=== PATIENT | female | born 1950 | race Two or more races ===

== ENCOUNTER 2024-01-17 13:44 | Inpatient (IN) | payer MEDICAID, SELFPAY ==
[2024-01-17] VITALS (13 sets, daily range): BP systolic 149–209; BP diastolic 50–87; PULSE 88–93; RESP 0–28; TEMP 36.8–37.1; O2SAT 94–99; BMI 28.3
--- NOTE | 2024-01-17 14:44 | EKG_ITS ---
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
--- NOTE | 2024-01-17 14:48 | XR_ITS ---
Examination: CT abdomen with intravenous contrast CT pelvis with intravenous contrast 2-D coronal reconstructions 2-D sagittal reconstructions Date and time of exam:January 17, 2024 1551 hrs. Indications: Generalized abdominal pain nausea vomiting today. CTDI: vol (mGy) 10 DLP: (mGycm) 540 Technique: Multiple axial sections of the abdomen and pelvis have been obtained. 64 slice high-resolution scanner used. 3 mm axial sections have been obtained, post intravenous injection 60 cc [id number] 2-D sagittal, coronal reconstructions obtained. Low dose protocols were performed. One or more of the following dose reduction techniques were used; automated exposure control, adjustment of the mA and/or KV according to patient size, use of iterative reconstruction technique. Findings: Large right pleural effusion mild left pleural effusion No focal liver or splenic lesions Suspicious for small stones versus gallbladder sludge Atrophic kidneys Heavy vascular calcification Abundant stool in the colon No diverticulitis Atrophic uterus Marked thickening of the rectal wall with marked inflammatory change contracted urinary bladder with marked urinary bladder wall thickening Diffuse thickening of the iliopsoas muscle including anterior to the left hip Severe osteopenia Impression: Large right pleural effusion Recommend hepatobiliary sonography follow-up Atrophic kidneys Marked abnormal thickening of the rectal wall with perirectal inflammatory change, differential would include proctitis, rectal tumor, recommend direct inspection Diffuse thickening of the left iliopsoas muscle, differential would include infectious mass, hematoma, less likely tumor infiltration but not excluded, clinical correlation advised, recommend MRI pelvis upper thigh follow-up Cystitis pattern
[2024-01-17] MEDS: fentaNYL CIT INJ 50 mCg/ML AMP 2ML 25 MCG IV (15:10)
--- NOTE | 2024-01-17 15:13 | EDNOTE_ITS ---
ED Abdominal Pain RME/HPI General Chief Complaint: Shortness of Breath/Dyspnea Stated complaint: SOB Time seen by provider: 01/17/24 13:55 Arrival date/time: 01/17/24 13:44 RME / HPI RME / HPI narrative: HPI Communication: Professional remote translation services were utilized for this conversation. The patient speaks Mohawk. Patient: 73-year-old female presenting to the emergency department by ambulance. Chief Complaint: Severe left lower quadrant abdominal pain since last night. Crampy in nature and cannot identify any aggravating or alleviating factors History: * The pain began last night and is associated with nausea, vomiting, and diarrhea. * The patient denies any recent travel, sick contacts, or use of antibiotics. * She has not taken any medication for her pain. * Her past medical history includes diabetes and hypertension. * The patient noted that her blood pressure was high at home. * She reports vomiting her medications this morning. Related Data Home Medications ?Medication ?Instructions ?Recorded ?Confirmed calcium acetate(phosphat bind) 667 667 mg PO TIDWM 06/08/23 06/08/23 mg tablet mirtazapine 15 mg tablet 15 mg PO HS 06/08/23 06/08/23 vitamin B complex-vitamin C-folic 0.8 tab PO QDAY 06/08/23 06/08/23 acid 0.8 mg tablet (Carmel-Sanjana) Previous Rx's ?Medication ?Instructions ?Recorded atorvastatin 40 mg tablet 40 mg PO QPM #30 tabs 08/12/22 ferric citrate 210 mg iron tablet 210 mg PO QDAY #30 tabs 08/12/22 (Auryxia) pen needle, diabetic 31 gauge x #100 ea 08/12/2205/02 (Comfort EZ Pen Elliott) sertraline 100 mg tablet 100 mg PO HS 1 month #30 tabs 08/12/22 albuterol sulfate 90 mcg/actuation 2 puff inhalation QID PRN 07/24/23 aerosol inhaler (Ventolin HFA) shortness of breath or wheezing #8.5 grams hydralazine 100 mg tablet 100 mg PO TID 60 days #180 tabs 12/06/23 carvedilol 12.5 mg tablet 25 mg (2 x 12.5 mg) PO BIDWM #60 12/08/23 tabs valsartan 160 mg tablet 160 mg PO BID #60 tabs 12/08/23 clonidine 0.2 mg/24 hr weekly 0.2 mg topical Q7D #4 ea 12/10/23 transdermal patch spironolactone 50 mg tablet 50 mg PO BID #60 tabs 12/10/23 apixaban 5 mg tablet (Eliquis) 5 mg PO BID #30 tabs 12/11/23 nifedipine 60 mg tablet,extended 60 mg PO BID #30 tabs 12/11/23 release 24 hr Allergies Allergy/AdvReac Type Severity Reaction Status Date / Time No Known Allergies Allergy Verified 09/09/23 14:45 Course Quality Measures none Orders Category Date Time Status CT Screening NOW Care 01/17/24 14:48 Active EKG (ED ONLY) *Do not use* NOW Care 01/17/24 14:[address] abdomen pelvis w con Stat Exams 01/17/24 14:48 Completed EKG (ED Only) Stat Exams 01/17/24 14:44 Draft CBC Stat Lab 01/17/24 15:11 Completed Comprehensive Metabolic Panel Stat Lab 01/17/24 15:11 Completed Magnesium Stat Lab 01/17/24 15:11 Completed Troponin I Stat Lab 01/17/24 15:11 Completed Troponin I Stat Lab 01/17/24 17:41 Completed fentaNYL INJ [Sublimaze Inj] Med 01/17/24 14:44 Discontinued 25 mcg IV X1 ONE hydrALAZINE HCL [Apresoline] Med 01/17/24 14:44 Discontinued 10 mg PO X1 ONE Vital Signs Vital signs: Vital Signs Temperature 98.8 F 01/17/24 13:55 Pulse Rate 90 01/17/24 13:55 Respiratory Rate 28 H 01/17/24 13:55 Blood Pressure 209/76 H 01/17/24 13:55 Pulse Oximetry (%) 99 01/17/24 13:55 Oxygen Delivery Method Room Air 01/17/24 13:55 Abdominal Pain [facility] Patient data External records reviewed:: [facility] previous records Clinical information provided by:: patient and EMS Social determinants that could affect healthcare access:: none Patient has the following chronic illnesses:: Patient is a very poor historian. How is presenting disease/condition affected by chronic disease/condition?: caused by Evaluation data The following diagnostics were reviewed and interpreted by me:: lab results Lab and/or radiology exams considered but not ordered:: See MDM Interpretation Summary: See MDM Medications / Prescriptions Medications or Prescriptions considered but not ordered:: Not applicable Medication administrations:: Medication Administration History Discontinued Medications Fentanyl Citrate (Fentanyl Cit Inj 50 Mcg/Ml Amp 2ml) 25 mcg IV X1 ONE Stop: 01/17/24 14:45 Last Admin: 01/17/24 15:10 Dose: 25 mcg Documented By: LEXI Hydralazine HCl (Hydralazine Hcl 10 Mg Tablet) 10 mg PO X1 ONE Stop: 01/17/24 14:45 Last Admin: 01/17/24 15:22 Dose: 10 mg Documented By: Noted Consultations Consultation(s) initiated? (list below): No Diagnosis Differential diagnosis abdominal pain: abdominal pain Most likely diagnosis given after review of the tests above:: CAD diagnose Admission Indicated Admission indicated?: not indicated Admission Request Was there a request for admission?: No Disposition Plan Disposition Plan: Discharge Discharge Attestation Discharge Attestation: The patient and all family members were given an opportunity to ask questions an d understood the discharge instructions. Discharge instructions specifically effects, indications for sooner follow up or return to the emergency department, and the expected course of current diagnosis. Patient condition: Stable Discharge Plan Plan Facility Pt Being Transferred to: Other-Specify in comment Disposition Comment: Care was transitioned to Dr. Finn Patient condition on transfer: Stable Prescriptions/Referrals Prescriptions/Med Rec: No Action (DME) pen needle, diabetic [Comfort EZ Pen Elliott] 31 gauge x 3/16 needle See Rx Instructions .Route Qty: 100 0RF Rx Instructions: As directed atorvastatin 40 mg tablet 40 mg PO QPM Qty: 30 0RF sertraline 100 mg Tablet 100 mg PO HS 30 Days Qty: 30 0RF Auryxia 210 mg iron tablet 210 mg PO QDAY Qty: 30 0RF Rx Instructions: administer with a meal calcium acetate(phosphat bind) 667 mg tablet 667 mg PO TIDWM Patient Comments: TAKE 1 TABLET BY MOUTH THREE TIMES DAILY Carmel-Sanjana 0.8 mg tablet 0.8 tab PO QDAY Patient Comments: TAKE 1 TABLET BY MOUTH ONCE DAILY FOR 90 DAYS mirtazapine 15 mg tablet 15 mg PO HS hydralazine 100 mg tablet 100 mg PO TID 60 Days Qty: 180 0RF carvedilol 12.5 mg Tablet 25 mg PO BIDWM Qty: 60 0RF valsartan 160 mg tablet 160 mg PO BID Qty: 60 0RF spironolactone 50 mg tablet 50 mg PO BID Qty: 60 0RF clonidine 0.2 mg/24 hr patch weekly 0.2 mg topical Q7D Qty: 4 0RF nifedipine 60 mg tablet extended release 24hr 60 mg PO BID Qty: 30 0RF Eliquis 5 mg tablet 5 mg PO BID Qty: 30 0RF albuterol sulfate [Ventolin HFA] 90 mcg/actuation HFA aerosol inhaler 2 puff inhalation QID PRN (Reason: shortness of breath or wheezing) Qty: 8.5 0RF Referrals: Carlos Saunders MD [Primary Care Provider] - In 1 week Problem List Clinical Impression: Abdominal pain Patient/Caregiver Discharge Instructions Print Language: Mohawk
[2024-01-17 15:21] LABS: Basophils # (Auto) 0.1 Thou/mm3 (0.0-0.2); Basophils % (Auto) 1 % (0-2.5); Eosinophils % (Auto) 0 % (0-10); Hematocrit 34.2 % (36.0-46.0); Hemoglobin 11.2 g/dL (12.0-16.0); Immature Granulocytes % (Auto) 0 % (0-0); Immature Granulocytes Auto 0.02 Thou/mm3 (0.00-0.00); Lymphocytes # (Auto) 0.8 Thou/mm3 (1.0-4.8); Lymphocytes % (Auto) 7 % (10-50); Mean Corpuscular HGB Conc 32.7 g/dl (31.0-37.0); Mean Corpuscular Hemoglobin 30.4 pg (25.0-35.0); Mean Corpuscular Volume 93 fL (80-100); Monocytes # (Auto) 0.9 Thou/mm3 (0.0-0.8); Monocytes % (Auto) 8 % (0-12); Neutrophils % (Auto) 84 % (37-80); Nucleated Red Blood Cell % 0 /100 WBC (0); Platelet Count 298 Thou/mm3 (140-440); RDW Standard Deviation 57.1 fL (36.4-46.3); Red Blood Count 3.69 Miln/mm3 (4.00-5.20); White Blood Count 10.8 Thou/mm3 (3.6-11.0)
[2024-01-17] MEDS: hydrALAZINE HCL 10 MG TABLET PO (15:22)
[2024-01-17 15:51] LABS: Alanine Aminotransferase 8 U/L (10-49); Albumin, Serum 4.4 gm/dL (3.4-4.8); Albumin/Globulin Ratio 1.5 (1.2-2.2); Alkaline Phosphatase 153 U/L (46-116); Anion Gap 9 (7-16); Aspartate Amino Transferase 22 U/L (0-34); BUN/Creatinine Ratio 8 Ratio (12-20); Bilirubin,Total 0.2 mg/dL (0.3-1.2); Blood Urea Nitrogen 36 mg/dL (9-23); Calcium 9.9 mg/dL (8.3-10.6); Calcium (Corrected) 9.9 mg/dL (8.5-10.1); Carbon Dioxide 31.1 mMol/L (20.0-31.0); Chloride 92 mMol/L (98-107); Creatinine (Component) 4.6 mg/dL (0.6-1.3); Estimated Creatinine Clearance 10.6 mL/min (>60); Glucose 130 mg/dL (74-106); Magnesium 2.2 mg/dL (1.6-2.6); Osmolality,Calculated 274 (275-295); Potassium 4.5 mMol/L (3.4-5.1); Sodium 132 mMol/L (136-145); Total Protein 7.4 gm/dL (5.7-8.2); eGFR 10 See Note
[2024-01-17 15:56] LABS: Troponin I 0.051 ng/mL (0.0-0.045)
[2024-01-17 18:17] LABS: Troponin I 0.047 ng/mL (0.0-0.045)
--- NOTE | 2024-01-17 19:10 | PD.EDABDPN ---
ED Abdominal Pain RME/HPI General Chief Complaint: Shortness of Breath/Dyspnea Stated complaint: SOB Time seen by provider: 01/17/24 13:55 Arrival date/time: 01/17/24 13:44 RME / HPI RME / HPI narrative: Care assumed from Dr. Lewis at change of shift. 73-year-old female patient complaining of multiple episodes of vomiting throughout the day today with associated left lower quadrant abdominal pain. Received fentanyl 25mcg and hydralazine 10 mg per previous provider. Still c/o pain. Blood pressure still elevated. Denies fever. c/o SOB which happens often. Related Data Home Medications ?Medication ?Instructions ?Recorded ?Confirmed calcium acetate(phosphat bind) 667 667 mg PO TIDWM 06/08/23 06/08/23 mg tablet mirtazapine 15 mg tablet 15 mg PO HS 06/08/23 06/08/23 vitamin B complex-vitamin C-folic 0.8 tab PO QDAY 06/08/23 06/08/23 acid 0.8 mg tablet (Carmel-Sanjana) Previous Rx's ?Medication ?Instructions ?Recorded atorvastatin 40 mg tablet 40 mg PO QPM #30 tabs 08/12/22 ferric citrate 210 mg iron tablet 210 mg PO QDAY #30 tabs 08/12/22 (Auryxia) pen needle, diabetic 31 gauge x #100 ea 08/12/2205/02 (Comfort EZ Pen [place]) sertraline 100 mg tablet 100 mg PO HS 1 month #30 tabs 08/12/22 albuterol sulfate 90 mcg/actuation 2 puff inhalation QID PRN 07/24/23 aerosol inhaler (Ventolin HFA) shortness of breath or wheezing #8.5 grams hydralazine 100 mg tablet 100 mg PO TID 60 days #180 tabs 12/06/23 carvedilol 12.5 mg tablet 25 mg (2 x 12.5 mg) PO BIDWM #60 12/08/23 tabs valsartan 160 mg tablet 160 mg PO BID #60 tabs 12/08/23 clonidine 0.2 mg/24 hr weekly 0.2 mg topical Q7D #4 ea 12/10/23 transdermal patch spironolactone 50 mg tablet 50 mg PO BID #60 tabs 12/10/23 apixaban 5 mg tablet (Eliquis) 5 mg PO BID #30 tabs 12/11/23 nifedipine 60 mg tablet,extended 60 mg PO BID #30 tabs 12/11/23 release 24 hr Allergies Allergy/AdvReac Type Severity Reaction Status Date / Time No Known Allergies Allergy Verified 09/09/23 14:45 Review of Systems Review of Systems Narrative Review of Systems: CONST: Negative for fever, body aches and chills. HENT: Negative for neck pain/stiffness, headache, congestion, sore throat, swelling. EYES: Negative for discharge/pain or vision changes. RESP: Negative for cough/hemoptysis and shortness of breath. CV: Negative chest pain, difficulty breathing, palpitations. ABD: pain, nausea, vomiting. : Negative increase frequency, dysuria, blood in urine or stool. MUSC: Negative for muscle aches, edema. SKIN: Negative rash, lesions/sores. NEURO: Negative headache, dizziness, weakness. ED Exam Narrative Physical exam: GENERAL APPEARANCE: alert and oriented x 4 HEENT: Normocephalic, atraumatic; pupils equal, round, reactive to light; EOMI; mucous membranes pink, moist; oropharynx clear NECK: Supple LUNGS: Tachypneic, fine crackles, decreased breath sounds right lower lung clemons HEART: Regular rate, regular rhythm; normal S1, S2; no murmurs ABDOMEN: non distended; normal BS; soft, LLQ tenderness, mild guarding, no rebound; no masses, no organomegaly, no hernia BACK: no CVA tenderness EXTREMITIES: atraumatic; no edema NEUROLOGIC: awake; alert and oriented x4; cranial nerves II-XII grossly intact; no focal sensory or motor deficits PSYCHIATRIC: appropriate mood and affect SKIN: warm, dry, pallor; no rashes Course Quality Measures none Orders Category Date Time Status Admit to Inpatient Status Routine Admission 01/17/24 20:59 Active Patient Condition Routine Admission 01/17/24 20:59 Ordered Bedside COVID-19 Antigen Test NOW Care 01/17/24 21:[address] Screening NOW Care 01/17/24 14:48 Active EKG (ED ONLY) *Do not use* NOW Care 01/17/24 14:45 Completed Notify provider NEEDED Care 01/17/24 20:59 Active Obtain weight NOW Care 01/17/24 20:59 Active Sequential Compression Device QSHIFT Care 01/17/24 21:04 Active Consult to Nephrology Stat Cons 01/17/24 21:15 Ordered Diet Renal Diet 01/17/[address] abdomen pelvis w con Stat Exams 01/17/24 14:48 Completed EKG (ED Only) Stat Exams 01/17/24 14:44 Draft XR chest 1V portable Stat Exams 01/17/24 19:18 Completed Blood Culture (Lab) Routine Lab 01/17/24 21:35 Received CBC AM DRAW Lab 01/18/24 05:00 Ordered CBC AM DRAW Lab 01/19/24 05:00 Ordered CBC AM DRAW Lab 01/20/24 05:00 Ordered CBC Stat Lab 01/17/24 15:11 Completed Comprehensive Metabolic Panel AM DRAW Lab 01/18/24 05:00 Ordered Comprehensive Metabolic Panel AM DRAW Lab 01/19/24 05:00 Ordered Comprehensive Metabolic Panel AM DRAW Lab 01/20/24 05:00 Ordered Comprehensive Metabolic Panel Stat Lab 01/17/24 15:11 Completed Magnesium AM DRAW Lab 01/18/24 05:00 Ordered Magnesium AM DRAW Lab 01/19/24 05:00 Ordered Magnesium AM DRAW Lab 01/20/24 05:00 Ordered Magnesium Stat Lab 01/17/24 15:11 Completed Phosphorous AM DRAW Lab 01/18/24 05:00 Ordered Phosphorous AM DRAW Lab 01/19/24 05:00 Ordered Phosphorous AM DRAW Lab 01/20/24 05:00 Ordered Troponin I Stat Lab 01/17/24 15:11 Completed Troponin I Stat Lab 01/17/24 17:41 Completed Acetaminophen Tab [Tylenol Tab] Med 01/17/24 20:59 Active 650 mg PO Q6H PRN Acetaminophen Tab [Tylenol Tab] Med 01/17/24 21:04 Active 650 mg PO Q6H PRN Heparin Inj Med 01/18/24 06:00 Active 5,000 unit SC Q8HR Morphine Inj Med 01/17/24 19:14 Discontinued 5 mg IVP X1 ONE Ondansetron Inj [Zofran Inj] Med 01/17/24 21:04 Active 4 mg IV Q6H PRN Ondansetron Inj [Zofran Inj] Med 01/17/24 19:14 Discontinued 4 mg IV X1 ONE Pantoprazole Inj [Protonix Inj] Med 01/18/24 09:00 Active 40 mg IVP QDAY Piper/Tazo 2.25 gm [Zosyn] Med 01/17/24 19:15 Discontinued 2.25 gm in 50 ml IV X1 Piper/Tazo Inj [Zosyn Inj] 3.375 gm Med 01/17/24 20:21 Discontinued Sodium Chloride 0.9% (P) [Ns 0.9% (P)] 50 ml IV X1 Piperacillin/Tazo 2.25GM Inj [Zosyn Inj] 2.25 gm Med 01/18/24 06:00 Ordered Sodium Chloride 0.9% (P) [Ns 0.9% (P)] 50 ml IV Q6HR Senna [Senokot] Med 01/18/24 09:00 Active 1 tab PO QDAY cloNIDine HCL [Catapres] Med 01/17/24 19:17 Discontinued 0.2 mg PO X1 ONE fentaNYL INJ [Sublimaze Inj] Med 01/17/24 14:44 Discontinued 25 mcg IV X1 ONE hydrALAZINE HCL [Apresoline] Med 01/17/24 14:44 Discontinued 10 mg PO X1 ONE oxyCODONE/APAP 5/325 [Percocet 5/325] Med 01/17/24 21:04 Active 1 tab PO Q6H PRN Code Status Routine Oth 01/17/24 20:59 Ordered Oxygen Delivery DAILY RT 01/17/24 21:03 Active Vital Signs Vital signs: Vital Signs Temperature 98.8 F 01/17/24 13:55 Pulse Rate 90 01/17/24 13:55 Respiratory Rate 28 H 01/17/24 13:55 Blood Pressure 209/76 H 01/17/24 13:55 Pulse Oximetry (%) 99 01/17/24 13:55 Oxygen Delivery Method Room Air 01/17/24 13:55 Abdominal Pain MDM Patient data External records reviewed:: [facility] previous records Clinical information provided by:: patient Social determinants that could affect healthcare access:: none Patient has the following chronic illnesses:: ESRD on HD, HTN, DM How is presenting disease/condition affected by chronic disease/condition?: uneffected by Evaluation data The following diagnostics were reviewed and interpreted by me:: lab results, radiology exam(s) and EKG tracing(s) Lab and/or radiology exams considered but not ordered:: None Interpretation Summary: Blood glucose slightly elevated at 130. BUN/creatinine consistent with ESRD. Reviewed CT abdomen pelvis and agree with radiologist interpretation. Medications / Prescriptions Medications or Prescriptions considered but not ordered:: None Medication administrations:: Medication Administration History Acetaminophen (Acetaminophen 325 Mg Tablet) 650 mg PO Q6H PRN PRN Reason: Fever >101.5 Stop: 02/16/24 20:58 Acetaminophen (Acetaminophen 325 Mg Tablet) 650 mg PO Q6H PRN PRN Reason: PAIN SCALE 1-3 (mild Stop: 02/16/24 21:03 Heparin Sodium (Porcine) (Heparin Sod Inj 5000 Unit/Ml Vial) 5,000 unit SC Q8HR [facility] Stop: 02/01/24 05:59 Piperacillin Sod/Tazobactam (Sod 2.25 gm/ Sodium Chloride) 50 mls @ 100 mls/hr IV Q6HR [facility] Stop: 01/25/24 05:59 Ondansetron HCl (Ondansetron Inj 2 Mg/Ml Inj 2 Ml) 4 mg IV Q6H PRN; Protocol PRN Reason: NAUSEA OR VOMITING Stop: 02/16/24 21:03 Oxycodone/Acetaminophen (Oxycodone/Apap 5/325 Tablet) 1 tab PO Q6H PRN PRN Reason: Pain Scale 5-10 Stop: 01/22/24 21:03 Pantoprazole Sodium (Pantoprazole Inj 40 Mg Vial) 40 mg IVP QDAY [facility] Stop: 02/17/24 08:59 Sennosides (Senna Tablet) 1 tab PO QDAY [facility]; Protocol Stop: 02/17/24 08:59 Discontinued Medications Clonidine (Clonidine Hcl 0.1 Mg Tablet) 0.2 mg PO X1 ONE Stop: 01/17/24 19:18 Last Admin: 01/17/24 19:44 Dose: 0.2 mg Documented By: DB Fentanyl Citrate (Fentanyl Cit Inj 50 Mcg/Ml Amp 2ml) 25 mcg IV X1 ONE Stop: 01/17/24 14:45 Last Admin: 01/17/24 15:10 Dose: 25 mcg Documented By: RD Hydralazine HCl (Hydralazine Hcl 10 Mg Tablet) 10 mg PO X1 ONE Stop: 01/17/24 14:45 Last Admin: 01/17/24 15:22 Dose: 10 mg Documented By: Piperacillin/Tazobactam/Dextrose (Zosyn) 2.25 gm in 50 mls @ 100 mls/hr IV X1 ONE Stop: 01/17/24 19:44 Last Admin: 01/17/24 20:23 Dose: Not Given Documented By: LAILA Non-Admin Reason: Discontinued Piperacillin Sod/Tazobactam (Sod 3.375 gm/ Sodium Chloride) 50 mls @ 100 mls/hr IV X1 ONE Stop: 01/17/24 20:50 Last Infusion: 01/17/24 21:19 Dose: Infused Documented By: Admin: 01/17/24 20:31 Dose: 100 mls/hr Documented By: GABINO Morphine Sulfate (Morphine Sulf Inj 10 Mg/Ml Vial) 5 mg IVP X1 ONE Stop: 01/17/24 19:15 Last Admin: 01/17/24 19:41 Dose: 5 mg Documented By: GABINO Ondansetron HCl (Ondansetron Inj 2 Mg/Ml Inj 2 Ml) 4 mg IV X1 ONE; Protocol Stop: 01/17/24 19:15 Last Admin: 01/17/24 19:41 Dose: 4 mg Documented By: GABINO As above Consultations Consultation(s) initiated? (list below): No Diagnosis Differential diagnosis abdominal pain: abdominal pain, acute appendicitis, calculus of kidney, constipation and diverticulitis Most likely diagnosis given after review of the tests above:: Colitis, proctitis Admission Indicated Admission indicated?: indicated Admission Request Was there a request for admission?: Yes Admission Attestation Admission request attestation: Discussed case with [] from Hospitalist service regarding admission. Discussed patients ED course, exam findings, labs, and radiology results. The Hospitalist [agrees,declines] to accept the patient for admission. Disposition Plan Disposition Plan: Admit Discharge Plan Plan Patient Disposition: Admit Acute Care w/in Hospital Disposition Comment: Dr. Best Patient condition on transfer: Stable Prescriptions/Referrals Prescriptions/Med Rec: No Action (DME) pen needle, diabetic [Comfort EZ Pen [place]] 31 gauge x 3/16 needle See Rx Instructions .Route Qty: 100 0RF Rx Instructions: As directed atorvastatin 40 mg tablet 40 mg PO QPM Qty: 30 0RF sertraline 100 mg Tablet 100 mg PO HS 30 Days Qty: 30 0RF Auryxia 210 mg iron tablet 210 mg PO QDAY Qty: 30 0RF Rx Instructions: administer with a meal calcium acetate(phosphat bind) 667 mg tablet 667 mg PO TIDWM Patient Comments: TAKE 1 TABLET BY MOUTH THREE TIMES DAILY Carmel-Sanjana 0.8 mg tablet 0.8 tab PO QDAY Patient Comments: TAKE 1 TABLET BY MOUTH ONCE DAILY FOR 90 DAYS mirtazapine 15 mg tablet 15 mg PO HS hydralazine 100 mg tablet 100 mg PO TID 60 Days Qty: 180 0RF carvedilol 12.5 mg Tablet 25 mg PO BIDWM Qty: 60 0RF valsartan 160 mg tablet 160 mg PO BID Qty: 60 0RF spironolactone 50 mg tablet 50 mg PO BID Qty: 60 0RF clonidine 0.2 mg/24 hr patch weekly 0.2 mg topical Q7D Qty: 4 0RF nifedipine 60 mg tablet extended release 24hr 60 mg PO BID Qty: 30 0RF Eliquis 5 mg tablet 5 mg PO BID Qty: 30 0RF albuterol sulfate [Ventolin HFA] 90 mcg/actuation HFA aerosol inhaler 2 puff inhalation QID PRN (Reason: shortness of breath or wheezing) Qty: 8.5 0RF Referrals: Carlos Saunders MD [Primary Care Provider] - In 1 week Problem List Clinical Impression: Abdominal pain, Acute proctitis, Pleural effusion on right, Dyspnea, ESRD (end stage renal disease) on dialysis, Anuria, Hypertensive urgency Patient/Caregiver Discharge Instructions Print Language: Persian Stand Alone Forms: Renay Award Info., Patient Portal Info Letter
--- NOTE | 2024-01-17 19:18 | XR_ITS ---
Examination: AP chest single view Technique: AP portable semiupright chest single view Exam date and time: January 17, 2024 1931 hrs. Indications: Shortness of breath chest pain today. Findings: Moderate CHF Mild to moderate enlargement cardiac contour Vascular congestion with perihilar edema Consider superimposed pneumonia right lung Moderate to large bilateral pleural effusions Impression: Moderate CHF Consider superimposed pneumonia right lung
[2024-01-17] MEDS: MORPHINE SULF INJ 10 MG/ML VIAL 5 MG IVP (19:41)
[2024-01-17] MEDS: ONDANSETRON INJ 2 MG/ML INJ 2 ML 4 MG IV (19:41)
[2024-01-17] MEDS: cloNIDine HCL 0.1 MG TABLET 0.2 MG PO (19:44)
[2024-01-17] MEDS: PIPER/TAZO INJ 3.375 GM in SODIUM CHLORIDE 0.9% (P) 50 ML IV (20:31)
--- NOTE | 2024-01-17 21:14 | PD.RESHP ---
Documentation for date of: 01/17/24 [facility] History of Present Illness History of present illness: This is a 73-year-old wheelchair-bound female with PMHx of HTN, IDDM, HLD, HFpEF EF 55-60% 11/2023, ESRD on HD MWF, chronic normocytic anemia, chronic respiratory failure on 3 L home oxygen, depression, anxiety presented to ED with LLQ pain and vomiting. Patient for several days of vomiting and worsening left lower quadrant pain. Pain is persistent, stabbing in nature, rated 10/10, worse with movement and left hip flexion, unrelated to eating. Additionally, patient has been complaining of worsening shortness of breath over the last couple days without cough or chest pain in spite of using home oxygen. She denies fall, trauma, fever, headaches, changes in bowel habits, constipation or diarrhea, bloody stool, weight loss, vaginal discharge, dysuria or hematuria ED COURSE: Afebrile, BP 169/44, HR 88, RR 19, satting 98% on 2 L NC Hgb 11.2 otherwise CBC relatively normal CR 4.6, BUN 36, GLUCOSE 130 Troponin 0.051 then 0.047, EKG without acute ST changes Patient completed HD in ED with 3 L fluid removed CXR after hemodialysis showed CHF pattern, vascular congestion with perihilar edema, moderate to large bilateral pleural effusion, possible pneumonia of right lung CT abdominal pelvis showed large right pleural effusion, thickened rectal wall and perirectal inflammation, possible proctitis or rectal tumor, thickened left iliopsoas muscle possibly related to infectious mass versus hematoma versus less likely tumor. Patient started on 2 L oxygen, SOB improved. Patient also started on ZOSYN and pain control. Will admit patient to telemetry given elevated troponin for close monitoring and further management. PMHx: HTN, IDDM, HLD, HFpEF EF 55-60% 11/2023, ESRD on HD MWF, chronic normocytic anemia, chronic respiratory failure on 3 L home oxygen, depression, anxiety PSHx: Distant tubal ligation Meds: Pending med rec's Allergies: NKA SH: denies tobacco/alcohol/drugs Exam Vital Signs Temp Pulse Resp BP Pulse Ox O2 Del Method O2 Flow Rate 98.2 F 91 12 151/61 H 95 Room Air 2 01/17/24 19:39 01/17/24 20:48 01/17/24 20:48 01/17/24 20:48 01/17/24 20:48 01/17/24 19:39 01/17/24 18:34 Narrative Exam GENERAL: Normal appearing adult female, NAD, on nasal cannula HEENT: NCAT.?MELVA. Oral mucosa is moist. Patent Nares NECK: Supple, nontender, no thyromegaly, no meningismus, no JVD, no step offs CHEST: Symmetrical, atraumatic, and with equal expansion, Nontender on palpation no deformity and no crepitus. CARDIOVASCULAR: RRR, no m/g/r LUNGS: CTAB, no w/r/r. Symmetrical chest rise. No intercostal subcostal retraction. ABDOMEN: Soft, flat. +BS. Tenderness to palpation over left lower quadrant, pain reproducible with left hip flexion, no mass or hernia noted, no overlying skin erosions or rashes. EXTREMITIES: Nontender.? No edema/cyanosis.?Moves all 4 extremities well, with full ROM and good CSM. SKIN: Warm and dry, no jaundice/rashes. MSK: No lumbar or midline, no CVA, no paraspinal muscle spasm or tenderness. NEURO: HARDIN x4, CN II-XII grossly intact.?No focal neurologic deficits. PSYCHIATRIC: Normal mood and affect, cooperative, no SI or HI or hallucinations. Results: Labs 01/17/24 15:11 01/17/24 15:11 Labs: Short CBC 01/17/24 Range/Units 15:11 WBC 10.8 (3.6-11.0) Thou/mm3 Hgb 11.2 L (12.0-16.0) g/dL Hct 34.2 L (36.0-46.0) % Plt Count 298 D (140-440) Thou/mm3 BMP 01/17/24 15:11 Sodium 132 L Potassium 4.5 Chloride 92 L Carbon Dioxide 31.1 H BUN 36 H Creatinine 4.6 H* Glucose 130 H Calcium 9.9 Cardiac Enzymes 01/17/24 01/17/24 Range/Units 15:11 17:41 Troponin I 0.051 H* 0.047 H* (0.0-0.045) ng/mL Liver Function 01/17/24 Range/Units 15:11 Total Bilirubin 0.2 L (0.3-1.2) mg/dL AST 22 (0-34) U/L ALT 8 L (10-49) U/L Alkaline Phosphatase 153 H (46-116) U/L Albumin 4.4 (3.4-4.8) gm/dL Quality Measures Quality Measures none Advance care planning discussed with:: patient Medications Home Medications and Allergies Home Medications ?Medication ?Instructions ?Recorded ?Confirmed ?Type calcium acetate(phosphat bind) 667 667 mg PO TIDWM 06/08/23 01/18/24 History mg tablet mirtazapine 15 mg tablet 15 mg PO HS 06/08/23 01/18/24 History vitamin B complex-vitamin C-folic 0.8 tab PO QDAY 06/08/23 01/18/24 History acid 0.8 mg tablet (Carmel-Sanjana) Allergies Allergy/AdvReac Type Severity Reaction Status Date / Time No Known Allergies Allergy Verified 09/09/23 14:45 Visit Medications Acetaminophen (Acetaminophen 325 Mg Tablet) 650 mg PO Q6H PRN PRN Reason: Fever >101.5 Stop: 02/16/24 20:58 Acetaminophen (Acetaminophen 325 Mg Tablet) 650 mg PO Q6H PRN PRN Reason: PAIN SCALE 1-3 (mild Stop: 02/16/24 21:03 Heparin Sodium (Porcine) (Heparin Sod Inj 5000 Unit/Ml Vial) 5,000 unit SC Q8HR [facility] Stop: 02/01/24 05:59 Piperacillin Sod/Tazobactam (Sod 2.25 gm/ Sodium Chloride) 50 mls @ 100 mls/hr IV Q6HR JANINE Stop: 01/25/24 05:59 Ondansetron HCl (Ondansetron Inj 2 Mg/Ml Inj 2 Ml) 4 mg IV Q6H PRN; Protocol PRN Reason: NAUSEA OR VOMITING Stop: 02/16/24 21:03 Oxycodone/Acetaminophen (Oxycodone/Apap 5/325 Tablet) 1 tab PO Q6H PRN PRN Reason: Pain Scale 5-10 Stop: 01/22/24 21:03 Pantoprazole Sodium (Pantoprazole Inj 40 Mg Vial) 40 mg IVP QDAY JANINE Stop: 02/17/24 08:59 Sennosides (Senna Tablet) 1 tab PO QDAY JANINE; Protocol Stop: 02/17/24 08:59 Discontinued Medications Clonidine (Clonidine Hcl 0.1 Mg Tablet) 0.2 mg PO X1 ONE Stop: 01/17/24 19:18 Last Admin: 01/17/24 19:44 Dose: 0.2 mg Fentanyl Citrate (Fentanyl Cit Inj 50 Mcg/Ml Amp 2ml) 25 mcg IV X1 ONE Stop: 01/17/24 14:45 Last Admin: 01/17/24 15:10 Dose: 25 mcg Hydralazine HCl (Hydralazine Hcl 10 Mg Tablet) 10 mg PO X1 ONE Stop: 01/17/24 14:45 Last Admin: 01/17/24 15:22 Dose: 10 mg Piperacillin/Tazobactam/Dextrose (Zosyn) 2.25 gm in 50 mls @ 100 mls/hr IV X1 ONE Stop: 01/17/24 19:44 Last Admin: 01/17/24 20:23 Dose: Not Given Piperacillin Sod/Tazobactam (Sod 3.375 gm/ Sodium Chloride) 50 mls @ 100 mls/hr IV X1 ONE Stop: 01/17/24 20:50 Last Admin: 01/17/24 20:31 Dose: 100 mls/hr Morphine Sulfate (Morphine Sulf Inj 10 Mg/Ml Vial) 5 mg IVP X1 ONE Stop: 01/17/24 19:15 Last Admin: 01/17/24 19:41 Dose: 5 mg Ondansetron HCl (Ondansetron Inj 2 Mg/Ml Inj 2 Ml) 4 mg IV X1 ONE; Protocol Stop: 01/17/24 19:15 Last Admin: 01/17/24 19:41 Dose: 4 mg Assessment & Plan Plan In summary: 73-year-old wheelchair-bound female with PMHx of HTN, IDDM, HLD, HFpEF EF 55-60% 11/2023, ESRD on HD MWF, chronic normocytic anemia, chronic respiratory failure on 3 L home oxygen, depression, anxiety presented to ED with LLQ pain and vomiting, admitted for Psoas tendinitis, bilateral pleural effusion and interstitial edema. Patient started on ZOSYN and pain control. Will continue hemodialysis with Dr. Edge who was consulted. Will consider thoracentesis with fluid analysis to be done on Friday. # Psoas tendinitis versus proctitis/colitis #? Cystitis Present with 2 days of LLQ pain, worse with movement and hip flexion LLQ tenderness with guarding on exam CT showed thickened left iliopsoas suggestive of infectious mass or hematoma or less likely tumor, cystitis pattern also present Patient anuric, but denies vaginal discharge or foul smell or dysuria Currently afebrile, no leukocytosis ? Continue ZOSYN 2.25 mg q.6h. (renally dosed) ? Pain control ? Recommended GI referral for ? Rectal mass seen on CT, patient has not had colonoscopy previously #? CHF Exacerbation # HFpEF EF 55-60% 11/2023 # Bilateral pleural effusion # Bilateral interstitial edema, moderate to large # Chronic respiratory failure on home 3L O2 Presented with worsening SOB, signs of volume overload including rales on exam and 1.5 bilateral LE edema S/p 3L fluid removal with HD F/U CXR showed moderate to large bilateral pleural effusion, CT showed large right pleural effusion Currently satting upper 90s on 1.5 L NC ? Continue home CARVEDILOL 25 mg BID ? Strict RUTH's, fluid restriction less than 1200 cc daily ? Oxygen PRN ? Anticipate improvement with hemodialysis ? Consider thoracentesis for Friday with fluid analysis # ESRD HD MWF # Chronic normocytic anemia Patient of Dr. Edge's, HD done yesterday, 3 L fluid removed BUN/creatinine 36/4.6 near baseline, GFR of 10 at baseline Hgb 11.2 at baseline ? Nephrology consulted, will continue hemodialysis as scheduled ? Renally dose meds, avoid NEPHROTOXINS # Transient troponinemia ? improving Likely demand ischemia in settings increased oxygen demand Troponin 0.051 then 0.047, patient otherwise symptomatic without chest pain ? Continue to monitor # IDDM Well-controlled, GLUCOSE 130, 07/2023 A1c 5.1 ? Accu-Cheks ? INSULIN glargine 10 units HS ? INSULIN sliding scale # Hypertensive emergency ? resolved # History of resistant hypertension # Hx of HTN Volume dependent hypertension, 2/2 volume overload Presented with BP 202/87, SOB, troponinemia Resistant hypertension from previous admission, responded to NICARDIPINE and CLONIDINE However, this time BP improved after HD and HYDRALAZINE/CLONIDINE Currently BP 151/61 Will restart meds as below, consider adding additional home meds after med-rec and as indicated ? Anticipate improvement with HD ? Resumed home VALSARTAN 160 mg BID ? Resumed home CLONIDINE 0.1 mg TID ? Resumed home CARVEDILOL 25 mg as above ? Continue HYDRALAZINE 10 mg IV PRN for SBP >180 ? Consider consulting cardiology, Dr. Forrest Consider resuming the following home meds as indicated: ? NIFEDIPINE 60 mg BID ? HYDRALAZINE 100 mg TID # Hx of HLD 07/2023 LDL 74, unclear if patient on statin therapy at home Target LDL <55 given patient is diabetic and with hx of CVD (aortic stenosis, right radial artery stenosis) ? Repeat lipid panel ? 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 Continue home ELIQUIS 5 mg BID # Anxiety # Depression History above, resume home meds ? Pending med rec's Health maintenance Diet: Cardiorenal, fluid restriction <1200 cc daily GI prophylaxis: PROTONIX DVT prophylaxis: ELIQUIS, SCD Antibiotics: ZOSYN CODE STATUS: DNR Disposition: Pending symptomatic improvement, nephro recommendations Patient case was discussed with attending, Dr. Martinez GARRISON and senior resident Dr. Funez. Cindy Vlilalobos DO PGYI Attending Provider Attestation/Addendum 73-year-old female with end-stage renal disease, hypertension, diabetes, congestive heart failure. She presented with left sided groin pain, nausea vomiting and shortness of breath. She has pleural effusion. Also was found to have diffuse decreased perirectal changes. Patient was admitted for further workup.IV antibiotic treatment started. Thoracentesis was ordered.
[2024-01-18] VITALS (27 sets, daily range): BP systolic 137–208; BP diastolic 45–110; PULSE 67–98; RESP 6–31; TEMP 36.6–37.3; O2SAT 93–98; BMI 28.9
[2024-01-18] MEDS: oxyCODONE/APAP 5/325 TABLET 1 TAB PO ×3 (02:27→22:43)
[2024-01-18] MEDS: hydrALAZINE INJ 20 MG/ML VIAL 10 MG IV (04:26)
--- NOTE | 2024-01-18 05:34 | PC.NURSE ---
Addendum entered by Dianne Joy RN 01/18/24 19:32: Dr. Anguiano will not be doing surgery, new order to place pt on LIS. Original Note: Called Dr. Funez regarding patient having elevated bp and pain to left groin, gave hydralazine 10mg IVP x1, doctor will review and place orders.
[2024-01-18] MEDS: VALSARTAN 80 MG TABLET 160 MG PO ×3 (06:00→21:01)
[2024-01-18] MEDS: cloNIDine HCL 0.1 MG TABLET PO (06:01)
[2024-01-18] MEDS: HYDROmorphone INJ 2 MG/ML VIAL 0.5 MG IVP (06:02)
[2024-01-18] MEDS: ONDANSETRON INJ 2 MG/ML INJ 2 ML 4 MG IV ×2 (06:14→22:27)
[2024-01-18 06:55] LABS: Basophils # (Auto) 0.1 Thou/mm3 (0.0-0.2); Basophils % (Auto) 1 % (0-2.5); Eosinophils # (Auto) 0.1 Thou/mm3 (0.0-0.5); Eosinophils % (Auto) 0 % (0-10); Hematocrit 32.7 % (36.0-46.0); Hemoglobin 10.6 g/dL (12.0-16.0); Immature Granulocytes % (Auto) 0 % (0-0); Immature Granulocytes Auto 0.03 Thou/mm3 (0.00-0.00); Lymphocytes # (Auto) 0.8 Thou/mm3 (1.0-4.8); Lymphocytes % (Auto) 7 % (10-50); Mean Corpuscular HGB Conc 32.4 g/dl (31.0-37.0); Mean Corpuscular Hemoglobin 30.3 pg (25.0-35.0); Mean Corpuscular Volume 93 fL (80-100); Monocytes # (Auto) 0.9 Thou/mm3 (0.0-0.8); Monocytes % (Auto) 8 % (0-12); Neutrophils # (Auto) 9.8 Thou/mm3 (1.8-7.7); Neutrophils % (Auto) 84 % (37-80); Nucleated Red Blood Cell % 0 /100 WBC (0); Platelet Count 302 Thou/mm3 (140-440); RDW Standard Deviation 58.3 fL (36.4-46.3); White Blood Count 11.7 Thou/mm3 (3.6-11.0)
[2024-01-18 07:29] LABS: Alanine Aminotransferase 7 U/L (10-49); Albumin, Serum 4.2 gm/dL (3.4-4.8); Albumin/Globulin Ratio 1.4 (1.2-2.2); Alkaline Phosphatase 139 U/L (46-116); Anion Gap 11 (7-16); Aspartate Amino Transferase 25 U/L (0-34); BUN/Creatinine Ratio 8 Ratio (12-20); Bilirubin,Total 0.2 mg/dL (0.3-1.2); Blood Urea Nitrogen 42 mg/dL (9-23); Calcium 9.5 mg/dL (8.3-10.6); Calcium (Corrected) 9.5 mg/dL (8.5-10.1); Carbon Dioxide 29.8 mMol/L (20.0-31.0); Chloride 90 mMol/L (98-107); Creatinine (Component) 5.3 mg/dL (0.6-1.3); Estimated Creatinine Clearance 9.3 mL/min (>60); Globulin 3.1 gm/dL (2.3-3.5); Glucose 138 mg/dL (74-106); Magnesium 2.3 mg/dL (1.6-2.6); Osmolality,Calculated 275 (275-295); Phosphorous 4.1 mg/dL (2.4-5.1); Potassium 5.3 mMol/L (3.4-5.1); Sodium 131 mMol/L (136-145); Total Protein 7.3 gm/dL (5.7-8.2); eGFR 8 See Note
[2024-01-18] MEDS: INSULIN LISPRO (AdmeLOG) 1 UNIT/0.01 ML UNIT SC (07:35)
[2024-01-18] MEDS: carVEDILOL 12.5 MG TABLET 25 MG PO ×2 (07:41→16:35)
[2024-01-18] MEDS: PANTOPRAZOLE INJ 40 MG VIAL IVP (09:49)
[2024-01-18] MEDS: NIFEdipine XL 30 MG TABCR 60 MG PO ×2 (09:49→21:00)
[2024-01-18] MEDS: APIXABAN 2.5 MG TABLET 5 MG PO ×2 (09:49→21:02)
[2024-01-18] MEDS: SENNA TABLET 1 TAB PO (09:50)
[2024-01-18] MEDS: PIPER/TAZO INJ 3.375 GM in SODIUM CHLORIDE 0.9% (P) 100 ML IV ×2 (09:50→21:03)
--- NOTE | 2024-01-18 11:17 | EKG_ITS ---
[facility] Test Date: 2024-01-18 Pat Name: MAXWELL WASSERMAN Department: Room: S363-A Gender: Female Truck Service Manager: LAMONT : 1950 Requested By: Justin Bolden Order Number: [id number] Reading MD: Justin Bolden Measurements Intervals [place] Rate: 85 P: 37 OK: 160 QRS: -81 QRSD: 148 T: 14 QT: 427 QTc: 509 Interpretive Statements SINUS RHYTHM RIGHT BUNDLE BRANCH BLOCK [120+ ms QRS DURATION, UPRIGHT V1, 40+ ms S IN I/aVL/V4/V5/V6] LEFT ANTERIOR FASCICULAR BLOCK [QRS AXIS <= -45, QR IN I, RS IN II] Compared to ECG 01/17/2024 15:20:53 Atrial flutter no longer present /[id number]/[id number]
--- NOTE | 2024-01-18 11:24 | EVENTNT_ITS ---
<Statement entered by Grupo Aranog MD - 01/18/24 17:11> I saw and examined the patient, and I agree with current management stated by Dr Yovani MD,PGY1. Plan of care was discussed with the attending physician and resident physician. Disclaimer: Despite multiple revisions, due to the dictation software being used, the document bellow may not be free of grammatical errors including phonetic/typographic errors. However, this does not deter from our commitment to providing health care in the patient's best interest in mind. Dr. Conchita MD, PGY 2 Documentation for date of: 01/18/24 Event Note Event Note: Rapid Response Event Note Rapid response called approximately at 11:30 AM secondary to elevated systolic blood pressure of 213/89. Patient was protecting airway, respiratory rate was normal, and pulses intact. Pulmonary exam illustrated crackles on left side, likley secondary to large pleural effusion. intervention: EKG (sinus with right bundle branch block) and Labetalol 5 mg IV push X1. Patient has a knonw history of resisdent HTN secondary to renal artery stenosis. On multiple anti-hypertensive medication. Labetalol added PRN, SBP >200 or Diastolic Blood Pressure >110. - The patient's plan was discussed with attending Dr. Adan and Dr. Arango-senior resident. Alley Pina MD PGY1 Internal Medicine
[2024-01-18] MEDS: LABETALOL INJ 5 MG/ML VIAL 20 ML IVP (11:29)
[2024-01-18] MEDS: POLYETHYLENE GLYCOL 17 GM PACKET PO (11:37)
[2024-01-18] MEDS: SENNA TABLET 2 TAB PO (11:37)
--- NOTE | 2024-01-18 13:50 | PC.SS ---
Patient Rina Sheridan is a 73 Year old female admitted for SOB. SS met with patient at bedside, however patient would not answer to questions. Ss contacted patients son José Miguel. Patient resides at home with son, José Miguel Simmons who is patient medical surrogate decision maker . Patient utilizes a walker to assist with ambulation. Patient utilizes oxygen at home. Patient requires assistance with completion of ADL?s. Patient?s family assists patient with completing her ADL's. Patient does utilize home 02 at 2L Patient?s PCP is Dr. Carlos Saunders. Patient is an established dialysis patient at [facility] and hander in is Dr. Odell. Dialysis schedule is Mon, Wed, Fri. Patient possesses medical van transport to dialysis sessions. [facility]At time of discharge patient will return home. Next of Kin: José Miguel Simmons D/C Plan: Home
[2024-01-18 13:56] LABS: Potassium 5.9 mMol/L (3.4-5.1)
--- NOTE | 2024-01-18 13:56 | PC.SS ---
Patient Rina Sheridan is a 73 Year old female admitted for SOB. SS met with patient at bedside, however patient would not answer to questions. SS contacted patients son José Miguel. Patient resides at home with son, José Miguel Simmons who is patient medical surrogate decision maker . Patient utilizes a wheelchair to assist with ambulation. Patient requires assistance with completion of ADL?s. Patient?s family assists patient with completing her ADL's. Patient does utilize home 02 at 2L Patient?s PCP is Dr. Carlos Saunders. Patient is an established dialysis patient at [facility] and pedicab driver is Dr. Odell. Dialysis schedule is Mon, Wed, Fri. Patient possesses medical van transport to dialysis sessions. Choice of pharmacy is [facility].At time of discharge patient will return home. Next of Kin: José Miguel Simmons D/C Plan: Home
[2024-01-18] MEDS: hydrALAZINE HCL 25 MG TABLET 100 MG PO ×2 (14:08→21:02)
[2024-01-18] MEDS: cloNIDine HCL 0.1 MG TABLET 0.2 MG PO ×2 (14:08→21:01)
--- NOTE | 2024-01-18 14:34 | ESPR_ITS ---
<Statement entered by Grupo Arango MD - 01/18/24 15:21> Patient was seen and examined at the bedside. Patient appears to be AOx3. She reported to have abdominal pain and right groin pain. Rapid response was called today given hypertensive emergency. Blood pressure was 220/100 therefore labetalol IV 5 mg was push x 1. We consulted GI for further evaluation and ordered MRI for inguinal region and also ultrasound thoracentesis for right- sided pleural effusion. Potassium on repeat up trended to 5.8 therefore Kayexalate, DuoNebs and calcium gluconate was ordered. Nephrology recommended to start minoxidil p.o. given high blood pressure. Will closely monitor and added labetalol as needed for blood pressure management. Likely follow the imaging results. Continue IV antibiotic therapy. All labs and orders were reviewed. I saw and examined the patient, and I agree with current management stated by Dr Yovani MD,PGY1. Plan of care was discussed with the attending physician and resident physician. Disclaimer: Despite multiple revisions, due to the dictation software being used, the document bellow may not be free of grammatical errors including phonetic/typographic errors. However, this does not deter from our commitment to providing health care in the patient's best interest in mind. Dr. Kylee MD, PGY 2 Documentation for date of: 01/18/24 Subjective Subjective Interval history: Patient is a 73-year-old female with a past medical history of hypertension, diabetes mellitus insulin-dependent, CHF HFpEF 55 to 60% (12/04/2023), ESRD HD MWF, chronic normocytic anemia, on home oxygen 3 L nasal cannula. No overnight reported events reported. Patient's chief complaint of left lower quadrant pain has improved since admission currently pain is 0 out of 10 since starting pain management. Patient stated pain began suddenly, on January 16, 2024. Patient states pain is sharp and radiates from the left inguinal groin to left lower quadrant. Patient denied any trauma to site. Denied procedures or lines to site. Denied any dysuria or vaginal discharge. Patient is ESRD on hemodialysis and no longer produces urine. Denied any chest pain or shortness of breath. Patient does have a history of constipation but takes iron tablets at home. Last bowel movement was prior to admission likely 01/17/2024. Exam Vital Signs Temp Pulse Resp BP Pulse Ox O2 Del Method O2 Flow Rate 97.8 F 87 15 208/108 H 97 Humidified Nasal Cannula 1 01/18/24 12:00 01/18/24 14:08 01/18/24 12:00 01/18/24 14:08 01/18/24 12:00 01/18/24 12:00 01/18/24 12:00 Narrative Exam General Appearance: Alert & Oriented X3, well-nourished female who is lying in bed in and appears uncomfortable secondary to left lower quadrant pain. HEENT: Skull symmetrical and atraumatic. Conjunctivae pin and moist. Pupils equal, round, reactive to light and accommodation (PERRL). External ear without lesion or discharge. Straight, nares patient, dry mucosa, no discharge. No thyroid nodule appreciated. Cardio: Normal Rate and Rhythm with S1 and S2 heart sounds. possible holosystolic murmur auscultated. No bruits on carotid auscultation. No peripheral edema or cyanosis. Lungs: Symmetric with good expansion. Chest and back non-tender. Breath sounds vesicular with crackles heard bilaterally. Abdomen: Non-tender, Non-distended, Normal Reactive Bowel Sounds Neuro: Alert, cooperative, oriented to person, place, and time. Speech clear. CN grossly intact. Upper motor strength 5/5 and Lower motor strength 5/5. Sensation intact. Objective Labs 01/18/24 05:10 01/18/24 13:35 Labs: Laboratory Results - last 24 hr 01/17/24 01/17/24 01/18/24 15:11 17:41 05:10 WBC 10.8 11.7 H RBC 3.69 L 3.50 L Hgb 11.2 L 10.6 L Hct 34.2 L 32.7 L MCV 93 93 MCH 30.4 30.3 MCHC 32.7 32.4 RDW Std Deviation 57.1 H 58.3 H Plt Count 298 D 302 Neut % (Auto) 84 H 84 H Lymph % (Auto) 7 L 7 L Miller % (Auto) 8 8 Eos % (Auto) 0 0 Baso % (Auto) 1 1 Neut # (Auto) 9.0 H 9.8 H Lymph # (Auto) 0.8 L 0.8 L Miller # (Auto) 0.9 H 0.9 H Eos # (Auto) 0.0 0.1 Baso # (Auto) 0.1 0.1 Immature Gran # (Auto) 0.02 H 0.03 H Absolute Nucleated RBC 0.00 0.00 Immature Gran % 0 0 Nucleated RBC % 0 0 Sodium 132 L 131 L Potassium 4.5 5.3 H D Chloride 92 L 90 L Carbon Dioxide 31.1 H 29.8 Anion Gap 9 11 BUN 36 H 42 H Creatinine 4.6 H* 5.3 H* D Estim Creat Clear Calc 10.6 L 9.3 L eGFR 10 L* 8 L* BUN/Creatinine Ratio 8 L 8 L Glucose 130 H 138 H Calculated Osmolality 274 L 275 Calcium 9.9 9.5 Corrected Calcium 9.9 9.5 Phosphorus 4.1 Magnesium 2.2 2.3 Total Bilirubin 0.2 L 0.2 L AST 22 25 ALT 8 L 7 L Alkaline Phosphatase 153 H 139 H Troponin I 0.051 H* 0.047 H* Total Protein 7.4 7.3 Albumin 4.4 4.2 Globulin 3.0 3.1 Albumin/Globulin Ratio 1.5 1.4 01/18/24 13:35 WBC RBC Hgb Hct MCV MCH MCHC RDW Std Deviation Plt Count Neut % (Auto) Lymph % (Auto) Miller % (Auto) Eos % (Auto) Baso % (Auto) Neut # (Auto) Lymph # (Auto) Miller # (Auto) Eos # (Auto) Baso # (Auto) Immature Gran # (Auto) Absolute Nucleated RBC Immature Gran % Nucleated RBC % Sodium Potassium 5.9 H D Chloride Carbon Dioxide Anion Gap BUN Creatinine Estim Creat Clear Calc eGFR BUN/Creatinine Ratio Glucose Calculated Osmolality Calcium Corrected Calcium Phosphorus Magnesium Total Bilirubin AST ALT Alkaline Phosphatase Troponin I Total Protein Albumin Globulin Albumin/Globulin Ratio Quality Measures Quality Measures none Advance care planning discussed with:: patient and child Assessment & Plan Assessment Current Active Medications: Generic Name Dose Route Start Last Admin Trade Name Freq PRN Reason Stop Dose Admin Acetaminophen 650 mg 01/17/24 20:59 Acetaminophen 325 Mg Tablet PO 02/16/24 20:58 Q6H PRN Fever >101.5 Acetaminophen 650 mg 01/18/24 09:57 Acetaminophen 325 Mg Tablet PO 02/16/24 21:03 Q6H PRN PAIN SCALE 1-3 (mild Apixaban 5 mg 01/18/24 09:00 01/18/24 09:49 Apixaban 2.5 Mg Tablet PO 02/17/24 08:59 5 mg BID JANINE Administration Carvedilol 25 mg 01/18/24 08:00 01/18/24 07:41 Carvedilol 12.5 Mg Tablet PO 02/18/24 06:00 25 mg BIDWM JANINE Administration Clonidine 0.2 mg 01/18/24 14:00 01/18/24 14:08 Clonidine Hcl 0.1 Mg Tablet PO 02/17/24 13:59 0.2 mg TID JANINE Administration Dextrose 25 ml 01/17/24 21:51 Dextrose 50%-Water Inj 50 Ml Syringe IV 02/16/24 21:50 Q15MIN PRN BG 50-70 responsive npo pt Dextrose 50 ml 01/17/24 21:51 Dextrose 50%-Water Inj 50 Ml Syringe IV 02/16/24 21:50 Q15MIN PRN BG <50 OR BG <70 & pt unresponsive Glucagon 1 mg 01/17/24 21:51 Glucagon Inj 1 Mg Vial IM Q15MIN PRN BG <70, and no IV access Hydralazine HCl 100 mg 01/18/24 14:00 01/18/24 14:08 Hydralazine Hcl 25 Mg Tablet PO 02/17/24 13:59 100 mg TID [facility] Administration Piperacillin Sod/Tazobactam 100 mls @ 25 mls/hr 01/18/24 09:45 01/18/24 09:50 Sod 3.375 gm/ Sodium Chloride IV 01/25/24 08:59 25 mls/hr Q12HR JANINE Administration Insulin Glargine 10 unit 01/18/24 21:00 Insulin Glargine (Lantus) 5 Unit/0.05 Ml (Per 5 Units) AL 02/17/24 20:59 [facility] Insulin Human Lispro 0 unit 01/18/24 07:30 01/18/24 11:51 Insulin Lispro (Admelog) 1 Unit/0.01 Ml Unit SC 02/17/24 07:29 Not Given AC [facility] Protocol Labetalol HCl 10 mg 01/18/24 12:08 Labetalol Inj 5 Mg/Ml Vial 20 Ml IVP 02/17/24 12:07 Q6HR PRN Hyptertension Minoxidil 5 mg 01/18/24 21:00 Minoxidil 10 Mg Tablet PO 02/17/24 20:59 BID JANINE Nifedipine 60 mg 01/18/24 09:00 01/18/24 09:49 Nifedipine Xl 30 Mg Tabcr PO 02/17/24 08:59 60 mg BID JANINE Administration Ondansetron HCl 4 mg 01/17/24 21:04 01/18/24 06:14 Ondansetron Inj 2 Mg/Ml Inj 2 Ml IV 02/16/24 21:03 4 mg Q6H PRN Administration NAUSEA OR VOMITING Protocol Oxycodone/Acetaminophen 1 tab 01/18/24 05:36 01/18/24 14:11 Oxycodone/Apap 5/325 Tablet PO 01/22/24 21:03 1 tab Q6H PRN Administration PAIN SCALE 4-6 (Moderate Pantoprazole Sodium 40 mg 01/18/24 09:00 01/18/24 09:49 Pantoprazole Inj 40 Mg Vial IVP 02/17/24 08:59 40 mg QDAY JANINE Administration Polyethylene Glycol 17 gm 01/18/24 11:15 01/18/24 11:37 Polyethylene Glycol 17 Gm Packet PO 02/17/24 11:14 17 gm QDAY JANINE Administration Sennosides 2 tab 01/18/24 11:30 01/18/24 11:37 Senna Tablet PO 02/17/24 11:29 2 tab QDAY JANINE Administration Protocol Valsartan 160 mg 01/18/24 06:00 01/18/24 09:50 Valsartan 80 Mg Tablet PO 02/17/24 05:59 160 mg BID JANINE Administration Plan Patient is a 73-year-old female with a past medical history of hypertension, diabetes mellitus insulin-dependent, CHF HFpEF 55 to 60% (12/04/2023), ESRD HD MWF, chronic normocytic anemia, on home oxygen 3 L nasal cannula who was admitted on 01/18/2024 for intractable abdominal pain and pleural effusion with increasing SOB. #Intractable Abdominal Pain Etiology: Malignancy can not be ruled out given no history of colonoscopy and history of constipation. denied melena or hematochezia. Patient does take iron tablets daily. Pain worse on hip flexion. DDx: Psoas tendinitis vs inflammatory bowel disease less likely given no diarrhea history vs cystitis less likely as patient no long produced urine and denied any vaginal discharge. Diagnostics: CT Abdomen/Pelvis (01/17/2024): Large right pleural effusion. Recommend hepatobiliary sonography follow-up Atrophic kidneys Marked abnormal thickening of the rectal wall with perirectal inflammatory change, differential would include proctitis, rectal tumor, recommend direct inspection Diffuse thickening of the left iliopsoas muscle, differential would include infectious mass, hematoma, less likely tumor infiltration but not excluded, clinical correlation advised, recommend MRI pelvis upper thigh follow-up Cystitis pattern Plan: -MRI left lower extremity ? Continue ZOSYN 2.25 mg q.6h. (renally dosed) ? Pain Mangement (no Dilaudid) ? GI consult, appreciate recommendations, Dr. Saldivar #Acute hypoxic respiratory failure #Congestive Heart Failure, Systolic Dysfunction, HFpEF 55-60% (11/2023) #Pulmonary HTN Etiology: Working diagnosis of CHF exacerbation given chest x-ray showing increasing SOB, large pleural effusion. Cardio-renal can not be rule vs increasing pulmonary artery pressure leading to right pleural effusion. DDx: malignancy can not be ruled out given previous hospital admission, patient also presented with pleural effusion vs pneumonia given slight elevated WBC 11.7 but less likely given no cough or fevers. MO less likely as there no ST elevation on EKG or upward trending troponins. Diagnostics: -Echo (12/04/2023): Normal LV size and function. Mild LVH. Estimated EF 55-60%. Moderate RV dilatation. Mild systolic dysfuncton. Estimated RVSP 70mnHg. Severe biatrial dilatation. Mild AV stenosis, mean gradient 13mmHg, vmax 2.5m/s. -Cxr (01/18/2024): Moderate CHF. Consider superimposed pneumonia right lung. NYHA Class: II Plan: -US guided thoracentesis -Cytology for thora -Consider BNP -NO lasix, patient does not produce urine -Previous Echo 11/2023 -TSH AM -Lipid Panel AM -A1c A1c 5.1 -K>4 and Mg >2 -Fluid Restriction 1200 -SpO <90%, support PRN, currently on [place] oxygen -Strict Ins and Out -Daily weight checks # History of resistant hypertension # Hypertensive emergency ? resolved # Hx of HTN Etiology: Patient has a past medical history of right renal artery stenosis and typically has elevated BP. On floors blood pressure has been >200 systolic, drop blood pressure by 25%. Minoxidil 5 mg PO BID added in addition to extensive anti-hypertensive medication. Diagnostics: Renal Artery Duplex (06/08/2022): Significantly smaller right kidney. Moderate bilateral renal parenchymal scar formation. No flow right renal artery ostia CT Abdomen/Pelvis (01/17/2024): Atrophic kidneys Plan: -Added Minoxidil 5 mg PO BID-HOLDING ? Resumed home VALSARTAN 160 mg BID ? Resumed home CLONIDINE 0.1 mg TID-->Clonidine 0.2 mg TID -resumed Nifedipine 60 mg BID -resumed Hydralzine 100 mg TID ?Labetalol 10 mg IV Q6HR, if SBP >200 or DBP >110 -Hold Nifedipine and hydralzine if SBP <120 or DBP <80. -Nephrology consulted, Dr. Edge, appreciate recommendations-known patieint. # ESRD HD MWF # Chronic normocytic anemia Patient of Dr. Edge's, HD done on 01/16/2024. ESRD likely secondary to diabetes mellitus and right renal artery stenosis. Diagnostics: 01/18/2024: Renal: BUN 42, Cr 5.3, CrCl 9.3, GFR 81 ? Nephrology consulted, will continue hemodialysis as scheduled ? Renally dose meds, avoid NEPHROTOXINS # IDDM Well-controlled, GLUCOSE 130, 07/2023 A1c 5.1 ? Accu-Cheks ? INSULIN glargine 10 units HS ? INSULIN sliding scale # Hx of HLD No statins noted after medication reconciliation. Target LDL <55 given patient is diabetic and with hx of CVD (aortic stenosis) Diagnostic: (07/21/2023): Triglycerides 115, Cholesterol 167, LDL 75, HDL 69, Plan: -Atorvastatin 40 mg PO HS ? Repeat lipid panel ? Consider starting statin as indicated # Anxiety # Depression History above, resume home meds. Home medication of Sertraline 100 mg PO HS and Mirtazapine 15 mg PO HS. Plan: -Resume Sertraline 100 mg PO HS -Hold Mirtazapine 15mg PO HS, consider restarting in hospital as needed. # Transient troponinemia ? improved. Etiology: Likely demand ischemia in settings increased oxygen demand Troponin 0.051 then 0.047, patient otherwise symptomatic without chest pain Cxr: Moderate CHF. Consider superimposed pneumonia right lung EKG: Atrial flutter/tachycardia w/ Right bundle branch block, less likely as there are p waves. 2nd EKG: Sinus rhythm and right bundle branch block Plan: no acute intervention Health Maintenance: Disp: Pt is currently admitted to floors for further management of Intractable Abdominal Pain, awaiting MRI of Left Lower Extremity. FEN: cardio-renal diet DVT: Compression Devices Code: DNR - The patient's plan was discussed with attending Dr Adan and senior residents Kylee Pina MD PGY1 Internal Medicine Attending Provider Attestation/Addendum I have examined the patient, reviewed labs and imaging findings, discussed the case with the resident(s), and reviewed entered orders. I agree with the plan of care as outlined in this note, with these additional summaries/recommendations: Patient seen at bedside. Patient admitted overnight for left lower quadrant abdominal pain. Continue pain management. CT scan revealed marked abnormal thickening of the rectal wall with perirectal inflammatory changes which is possibly secondary to proctitis or rectal tumor. We will consult gastroenterology for colonoscopy. CT also noted diffuse thickening of left iliopsoas muscle although relatively benign physical exam findings although CT findings are concerning for possible mass versus hematoma versus tumor. We will obtain MRI for further evaluation. Patient has resistant hypertension likely secondary to renal artery stenosis and patient had rapid response today for uncontrolled blood pressure. Continue Coreg 25 mg p.o. twice daily, increase clonidine to use 0.2 mg p.o. 3 times daily, hydralazine 100 mg p.o. 3 times daily, nifedipine 60 mg p.o. twice daily, valsartan 160 mg p.o. twice daily, and start minoxidil 5 mg p.o. twice daily. As needed IV labetalol for uncontrolled blood pressure. Patient would benefit from outpatient vascular evaluation for possible renal artery stent placement. Patient has history of ESRD on hemodialysis. Mild hyperkalemia present and hyper-K bundle given. Repeat potassium level this evening and if still elevated patient may require urgent hemodialysis. Nephrology consulted and following. Patient was also found to have large right pleural effusion and we will order IR guided drainage with fluid analysis. Repeat hematology and chemistry panel in AM. Dr. Adan
[2024-01-18] MEDS: ALBUTEROL/IPRATROPIUM (Duoneb) RT SOL 3 ML NEBU INH ×2 (15:03→21:12)
[2024-01-18] MEDS: SOD POLYSTYRENE SULFON SUSP 15 GM/60 ML BTL PO ×2 (15:45→21:15)
[2024-01-18] MEDS: CALCIUM GLUCONATE 10% INJ 1 GM/10 ML VIAL IV (15:45)
--- NOTE | 2024-01-18 16:14 | PC.SS ---
Rounding: [employer] called earlier today for hypotension emergency, pending MRI and GI consult
[2024-01-18 17:54] LABS: Potassium 5.8 mMol/L (3.4-5.1)
--- NOTE | 2024-01-18 19:44 | ESCONSULT_ITS ---
History of Present Illness Data of Consult Consult date: 01/18/24 Requesting Physician: Tony Henriquez MD Primary Care Provider: Carlos Saunders MD Consult Narrative Reason for consult: ESRD History of present illness: Ms. 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 While in the ED, patient was noted to have a BP of 225/81, for which she received clonidine, hydralazine, nifedipine, IV labetalol and subsequently admitted to medical floor .labs fairly unremarkable, with the renal panel consistent with ESRD. CXR showed prominent CHF. Patient was admitted for hypertensive emergency, abdominal pain with nephrology consulted for hemodialysis. Patient during the previous hospital Visit was diagnosed with a questionable renal artery stenosis-Per Dr. Owusu no role for renal intervention as patient currently on dialysis and kidney cannot be salvaged. Medical management was recommended. Home medications included atorvastatin, Auryxia, calcium acetate, carvedilol, clonidine, Eliquis, hydralazine, mirtazapine, nifedipine, Carmel-Sanjana, sertraline, Tylenol, Aldactone, valsartan cc:: cc: Tony Henriquez MD Review of Systems Review of Systems Narrative Review of Systems: Limited as patient complaining of abdominal discomfort, nausea. Significant functional decline. Has depression Past Medical History Past Medical History NEUROLOGIC: Positive Transient Ischemic Attacks (TIA); Negative Neurological Disorders, Cerebrovascular Accident, Dementia, Alzheimer's Disease, Parkinson's Disease, Brain Tumor, Meningitis, Seizures, Epilepsy, Multiple Sclerosis, Cerebral Palsy, Amyotrophic Lateral Sclerosis (ALS/[place] Gehrig's), Guillain-[place] Syndrome, Spina Bifida, Paralysis, Peripheral Neuropathy, Meza's Palsy, Subdural Hematoma, Migraine, Head Trauma, Spinal Cord Injury or Traumatic Brain Injury CARDIAC: Positive Cardiac Disorders, Hypercholesterolemia, Edema, Cellulitis and Hypertension; Negative Myocardial Infarction, Cardiac Arrhythmia, Atrial Fibrillation, Angina, Heart Murmur, Coronary Artery Disease, Atherosclerotic Heart Disease, Peripheral Vascular Disease, Aneurysm, Congestive Heart Failure, Congenital Heart Disease, Valvular Heart Disease, Rheumatic Fever, Cardiomyopathy, Pericarditis, Deep Vein Thrombosis, Hypotension or Varicose Veins RESPIRATORY: Positive Pulmonary Edema; Negative Respiratory Disorders, Chronic Obstructive Pulmonary Disease (COPD), Asthma, Bronchitis, Emphysema, Pneumonia, Pulmonary Fibrosis, Tuberculosis, Pulmonary Embolism or Sleep Apnea GASTROINTESTINAL: Positive Gastrointestinal Disorders, Gall Bladder Disease, Gastrointestinal Bleed and Ulcer; Negative Hepatitis, Cirrhosis, Pancreatitis, Celiac Disease, Esophageal Varices, Ramos's Esophagus, Colitis, Ulcerative Colitis, Diverticulitis, Diverticulosis, Colorectal Cancer, Irritable Bowel, Crohn's Disease, Obstructive Bowel, Hiatal Hernia, Hemorrhoids, Gastroesophageal Reflux Disease or Obesity GENITOURINARY: Positive Genitourinary Disorders, Renal Disease, Kidney Stones and Dialysis; Negative Polycystic Kidney Disease, Neurogenic Bladder or Benign Prostatic Hyperplasia REPRODUCTIVE: Positive Previous Pregnancies; Negative Breast Cancer, Endometriosis, Pelvic Inflammatory Disease or Uterine Prolapse MUSCULOSKELETAL: Negative Musculoskeletal Disorders, Muscular Dystrophy, Myasthenia Gravis, Marfan's Syndrome, Bone Cancer, Arthritis, Rheumatoid Arthritis, Osteoporosis, Degenerative Disk Disease, Gout, Scoliosis, Carpal Tunnel Syndrome, Fibromyalgia, Fractures, Degenerative Joint Disease, Osteomyelitis or Poliovirus ENT: Positive History of ENT Problems and Cataracts; Negative Glaucoma, Blind, Retinal Detachment, Macular Degeneration, Ear Infection, Deafness, Head Trauma or Eye Prosthesis ENDOCRINE: Positive Endocrine Disorders and Diabetes Mellitus Type 2; Negative Diabetes Mellitus Type 1, Hypoglycemia, Blank's Syndrome, Arrey's Disease, Hyperthyroidism, Hypothyroidism, Parathyroid Disease, Pituitary Disease, Systemic Lupus Erythematosus, Syndrome of Inappropriate Antidiuretic Hormone (SIADH), Adrenal Disease or Graves' Disease HEMATOLOGIC: Positive Blood Disorders and Anemia; Negative Leukemia, Hemophilia, Thalassemia, Sickle Cell Disease or Clotting Problems PSYCHO/SOCIAL: Positive Depression and Anxiety; Negative Psychiatric Problems, Schizophrenia, Recreational Drug Use, Bipolar Disorder, Behavior Problems, Self-Mutilation, Attention Deficit Disorder, Attention Deficit Hyperactivity Disorder, Depression, Post Traumatic Stress Disorder or Eating Disorder OTHER HISTORY: Positive Hospitalization and Blood Transfusions; Negative Autoimmune Disease, Down Syndrome, Autism, Developmental Delay, Shingles, Falls, Blood Transfusion Reaction, Anesthesia Reactions, Organ Transplant, Chemotherapy, Radiation Therapy, Hyperbaric Therapy, Human Immunodeficiency Virus (HIV), Chicken Pox, Measles, Mumps, Rubella (Lao Measles), Pertussis, Clostridium Difficile, Cancer, Breast Cancer, Cervical Cancer, Colorectal Cancer, Lung Cancer or Ovarian Cancer Family History FAMILY HISTORY: Negative Family Psychiatric Problems, Family Respiratory Disorders, Family Cardiac Disorders, Family Gastrointestinal Problems, Family Cancer, Family Surgery or Family Anesthesia Reaction Surgical History SURGICAL: Positive Vascular Surgery, Abdominal Surgery and Tubal Ligation; Negative Cardiac Surgery, Open Heart Surgery, Coronary Artery Bypass Graft, Valve Replacement, Coronary Stent, Cardiac Catheterization, Pacemaker, Angiogram, Auto Implanted Cardiovert Defib, Carotid Endarterectomy, Endocrine Surgery, Thyroidectomy, Ear Surgery, Tympanostomy Tube, Eye Surgery, Nose Surgery, Oral Surgery, Tonsillectomy, Adenoidectomy, Cochlear Implant, Corneal Transplant, Throat Surgery, Tracheostomy, Gastric Bypass Surgery, Gastrostomy, Bowel Surgery, Nephrectomy, Transurethral Resection, Joint Replacement, Amputation, Open Reduction Internal Fixation, Arthroscopy, Neurologic Surgery, Brain Shunt, Mastectomy, Lumpectomy, Hysterectomy, Section, Vasectomy or Organ Transplant Social History SMOKING STATUS: Never smoker SECOND HAND EXPOSURE: No SUBSTANCE USE: does not use Meds Home Medications and Allergies Home Medications ?Medication ?Instructions ?Recorded ?Confirmed ?Type calcium acetate(phosphat bind) 667 667 mg PO TIDWM 06/08/23 01/18/24 History mg tablet mirtazapine 15 mg tablet 15 mg PO HS 06/08/23 01/18/24 History vitamin B complex-vitamin C-folic 0.8 tab PO QDAY 06/08/23 01/18/24 History acid 0.8 mg tablet (Carmel-Sanjana) Allergies Allergy/AdvReac Type Severity Reaction Status Date / Time No Known Allergies Allergy Verified 09/09/23 14:45 Exam Vital Signs Temp Pulse Resp BP Pulse Ox O2 Del Method O2 Flow Rate 37.2 C 82 17 137/57 H 93 L Nasal Cannula 1 01/18/24 16:00 01/18/24 16:35 01/18/24 16:00 01/18/24 16:35 01/18/24 16:00 01/18/24 16:00 01/18/24 16:00 Narrative Exam Gen: AAOx3, elderly female resting but arousable to voice, appears chronically ill HEENT: NCAT, PERRLA, EOMI, MMM CVS: normal S1, S2. RRR. No MRG Resp: Bilateral crackles Abd: soft,tender in LLQ, non-distended. BS+ in all 4 quadrants. No CVA tenderness MSK: Moves extremities x4; fistula in LUE with thrill. BLE venous stasis Neuro: Patient alert and awake Results Labs 01/18/24 05:10 01/18/24 17:24 Labs: Short CBC 01/18/24 Range/Units 05:10 WBC 11.7 H (3.6-11.0) Thou/mm3 Hgb 10.6 L (12.0-16.0) g/dL Hct 32.7 L (36.0-46.0) % Plt Count 302 (140-440) Thou/mm3 BMP 01/18/24 01/18/24 01/18/24 05:10 13:35 17:24 Sodium 131 L Potassium 5.3 H D 5.9 H D 5.8 H Chloride 90 L Carbon Dioxide 29.8 BUN 42 H Creatinine 5.3 H* D Glucose 138 H Calcium 9.5 Liver Function 01/18/24 Range/Units 05:10 Total Bilirubin 0.2 L (0.3-1.2) mg/dL AST 25 (0-34) U/L ALT 7 L (10-49) U/L Alkaline Phosphatase 139 H (46-116) U/L Albumin 4.2 (3.4-4.8) gm/dL Assessment & Plan Additional Assessment & Plan Additional Plan: Patient is a 73-year-old female with ESRD on HD (MWF), resistant HTN, HFpEF (EF 65-70%), chronic respiratory failure on 3 L home O2, chronic normocytic anemia, IDDM, HLD, and depression/anxiety who presented to the ED with left lower quadrant abdominal pain, nausea #ESRD on HD (MWF) Will continue with hemodialysis in a.m. Continue home calcium acetate #Chronic normocytic anemia Likely secondary to ESRD Will give Procrit with HD #Resistant hypertension#Hypertensive emergency Resume home meds, Coreg, clonidine, hydralazine, valsartan, with as needed labetalol for SBP >190 Monitor vital signs Team wanted to add on minoxidil-not sure how much additional response it we will do. #HFpEF (EF 65-70%) #Chronic respiratory failure, on 3 L home O2 #IDDM #HLD #Depression #Anxiety As per primary team Thank you Dr. Santillan for allowing us to participate in the care of Ms. Sheridan
[2024-01-18] MEDS: SERTRALINE HCL 25 MG TABLET 100 MG PO (21:00)
[2024-01-18] MEDS: ATORVASTATIN CALCIUM 20 MG TABLET 40 MG PO (21:00)
[2024-01-18] MEDS: INSULIN HUM REGULAR 1 UNIT/0.01 ML (PER UNIT) 5 UNIT SC (22:08)
[2024-01-18] MEDS: DEXTROSE 50%-WATER INJ 50 ML SYRINGE IV (22:09)
--- NOTE | 2024-01-18 22:55 | PD.IMCONS ---
HPI Data of Consult Requesting Physician: Tony Henriquez MD Primary Care Provider: Carlos Saunders MD Consult Narrative Reason for consult: Pain left lower quadrant History of present illness: 73 years old female who has end-stage renal disease on hemodialysis MWF who also is on home oxygen 3 L nasal cannula I been consulted for his severe left lower quadrant pain starting in the inguinal region going into the left lower quadrant CT scan of the abdomen pelvis without contrast on 01/17/2024 showed large right pleural effusion marked thickening of the rectal vault and diffuse thickening of the left iliopsoas muscle Pain does get worse on movement of the left hip and the left leg No blood in the stool cc:: cc: Tony Henriquez MD Review of Systems Review of Systems Systems Reviewed: All systems reviewed, normal except as documented Past Medical History Surgical History OTHER SURGICAL HX: As in the history of present illness Meds Home Medications and Allergies Home Medications ?Medication ?Instructions ?Recorded ?Confirmed ?Type calcium acetate(phosphat bind) 667 667 mg PO TIDWM 06/08/23 01/18/24 History mg tablet mirtazapine 15 mg tablet 15 mg PO HS 06/08/23 01/18/24 History vitamin B complex-vitamin C-folic 0.8 tab PO QDAY 06/08/23 01/18/24 History acid 0.8 mg tablet (Carmel-Sanjana) Allergies Allergy/AdvReac Type Severity Reaction Status Date / Time No Known Allergies Allergy Verified 09/09/23 14:45 Exam Vital Signs Temp Pulse Resp BP Pulse Ox O2 Del Method O2 Flow Rate 99.2 F 80 18 184/100 H 96 Nasal Cannula 1 01/18/24 20:00 01/18/24 21:12 01/18/24 21:12 01/18/24 21:02 01/18/24 21:12 01/18/24 20:00 01/18/24 21:12 Constitutional Comments: Chronically ill-appearing Routine Respiratory Exam Comments: Normal to auscultation Routine Abdominal Exam Comments: Left lower quadrant tenderness Results Labs 01/18/24 05:10 01/18/24 17:24 Labs: Short CBC 01/18/24 Range/Units 05:10 WBC 11.7 H (3.6-11.0) Thou/mm3 Hgb 10.6 L (12.0-16.0) g/dL Hct 32.7 L (36.0-46.0) % Plt Count 302 (140-440) Thou/mm3 BMP 01/18/24 01/18/24 01/18/24 05:10 13:35 17:24 Sodium 131 L Potassium 5.3 H D 5.9 H D 5.8 H Chloride 90 L Carbon Dioxide 29.8 BUN 42 H Creatinine 5.3 H* D Glucose 138 H Calcium 9.5 Liver Function 01/18/24 Range/Units 05:10 Total Bilirubin 0.2 L (0.3-1.2) mg/dL AST 25 (0-34) U/L ALT 7 L (10-49) U/L Alkaline Phosphatase 139 H (46-116) U/L Albumin 4.2 (3.4-4.8) gm/dL Assessment and Plan Additional Assessment & Plan Additional Plan: # Left lower quadrant pain with abnormal CT scan of the abdomen pelvis showing changes consistent with proctitis as well as diffuse thickening of the left iliopsoas muscle The pain appears to be more musculoskeletal than the pain from proctitis Much more exaggeration of the pain on movement of the left hip Agree with getting the MRI scan of the left hip region tomorrow This particular pain has nothing to do I believe from a GI viewpoint Other medical problems include # Large right pleural effusion # End-stage renal disease on hemodialysis MWF # On home oxygen 3 L nasal cannula
[2024-01-19] VITALS (32 sets, daily range): BP systolic 124–150; BP diastolic 50–85; PULSE 56–70; RESP 13–99; TEMP 36.1–36.4; O2SAT 93–99; BMI 28.9
[2024-01-19] MEDS: DEXTROSE 50%-WATER INJ 50 ML SYRINGE IV (03:41)
--- NOTE | 2024-01-19 03:45 | PC.NURSE ---
Called Dr. Arellano to inform that patient blood glucose is 40, gave D50 amp and rechecked in 15mins blood glucose 153, doctor will hold insulin and inform the day team. Patient will get labs done soon, no new orders given.
[2024-01-19 06:03] LABS: Basophils # (Auto) 0.1 Thou/mm3 (0.0-0.2); Basophils % (Auto) 1 % (0-2.5); Eosinophils # (Auto) 0.1 Thou/mm3 (0.0-0.5); Eosinophils % (Auto) 1 % (0-10); Hematocrit 29.2 % (36.0-46.0); Hemoglobin 9.4 g/dL (12.0-16.0); Immature Granulocytes % (Auto) 1 % (0-0); Immature Granulocytes Auto 0.08 Thou/mm3 (0.00-0.00); Lymphocytes # (Auto) 0.6 Thou/mm3 (1.0-4.8); Lymphocytes % (Auto) 5 % (10-50); Mean Corpuscular HGB Conc 32.2 g/dl (31.0-37.0); Mean Corpuscular Hemoglobin 30.5 pg (25.0-35.0); Mean Corpuscular Volume 95 fL (80-100); Monocytes # (Auto) 1.1 Thou/mm3 (0.0-0.8); Monocytes % (Auto) 9 % (0-12); Neutrophils # (Auto) 10.5 Thou/mm3 (1.8-7.7); Neutrophils % (Auto) 85 % (37-80); Nucleated Red Blood Cell % 0 /100 WBC (0); Platelet Count 306 Thou/mm3 (140-440); RDW Standard Deviation 58.8 fL (36.4-46.3); Red Blood Count 3.08 Miln/mm3 (4.00-5.20); White Blood Count 12.4 Thou/mm3 (3.6-11.0)
[2024-01-19 06:10] LABS: INR 1.5 (0.9-1.3); Partial Thromboplastin Time 48.5 Seconds (22.0-36.0)
[2024-01-19 06:43] LABS: Alanine Aminotransferase < 7 U/L (10-49); Albumin, Serum 3.9 gm/dL (3.4-4.8); Albumin/Globulin Ratio 1.4 (1.2-2.2); Alkaline Phosphatase 133 U/L (46-116); Anion Gap 11 (7-16); Aspartate Amino Transferase 17 U/L (0-34); BUN/Creatinine Ratio 8 Ratio (12-20); Bilirubin,Total 0.2 mg/dL (0.3-1.2); Blood Urea Nitrogen 52 mg/dL (9-23); Calcium (Corrected) 9.1 mg/dL (8.5-10.1); Carbon Dioxide 29.6 mMol/L (20.0-31.0); Cardiac Risk Estimate 1.7 RATIO (3.7-5.6); Chloride 92 mMol/L (98-107); Cholesterol 116 mg/dL (132-200); Creatinine (Component) 6.4 mg/dL (0.6-1.3); Estimated Creatinine Clearance 7.7 mL/min (>60); Globulin 2.8 gm/dL (2.3-3.5); Glucose 92 mg/dL (74-106); HDL Cholesterol 67 mg/dL (40-60); LDH (Lactate Dehydrogenase) 255 U/L (120-246); LDL Cholesterol,Calculated 40 mg/dL (0-130); Magnesium 2.5 mg/dL (1.6-2.6); Osmolality,Calculated 280 (275-295); Phosphorous 5.1 mg/dL (2.4-5.1); Sodium 133 mMol/L (136-145); Total Protein 6.7 gm/dL (5.7-8.2); Triglycerides 45 mg/dL (30-150); eGFR 6 See Note
--- NOTE | 2024-01-19 08:00 | XR_ITS ---
Examination: Ultrasound right hemithorax Ultrasound left hemithorax Exam date and time: January 19, 2024 1050 hours INDICATIONS: Difficulty breathing this week, bilateral pleural fluid on chest x-ray January 17, 2024 TECHNIQUE AND FINDINGS:: Multiple high resolution grayscale sonographic images right and left hemithoraces Small bilateral pleural effusions IMPRESSION: Small bilateral pleural effusions
[2024-01-19 09:35] LABS: Hepatitis A Antibody IgM Non Reactive (Non React); Hepatitis B Core Antibody IgM Non Reactive (Non React); Hepatitis B Surface Ab NonReact(Not Immune) (Immune); Hepatitis B Surface Antigen Non Reactive (Non React); Hepatitis C Antibody Non Reactive (Non React)
[2024-01-19] MEDS: SENNA TABLET 2 TAB PO (09:46)
[2024-01-19] MEDS: PIPER/TAZO INJ 3.375 GM in SODIUM CHLORIDE 0.9% (P) 100 ML IV ×2 (09:46→21:02)
[2024-01-19] MEDS: PANTOPRAZOLE INJ 40 MG VIAL IVP (09:46)
[2024-01-19] MEDS: carVEDILOL 12.5 MG TABLET 25 MG PO (09:46)
[2024-01-19] MEDS: VALSARTAN 80 MG TABLET 160 MG PO ×2 (09:50→21:05)
[2024-01-19] MEDS: POLYETHYLENE GLYCOL 17 GM PACKET PO (09:51)
[2024-01-19] MEDS: APIXABAN 2.5 MG TABLET 5 MG PO ×2 (09:55→21:03)
--- NOTE | 2024-01-19 12:18 | PD.RESPRO ---
Documentation for date of: 01/19/24 Subjective Subjective Interval history: Ms. 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 While in the ED, patient was noted to have a BP of 225/81, for which she received clonidine, hydralazine, nifedipine, IV labetalol and subsequently admitted to medical floor .labs fairly unremarkable, with the renal panel consistent with ESRD. CXR showed prominent CHF. Patient was admitted for hypertensive emergency, abdominal pain with nephrology consulted for hemodialysis. Patient during the previous hospital Visit was diagnosed with a questionable renal artery stenosis-Per Dr. Owusu no role for renal intervention as patient currently on dialysis and kidney cannot be salvaged. Medical management was recommended. Home medications included atorvastatin, Auryxia, calcium acetate, carvedilol, clonidine, Eliquis, hydralazine, mirtazapine, nifedipine, Carmel-Sanjana, sertraline, Tylenol, Aldactone, valsartan 01/19/2024 Patient was seen and examined by the bedside. Rapid response called approximately at 11:30 AM due to blood pressure of 213/89. She received labetalol 5 mg IV once, labetalol IV as needed was added to the blood pressure medications regimen. After labetalol, BP went down to Patient is somnolent, AOX0, dialysis is planned for today, 3L of fluid to remove. According to the nursing staff, she continues to be somnolent from yesterday. Exam Vital Signs Temp Pulse Resp BP Pulse Ox O2 Del Method O2 Flow Rate 97.1 F 56 L 13 144/85 H 99 Room Air 1 01/19/24 11:50 01/19/24 11:50 01/19/24 11:50 01/19/24 11:50 01/19/24 11:50 01/19/24 11:50 01/19/24 04:00 Narrative Exam Physical Exam General: Chronically ill-appearing elderly female. Somnolent. HEENT: Normocephalic, atraumatic, mucous membranes moist. Heart: Holosystolic murmur at the left sternal border. Lungs: Diffuse crackles bilateral. Abdomen: Soft, nondistended, nontender, positive bowel sounds. ?No guarding or rebound tenderness. Neurologic: Alert and oriented x0, somnolent GCS 10. Extremities: No edema. Skin: No rash or ecchymoses. ++ AVF Objective Labs 01/20/24 04:46 01/19/24 04:22 Labs: Laboratory Results - last 24 hr 01/18/24 01/18/24 01/19/24 13:35 17:24 04:22 WBC 12.4 H RBC 3.08 L Hgb 9.4 L Hct 29.2 L MCV 95 MCH 30.5 MCHC 32.2 RDW Std Deviation 58.8 H Plt Count 306 Neut % (Auto) 85 H Lymph % (Auto) 5 L Weld % (Auto) 9 Eos % (Auto) 1 Baso % (Auto) 1 Neut # (Auto) 10.5 H Lymph # (Auto) 0.6 L Weld # (Auto) 1.1 H Eos # (Auto) 0.1 Baso # (Auto) 0.1 Immature Gran # (Auto) 0.08 H Absolute Nucleated RBC 0.00 Immature Gran % 1 H Nucleated RBC % 0 PT 16.0 H INR 1.5 H APTT 48.5 H Sodium 133 L Potassium 5.9 H D 5.8 H 5.0 D Chloride 92 L Carbon Dioxide 29.6 Anion Gap 11 BUN 52 H Creatinine 6.4 H* D Estim Creat Clear Calc 7.7 L eGFR 6 L* BUN/Creatinine Ratio 8 L Glucose 92 Calculated Osmolality 280 Calcium 9.0 Corrected Calcium 9.1 Phosphorus 5.1 Magnesium 2.5 Total Bilirubin 0.2 L AST 17 ALT < 7 L Alkaline Phosphatase 133 H Lactate Dehydrogenase 255 H Total Protein 6.7 Albumin 3.9 Globulin 2.8 Albumin/Globulin Ratio 1.4 Triglycerides 45 Cholesterol 116 L LDL Cholesterol, Calc 40 HDL Cholesterol 67 H Cholesterol/HDL Ratio 1.7 L Hepatitis A IgM Ab Non Reactive Hep Bs Antigen Non Reactive Hep Bs Antibody NonReact(Not Immune) L Hep B Core IgM Ab Non Reactive Hepatitis C Antibody Non Reactive Quality Measures Quality Measures none Advance care planning discussed with:: other Assessment & Plan Assessment Current Active Medications: Generic Name Dose Route Start Last Admin Trade Name Freq PRN Reason Stop Dose Admin Acetaminophen 650 mg 01/17/24 20:59 Acetaminophen 325 Mg Tablet PO 02/16/24 20:58 Q6H PRN Fever >101.5 Acetaminophen 650 mg 01/19/24 10:39 Acetaminophen 325 Mg Tablet PO 02/16/24 21:03 Q6H PRN PAIN SCALE 1-2 (mild Hydrocodone Bitart/Acetaminophen 1 tab 01/19/24 10:35 Hydrocodone/Apap 5/325 Tablet PO 01/24/24 10:34 Q6HR PRN Pain 3-6 Apixaban 5 mg 01/18/24 09:00 01/19/24 09:55 Apixaban 2.5 Mg Tablet PO 02/17/24 08:59 5 mg BID JANINE Administration Atorvastatin Calcium 40 mg 01/18/24 21:00 01/18/24 21:00 Atorvastatin Calcium 20 Mg Tablet PO 02/17/24 20:59 40 mg HS JANINE Administration Carvedilol 25 mg 01/18/24 08:00 01/19/24 09:46 Carvedilol 12.5 Mg Tablet PO 02/18/24 06:00 25 mg BIDWM JANINE Administration Clonidine 0.1 mg 01/19/24 14:00 Clonidine Hcl 0.1 Mg Tablet PO 02/18/24 13:59 TID JANINE Dextrose 25 ml 01/17/24 21:51 Dextrose 50%-Water Inj 50 Ml Syringe IV 02/16/24 21:50 Q15MIN PRN BG 50-70 responsive npo pt Dextrose 50 ml 01/17/24 21:51 01/19/24 03:41 Dextrose 50%-Water Inj 50 Ml Syringe IV 02/16/24 21:50 50 ml Q15MIN PRN Administration BG <50 OR BG <70 & pt unresponsive Epoetin Alan 10,000 unit 01/19/24 13:00 Epoetin Alan-Epbx Inj 10,000 Unit/Ml Vial (Non-Esrd) SC 01/19/24 13:01 X1 ONE Glucagon 1 mg 01/17/24 21:51 Glucagon Inj 1 Mg Vial IM Q15MIN PRN BG <70, and no IV access Hydralazine HCl 100 mg 01/18/24 22:00 01/19/24 05:32 Hydralazine Hcl 25 Mg Tablet PO 02/17/24 13:59 Not Given TID JANINE Piperacillin Sod/Tazobactam 100 mls @ 25 mls/hr 01/18/24 09:45 01/19/24 11:39 Sod 3.375 gm/ Sodium Chloride IV 01/25/24 08:59 25 mls/hr Q12HR JANINE Infusion Insulin Glargine 10 unit 01/18/24 21:00 01/18/24 21:02 Insulin Glargine (Lantus) 5 Unit/0.05 Ml (Per 5 Units) SC 02/17/24 20:59 Not Given HS JANINE Insulin Human Lispro 0 unit 01/18/24 07:30 01/18/24 16:34 Insulin Lispro (Admelog) 1 Unit/0.01 Ml Unit SC 02/17/24 07:29 Not Given AC [facility] Protocol Labetalol HCl 10 mg 01/18/24 12:08 Labetalol Inj 5 Mg/Ml Vial 20 Ml IVP 02/17/24 12:07 Q6HR PRN Hyptertension Minoxidil 5 mg 01/18/24 21:00 Minoxidil 10 Mg Tablet PO 02/17/24 20:59 BID JANINE Nifedipine 60 mg 01/18/24 21:00 01/19/24 10:07 Nifedipine Xl 30 Mg Tabcr PO 02/17/24 20:59 Not Given BID JANINE Ondansetron HCl 4 mg 01/17/24 21:04 01/18/24 22:27 Ondansetron Inj 2 Mg/Ml Inj 2 Ml IV 02/16/24 21:03 4 mg Q6H PRN Administration NAUSEA OR VOMITING Protocol Pantoprazole Sodium 40 mg 01/18/24 09:00 01/19/24 09:46 Pantoprazole Inj 40 Mg Vial IVP 02/17/24 08:59 40 mg QDAY JANINE Administration Polyethylene Glycol 17 gm 01/18/24 11:15 01/19/24 09:51 Polyethylene Glycol 17 Gm Packet PO 02/17/24 11:14 17 gm QDAY JANINE Administration Sennosides 2 tab 01/18/24 11:30 01/19/24 09:46 Senna Tablet PO 02/17/24 11:29 2 tab QDAY JANINE Administration Protocol Sertraline HCl 100 mg 01/18/24 21:00 01/18/24 21:00 Sertraline Hcl 25 Mg Tablet PO 02/17/24 20:59 100 mg HS JANINE Administration Valsartan 160 mg 01/18/24 21:00 01/19/24 09:50 Valsartan 80 Mg Tablet PO 02/17/24 05:59 160 mg BID JANINE Administration Plan Patient is a 73-year-old female with ESRD on HD (MW), resistant HTN, HFpEF (EF 65-70%), chronic respiratory failure on 3 L home O2, chronic normocytic anemia, IDDM, HLD, and depression/anxiety who presented to the ED with left lower quadrant abdominal pain, nausea #ESRD on HD (MWF) Plan: - continue with hemodialysis today. - Continue home calcium acetate #Chronic normocytic anemia Plan: Likely secondary to ESRD Will give Procrit with HD #Resistant hypertension #Hypertensive emergency Patient has a history of hypertension and ESRD and is on multiple blood pressure medications regimen. Plan: - Resumed home meds Coreg, clonidine, hydralazine, valsartan, with as needed labetalol for SBP >190 ? Carvedilol 25 mg twice daily ? Clonidine 0.1 3 times daily ? Hydralazine 100 mg 3 times daily ? Labetalol 10 mg IV as needed ? Minoxidil 5 mg twice daily ? Nifedipine 60 mg twice daily ? Valsartan 160 twice daily ?Monitor vital signs #Encephalopathy Patient appears somnolent, weak. Most likely in the setting of hypertensive emergency and/or possible infection. Plan: - treat the underlying condition #HFpEF (EF 65-70%) #Chronic respiratory failure, on 3 L home O2 #Intractable abdominal pain #IDDM #HLD #Depression #Anxiety Management as per primary team Plan of care discussed with attending Dr. Minesh Degroot MD, PGY 1. Attending Provider Attestation/Addendum Patient seen and examined with resident physician Dr. Oliver. Note reviewed, agree with findings and recommendations. Patient currently seen on dialysis. Tolerating dialysis without any problems. Hemodialysis for 3 hours, 2K, ultrafiltration 2-3 L, Epogen 6000, no heparin ordered. Plan of care discussed with the dialysis nurse. Please see dialysis flowsheet for further details. Patient's blood pressure remains high. Has been having high blood pressure for many many years. On 7 class medications.
--- NOTE | 2024-01-19 14:28 | PC.SS ---
Rounding note: patient is pending MRI and thorasenthesis.
--- NOTE | 2024-01-19 15:22 | ESPR_ITS ---
<Statement entered by Grupo Arango MD - 01/19/24 18:16> Patient was seen and examined at the bedside. Patient was mildly lethargic however responsive and was answering questions appropriately. She did not underwent thoracentesis given insufficient pleural fluid. Patient underwent hemodialysis per schedule. Blood pressure has been stable and in 140s for SBP. We are awaiting MRI lower extremity imaging results. Reduced dose of clonidine to 0.1 mg 3 times daily due to blood pressure improvement. GI did not recommend for any invasive procedures however we will touch base again with Dr. Saldivar if patient needs endoscopy. [place] given for pain management. Discontinued oxycodone. All labs and orders were reviewed. I saw and examined the patient, and I agree with current management stated by Dr Yovani MD,PGY1. Plan of care was discussed with the attending physician and resident physician. Disclaimer: Despite multiple revisions, due to the dictation software being used, the document bellow may not be free of grammatical errors including phonetic/typographic errors. However, this does not deter from our commitment to providing health care in the patient's best interest in mind. Dr. Kylee MD, PGY 2 Documentation for date of: 01/19/24 Subjective Subjective Interval history: Patient is a 73-year-old female with a past medical history of hypertension, diabetes mellitus insulin-dependent, CHF HFpEF 55 to 60% (12/04/2023), ESRD HD MWF, chronic normocytic anemia, on home oxygen 3 L nasal cannula. Overnight events hypoglycemia-glucose 40 secondary to 5 units of Lantus given for hyperkalemia of 5.8 post Kayexalate. Lantus and lispro currently being held. Patient denies any chest pain or shortness of breath despite right pleural effusion. This morning patient denied left lower quadrant abdominal pain. Bowel movement overnight. Exam Vital Signs Temp Pulse Resp BP Pulse Ox O2 Del Method O2 Flow Rate 97.4 F 59 L 16 129/57 L 99 Room Air 3 01/19/24 15:08 01/19/24 15:14 01/19/24 15:08 01/19/24 15:14 01/19/24 15:08 01/19/24 11:50 01/19/24 15:08 Narrative Exam General Appearance: Alert & Oriented X3, well-nourished female who is lying in bed in no acute distress. HEENT: Skull symmetrical and atraumatic. Conjunctivae pink and moist. Pupils equal, round, reactive to light and accommodation (PERRL). External ear without lesion or discharge. Straight, nares patient, mucosa dry, no discharge. No thyroid nodule appreciated. Cardio: Normal Rate and Rhythm with S1 and S2 heart sounds. No murmurs or extra heart sounds auscultated. No bruits on carotid auscultation. No peripheral edema or cyanosis. Lungs: Symmetric with good expansion. Chest and back non-tender. Breath sounds vesicular without crackles, wheezing or rhonchi Abdomen: Non-tender, Non-distended, Normal Reactive Bowel Sounds Neuro: Alert, cooperative, oriented to person, place, and time. Speech clear. CN grossly intact. Upper motor strength 5/5 and Lower motor strength 5/5. Sensation intact. Objective Labs 01/20/24 04:46 01/20/24 04:46 Labs: Laboratory Results - last 24 hr 01/18/24 01/19/24 17:24 04:22 WBC 12.4 H RBC 3.08 L Hgb 9.4 L Hct 29.2 L MCV 95 MCH 30.5 MCHC 32.2 RDW Std Deviation 58.8 H Plt Count 306 Neut % (Auto) 85 H Lymph % (Auto) 5 L [place] % (Auto) 9 Eos % (Auto) 1 Baso % (Auto) 1 Neut # (Auto) 10.5 H Lymph # (Auto) 0.6 L [place] # (Auto) 1.1 H Eos # (Auto) 0.1 Baso # (Auto) 0.1 Immature Gran # (Auto) 0.08 H Absolute Nucleated RBC 0.00 Immature Gran % 1 H Nucleated RBC % 0 PT 16.0 H INR 1.5 H APTT 48.5 H Sodium 133 L Potassium 5.8 H 5.0 D Chloride 92 L Carbon Dioxide 29.6 Anion Gap 11 BUN 52 H Creatinine 6.4 H* D Estim Creat Clear Calc 7.7 L eGFR 6 L* BUN/Creatinine Ratio 8 L Glucose 92 Calculated Osmolality 280 Calcium 9.0 Corrected Calcium 9.1 Phosphorus 5.1 Magnesium 2.5 Total Bilirubin 0.2 L AST 17 ALT < 7 L Alkaline Phosphatase 133 H Lactate Dehydrogenase 255 H Total Protein 6.7 Albumin 3.9 Globulin 2.8 Albumin/Globulin Ratio 1.4 Triglycerides 45 Cholesterol 116 L LDL Cholesterol, Calc 40 HDL Cholesterol 67 H Cholesterol/HDL Ratio 1.7 L Hepatitis A IgM Ab Non Reactive Hep Bs Antigen Non Reactive Hep Bs Antibody NonReact(Not Immune) L Hep B Core IgM Ab Non Reactive Hepatitis C Antibody Non Reactive Quality Measures Quality Measures none Advance care planning discussed with:: other Assessment & Plan Assessment Current Active Medications: Generic Name Dose Route Start Last Admin Trade Name Freq PRN Reason Stop Dose Admin Acetaminophen 650 mg 01/17/24 20:59 Acetaminophen 325 Mg Tablet PO 02/16/24 20:58 Q6H PRN Fever >101.5 Acetaminophen 650 mg 01/19/24 10:39 Acetaminophen 325 Mg Tablet PO 02/16/24 21:03 Q6H PRN PAIN SCALE 1-2 (mild Hydrocodone Bitart/Acetaminophen 1 tab 01/19/24 10:35 Hydrocodone/Apap 5/325 Tablet PO 01/24/24 10:34 Q6HR PRN Pain 3-6 Apixaban 5 mg 01/18/24 09:00 01/19/24 09:55 Apixaban 2.5 Mg Tablet PO 02/17/24 08:59 5 mg BID JANINE Administration Atorvastatin Calcium 40 mg 01/18/24 21:00 01/18/24 21:00 Atorvastatin Calcium 20 Mg Tablet PO 02/17/24 20:59 40 mg HS JANINE Administration Carvedilol 25 mg 01/18/24 08:00 01/19/24 09:46 Carvedilol 12.5 Mg Tablet PO 02/18/24 06:00 25 mg BIDWM JANINE Administration Clonidine 0.1 mg 01/19/24 14:00 01/19/24 14:59 Clonidine Hcl 0.1 Mg Tablet PO 02/18/24 13:59 Not Given TID JANINE Dextrose 25 ml 01/17/24 21:51 Dextrose 50%-Water Inj 50 Ml Syringe IV 02/16/24 21:50 Q15MIN PRN BG 50-70 responsive npo pt Dextrose 50 ml 01/17/24 21:51 01/19/24 03:41 Dextrose 50%-Water Inj 50 Ml Syringe IV 02/16/24 21:50 50 ml Q15MIN PRN Administration BG <50 OR BG <70 & pt unresponsive Glucagon 1 mg 01/17/24 21:51 Glucagon Inj 1 Mg Vial IM Q15MIN PRN BG <70, and no IV access Hydralazine HCl 100 mg 01/18/24 22:00 01/19/24 14:59 Hydralazine Hcl 25 Mg Tablet PO 02/17/24 13:59 Not Given TID [facility] Piperacillin Sod/Tazobactam 100 mls @ 25 mls/hr 01/18/24 09:45 01/19/24 11:39 Sod 3.375 gm/ Sodium Chloride IV 01/25/24 08:59 25 mls/hr Q12HR [facility] Infusion Insulin Glargine 10 unit 01/18/24 21:00 01/18/24 21:02 Insulin Glargine (Lantus) 5 Unit/0.05 Ml (Per 5 Units) SC 02/17/24 20:59 Not Given HS [facility] Insulin Human Lispro 0 unit 01/18/24 07:30 01/18/24 16:34 Insulin Lispro (Admelog) 1 Unit/0.01 Ml Unit SC 02/17/24 07:29 Not Given AC [facility] Protocol Labetalol HCl 10 mg 01/18/24 12:08 Labetalol Inj 5 Mg/Ml Vial 20 Ml IVP 02/17/24 12:07 Q6HR PRN Hyptertension Minoxidil 5 mg 01/18/24 21:00 Minoxidil 10 Mg Tablet PO 02/17/24 20:59 BID [facility] Nifedipine 60 mg 01/18/24 21:00 01/19/24 10:07 Nifedipine Xl 30 Mg Tabcr PO 02/17/24 20:59 Not Given BID [facility] Ondansetron HCl 4 mg 01/17/24 21:04 01/18/24 22:27 Ondansetron Inj 2 Mg/Ml Inj 2 Ml IV 02/16/24 21:03 4 mg Q6H PRN Administration NAUSEA OR VOMITING Protocol Pantoprazole Sodium 40 mg 01/18/24 09:00 01/19/24 09:46 Pantoprazole Inj 40 Mg Vial IVP 02/17/24 08:59 40 mg QDAY JANINE Administration Polyethylene Glycol 17 gm 01/18/24 11:15 01/19/24 09:51 Polyethylene Glycol 17 Gm Packet PO 02/17/24 11:14 17 gm QDAY JANINE Administration Sennosides 2 tab 01/18/24 11:30 01/19/24 09:46 Senna Tablet PO 02/17/24 11:29 2 tab QDAY JANINE Administration Protocol Sertraline HCl 100 mg 01/18/24 21:00 01/18/24 21:00 Sertraline Hcl 25 Mg Tablet PO 02/17/24 20:59 100 mg HS JANINE Administration Valsartan 160 mg 01/18/24 21:00 01/19/24 09:50 Valsartan 80 Mg Tablet PO 02/17/24 05:59 160 mg BID JANINE Administration Plan Patient is a 73-year-old female with a past medical history of hypertension, diabetes mellitus insulin-dependent, CHF HFpEF 55 to 60% (12/04/2023), ESRD HD MWF, chronic normocytic anemia, on home oxygen 3 L nasal cannula who was admitted on 01/18/2024 for intractable abdominal pain and pleural effusion with increasing SOB. #Intractable Abdominal Pain Etiology: Malignancy can not be ruled out given no history of colonoscopy and history of constipation. denied melena or hematochezia. Patient does take iron tablets daily. Pain worse on hip flexion. DDx: Psoas tendinitis vs inflammatory bowel disease less likely given no diarrhea history vs cystitis less likely as patient no long produced urine and denied any vaginal discharge. Diagnostics: CT Abdomen/Pelvis (01/17/2024): Large right pleural effusion. Recommend hepatobiliary sonography follow-up. Atrophic kidneys. Marked abnormal thickening of the rectal wall with perirectal inflammatory change, differential would include proctitis, rectal tumor, recommend direct inspection. Diffuse thickening of the left iliopsoas muscle, differential would include infectious mass, hematoma, less likely tumor infiltration but not excluded, clinical correlation advised, recommend MRI pelvis upper thigh follow-up Cystitis pattern Plan: -MRI left lower extremity w/ out contrast-pending ? Continue ZOSYN 2.25 mg q.6h. (renally dosed) ? Pain Mangement (no Dilaudid) -No colonoscopy recommended at this time. ? GI consult, appreciate recommendations, Dr. Saldivar #Acute hypoxic respiratory failure #Congestive Heart Failure, Systolic Dysfunction, HFpEF 55-60% (11/2023) #Pulmonary HTN Etiology: Working diagnosis of CHF exacerbation given chest x-ray showing increasing SOB, large pleural effusion. Cardio-renal can not be rule vs increasing pulmonary artery pressure leading to right pleural effusion. Given low volume of pleural, no thora recommended at this time. DDx: malignancy can not be ruled out given previous hospital admission, patient also presented with pleural effusion vs pneumonia given slight elevated WBC 11.7 but less likely given no cough or fevers. [place] less likely as there no ST elevation on EKG or upward trending troponins. Diagnostics: -Echo (12/04/2023): Normal LV size and function. Mild LVH. Estimated EF 55-60%. Moderate RV dilatation. Mild systolic dysfuncton. Estimated RVSP 70mnHg. Severe biatrial dilatation. Mild AV stenosis, mean gradient 13mmHg, vmax 2.5m/s. -Cxr (01/18/2024): Moderate CHF. Consider superimposed pneumonia right lung. -TSH -Lipid: Triglycerides 45, Cholesterol 116, LDL 40, HDL 67 NYHA Class: II Plan: -US guided thoracentesis-non -Cytology for thora-DC -Consider BNP -NO lasix, patient does not produce urine -Previous Echo 11/2023 -A1c A1c 5.1 -K>4 and Mg >2 -Fluid Restriction 1200 -SpO <90%, support PRN, currently on [place] oxygen -Strict Ins and Out -Daily weight checks # History of resistant hypertension # Hypertensive emergency ? resolved # Hx of HTN Etiology: Patient has a past medical history of right renal artery stenosis and typically has elevated BP. On floors blood pressure has been >200 systolic, drop blood pressure by 25%. Minoxidil 5 mg PO BID added in addition to extensive anti-hypertensive medication. Diagnostics: Renal Artery Duplex (06/08/2022): Significantly smaller right kidney. Moderate bilateral renal parenchymal scar formation. No flow right renal artery ostia CT Abdomen/Pelvis (01/17/2024): Atrophic kidneys Plan: -Added Minoxidil 5 mg PO BID-HOLDING ? Resumed home VALSARTAN 160 mg BID ? Resumed home CLONIDINE 0.1 mg TID-->Clonidine 0.2 mg TID -->Clonidine 0.1 mg TID -resumed Nifedipine 60 mg BID -resumed Hydralzine 100 mg TID ?Labetalol 10 mg IV Q6HR, if SBP >200 or DBP >110 -Hold Nifedipine and hydralzine if SBP <120 or DBP <80. -Nephrology consulted, Dr. Edge, appreciate recommendations-known patieint. # ESRD HD MWF # Chronic normocytic anemia Patient of Dr. Edge's, HD done on 01/16/2024. ESRD likely secondary to diabetes mellitus and right renal artery stenosis. Diagnostics: 01/18/2024: Renal: BUN 42, Cr 5.3, CrCl 9.3, GFR 81-->01/19/2024 BUN 52 Cr 6.4 GFR 6 Plan: -Dialysis 01/19/2024: 3 liters removed. ? Nephrology consulted, will continue hemodialysis as scheduled ? Renally dose meds, avoid NEPHROTOXINS # IDDM Well-controlled, GLUCOSE 130, 07/2023 A1c 5.1%. Given hypoglycemic episode, currently holding insulin. Plan: ? Accu-Cheks ? INSULIN glargine 10 units HS-Hold ? INSULIN sliding scale-Hold # Hx of HLD No statins noted after medication reconciliation. Target LDL <55 given patient is diabetic and with hx of CVD (aortic stenosis) Diagnostic: (07/21/2023): Triglycerides 115, Cholesterol 167, LDL 75, HDL 69, Plan: -Atorvastatin 40 mg PO HS ? Repeat lipid panel ? Consider starting statin as indicated # Anxiety # Depression History above, resume home meds. Home medication of Sertraline 100 mg PO HS and Mirtazapine 15 mg PO HS. Plan: -Resume Sertraline 100 mg PO HS -Hold Mirtazapine 15mg PO HS, consider restarting in hospital as needed. # Transient troponinemia ? improved. Etiology: Likely demand ischemia in settings increased oxygen demand Troponin 0.051 then 0.047, patient otherwise symptomatic without chest pain Cxr: Moderate CHF. Consider superimposed pneumonia right lung EKG: Atrial flutter/tachycardia w/ Right bundle branch block, less likely as there are p waves. 2nd EKG: Sinus rhythm and right bundle branch block Plan: no acute intervention Health Maintenance: Disp: Pt is currently admitted to floors for further management of Intractable Abdominal Pain, awaiting MRI of Left Lower Extremity. FEN: cardio-renal diet DVT: Compression Devices Code: DNR - The patient's plan was discussed with attending Dr Adan and senior residents Kylee Pina MD PGY1 Internal Medicine Attending Provider Attestation/Addendum I have examined the patient, reviewed labs and imaging findings, discussed the case with the resident(s), and reviewed entered orders. I agree with the plan of care as outlined in this note, with these additional summaries/recommendations: Patient seen at bedside. Overnight patient had worsening hyperkalemia and was given hyperK bundle including insulin which resulted in hypoglycemic episode and resolved with D5. Today patient is not complaining of abdominal pain. CT scan on admission revealed marked abnormal thickening of the rectal wall with perirectal inflammatory changes which is possibly secondary to proctitis or rectal tumor. Gastroenterology was consulted and likely no need for colonoscopy at this time. CT also noted diffuse thickening of left iliopsoas muscle which is concerning for possible mass versus hematoma versus tumor. We will obtain MRI for further evaluation. Patient has resistant hypertension likely secondary to renal artery stenosis. Continue Coreg 25 mg p.o. twice daily, clonidine 0.1 mg p.o. 3 times daily, hydralazine 100 mg p.o. 3 times daily, nifedipine 60 mg p.o. twice daily, valsartan 160 mg p.o. twice daily, and was started on minoxidil 5 mg p.o. twice daily. Patients blood pressure significantly improved today and minoxidil placed on hold. We will continue to titrate antihypertensive regimen as needed. Patient has history of ESRD on hemodialysis. Nephrology following. Patient was also found to have large right pleural effusion and IR drainage ordered although not enough drainable fluid. Repeat hematology and chemistry panel in AM. Dr. Adan
[2024-01-19] MEDS: ACETAMINOPHEN 325 MG TABLET 650 MG PO (18:11)
--- NOTE | 2024-01-19 19:18 | PC.NURSE ---
Dialysis completed for 3.5 hrs, tolerated well. Pt hebrew speaking awake, A/O x3, complaint of pain in left groin area 4 out of 10. Respiration even and unlabored sating at 97-99% on O2 at 3L/min via nc. Able to removed 3000 ml of fluid net. Post tx BP 143/58, HR 70, Temp 97.5. Pt back in her room. Call light within reached. Pressure dressing on left upper arm AV fistula clean/dry/intact. No bleeding noted. Pressure dressing to be remove at 2100. Report given to Courtney ROPER
--- NOTE | 2024-01-19 20:13 | PD.IMPROG ---
Documentation for date of: 01/19/24 Subjective Subjective Interval history: Pain left lower quadrant definitely coming from some sort of a musculoskeletal issue with the left hip and the left iliopsoas muscle However findings of the CT scan does show inflammatory change in the region of the rectum but that should not be causing this degree of pain Will prep the colon for a possible colonoscopy with biopsies of the rectal mucosa Exam Vital Signs Temp Pulse Resp BP Pulse Ox O2 Del Method O2 Flow Rate 97.5 F 70 18 146/61 H 95 Room Air 3 01/19/24 20:00 01/19/24 20:00 01/19/24 20:00 01/19/24 20:00 01/19/24 20:00 01/19/24 20:00 01/19/24 20:00 Objective Labs 01/19/24 04:22 01/19/24 04:22 Labs: Laboratory Results - last 24 hr 01/19/24 04:22 WBC 12.4 H RBC 3.08 L Hgb 9.4 L Hct 29.2 L MCV 95 MCH 30.5 MCHC 32.2 RDW Std Deviation 58.8 H Plt Count 306 Neut % (Auto) 85 H Lymph % (Auto) 5 L [place] % (Auto) 9 Eos % (Auto) 1 Baso % (Auto) 1 Neut # (Auto) 10.5 H Lymph # (Auto) 0.6 L [place] # (Auto) 1.1 H Eos # (Auto) 0.1 Baso # (Auto) 0.1 Immature Gran # (Auto) 0.08 H Absolute Nucleated RBC 0.00 Immature Gran % 1 H Nucleated RBC % 0 PT 16.0 H INR 1.5 H APTT 48.5 H Sodium 133 L Potassium 5.0 D Chloride 92 L Carbon Dioxide 29.6 Anion Gap 11 BUN 52 H Creatinine 6.4 H* D Estim Creat Clear Calc 7.7 L eGFR 6 L* BUN/Creatinine Ratio 8 L Glucose 92 Calculated Osmolality 280 Calcium 9.0 Corrected Calcium 9.1 Phosphorus 5.1 Magnesium 2.5 Total Bilirubin 0.2 L AST 17 ALT < 7 L Alkaline Phosphatase 133 H Lactate Dehydrogenase 255 H Total Protein 6.7 Albumin 3.9 Globulin 2.8 Albumin/Globulin Ratio 1.4 Triglycerides 45 Cholesterol 116 L LDL Cholesterol, Calc 40 HDL Cholesterol 67 H Cholesterol/HDL Ratio 1.7 L Hepatitis A IgM Ab Non Reactive Hep Bs Antigen Non Reactive Hep Bs Antibody NonReact(Not Immune) L Hep B Core IgM Ab Non Reactive Hepatitis C Antibody Non Reactive Impressions Impression: # Left lower quadrant pain # Abnormal CT scan of the abdomen pelvis # Muscular skeletal pain left hip GoLytely prep Colonoscopy once patient is clear Assessment & Plan A&P Narrative # Left lower quadrant pain with abnormal CT scan of the abdomen pelvis showing changes consistent with proctitis as well as diffuse thickening of the left iliopsoas muscle The pain appears to be more musculoskeletal than the pain from proctitis Much more exaggeration of the pain on movement of the left hip Agree with getting the MRI scan of the left hip region tomorrow This particular pain has nothing to do I believe from a GI viewpoint Other medical problems include # Large right pleural effusion # End-stage renal disease on hemodialysis MWF # On home oxygen 3 L nasal cannula Time Spent With Patient Time: Total time spent is greater than 50% in coordination of care (as documented) at patient's floor/unit and/or counseling patient:
[2024-01-19] MEDS: EPOETIN ALFA-EPBX INJ 10,000 UNIT/ML VIAL (NON-ESRD) 10000 UNIT SC (21:02)
[2024-01-19] MEDS: NIFEdipine XL 30 MG TABCR 60 MG PO (21:03)
[2024-01-19] MEDS: cloNIDine HCL 0.1 MG TABLET PO (21:03)
[2024-01-19] MEDS: ATORVASTATIN CALCIUM 20 MG TABLET 40 MG PO (21:03)
[2024-01-19] MEDS: hydrALAZINE HCL 25 MG TABLET 100 MG PO (21:04)
[2024-01-19] MEDS: SERTRALINE HCL 25 MG TABLET 100 MG PO (21:04)
--- NOTE | 2024-01-19 21:40 | PC.NURSE ---
Dr. Saldivar in to see patient, explained to patient that he wants to do colonoscopy and that she has to take golytely, patient stated she was not going to tolerate the fluids and refused, the doctor explained that we can put NG tube in and administer it that way, patient still refused.
[2024-01-20] VITALS (19 sets, daily range): BP systolic 125–174; BP diastolic 50–84; PULSE 60–109; RESP 12–20; TEMP 36.3–36.8; O2SAT 94–100; BMI 28.9
--- NOTE | 2024-01-20 | XR_ITS ---
Examination: MRI left lower leg, without contrast Date and time of exam: January 20, 2024 1122 hours INDICATIONS: Left lower leg pain, clinical diagnosis tendinitis Technique: Multiple axial sagittal and coronal images of the left lower leg have been obtained with the Siemens high-resolution 1.5 [place]iley MRI scanner. Images obtained include T2-weighted fat-suppressed sagittal sections, TR 3500, TE 46, T2 weighted coronal fat suppressed images, TR 3050, TE 84, T2-weighted transverse fat suppressed images, TR 3260, TE 63, proton density transverse images, TR 4720 TE 46, and T1 weighted coronal images, TR 560, TE 13. Findings: All the images are severely degraded by patient motion No gross fracture or marrow edema bone contusion. No soft tissue mass identified IMPRESSION: All of the images are severely degraded by continual patient motion Consider shorter CT scan time CT lower extremity post intravenous contrast follow-up
[2024-01-20] MEDS: hydrALAZINE HCL 25 MG TABLET 100 MG PO ×2 (05:45→16:59)
[2024-01-20] MEDS: cloNIDine HCL 0.1 MG TABLET PO ×3 (05:46→21:36)
[2024-01-20 06:10] LABS: Basophils # (Auto) 0.1 Thou/mm3 (0.0-0.2); Basophils % (Auto) 1 % (0-2.5); Eosinophils # (Auto) 0.2 Thou/mm3 (0.0-0.5); Eosinophils % (Auto) 3 % (0-10); Hematocrit 29.7 % (36.0-46.0); Hemoglobin 9.5 g/dL (12.0-16.0); Immature Granulocytes % (Auto) 0 % (0-0); Immature Granulocytes Auto 0.03 Thou/mm3 (0.00-0.00); Lymphocytes # (Auto) 0.5 Thou/mm3 (1.0-4.8); Lymphocytes % (Auto) 7 % (10-50); Mean Corpuscular Hemoglobin 30.6 pg (25.0-35.0); Mean Corpuscular Volume 96 fL (80-100); Monocytes # (Auto) 0.8 Thou/mm3 (0.0-0.8); Monocytes % (Auto) 11 % (0-12); Neutrophils % (Auto) 78 % (37-80); Nucleated Red Blood Cell % 0 /100 WBC (0); Platelet Count 294 Thou/mm3 (140-440); RDW Standard Deviation 59.6 fL (36.4-46.3); White Blood Count 7.7 Thou/mm3 (3.6-11.0)
[2024-01-20 07:11] LABS: Alanine Aminotransferase < 7 U/L (10-49); Albumin, Serum 3.8 gm/dL (3.4-4.8); Albumin/Globulin Ratio 1.3 (1.2-2.2); Alkaline Phosphatase 123 U/L (46-116); Anion Gap 11 (7-16); Aspartate Amino Transferase 17 U/L (0-34); BUN/Creatinine Ratio 6 Ratio (12-20); Bilirubin,Total 0.3 mg/dL (0.3-1.2); Blood Urea Nitrogen 24 mg/dL (9-23); Calcium 8.4 mg/dL (8.3-10.6); Calcium (Corrected) 8.6 mg/dL (8.5-10.1); Carbon Dioxide 29.3 mMol/L (20.0-31.0); Chloride 94 mMol/L (98-107); Creatinine (Component) 3.9 mg/dL (0.6-1.3); Estimated Creatinine Clearance 12.6 mL/min (>60); Globulin 2.9 gm/dL (2.3-3.5); Glucose 119 mg/dL (74-106); Magnesium 2.2 mg/dL (1.6-2.6); Osmolality,Calculated 273 (275-295); Phosphorous 4.4 mg/dL (2.4-5.1); Potassium 4.2 mMol/L (3.4-5.1); Sodium 134 mMol/L (136-145); Total Protein 6.7 gm/dL (5.7-8.2); eGFR 12 See Note
[2024-01-20] MEDS: carVEDILOL 12.5 MG TABLET 25 MG PO ×2 (07:35→17:01)
[2024-01-20] MEDS: APIXABAN 2.5 MG TABLET 5 MG PO ×2 (10:02→21:39)
[2024-01-20] MEDS: PANTOPRAZOLE INJ 40 MG VIAL IVP (10:04)
[2024-01-20] MEDS: PIPER/TAZO INJ 3.375 GM in SODIUM CHLORIDE 0.9% (P) 100 ML IV (10:04)
[2024-01-20] MEDS: SENNA TABLET 2 TAB PO (10:05)
[2024-01-20] MEDS: POLYETHYLENE GLYCOL 17 GM PACKET PO (10:05)
--- NOTE | 2024-01-20 14:44 | PC.SS ---
Rounding note: patient pending MRI.
--- NOTE | 2024-01-20 15:50 | ESPR_ITS ---
<Statement entered by Grupo Arango MD - 01/20/24 16:11> Patient was seen and examined at the bedside. Patient was eating comfortably on the bed. We are still awaiting MRI left lower extremity and she deferred for having colonoscopy. Blood pressure remained stable today. Will follow-up with the imaging results. Antibiotics were discontinued. All labs and orders were reviewed. I saw and examined the patient, and I agree with current management stated by Dr Yovani MD,PGY1. Plan of care was discussed with the attending physician and resident physician. Disclaimer: Despite multiple revisions, due to the dictation software being used, the document bellow may not be free of grammatical errors including phonetic/typographic errors. However, this does not deter from our commitment to providing health care in the patient's best interest in mind. Dr. Kylee MD, PGY 2 Documentation for date of: 01/20/24 Subjective Subjective Interval history: Patient is a 73-year-old female with a past medical history of hypertension, diabetes mellitus insulin-dependent, CHF HFpEF 55 to 60% (12/04/2023), ESRD HD MWF, chronic normocytic anemia, on home oxygen 3 L nasal cannula. No overnight events reported. Patient is currently refusing colonoscopy and refusing golytely. Patinet denied any abdominal pain on physical exam. Exam Vital Signs Temp Pulse Resp BP Pulse Ox O2 Del Method O2 Flow Rate 97.8 F 63 19 168/62 H 94 L Room Air 2 01/20/24 12:00 01/20/24 14:36 01/20/24 12:00 01/20/24 14:36 01/20/24 12:00 01/20/24 12:00 01/20/24 09:00 Narrative Exam General Appearance: Alert & Oriented X2, well-nourished female who is lying in bed in no acute distress HEENT: Skull symmetrical and atraumatic. Conjunctivae pin and moist. Pupils equal, round, reactive to light and accommodation (PERRL). External ear without lesion or discharge. Straight, nares patient, mucosa pink, no discharge. No thyroid nodule appreciated. No cervical lymphadenopathy. Cardio: Normal Rate and Rhythm with S1 and S2 heart sounds. No murmurs or extra heart sounds auscultated. No bruits on carotid auscultation. No peripheral edema or cyanosis. Lungs: Symmetric with good expansion. Chest and back non-tender. Breath sounds vesicular without crackles, wheezing or rhonchi Abdomen: Non-tender, Non-distended, Normal Reactive Bowel Sounds Neuro: Alert, cooperative, oriented to person, place, and not time. Speech clear. CN grossly intact. Upper motor strength 5/5 and Lower motor strength 5/5. Sensation intact. Objective Labs 01/20/24 04:46 01/20/24 04:46 Labs: Laboratory Results - last 24 hr 01/20/24 04:46 WBC 7.7 RBC 3.10 L Hgb 9.5 L Hct 29.7 L MCV 96 MCH 30.6 MCHC 32.0 RDW Std Deviation 59.6 H Plt Count 294 Neut % (Auto) 78 Lymph % (Auto) 7 L Reeves % (Auto) 11 Eos % (Auto) 3 Baso % (Auto) 1 Neut # (Auto) 6.0 Lymph # (Auto) 0.5 L Reeves # (Auto) 0.8 Eos # (Auto) 0.2 Baso # (Auto) 0.1 Immature Gran # (Auto) 0.03 H Absolute Nucleated RBC 0.00 Immature Gran % 0 Nucleated RBC % 0 Sodium 134 L Potassium 4.2 D Chloride 94 L Carbon Dioxide 29.3 Anion Gap 11 BUN 24 H Creatinine 3.9 H D Estim Creat Clear Calc 12.6 L eGFR 12 L* BUN/Creatinine Ratio 6 L Glucose 119 H Calculated Osmolality 273 L Calcium 8.4 Corrected Calcium 8.6 Phosphorus 4.4 Magnesium 2.2 Total Bilirubin 0.3 AST 17 ALT < 7 L Alkaline Phosphatase 123 H Total Protein 6.7 Albumin 3.8 Globulin 2.9 Albumin/Globulin Ratio 1.3 Quality Measures Quality Measures none Advance care planning discussed with:: other Assessment & Plan Assessment Current Active Medications: Generic Name Dose Route Start Last Admin Trade Name Freq PRN Reason Stop Dose Admin Acetaminophen 650 mg 01/17/24 20:59 Acetaminophen 325 Mg Tablet PO 02/16/24 20:58 Q6H PRN Fever >101.5 Acetaminophen 650 mg 01/19/24 10:39 01/19/24 18:11 Acetaminophen 325 Mg Tablet PO 02/16/24 21:03 650 mg Q6H PRN Administration PAIN SCALE 1-2 (mild Hydrocodone Bitart/Acetaminophen 1 tab 01/19/24 10:35 Hydrocodone/Apap 5/325 Tablet PO 01/24/24 10:34 Q6HR PRN Pain 3-6 Apixaban 5 mg 01/18/24 09:00 01/20/24 10:02 Apixaban 2.5 Mg Tablet PO 02/17/24 08:59 5 mg BID JANINE Administration Atorvastatin Calcium 40 mg 01/18/24 21:00 01/19/24 21:03 Atorvastatin Calcium 20 Mg Tablet PO 02/17/24 20:59 40 mg HS JANINE Administration Carvedilol 25 mg 01/18/24 08:00 01/20/24 07:35 Carvedilol 12.5 Mg Tablet PO 02/18/24 06:00 25 mg BIDWM JANINE Administration Clonidine 0.1 mg 01/19/24 14:00 01/20/24 14:34 Clonidine Hcl 0.1 Mg Tablet PO 02/18/24 13:59 0.1 mg TID JANINE Administration Dextrose 25 ml 01/17/24 21:51 Dextrose 50%-Water Inj 50 Ml Syringe IV 02/16/24 21:50 Q15MIN PRN BG 50-70 responsive npo pt Dextrose 50 ml 01/17/24 21:51 01/19/24 03:41 Dextrose 50%-Water Inj 50 Ml Syringe IV 02/16/24 21:50 50 ml Q15MIN PRN Administration BG <50 OR BG <70 & pt unresponsive Glucagon 1 mg 01/17/24 21:51 Glucagon Inj 1 Mg Vial IM Q15MIN PRN BG <70, and no IV access Hydralazine HCl 100 mg 01/18/24 22:00 01/20/24 14:36 Hydralazine Hcl 25 Mg Tablet PO 02/17/24 13:59 Not Given TID JANINE Insulin Glargine 10 unit 01/18/24 21:00 01/18/24 21:02 Insulin Glargine (Lantus) 5 Unit/0.05 Ml (Per 5 Units) SC 02/17/24 20:59 Not Given HS [facility] Insulin Human Lispro 0 unit 01/18/24 07:30 01/18/24 16:34 Insulin Lispro (Admelog) 1 Unit/0.01 Ml Unit SC 02/17/24 07:29 Not Given AC [facility] Protocol Labetalol HCl 10 mg 01/18/24 12:08 Labetalol Inj 5 Mg/Ml Vial 20 Ml IVP 02/17/24 12:07 Q6HR PRN Hyptertension Minoxidil 5 mg 01/18/24 21:00 Minoxidil 10 Mg Tablet PO 02/17/24 20:59 BID JANINE Nifedipine 60 mg 01/18/24 21:00 01/20/24 10:04 Nifedipine Xl 30 Mg Tabcr PO 02/17/24 20:59 Not Given BID JANINE Ondansetron HCl 4 mg 01/17/24 21:04 01/18/24 22:27 Ondansetron Inj 2 Mg/Ml Inj 2 Ml IV 02/16/24 21:03 4 mg Q6H PRN Administration NAUSEA OR VOMITING Protocol Pantoprazole Sodium 40 mg 01/18/24 09:00 01/20/24 10:04 Pantoprazole Inj 40 Mg Vial IVP 02/17/24 08:59 40 mg QDAY JANINE Administration Polyethylene Glycol 17 gm 01/18/24 11:15 01/20/24 10:05 Polyethylene Glycol 17 Gm Packet PO 02/17/24 11:14 17 gm QDAY JANINE Administration Sennosides 2 tab 01/18/24 11:30 01/20/24 10:05 Senna Tablet PO 02/17/24 11:29 2 tab QDAY JANINE Administration Protocol Sertraline HCl 100 mg 01/18/24 21:00 01/19/24 21:04 Sertraline Hcl 25 Mg Tablet PO 02/17/24 20:59 100 mg HS JANINE Administration Valsartan 160 mg 01/18/24 21:00 01/20/24 10:05 Valsartan 80 Mg Tablet PO 02/17/24 05:59 Not Given BID JANINE Plan Patient is a 73-year-old female with a past medical history of hypertension, diabetes mellitus insulin-dependent, CHF HFpEF 55 to 60% (12/04/2023), ESRD HD MWF, chronic normocytic anemia, on home oxygen 3 L nasal cannula who was admitted on 01/18/2024 for intractable abdominal pain and pleural effusion with increasing SOB. #Intractable Abdominal Pain #Proctitis Etiology: Given imaging finding of proctitis and no elevated WBC this is less likely an infectious cause. Patient does have a past medical history of constipation and admits taking iron tablets. Proctitis likely secondary to chronic constipation. Patient was currently refusing GoLytely and colonoscopy. GI updated. DDx: Psoas tendinitis vs inflammatory bowel disease less likely given no diarrhea history vs cystitis less likely as patient no long produced urine and denied any vaginal discharge. Diagnostics: CT Abdomen/Pelvis (01/17/2024): Large right pleural effusion. Recommend hepatobiliary sonography follow-up. Atrophic kidneys. Marked abnormal thickening of the rectal wall with perirectal inflammatory change, differential would include proctitis, rectal tumor, recommend direct inspection. Diffuse thickening of the left iliopsoas muscle, differential would include infectious mass, hematoma, less likely tumor infiltration but not excluded, clinical correlation advised, recommend MRI pelvis upper thigh follow-up Cystitis pattern Plan: -MRI left lower extremity w/ out contrast-reading pending. ? Continue ZOSYN 2.25 mg q.6h. (renally dosed)-D/C on 01/20/2024 ? Pain Mangement (no Dilaudid) -No colonoscopy recommended at this time. ? GI consult, appreciate recommendations, Dr. Saldivar #Acute hypoxic respiratory failure #Congestive Heart Failure, Systolic Dysfunction, HFpEF 55-60% (11/2023) #Pulmonary HTN Etiology: Working diagnosis of CHF exacerbation given chest x-ray showing increasing SOB, large pleural effusion. Cardio-renal can not be rule vs increasing pulmonary artery pressure leading to right pleural effusion. Given low volume of pleural, no thora recommended at this time. DDx: malignancy can not be ruled out given previous hospital admission, patient also presented with pleural effusion vs pneumonia given slight elevated WBC 11.7 but less likely given no cough or fevers. SD less likely as there no ST elevation on EKG or upward trending troponins. Diagnostics: -Echo (12/04/2023): Normal LV size and function. Mild LVH. Estimated EF 55-60%. Moderate RV dilatation. Mild systolic dysfuncton. Estimated RVSP 70mnHg. Severe biatrial dilatation. Mild AV stenosis, mean gradient 13mmHg, vmax 2.5m/s. -Cxr (01/18/2024): Moderate CHF. Consider superimposed pneumonia right lung. -Lipid: Triglycerides 45, Cholesterol 116, LDL 40, HDL 67 NYHA Class: II Plan: -US guided thoracentesis-unable to collect fluid, pocket too small. -Cytology for thora-DC -Consider BNP -NO lasix, patient does not produce urine -Previous Echo 11/2023 -A1c A1c 5.1 -K>4 and Mg >2 -Fluid Restriction 1200 -SpO <90%, support PRN, currently on [place] oxygen -Strict Ins and Out -Daily weight checks # History of resistant hypertension # Hypertensive emergency ? resolved # Hx of HTN Etiology: Patient has a past medical history of right renal artery stenosis and typically has elevated BP. On floors blood pressure has been >200 systolic, drop blood pressure by 25%. Minoxidil 5 mg PO BID added but has been D/C given patients blood pressure returned to baseline with systolic BP in about 160s. Diagnostics: Renal Artery Duplex (06/08/2022): Significantly smaller right kidney. Moderate bilateral renal parenchymal scar formation. No flow right renal artery ostia CT Abdomen/Pelvis (01/17/2024): Atrophic kidneys Plan: ? Resumed home VALSARTAN 160 mg BID ? Resumed home CLONIDINE 0.1 mg TID-->Clonidine 0.2 mg TID -->Clonidine 0.1 mg TID -resumed Nifedipine 60 mg BID -resumed Hydralzine 100 mg TID -Added Minoxidil 5 mg PO BID-D/C ?Labetalol 10 mg IV Q6HR, if SBP >200 or DBP >110 -Hold Nifedipine and hydralzine if SBP <120 or DBP <70. -Nephrology consulted, Dr. Edge, appreciate recommendations-known patieint. # ESRD HD MWF # Chronic normocytic anemia Patient of Dr. Edge's, HD done on 01/16/2024. ESRD likely secondary to diabetes mellitus and right renal artery stenosis. Diagnostics: 01/18/2024: Renal: BUN 42, Cr 5.3, CrCl 9.3, GFR 81-->01/19/2024 BUN 52 Cr 6.4 GFR 6 Plan: -Dialysis 01/19/2024: 3 liters removed. ? Nephrology consulted, will continue hemodialysis as scheduled ? Renally dose meds, avoid NEPHROTOXINS # IDDM Well-controlled, GLUCOSE 130, 07/2023 A1c 5.1%. Given hypoglycemic episode, currently holding insulin. Plan: ? Accu-Cheks ? INSULIN glargine 10 units HS-Hold ? INSULIN sliding scale-Hold # Hx of HLD No statins noted after medication reconciliation. Target LDL <55 given patient is diabetic and with hx of CVD (aortic stenosis) Diagnostic: (07/21/2023): Triglycerides 115, Cholesterol 167, LDL 75, HDL 69, Plan: -Atorvastatin 40 mg PO HS ? Repeat lipid panel ? Consider starting statin as indicated # Anxiety # Depression History above, resume home meds. Home medication of Sertraline 100 mg PO HS and Mirtazapine 15 mg PO HS. Plan: -Resume Sertraline 100 mg PO HS -Hold Mirtazapine 15mg PO HS, consider restarting in hospital as needed. # Transient troponinemia ? improved. Etiology: Likely demand ischemia in settings increased oxygen demand Troponin 0.051 then 0.047, patient otherwise symptomatic without chest pain Cxr: Moderate CHF. Consider superimposed pneumonia right lung EKG: Atrial flutter/tachycardia w/ Right bundle branch block, less likely as there are p waves. 2nd EKG: Sinus rhythm and right bundle branch block Plan: no acute intervention Health Maintenance: Disp: Pt is currently admitted to floors for further management of Intractable Abdominal Pain, awaiting MRI of Left Lower Extremity. FEN: cardio-renal diet DVT: Compression Devices Code: DNR - The patient's plan was discussed with attending Dr Adan and senior residents Kylee Pina MD PGY1 Internal Medicine Attending Provider Attestation/Addendum I have examined the patient, reviewed labs and imaging findings, discussed the case with the resident(s), and reviewed entered orders. I agree with the plan of care as outlined in this note, with these additional summaries/recommendations: Patient seen at bedside. Today patient is not complaining of abdominal pain. CT scan on admission revealed marked abnormal thickening of the rectal wall with perirectal inflammatory changes which is possibly secondary to proctitis or rectal tumor. Gastroenterology was consulted and was planning on colonoscopy although patient now declining because she reports her abdominal pain has resolved. Patient was counseled at bedside although still declines. CT also noted diffuse thickening of left iliopsoas muscle which is concerning for possible mass versus tumor. Patient underwent MRI which was undiagnostic secondary to continual patient motion. Patient not complaining of left thigh pain at this time and relatively benign physical exam. Patient may follow-up outpatient for conintued monitoring and no repeat imaging needed at this time. Patient has resistant hypertension likely secondary to renal artery stenosis. Continue Coreg 25 mg p.o. twice daily, clonidine 0.1 mg p.o. 3 times daily, hydralazine 100 mg p.o. 3 times daily, nifedipine 60 mg p.o. twice daily, valsartan 160 mg p.o. twice daily. We will continue to titrate antihypertensive regimen as needed. Patient has history of ESRD on hemodialysis. Nephrology following. Patient was also found to have large right pleural effusion and IR drainage ordered although not enough drainable fluid. Repeat hematology and chemistry panel in AM. Dr. Adan
--- NOTE | 2024-01-20 18:04 | ESPR_ITS ---
Documentation for date of: 01/20/24 Subjective Subjective Interval history: Ms. 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 While in the ED, patient was noted to have a BP of 225/81, for which she received clonidine, hydralazine, nifedipine, IV labetalol and subsequently admitted to medical floor .labs fairly unremarkable, with the renal panel consistent with ESRD. CXR showed prominent CHF. Patient was admitted for hypertensive emergency, abdominal pain with nephrology consulted for hemodialysis. Patient during the previous hospital Visit was diagnosed with a questionable renal artery stenosis-Per Dr. Owusu no role for renal intervention as patient currently on dialysis and kidney cannot be salvaged. Medical management was recommended. Home medications included atorvastatin, Auryxia, calcium acetate, carvedilol, clonidine, Eliquis, hydralazine, mirtazapine, nifedipine, Carmel-Sanjana, sertraline, Tylenol, Aldactone, valsartan 01/19/2024 Patient was seen and examined by the bedside. Labetalol IV as needed was added to the blood pressure medications regimen. After labetalol, BP went down to Patient is somnolent, AOX0, dialysis is planned for today, 3L of fluid to remove. According to the nursing staff, she continues to be somnolent from yesterday. 12/21/23: Patient was seen and examined by the bedside. No acute overnight events. Patient is more awake and alert compared to yesterday, conversational. Saturates well on room air. Had a dialysis session, removed 3L of fluid. Continue to receive multiple BP medications. Exam Vital Signs Temp Pulse Resp BP Pulse Ox O2 Del Method O2 Flow Rate 97.5 F 61 17 168/62 H 99 Room Air 2 01/20/24 16:00 01/20/24 17:01 01/20/24 16:00 01/20/24 17:01 01/20/24 16:00 01/20/24 16:00 01/20/24 09:00 Narrative Exam Physical Exam General: Chronically ill-appearing elderly female. Somnolent. HEENT: Normocephalic, atraumatic, mucous membranes moist. Heart: Holosystolic murmur at the left sternal border. Lungs: Diffuse crackles bilateral. Abdomen: Soft, nondistended, nontender, positive bowel sounds. ?No guarding or rebound tenderness. Neurologic: Alert and oriented x0, somnolent GCS 15. Extremities: No edema. Skin: No rash or ecchymoses. ++ AVF Objective Labs 01/20/24 04:46 01/20/24 04:46 Labs: Laboratory Results - last 24 hr 01/20/24 04:46 WBC 7.7 RBC 3.10 L Hgb 9.5 L Hct 29.7 L MCV 96 MCH 30.6 MCHC 32.0 RDW Std Deviation 59.6 H Plt Count 294 Neut % (Auto) 78 Lymph % (Auto) 7 L Powell % (Auto) 11 Eos % (Auto) 3 Baso % (Auto) 1 Neut # (Auto) 6.0 Lymph # (Auto) 0.5 L Powell # (Auto) 0.8 Eos # (Auto) 0.2 Baso # (Auto) 0.1 Immature Gran # (Auto) 0.03 H Absolute Nucleated RBC 0.00 Immature Gran % 0 Nucleated RBC % 0 Sodium 134 L Potassium 4.2 D Chloride 94 L Carbon Dioxide 29.3 Anion Gap 11 BUN 24 H Creatinine 3.9 H D Estim Creat Clear Calc 12.6 L eGFR 12 L* BUN/Creatinine Ratio 6 L Glucose 119 H Calculated Osmolality 273 L Calcium 8.4 Corrected Calcium 8.6 Phosphorus 4.4 Magnesium 2.2 Total Bilirubin 0.3 AST 17 ALT < 7 L Alkaline Phosphatase 123 H Total Protein 6.7 Albumin 3.8 Globulin 2.9 Albumin/Globulin Ratio 1.3 Quality Measures Quality Measures VTE prophylaxis Advance care planning discussed with:: other Assessment & Plan Assessment Current Active Medications: Generic Name Dose Route Start Last Admin Trade Name Freq PRN Reason Stop Dose Admin Acetaminophen 650 mg 01/17/24 20:59 Acetaminophen 325 Mg Tablet PO 02/16/24 20:58 Q6H PRN Fever >101.5 Acetaminophen 650 mg 01/19/24 10:39 01/19/24 18:11 Acetaminophen 325 Mg Tablet PO 02/16/24 21:03 650 mg Q6H PRN Administration PAIN SCALE 1-2 (mild Hydrocodone Bitart/Acetaminophen 1 tab 01/19/24 10:35 Hydrocodone/Apap 5/325 Tablet PO 01/24/24 10:34 Q6HR PRN Pain 3-6 Apixaban 5 mg 01/18/24 09:00 01/20/24 10:02 Apixaban 2.5 Mg Tablet PO 02/17/24 08:59 5 mg BID JANINE Administration Atorvastatin Calcium 40 mg 01/18/24 21:00 01/19/24 21:03 Atorvastatin Calcium 20 Mg Tablet PO 02/17/24 20:59 40 mg HS JANINE Administration Carvedilol 25 mg 01/18/24 08:00 01/20/24 17:01 Carvedilol 12.5 Mg Tablet PO 02/18/24 06:00 25 mg BIDWM JANINE Administration Clonidine 0.1 mg 01/19/24 14:00 01/20/24 14:34 Clonidine Hcl 0.1 Mg Tablet PO 02/18/24 13:59 0.1 mg TID JANINE Administration Dextrose 25 ml 01/17/24 21:51 Dextrose 50%-Water Inj 50 Ml Syringe IV 02/16/24 21:50 Q15MIN PRN BG 50-70 responsive npo pt Dextrose 50 ml 01/17/24 21:51 01/19/24 03:41 Dextrose 50%-Water Inj 50 Ml Syringe IV 02/16/24 21:50 50 ml Q15MIN PRN Administration BG <50 OR BG <70 & pt unresponsive Glucagon 1 mg 01/17/24 21:51 Glucagon Inj 1 Mg Vial IM Q15MIN PRN BG <70, and no IV access Hydralazine HCl 100 mg 01/20/24 17:02 Hydralazine Hcl 25 Mg Tablet PO 02/17/24 13:59 TID JANINE Insulin Glargine 10 unit 01/18/24 21:00 01/18/24 21:02 Insulin Glargine (Lantus) 5 Unit/0.05 Ml (Per 5 Units) SC 02/17/24 20:59 Not Given HS [facility] Insulin Human Lispro 0 unit 01/18/24 07:30 01/18/24 16:34 Insulin Lispro (Admelog) 1 Unit/0.01 Ml Unit SC 02/17/24 07:29 Not Given AC JANINE Protocol Labetalol HCl 10 mg 01/18/24 12:08 Labetalol Inj 5 Mg/Ml Vial 20 Ml IVP 02/17/24 12:07 Q6HR PRN Hyptertension Nifedipine 60 mg 01/20/24 17:02 Nifedipine Xl 30 Mg Tabcr PO 02/17/24 20:59 BID JANINE Ondansetron HCl 4 mg 01/17/24 21:04 01/18/24 22:27 Ondansetron Inj 2 Mg/Ml Inj 2 Ml IV 02/16/24 21:03 4 mg Q6H PRN Administration NAUSEA OR VOMITING Protocol Pantoprazole Sodium 40 mg 01/18/24 09:00 01/20/24 10:04 Pantoprazole Inj 40 Mg Vial IVP 02/17/24 08:59 40 mg QDAY JANINE Administration Polyethylene Glycol 17 gm 01/18/24 11:15 01/20/24 10:05 Polyethylene Glycol 17 Gm Packet PO 02/17/24 11:14 17 gm QDAY JANINE Administration Sennosides 2 tab 01/18/24 11:30 01/20/24 10:05 Senna Tablet PO 02/17/24 11:29 2 tab QDAY JANINE Administration Protocol Sertraline HCl 100 mg 01/18/24 21:00 01/19/24 21:04 Sertraline Hcl 25 Mg Tablet PO 02/17/24 20:59 100 mg HS JANINE Administration Valsartan 160 mg 01/18/24 21:00 01/20/24 10:05 Valsartan 80 Mg Tablet PO 02/17/24 05:59 Not Given BID JANINE Plan Patient is a 73-year-old female with ESRD on HD (MWF), resistant HTN, HFpEF (EF 65-70%), chronic respiratory failure on 3 L home O2, chronic normocytic anemia, IDDM, HLD, and depression/anxiety who presented to the ED with left lower quadrant abdominal pain, nausea #ESRD on HD (MWF) Plan: - continue with hemodialysis in a.m. - Continue home calcium acetate #Chronic normocytic anemia Plan: Likely secondary to ESRD Will give Procrit with HD #Resistant hypertension #Hypertensive emergency Patient has a history of hypertension and ESRD and is on multiple blood pressure medications regimen. Plan: - Resumed home meds Coreg, clonidine, hydralazine, valsartan, with as needed labetalol for SBP >190 ? Carvedilol 25 mg twice daily ? Clonidine 0.1 3 times daily ? Hydralazine 100 mg 3 times daily ? Labetalol 10 mg IV as needed ? Minoxidil 5 mg twice daily ? Nifedipine 60 mg twice daily ? Valsartan 160 twice daily ?Monitor vital signs #Encephalopathy, imroveming Patient appears somnolent, weak. Most likely in the setting of hypertensive emergency and/or possible infection. Plan: - treat the underlying condition #HFpEF (EF 65-70%) #Chronic respiratory failure, on 3 L home O2 #Intractable abdominal pain #IDDM #HLD #Depression #Anxiety Management as per primary team Plan of care discussed with attending Dr. Minesh Degroot MD, PGY 1. Attending Provider Attestation/Addendum Patient seen and examined with resident physician Dr. Oliver. Note reviewed, agree with findings and recommendations. Next dialysis scheduled for tomorrow Patient's blood pressure remains high. Has been having high blood pressure for many many years. On 7 class medications.
[2024-01-20] MEDS: ACETAMINOPHEN 325 MG TABLET 650 MG PO (19:46)
--- NOTE | 2024-01-20 21:35 | PD.IMPROG ---
Documentation for date of: 01/20/24 Subjective Subjective Interval history: Patient refused to drink GoLytely She refused NGT He does not want a colonoscopy Will manage her conservatively Exam Vital Signs Temp Pulse Resp BP Pulse Ox O2 Del Method O2 Flow Rate 97.6 F 64 18 163/50 H 100 Room Air 2 01/20/24 20:00 01/20/24 20:00 01/20/24 20:00 01/20/24 20:00 01/20/24 20:00 01/20/24 20:00 01/20/24 20:00 Objective Labs 01/20/24 04:46 01/20/24 04:46 Labs: Laboratory Results - last 24 hr 01/20/24 04:46 WBC 7.7 RBC 3.10 L Hgb 9.5 L Hct 29.7 L MCV 96 MCH 30.6 MCHC 32.0 RDW Std Deviation 59.6 H Plt Count 294 Neut % (Auto) 78 Lymph % (Auto) 7 L [place] % (Auto) 11 Eos % (Auto) 3 Baso % (Auto) 1 Neut # (Auto) 6.0 Lymph # (Auto) 0.5 L [place] # (Auto) 0.8 Eos # (Auto) 0.2 Baso # (Auto) 0.1 Immature Gran # (Auto) 0.03 H Absolute Nucleated RBC 0.00 Immature Gran % 0 Nucleated RBC % 0 Sodium 134 L Potassium 4.2 D Chloride 94 L Carbon Dioxide 29.3 Anion Gap 11 BUN 24 H Creatinine 3.9 H D Estim Creat Clear Calc 12.6 L eGFR 12 L* BUN/Creatinine Ratio 6 L Glucose 119 H Calculated Osmolality 273 L Calcium 8.4 Corrected Calcium 8.6 Phosphorus 4.4 Magnesium 2.2 Total Bilirubin 0.3 AST 17 ALT < 7 L Alkaline Phosphatase 123 H Total Protein 6.7 Albumin 3.8 Globulin 2.9 Albumin/Globulin Ratio 1.3 Impressions Impression: # Abnormal CT scan of the abdomen pelvis showing inflammatory changes in the rectum Patient has refused colonoscopy as well as the prep for the colon Will manage conservatively Assessment & Plan A&P Narrative # Left lower quadrant pain with abnormal CT scan of the abdomen pelvis showing changes consistent with proctitis as well as diffuse thickening of the left iliopsoas muscle The pain appears to be more musculoskeletal than the pain from proctitis Much more exaggeration of the pain on movement of the left hip Agree with getting the MRI scan of the left hip region tomorrow This particular pain has nothing to do I believe from a GI viewpoint Other medical problems include # Large right pleural effusion # End-stage renal disease on hemodialysis MWF # On home oxygen 3 L nasal cannula Time Spent With Patient Time: Total time spent is greater than 50% in coordination of care (as documented) at patient's floor/unit and/or counseling patient:
[2024-01-20] MEDS: SERTRALINE HCL 25 MG TABLET 100 MG PO (21:36)
[2024-01-20] MEDS: ATORVASTATIN CALCIUM 20 MG TABLET 40 MG PO (21:36)
[2024-01-21] VITALS (33 sets, daily range): BP systolic 151–224; BP diastolic 55–82; PULSE 54–67; RESP 15–20; TEMP 36.2–37; O2SAT 90–98; BMI 28.9
[2024-01-21] MEDS: cloNIDine HCL 0.1 MG TABLET PO ×2 (05:56→12:44)
--- NOTE | 2024-01-21 07:14 | PC.NURSE ---
Pt's SBP 150s/180s, Dr. García was made aware. BP meds not given per Dr. García.
[2024-01-21 08:53] LABS: Basophils # (Auto) 0.1 Thou/mm3 (0.0-0.2); Basophils % (Auto) 1 % (0-2.5); Eosinophils # (Auto) 0.2 Thou/mm3 (0.0-0.5); Eosinophils % (Auto) 2 % (0-10); Hematocrit 29.1 % (36.0-46.0); Hemoglobin 9.2 g/dL (12.0-16.0); Immature Granulocytes % (Auto) 0 % (0-0); Immature Granulocytes Auto 0.02 Thou/mm3 (0.00-0.00); Lymphocytes # (Auto) 0.8 Thou/mm3 (1.0-4.8); Lymphocytes % (Auto) 12 % (10-50); Mean Corpuscular HGB Conc 31.6 g/dl (31.0-37.0); Mean Corpuscular Hemoglobin 30.4 pg (25.0-35.0); Mean Corpuscular Volume 96 fL (80-100); Monocytes # (Auto) 0.7 Thou/mm3 (0.0-0.8); Monocytes % (Auto) 10 % (0-12); Neutrophils # (Auto) 4.9 Thou/mm3 (1.8-7.7); Neutrophils % (Auto) 74 % (37-80); Nucleated Red Blood Cell % 0 /100 WBC (0); Platelet Count 292 Thou/mm3 (140-440); RDW Standard Deviation 59.5 fL (36.4-46.3); Red Blood Count 3.03 Miln/mm3 (4.00-5.20); White Blood Count 6.6 Thou/mm3 (3.6-11.0)
[2024-01-21] MEDS: APIXABAN 2.5 MG TABLET 5 MG PO (09:12)
[2024-01-21] MEDS: SENNA TABLET 2 TAB PO (09:13)
[2024-01-21] MEDS: POLYETHYLENE GLYCOL 17 GM PACKET PO (09:13)
[2024-01-21] MEDS: PANTOPRAZOLE INJ 40 MG VIAL IVP (09:13)
[2024-01-21 09:23] LABS: Alanine Aminotransferase < 7 U/L (10-49); Albumin, Serum 3.7 gm/dL (3.4-4.8); Albumin/Globulin Ratio 1.3 (1.2-2.2); Alkaline Phosphatase 130 U/L (46-116); Anion Gap 9 (7-16); Aspartate Amino Transferase 21 U/L (0-34); BUN/Creatinine Ratio 6 Ratio (12-20); Bilirubin,Total 0.3 mg/dL (0.3-1.2); Blood Urea Nitrogen 31 mg/dL (9-23); Calcium 7.8 mg/dL (8.3-10.6); Carbon Dioxide 28.3 mMol/L (20.0-31.0); Chloride 93 mMol/L (98-107); Estimated Creatinine Clearance 9.6 mL/min (>60); Globulin 2.8 gm/dL (2.3-3.5); Glucose 197 mg/dL (74-106); Osmolality,Calculated 272 (275-295); Potassium 4.9 mMol/L (3.4-5.1); Sodium 130 mMol/L (136-145); Total Protein 6.5 gm/dL (5.7-8.2); eGFR 9 See Note
[2024-01-21] MEDS: carVEDILOL 12.5 MG TABLET 25 MG PO ×2 (09:27→17:17)
[2024-01-21] MEDS: VALSARTAN 80 MG TABLET 160 MG PO (09:28)
[2024-01-21] MEDS: NIFEdipine XL 30 MG TABCR 60 MG PO (09:28)
--- NOTE | 2024-01-21 11:08 | PC.NURSE ---
BP ELEVATED PT DENIES ALL C/O CHEST PAIN, PRESSURE, STEEN, SOB OR DISCOMFORT WILL CONT. TO MONITOR
--- NOTE | 2024-01-21 11:20 | PC.LAC ---
BP REMAINS ELEVATED AND TRENDING UP, PT REMAINS ASYMPTOMATIC AND DENIES ALL COMPLAINTS. MD MORALES NOTIFIED W/ ORDER TO INCREASE UF GOAL TO 3-3.5L TOLERATED, ORDER CARRIED OUT. WILL CONT. TO MONITOR
[2024-01-21] MEDS: EPOETIN ALFA-EPBX INJ 10,000 UNIT/ML VIAL (ESRD) 10000 UNIT SC (11:47)
[2024-01-21] MEDS: HYDROcodone/APAP 5/325 TABLET 1 TAB PO (12:41)
[2024-01-21] MEDS: hydrALAZINE HCL 25 MG TABLET 100 MG PO (12:46)
--- NOTE | 2024-01-21 12:46 | PC.NURSE ---
called regarding pt b/p at diaylsis 222/[address] Adan stated to give patient 1400 b/p meds now.Jade Edmonds diaylsis nurse aware will administer.
--- NOTE | 2024-01-21 12:49 | PC.NURSE ---
BP ELEVATED PER MD MARIE CLONIDINE 0.1MG AND HYDRALAZINE 100MG ADMINISTERED TO ADDRESS. PT REMAINS ASYMPTOMATIC AND CONT'S. TO DENY ALL S/S OF HYPERTENSION. WILL CONT. TO MONITOR
--- NOTE | 2024-01-21 12:50 | PC.NURSE ---
NORCO 5/325 ADMINISTERED TO ADDRESS PAIN PER MD ORDERS, WILL CONT. TO MONITOR.
--- NOTE | 2024-01-21 14:34 | ESPR_ITS ---
Documentation for date of: 01/21/24 Subjective Subjective Interval history: Ms. 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 While in the ED, patient was noted to have a BP of 225/81, for which she received clonidine, hydralazine, nifedipine, IV labetalol and subsequently admitted to medical floor .labs fairly unremarkable, with the renal panel consistent with ESRD. CXR showed prominent CHF. Patient was admitted for hypertensive emergency, abdominal pain with nephrology consulted for hemodialysis. Patient during the previous hospital Visit was diagnosed with a questionable renal artery stenosis-Per Dr. Owusu no role for renal intervention as patient currently on dialysis and kidney cannot be salvaged. Medical management was recommended. Home medications included atorvastatin, Auryxia, calcium acetate, carvedilol, clonidine, Eliquis, hydralazine, mirtazapine, nifedipine, Carmel-Sanjana, sertraline, Tylenol, Aldactone, valsartan 01/19/2024 Patient was seen and examined by the bedside. Labetalol IV as needed was added to the blood pressure medications regimen. After labetalol, BP went down to Patient is somnolent, AOX0, dialysis is planned for today, 3L of fluid to remove. According to the nursing staff, she continues to be somnolent from yesterday. 01/20/24: Patient was seen and examined by the bedside. No acute overnight events. Patient is more awake and alert compared to yesterday, conversational. Saturates well on room air. Had a dialysis session, removed 3L of fluid. Continue to receive multiple BP medications. 01/21/24:Patient was seen and examined by the bedside. No acute overnight events. Patient denies having chest pain, abdominal pain. Saturates well on room air. Had a dialysis session today, 3.7L of fluid removed. Blood pressure continues to be >180 on multiple blood pressure medication. Exam Vital Signs Temp Pulse Resp BP Pulse Ox O2 Del Method O2 Flow Rate 97.8 F 61 16 180/55 H 98 Room Air 1 01/21/24 13:57 01/21/24 14:26 01/21/24 14:26 01/21/24 14:26 01/21/24 13:57 01/21/24 07:37 01/21/24 13:57 Narrative Exam Physical Exam General: Chronically ill-appearing elderly female. HEENT: Normocephalic, atraumatic, mucous membranes moist. Heart: Holosystolic murmur at the left sternal border. Lungs: CTABL Abdomen: Soft, non tender, positive bowel sounds. ?No guarding or rebound tenderness. Neurologic: Alert and oriented x3, GCS 15. Extremities: No edema. Skin: No rash or ecchymoses. ++ AVF Objective Labs 01/21/24 08:41 01/21/24 08:41 Labs: Laboratory Results - last 24 hr 01/21/24 08:41 WBC 6.6 RBC 3.03 L Hgb 9.2 L Hct 29.1 L MCV 96 MCH 30.4 MCHC 31.6 RDW Std Deviation 59.5 H Plt Count 292 Neut % (Auto) 74 Lymph % (Auto) 12 [place] % (Auto) 10 Eos % (Auto) 2 Baso % (Auto) 1 Neut # (Auto) 4.9 Lymph # (Auto) 0.8 L [place] # (Auto) 0.7 Eos # (Auto) 0.2 Baso # (Auto) 0.1 Immature Gran # (Auto) 0.02 H Absolute Nucleated RBC 0.00 Immature Gran % 0 Nucleated RBC % 0 Sodium 130 L Potassium 4.9 D Chloride 93 L Carbon Dioxide 28.3 Anion Gap 9 BUN 31 H Creatinine 5.0 H* D Estim Creat Clear Calc 9.6 L eGFR 9 L* BUN/Creatinine Ratio 6 L Glucose 197 H D Calculated Osmolality 272 L Calcium 7.8 L Corrected Calcium 8.0 L Total Bilirubin 0.3 AST 21 ALT < 7 L Alkaline Phosphatase 130 H Total Protein 6.5 Albumin 3.7 Globulin 2.8 Albumin/Globulin Ratio 1.3 Quality Measures Quality Measures VTE prophylaxis Advance care planning discussed with:: other Assessment & Plan Assessment Current Active Medications: Generic Name Dose Route Start Last Admin Trade Name Freq PRN Reason Stop Dose Admin Acetaminophen 650 mg 01/17/24 20:59 Acetaminophen 325 Mg Tablet PO 02/16/24 20:58 Q6H PRN Fever >101.5 Acetaminophen 650 mg 01/19/24 10:39 01/20/24 19:46 Acetaminophen 325 Mg Tablet PO 02/16/24 21:03 650 mg Q6H PRN Administration PAIN SCALE 1-2 (mild Hydrocodone Bitart/Acetaminophen 1 tab 01/19/24 10:35 01/21/24 12:41 Hydrocodone/Apap 5/325 Tablet PO 01/24/24 10:34 1 tab Q6HR PRN Administration Pain 3-6 Apixaban 5 mg 01/18/24 09:00 01/21/24 09:12 Apixaban 2.5 Mg Tablet PO 02/17/24 08:59 5 mg BID JANINE Administration Atorvastatin Calcium 40 mg 01/18/24 21:00 01/20/24 21:36 Atorvastatin Calcium 20 Mg Tablet PO 02/17/24 20:59 40 mg HS JANINE Administration Carvedilol 25 mg 01/18/24 08:00 01/21/24 09:27 Carvedilol 12.5 Mg Tablet PO 02/18/24 06:00 25 mg BIDWM JANINE Administration Clonidine 0.1 mg 01/19/24 14:00 01/21/24 12:44 Clonidine Hcl 0.1 Mg Tablet PO 02/18/24 13:59 0.1 mg TID JANINE Administration Dextrose 25 ml 01/17/24 21:51 Dextrose 50%-Water Inj 50 Ml Syringe IV 02/16/24 21:50 Q15MIN PRN BG 50-70 responsive npo pt Dextrose 50 ml 01/17/24 21:51 01/19/24 03:41 Dextrose 50%-Water Inj 50 Ml Syringe IV 02/16/24 21:50 50 ml Q15MIN PRN Administration BG <50 OR BG <70 & pt unresponsive Glucagon 1 mg 01/17/24 21:51 Glucagon Inj 1 Mg Vial IM Q15MIN PRN BG <70, and no IV access Hydralazine HCl 100 mg 01/21/24 09:02 01/21/24 12:46 Hydralazine Hcl 25 Mg Tablet PO 02/17/24 13:59 100 mg TID JANINE Administration Insulin Glargine 10 unit 01/18/24 21:00 01/18/24 21:02 Insulin Glargine (Lantus) 5 Unit/0.05 Ml (Per 5 Units) SC 02/17/24 20:59 Not Given HS JANINE Insulin Human Lispro 0 unit 01/18/24 07:30 01/18/24 16:34 Insulin Lispro (Admelog) 1 Unit/0.01 Ml Unit SC 02/17/24 07:29 Not Given AC JANINE Protocol Nifedipine 60 mg 01/21/24 09:30 01/21/24 09:28 Nifedipine Xl 30 Mg Tabcr PO 02/20/24 09:29 60 mg BID JANINE Administration Ondansetron HCl 4 mg 01/17/24 21:04 01/18/24 22:27 Ondansetron Inj 2 Mg/Ml Inj 2 Ml IV 02/16/24 21:03 4 mg Q6H PRN Administration NAUSEA OR VOMITING Protocol Pantoprazole Sodium 40 mg 01/18/24 09:00 01/21/24 09:13 Pantoprazole Inj 40 Mg Vial IVP 02/17/24 08:59 40 mg QDAY JANINE Administration Polyethylene Glycol 17 gm 01/18/24 11:15 01/21/24 09:13 Polyethylene Glycol 17 Gm Packet PO 02/17/24 11:14 17 gm QDAY JANINE Administration Sennosides 2 tab 01/18/24 11:30 01/21/24 09:13 Senna Tablet PO 02/17/24 11:29 2 tab QDAY JANINE Administration Protocol Sertraline HCl 100 mg 01/18/24 21:00 01/20/24 21:36 Sertraline Hcl 25 Mg Tablet PO 02/17/24 20:59 100 mg HS JANINE Administration Valsartan 160 mg 01/21/24 09:30 01/21/24 09:28 Valsartan 80 Mg Tablet PO 02/20/24 09:29 160 mg BID JANINE Administration Plan Patient is a 73-year-old female with ESRD on HD (MWF), resistant HTN, HFpEF (EF 65-70%), chronic respiratory failure on 3 L home O2, chronic normocytic anemia, IDDM, HLD, and depression/anxiety who presented to the ED with left lower quadrant abdominal pain, nausea. #ESRD on HD (MWF) Plan: - continue with hemodialysis in a.m. - Continue home calcium acetate #Chronic normocytic anemia Plan: Likely secondary to ESRD Will give Procrit with HD #Resistant hypertension #Hypertensive emergency Patient has a history of hypertension and ESRD and is on multiple blood pressure medications regimen. Plan: - Resumed home meds Coreg, clonidine, hydralazine, valsartan, with as needed labetalol for SBP >190 ? Carvedilol 25 mg twice daily ? Clonidine 0.1 3 times daily ? Hydralazine 100 mg 3 times daily ? Labetalol 10 mg IV as needed ? Minoxidil 5 mg twice daily ? Nifedipine 60 mg twice daily ? Valsartan 160 twice daily ?Monitor vital signs #Encephalopathy, resolved. Patient appears somnolent, weak. Most likely in the setting of hypertensive emergency and/or possible infection. Plan: - treat the underlying condition #HFpEF (EF 65-70%) #Chronic respiratory failure, on 3 L home O2 #Intractable abdominal pain #IDDM #HLD #Depression #Anxiety Management as per primary team Plan of care discussed with attending Dr. Minesh Degroot MD, PGY 1. Attending Provider Attestation/Addendum Patient seen and examined with resident physician Dr. Oliver. Note reviewed, agree with findings and recommendations. Patient currently seen on dialysis. Tolerating dialysis without any problems. Hemodialysis for 3 hours, 2K, ultrafiltration 2-3 L, Epogen 6000, no heparin ordered. Plan of care discussed with the dialysis nurse. Please see dialysis flowsheet for further details. Patient clinically seems to be slightly better. Did discuss with primary team that patient will always have high blood pressure and has been like that for the last 15 years.
--- NOTE | 2024-01-21 15:01 | PC.SS ---
Rounding note: per medical team, blood culture were negative. Patient to discharge home today.
--- NOTE | 2024-01-21 15:24 | ESDS_ITS ---
<Statement entered by Grupo Arango MD - 01/21/24 15:30> I saw and examined the patient, and I agree with current management stated by Dr Yovani MD,PGY1. Plan of care was discussed with the attending physician and resident physician. Disclaimer: Despite multiple revisions, due to the dictation software being used, the document bellow may not be free of grammatical errors including phonetic/typographic errors. However, this does not deter from our commitment to providing health care in the patient's best interest in mind. Dr. Kylee MD, PGY 2 Planned Discharge Date 01/21/24 DS: Providers Provider Date of admission: 01/17/24 20:59 Primary care physician: Carlos Saunders MD Admitting Provider: Tony Henriquez MD Attending Provider on Admission: Tacos Adan MD Consults: 01/17/24 21:15 Consult to Nephrology Stat Comment: ESRD HD done 01/15 Consulting Provider: Blossom Edge 01/18/24 11:30 Consult to Gastroenterology Routine Comment: thickening of rectal wall w/ inflammation Consulting Provider: Cat Saldivar Attending Provider on DC: Alley Pina MD Discharging Provider: Alley Pina MD DS: Diagnosis Problem List Completed Was Problem List Reviewed/Reconciled?: Yes Hospital Course Hospital Course Hospital course: Overall: Patient is a 73-year-old female with a past medical history of hyperten carmen, diabetes mellitus insulin-dependent, CHF HFpEF 55 to 60% (12/04/2023), ESRD HD MWF, chronic normocytic anemia, on home oxygen 3 L nasal cannula who was admitted on 01/18/2024 for intractable abdominal pain and pleural effusion with increasing SOB. ER Course: Afebrile, BP 169/44, HR 88, RR 19, satting 98% on 2 L NC Hgb 11.2 otherwise CBC relatively normal CR 4.6, BUN 36, GLUCOSE 130 Troponin 0.051 then 0.047, EKG without acute ST changes Patient completed HD in ED with 3 L fluid removed CXR after hemodialysis showed CHF pattern, vascular congestion with perihilar edema, moderate to large bilateral pleural effusion, possible pneumonia of right lung CT abdominal pelvis showed large right pleural effusion, thickened rectal wall and perirectal inflammation, possible proctitis or rectal tumor, thickened left iliopsoas muscle possibly related to infectious mass versus hematoma versus less likely tumor. Hospital Course: On floors patient was treated for proctitis with no elevated WBC count and treated with antibiotics from 01/17/2024 to 01/20/2024. Patient denied further workup for colonoscopy with management tech. Patient was not a candidate for pleural effusion thoracentesis as volume was too low. Lasix was given to patient on admission which improved acute hypoxic respiratory failure. Patient has a history of congestive heart failure, systolic dysfunction, HFpEF of 55 to 60% (12/07/2023) and increased pulmonary hypertension. Extensive history of resistant hypertension on multiple medication that was restarted in hospital. Patient received multiple dialysis sessions during the hospital last 1 being on 01/21/2024 which removed 3.7 L of fluid. Encephalopathy resolved. Instructions: take all home medication as prescribed Follow-up with PCP as outpatient within a week, consider MRI of Left femoral region. Hold blood pressure medications if blood pressure drops below 120/80 Follow-up with [facility] as outpatient for continuation of hemodialysis In case of worsening signs symptoms come back to the ED or call 911 #Intractable Abdominal Pain, resolved. #Proctitis, improved. #Acute hypoxic respiratory failure, Resolved. #Congestive Heart Failure, Systolic Dysfunction, HFpEF 55-60% (11/2023) #Pulmonary HTN # History of resistant hypertension # Hypertensive emergency ? resolved # Hx of HTN # ESRD HD MWF # IDDM # Hx of HLD # Anxiety # Depression # Transient troponinemia ? improved. - The patient's plan was discussed with attending Dr Adan and senior residents Kylee Pina MD PGY1 Internal Medicine Time Spent with Patient Time attestation: Total time spent providing and/or coordinating discharge services: greater than 35 minutes Exam Vital Signs Temp Pulse Resp BP Pulse Ox O2 Del Method O2 Flow Rate 97.8 F 63 16 165/55 H 98 Room Air 1 01/21/24 13:57 01/21/24 15:19 01/21/24 15:19 01/21/24 15:19 01/21/24 13:57 01/21/24 07:37 01/21/24 13:57 Narrative Exam General Appearance: Alert & Oriented X3, well-nourished female who is lying in bed in no acute distress. HEENT: Skull symmetrical and atraumatic. Conjunctivae pin and moist. Pupils equal, round, reactive to light and accommodation (PERRL). External ear without lesion or discharge. Straight, nares patient, mucosa pink, no discharge. No thyroid nodule appreciated. No cervical lymphadenopathy. Cardio: Normal Rate and Rhythm with S1 and S2 heart sounds. No murmurs or extra heart sounds auscultated. No bruits on carotid auscultation. No peripheral edema or cyanosis. Lungs: Symmetric with good expansion. Chest and back non-tender. Breath sounds vesicular without crackles, wheezing or rhonchi Abdomen: Non-tender, Non-distended, Normal Reactive Bowel Sounds Neuro: Alert, cooperative, oriented to person, place, and time. Speech clear. CN grossly intact. Upper motor strength 5/5 and Lower motor strength 5/5. Sensation intact. Discharge Plan Plan Patient Disposition: HOME (Self Care) Patient condition on transfer: Stable Care Plan Goals: Malin todos los medicamentos en casa seg?n lo recetado. Seguimiento con PCP juliano paciente ambulatorio dentro de neel semana Suspenda los medicamentos para la presi?n arterial si la presi?n arterial por debajo de 120/80 Seguimiento con nefr?logo en r?gimen ambulatorio para continuaci?n de hemodi?lisis. En lavell de que los s?ntomas empeoren, regrese al servicio de urgencias o llame al 911. Take all home medication as prescribed Follow-up with PCP as outpatient within a week Hold blood pressure medications if blood pressure drops below 120/80 Follow-up with [facility] as outpatient for continuation of hemodialysis In case of worsening signs symptoms come back to the ED or call 911 Prescriptions/Referrals Prescriptions/Med Rec: Continued (DME) pen needle, diabetic [Comfort EZ Pen Java] 31 gauge x 3/16 needle See Rx Instructions .Route Qty: 100 0RF Rx Instructions: As directed atorvastatin 40 mg tablet 40 mg PO QPM Qty: 30 0RF sertraline 100 mg Tablet 100 mg PO HS 30 Days Qty: 30 0RF Auryxia 210 mg iron tablet 210 mg PO QDAY Qty: 30 0RF Rx Instructions: administer with a meal calcium acetate(phosphat bind) 667 mg tablet 667 mg PO TIDWM Patient Comments: TAKE 1 TABLET BY MOUTH THREE TIMES DAILY Carm[place]-Sanjana 0.8 mg tablet 0.8 tab PO QDAY Patient Comments: TAKE 1 TABLET BY MOUTH ONCE DAILY FOR 90 DAYS mirtazapine 15 mg tablet 15 mg PO HS hydralazine 100 mg tablet 100 mg PO TID 60 Days Qty: 180 0RF carvedilol 12.5 mg Tablet 25 mg PO BIDWM Qty: 60 0RF valsartan 160 mg tablet 160 mg PO BID Qty: 60 0RF spironolactone 50 mg tablet 50 mg PO BID Qty: 60 0RF clonidine 0.2 mg/24 hr patch weekly 0.2 mg topical Q7D Qty: 4 0RF nifedipine 60 mg tablet extended release 24hr 60 mg PO BID Qty: 30 0RF Eliquis 5 mg tablet 5 mg PO BID Qty: 30 0RF albuterol sulfate [Ventolin HFA] 90 mcg/actuation HFA aerosol inhaler 2 puff inhalation QID PRN (Reason: shortness of breath or wheezing) Qty: 8.5 0RF Referrals: Carlos Saunders MD [Primary Care Provider] - Patient/Caregiver Discharge Instructions Other Discharge Activity Instructions:: take all home medication as prescribed Follow-up with PCP as outpatient within a week Hold blood pressure medications if blood pressure drops below 120/80 Follow-up with [facility] as outpatient for continuation of hemodialysis In case of worsening signs symptoms come back to the ED or call 911 Education Materials: Controlling High Blood Pressure, Low-Salt Choices, Kidney Disease: Limiting Fluids, Kidney Disease: Eating Less Sodium, ED Chronic Kidney Disease (CKD) Print Language: Yi Stand Alone Forms: Renay Award Info., Patient Portal Info Letter Discharge Order Discharge Orders: Discharge (Routine); Ordered 01/21/24 Ordered By: Grupo Arango Quality Discharge Quality Measures VTE prophylaxis Attestestation MD Attestation I have examined the patient, reviewed labs and imaging findings, discussed the case with the resident(s), and reviewed entered orders. I agree with the plan of care as outlined in this note, with these additional summaries/recommendations: Patient seen at bedside. Today patient is not complaining of abdominal pain. CT scan on admission revealed marked abnormal thickening of the rectal wall with perirectal inflammatory changes which is possibly secondary to proctitis or rectal tumor. Gastroenterology was consulted and was planning on colonoscopy although patient now declining because she reports her abdominal pain has resolved. Patient was counseled at bedside although still declines. CT also noted diffuse thickening of left iliopsoas muscle which is concerning for possible mass versus tumor. Patient underwent MRI which was undiagnostic secondary to continual patient motion. Patient not complaining of left thigh pain at this time and relatively benign physical exam. Patient may follow-up outpatient for conintued monitoring and no repeat imaging needed at this time. Patient has resistant hypertension likely secondary to renal artery stenosis. Continue Coreg 25 mg p.o. twice daily, clonidine 0.1 mg p.o. 3 times daily, hydralazine 100 mg p.o. 3 times daily, nifedipine 60 mg p.o. twice daily, valsartan 160 mg p.o. twice daily. We will continue to titrate antihypertensive regimen as needed. Patient has history of ESRD on hemodialysis. Nephrology following. Patient was also found to have large right pleural effusion on CT and IR drainage ordered although not enough drainable fluid. Dr. Adan
--- NOTE | 2024-01-21 15:38 | PC.NURSE ---
called regarding discharge, regarding bloodpressure reported to B/P was 165/55,HR63 stated to continue with discharge.
--- NOTE | 2024-01-21 19:21 | PC.NURSE ---
@[id number] pressure dressing removed, band aids in place pt and family instructed to remove them on 01/22/2024
--- NOTE | 2024-01-21 19:32 | PC.NURSE ---
called registration unable to discharge pt off system. due to pt being moved in the system to another room by error. registration to discharge pt off the system
--- NOTE | 2024-01-21 20:05 | ESPR_ITS ---
Documentation for date of: 01/21/24 Subjective Subjective Interval history: Patient has refused all GI workup Okay to discharge the patient home If she changes her mind I will be happy to do an outpatient colonoscopy Exam Vital Signs Temp Pulse Resp BP Pulse Ox O2 Del Method O2 Flow Rate 97.8 F 60 15 165/60 H 95 Nasal Cannula 2 01/21/24 16:00 01/21/24 17:17 01/21/24 16:00 01/21/24 17:17 01/21/24 16:00 01/21/24 16:00 01/21/24 16:00 Objective Labs 01/21/24 08:41 01/21/24 08:41 Labs: Laboratory Results - last 24 hr 01/21/24 08:41 WBC 6.6 RBC 3.03 L Hgb 9.2 L Hct 29.1 L MCV 96 MCH 30.4 MCHC 31.6 RDW Std Deviation 59.5 H Plt Count 292 Neut % (Auto) 74 Lymph % (Auto) 12 [place] % (Auto) 10 Eos % (Auto) 2 Baso % (Auto) 1 Neut # (Auto) 4.9 Lymph # (Auto) 0.8 L [place] # (Auto) 0.7 Eos # (Auto) 0.2 Baso # (Auto) 0.1 Immature Gran # (Auto) 0.02 H Absolute Nucleated RBC 0.00 Immature Gran % 0 Nucleated RBC % 0 Sodium 130 L Potassium 4.9 D Chloride 93 L Carbon Dioxide 28.3 Anion Gap 9 BUN 31 H Creatinine 5.0 H* D Estim Creat Clear Calc 9.6 L eGFR 9 L* BUN/Creatinine Ratio 6 L Glucose 197 H D Calculated Osmolality 272 L Calcium 7.8 L Corrected Calcium 8.0 L Total Bilirubin 0.3 AST 21 ALT < 7 L Alkaline Phosphatase 130 H Total Protein 6.5 Albumin 3.7 Globulin 2.8 Albumin/Globulin Ratio 1.3 Impressions Impression: # Abnormal CT scan of the abdomen pelvis showing proctitis # Pain abdomen left lower quadrant Outpatient colonoscopy if patient changes her mind Assessment & Plan A&P Narrative # Left lower quadrant pain with abnormal CT scan of the abdomen pelvis showing changes consistent with proctitis as well as diffuse thickening of the left iliopsoas muscle The pain appears to be more musculoskeletal than the pain from proctitis Much more exaggeration of the pain on movement of the left hip Agree with getting the MRI scan of the left hip region tomorrow This particular pain has nothing to do I believe from a GI viewpoint Other medical problems include # Large right pleural effusion # End-stage renal disease on hemodialysis MWF # On home oxygen 3 L nasal cannula Time Spent With Patient Time: Total time spent is greater than 50% in coordination of care (as documented) at patient's floor/unit and/or counseling patient:
== END 2024-01-21 18:30 | disposition home or self-care (01) | DRG 249 ==
LOC: SERX 20:05 → SERHOLD 21:58 → S3NX 01-18 03:33
PROVIDERS: Emergency Medicine; Internal Medicine; Admitting Provider Internal Medicine; Emergency Provider Emergency Medicine; PCP Family Medicine; Visit Provider Student in an Organized Health Care Education/Training Program
DX: K52.9 Noninfective gastroenteritis and colitis, unspecified (principal); I13.2 Hypertensive heart and chronic kidney disease with heart failure and with stage 5 chronic kidney disease, or end stage renal disease; E11.22 Type 2 diabetes mellitus with diabetic chronic kidney disease; Z99.2 Dependence on renal dialysis; N18.6 End stage renal disease; E78.5 Hyperlipidemia, unspecified; Z99.81 Dependence on supplemental oxygen; D63.1 Anemia in chronic kidney disease; I24.89 Other forms of acute ischemic heart disease; Z79.4 Long term (current) use of insulin; F41.9 Anxiety disorder, unspecified; F32.A Depression, unspecified; Z66 Do not resuscitate; I16.1 Hypertensive emergency; I1A.0 Resistant hypertension; K62.89 Other specified diseases of anus and rectum; I27.20 Pulmonary hypertension, unspecified; E87.5 Hyperkalemia; J96.21 Acute and chronic respiratory failure with hypoxia; I48.92 Unspecified atrial flutter; Z53.20 Procedure and treatment not carried out because of patient's decision for unspecified reasons; G93.40 Encephalopathy, unspecified; I70.1 Atherosclerosis of renal artery; I50.42 Chronic combined systolic (congestive) and diastolic (congestive) heart failure
CPT/HCPCS: 36415; 71045; 73718; 74177; 76999; 80053; 80061; 80074; 81001; 82150; 82945; 83615; 83735; 84100; 84132; 84157; 84484; 85025; 85610; 85730; 86706; 87040; 87081; 87811; 89051; 93005; 93225; 94640; 96365; 96375; 99285; A4649; A9270; J0360; J0612; J1815; J2270; J2405; J2470; J2543; J3010; J3490; J7050; Q5105; Q5106; Q9967; J1920

== ENCOUNTER 2024-02-18 20:17 | Inpatient (IN) | payer MEDICAID, SELFPAY ==
[2024-02-18 20:34] VITALS: BP 202/84; PULSE 92; RESP 24; TEMP 36.6; O2SAT 96
--- NOTE | 2024-02-18 20:57 | PD.EDRME ---
Rapid Medical Screening Exam RME Arrival date/time: 02/18/24 20:17 Time Seen by Provider: 02/18/24 20:57 Vital signs: Vital Signs Temperature 97.8 F 02/18/24 20:34 Pulse Rate 92 02/18/24 20:34 Respiratory Rate 24 H 02/18/24 20:34 Blood Pressure 202/84 H 02/18/24 20:34 Pulse Oximetry (%) 96 02/18/24 20:34 Oxygen Delivery Method Nasal Cannula 02/18/24 20:34 Oxygen Flow Rate 2 02/18/24 20:34 RME Narrative: 73yo female NAA presents to the ED for a chief complaint of chest pain. EMS administered aspirin en route. Patient states she always gets chest pain, but usually goes away on its own. She states the chest pain woke her up tonight. EMS notes the patient's blood pressure was in the 200s systolically. Patient endorses not taking her HTN medications today. Patient was last dialyzed yesterday and removed the normal amount of fluid.
--- NOTE | 2024-02-18 20:59 | XR_ITS ---
Examination: AP chest single view Technique one AP portable upright chest single view Exam date and time: February 18, 2024 2107 hrs. Comparison January 17, 2024 Indications: Chest pain shortness of breath today. Findings: Mild heart failure Mild enlargement cardiac contour with prominent vascular congestion Opacity right base consistent with pneumonia with layered right pleural fluid Prominent osteopenia Impression: Mild heart failure Pneumonia right base with significant layered right pleural fluid
--- NOTE | 2024-02-18 21:05 | PD.EDADULT ---
ED General RME/HPI General Chief complaint: Chest Pain Stated complaint: chest pain Time Seen by Provider: 02/18/24 20:57 Arrival date/time: 02/18/24 20:17 Limitations: no limitations RME / HPI RME / HPI narrative: Dr. Villeda's Main ED Evaluation: 73yo female NAA presents to the ED for a chief complaint of chest pain. EMS administered aspirin en route. Patient states she always gets chest pain, but usually goes away on its own. She states the chest pain woke her up tonight. EMS notes the patient's blood pressure was in the 200s systolically. Patient endorses not taking her HTN medications today. Patient was last dialyzed yesterday and removed the normal amount of fluid. Related Data Home Medications ?Medication ?Instructions ?Recorded ?Confirmed calcium acetate(phosphat bind) 667 667 mg PO TIDWM 06/08/23 01/18/24 mg tablet mirtazapine 15 mg tablet 15 mg PO HS 06/08/23 01/18/24 vitamin B complex-vitamin C-folic 0.8 tab PO QDAY 06/08/23 01/18/24 acid 0.8 mg tablet (Carmel-Sanjana) Previous Rx's ?Medication ?Instructions ?Recorded atorvastatin 40 mg tablet 40 mg PO QPM #30 tabs 08/12/22 ferric citrate 210 mg iron tablet 210 mg PO QDAY #30 tabs 08/12/22 (Auryxia) pen needle, diabetic 31 gauge x #100 ea 08/12/22/ (Comfort EZ Pen [place]) sertraline 100 mg tablet 100 mg PO HS 1 month #30 tabs 08/12/22 albuterol sulfate 90 mcg/actuation 2 puff inhalation QID PRN 07/24/23 aerosol inhaler (Ventolin HFA) shortness of breath or wheezing #8.5 grams carvedilol 12.5 mg tablet 25 mg (2 x 12.5 mg) PO BIDWM #60 12/08/23 tabs valsartan 160 mg tablet 160 mg PO BID #60 tabs 12/08/23 clonidine 0.2 mg/24 hr weekly 0.2 mg topical Q7D #4 ea 12/10/23 transdermal patch spironolactone 50 mg tablet 50 mg PO BID #60 tabs 12/10/23 apixaban 5 mg tablet (Eliquis) 5 mg PO BID #30 tabs 12/11/23 nifedipine 60 mg tablet,extended 60 mg PO BID #30 tabs 12/11/23 release 24 hr Allergies Allergy/AdvReac Type Severity Reaction Status Date / Time No Known Allergies Allergy Verified 09/09/23 14:45 ED Exam General Limitations: Present no limitations General appearance: Present alert and in no apparent distress Head Head exam: Present atraumatic Eye Eye exam: Present normal appearance, PERRL and EOMI ENT ENT exam: Present normal exam, normal oropharynx and mucous membranes moist Neck Neck exam: Present normal inspection, full ROM and trachea midline Chest Chest inspection: Present normal inspection and symmetric chest wall rise Respiratory Respiratory exam: Present normal lung sounds bilaterally and other (mildly tachypneic) Cardiovascular Cardiovascular exam: Present regular rate, normal rhythm and normal heart sounds Abdominal Exam Abdominal exam: Present soft and normal bowel sounds Extremities Exam Extremities exam: Present normal inspection, full ROM and joint swelling (has swollen legs, but are non-pitting) Back Exam Back exam: Present normal inspection and full ROM Neurological Exam Neurological exam: Present alert, oriented X3 and CN II-XII intact Psychiatric Psychiatric exam: Present normal affect and normal mood Skin Skin exam: Present warm, dry, intact and normal color Course Course Course Narrative: CXR is ordered for determining the etiology of chest pain. Quality Measures none Orders Category Date Time Status Bedside COVID-19 Antigen Test NOW Care 02/18/24 23:41 Active COVID-19 Screening Questionnaire NOW Care 02/18/24 23:27 Active Decision to Admit X1 Care 02/18/24 23:27 Completed CXRP [XR chest 1V portable] Stat Exams 02/18/24 20:59 Completed BNP [B-Type Natriuretic Peptide] Stat Lab 02/18/24 21:08 Completed CBC Stat Lab 02/18/24 21:08 Completed CMP [Comprehensive Metabolic Panel] Stat Lab 02/18/24 21:08 Completed PT [Prothrombin Time with INR] Stat Lab 02/18/24 21:08 Completed PTT [Partial Thromboplastin Time] Stat Lab 02/18/24 21:08 Completed Troponin I Stat Lab 02/18/24 21:08 Completed Labetalol IV [Trandate IV] Med 02/19/24 00:10 Discontinued 10 mg IVP X1 ONE Ondansetron Inj [Zofran Inj] Med 02/18/24 22:46 Discontinued 4 mg IV X1 ONE Spironolactone [Aldactone] Med 02/18/24 21:00 Discontinued 50 mg PO X1 ONE Valsartan [Diovan] Med 02/18/24 21:00 Discontinued 160 mg PO X1 ONE hydrALAZINE INJ [Apresoline Inj] Med 02/18/24 21:54 Discontinued 20 mg IV X1 ONE Vital Signs Vital signs: Vital Signs Temperature 97.8 F 02/18/24 20:34 Pulse Rate 92 02/18/24 20:34 Respiratory Rate 24 H 02/18/24 20:34 Blood Pressure 202/84 H 02/18/24 20:34 Pulse Oximetry (%) 96 02/18/24 20:34 Oxygen Delivery Method Nasal Cannula 02/18/24 20:34 Oxygen Flow Rate 2 02/18/24 20:34 [facility] Patient data External records reviewed:: [facility] previous records (Per chart review, patient was seen and admitted here on 01/17/24 for abdominal pain.) Clinical information provided by:: patient Social determinants that could affect healthcare access:: none Patient has the following chronic illnesses:: hypertension, diabetes mellitus insulin-dependent, CHF HFpEF 55 to 60% (12/04/2023), ESRD HD MWF, chronic normocytic anemia How is presenting disease/condition affected by chronic disease/condition?: exacerbated by Evaluation data The following diagnostics were reviewed and interpreted by me:: lab results, radiology exam(s) and EKG tracing(s) Lab and/or radiology exams considered but not ordered:: none Interpretation Summary: WBC count is normal, HnH is stable, BNP is elevated at 2037, according to my interpretation. EKG done at 2030, NSR, rate of 95, RBBB, poor baseline in V5, no ST elevations, QTc: 478, similar to previous ekg from 01/22/24 --------- [facility] Report Signed Patient: MAXWELL WASSERMAN. Record#: [id number] Birthdate: 1950 Age/Sex: 73 / F Location: [facility] Attending Dr: Ordering Physician: Anuradha Martínez MD Date of Service: 02/18/24 Procedure(s): XR chest 1V portable Accession Number(s): [id number] cc: Derrell Khan MD; Anuradha Martínez MD~ Examination: AP chest single view Technique one AP portable upright chest single view Exam date and time: February 18, 2024 2107 hrs. Comparison January 17, 2024 Indications: Chest pain shortness of breath today. Findings: Mild heart failure Mild enlargement cardiac contour with prominent vascular congestion Opacity right base consistent with pneumonia with layered right pleural fluid Prominent osteopenia Impression: Mild heart failure Pneumonia right base with significant layered right pleural fluid Dictated By: Derrell Khan MD Signed By: <Electronically signed by Derrell Khan MD in OV> 02/18/242130 Medications Medications considered but not ordered:: none Medication administrations:: Medication Administration History Acetaminophen (Acetaminophen 325 Mg Tablet) 650 mg PO Q6H PRN PRN Reason: Fever >100.4 or Pain 1-10 Stop: 03/20/24 00:38 Carvedilol (Carvedilol 12.5 Mg Tablet) 25 mg PO BIDWM [facility] Stop: 03/20/24 07:59 Clonidine (Clonidine Hcl 0.1 Mg Tablet) 0.2 mg PO BID [facility] Stop: 03/20/24 08:59 Dextrose (Dextrose 50%-Water Inj 50 Ml Syringe) 25 ml IV Q15MIN PRN PRN Reason: BG 50-70 responsive npo pt Stop: 03/20/24 04:48 Dextrose (Dextrose 50%-Water Inj 50 Ml Syringe) 50 ml IV Q15MIN PRN PRN Reason: BG <50 OR BG <70 & pt unresponsive Stop: 03/20/24 04:48 Glucagon (Glucagon Inj 1 Mg Vial) 1 mg IM Q15MIN PRN PRN Reason: BG <70, and no IV access Heparin Sodium (Porcine) (Heparin Sod Inj 5000 Unit/Ml Vial) 5,000 unit SC Q12HR [facility] Stop: 03/04/24 08:59 Hydralazine HCl (Hydralazine Hcl 25 Mg Tablet) 25 mg PO TID [facility] Stop: 03/20/24 04:39 Last Admin: 02/19/24 05:14 Dose: 25 mg Documented By: SA Insulin Human Lispro (Insulin Lispro (Admelog) 1 Unit/0.01 Ml Unit) 0 unit SC [facility]; Protocol Stop: 03/20/24 07:29 Nifedipine (Nifedipine Xl 30 Mg Tabcr) 60 mg PO BID [facility] Stop: 03/20/24 08:59 Ondansetron HCl (Ondansetron Inj 2 Mg/Ml Inj 2 Ml) 4 mg IV Q6H PRN; Protocol PRN Reason: NAUSEA OR VOMITING Stop: 03/20/24 00:38 Valsartan (Valsartan 80 Mg Tablet) 160 mg PO BID [facility] Stop: 03/20/24 08:59 Discontinued Medications Hydralazine HCl (Hydralazine Inj 20 Mg/Ml Vial) 20 mg IV X1 ONE Stop: 02/18/24 21:55 Last Admin: 02/18/24 21:59 Dose: 20 mg Documented By: EF Hydralazine HCl (Hydralazine Inj 20 Mg/Ml Vial) 10 mg IV X1 ONE Stop: 02/19/24 03:02 Last Admin: 02/19/24 03:12 Dose: 10 mg Documented By: SA Hydralazine HCl (Hydralazine Inj 20 Mg/Ml Vial) 10 mg IV X1 STA Stop: 02/19/24 06:12 Last Admin: 02/19/24 06:18 Dose: 10 mg Documented By: SA Labetalol HCl (Labetalol Inj 5 Mg/Ml Vial 20 Ml) 10 mg IVP X1 ONE Stop: 02/19/24 00:11 Last Admin: 02/19/24 00:15 Dose: 10 mg Documented By: EF Nifedipine (Nifedipine Xl 30 Mg Tabcr) 30 mg PO X1 ONE Stop: 02/19/24 03:02 Nifedipine (Nifedipine Xl 30 Mg Tabcr) 60 mg PO X1 ONE Stop: 02/19/24 03:02 Last Admin: 02/19/24 03:12 Dose: 60 mg Documented By: SA Ondansetron HCl (Ondansetron Inj 2 Mg/Ml Inj 2 Ml) 4 mg IV X1 ONE; Protocol Stop: 02/18/24 22:47 Last Admin: 02/18/24 22:59 Dose: 4 mg Documented By: EF Spironolactone (Spironolactone 25 Mg Tablet) 50 mg PO X1 ONE Stop: 02/18/24 21:01 Last Admin: 02/18/24 22:41 Dose: 50 mg Documented By: EF Valsartan (Valsartan 80 Mg Tablet) 160 mg PO X1 ONE Stop: 02/18/24 21:01 Last Admin: 02/18/24 22:41 Dose: 160 mg Documented By: EF see above Consultations Consultation(s) initiated? (list below): Yes Consultation #1 (Physician, Specialty, Details): Discussed case with [the resident physician, attending Dr. Santillan] from Hospitalist service regarding admission. Discussed patients ED course, exam findings, labs, and radiology results. The Hospitalist [agrees] to accept the patient for admission. Time: 23:27 Diagnosis Differential Diagnosis ED Complaint MDM: acute on chronic renal failure, NSTEMI, STEMI Most likely diagnosis given after review of the tests above:: see below Admission Indicated Admission indicated?: indicated Explain why admission is indicated or not indicated:: Admission criteria met. Admission Request Was there a request for admission?: Yes Admission Attestation Admission request attestation: Discussed case with [] from Hospitalist service regarding admission. Discussed patients ED course, exam findings, labs, and radiology results. The Hospitalist [agrees,declines] to accept the patient for admission. Disposition Plan Disposition Plan: Admit Medical Decision Making MDM Narrative MDM Narrative: 0146: Dr. Santillan, hospitalist on-call, requests me to call Dr. Edge, etcher hand, due to the patient's creatinine and potassium being elevated. 0148: Spoke with Dr. Edge, who states she will see the patient in the morning. Differential Diagnosis Differential Diagnosis: acute on chronic renal failure, NSTEMI, STEMI Lab Data 02/19/24 00:49 02/19/24 00:49 Labs: Lab Results 02/18/24 Range/Units 21:08 WBC 4.9 (3.6-11.0) Thou/mm3 RBC 3.00 L (4.00-5.20) Miln/mm3 Hgb 9.1 L (12.0-16.0) g/dL Hct 29.1 L (36.0-46.0) % MCV 97 (80-100) fL MCH 30.3 (25.0-35.0) pg MCHC 31.3 (31.0-37.0) g/dl RDW Std Deviation 64.0 H (36.4-46.3) fL Plt Count 230 D (140-440) Thou/mm3 Neut % (Auto) 74 (37-80) % Lymph % (Auto) 12 (10-50) % [place] % (Auto) 10 (0-12) % Eos % (Auto) 3 (0-10) % Baso % (Auto) 1 (0-2.5) % Neut # (Auto) 3.6 (1.8-7.7) Thou/mm3 Lymph # (Auto) 0.6 L (1.0-4.8) Thou/mm3 Will # (Auto) 0.5 (0.0-0.8) Thou/mm3 Eos # (Auto) 0.2 (0.0-0.5) Thou/mm3 Baso # (Auto) 0.0 (0.0-0.2) Thou/mm3 Immature Gran # (Auto) 0.00 (0.00-0.00) Thou/mm3 Absolute Nucleated RBC 0.00 (0.00-0.00) Thou/mm3 Immature Gran % 0 (0-0) % Nucleated RBC % 0 (0) /100 WBC PT 13.6 H (9.0-12.2) Seconds INR 1.3 (0.9-1.3) APTT 33.9 D (22.0-36.0) Seconds Sodium 137 (136-145) mMol/L Potassium 5.0 (3.4-5.1) mMol/L Chloride 95 L (98-107) mMol/L Carbon Dioxide 29.7 (20.0-31.0) mMol/L Anion Gap 12 (7-16) BUN 50 H (9-23) mg/dL Creatinine 6.0 H* (0.6-1.3) mg/dL Estim Creat Clear Calc 7.2 L (>60) mL/min eGFR 7 L* (60 - ) See Note BUN/Creatinine Ratio 8 L (12-20) Ratio Glucose 182 H (74-106) mg/dL Calculated Osmolality 292 (275-295) Calcium 8.8 (8.3-10.6) mg/dL Corrected Calcium 8.8 (8.5-10.1) mg/dL Total Bilirubin < 0.2 L (0.3-1.2) mg/dL AST 40 H (0-34) U/L ALT 17 (10-49) U/L Alkaline Phosphatase 233 H (46-116) U/L Troponin I 0.025 (0.0-0.045) ng/mL B-Natriuretic Peptide 2038 H* (0-100) pg/mL Total Protein 6.8 (5.7-8.2) gm/dL Albumin 4.1 (3.4-4.8) gm/dL Globulin 2.7 (2.3-3.5) gm/dL Albumin/Globulin Ratio 1.5 (1.2-2.2) Discharge Plan Plan Patient Disposition: Admit Acute Care w/in Hospital Patient condition on transfer: Stable Problem List Clinical Impression: Acute on chronic congestive heart failure, ESRD on hemodialysis
[2024-02-18 21:06] VITALS: PULSE 104; RESP 24; O2SAT 98; BMI 28.4
--- NOTE | 2024-02-18 21:06 | PC.NURSE ---
patient brought in by ambulance for chest pain that started 1 hr ago. per ems bp 237/98 at scene patient was given 3 nitros, 162 aspirin and nitro paste.
[2024-02-18 21:42] LABS: Basophils % (Auto) 1 % (0-2.5); Eosinophils # (Auto) 0.2 Thou/mm3 (0.0-0.5); Eosinophils % (Auto) 3 % (0-10); Hematocrit 29.1 % (36.0-46.0); Hemoglobin 9.1 g/dL (12.0-16.0); Immature Granulocytes % (Auto) 0 % (0-0); Lymphocytes # (Auto) 0.6 Thou/mm3 (1.0-4.8); Lymphocytes % (Auto) 12 % (10-50); Mean Corpuscular HGB Conc 31.3 g/dl (31.0-37.0); Mean Corpuscular Hemoglobin 30.3 pg (25.0-35.0); Mean Corpuscular Volume 97 fL (80-100); Monocytes # (Auto) 0.5 Thou/mm3 (0.0-0.8); Monocytes % (Auto) 10 % (0-12); Neutrophils # (Auto) 3.6 Thou/mm3 (1.8-7.7); Neutrophils % (Auto) 74 % (37-80); Nucleated Red Blood Cell % 0 /100 WBC (0); Platelet Count 230 Thou/mm3 (140-440); White Blood Count 4.9 Thou/mm3 (3.6-11.0)
[2024-02-18 21:59] VITALS: BP 220/79; PULSE 82
[2024-02-18] MEDS: hydrALAZINE INJ 20 MG/ML VIAL IV (21:59)
[2024-02-18 22:27] VITALS: BP 210/82; PULSE 79; RESP 20; TEMP 36.8; O2SAT 98
[2024-02-18 22:41] VITALS: BP 213/78; PULSE 79; PULSE 81
[2024-02-18] MEDS: SPIRONOLACTONE 25 MG TABLET 50 MG PO (22:41)
[2024-02-18] MEDS: VALSARTAN 80 MG TABLET 160 MG PO (22:41)
[2024-02-18] MEDS: ONDANSETRON INJ 2 MG/ML INJ 2 ML 4 MG IV (22:59)
[2024-02-18 23:01] LABS: B-Type Natriuretic Peptide 2038 pg/mL (0-100)
[2024-02-18 23:54] LABS: Alanine Aminotransferase 17 U/L (10-49); Albumin, Serum 4.1 gm/dL (3.4-4.8); Albumin/Globulin Ratio 1.5 (1.2-2.2); Alkaline Phosphatase 233 U/L (46-116); Anion Gap 12 (7-16); Aspartate Amino Transferase 40 U/L (0-34); BUN/Creatinine Ratio 8 Ratio (12-20); Bilirubin,Total < 0.2 mg/dL (0.3-1.2); Blood Urea Nitrogen 50 mg/dL (9-23); Calcium 8.8 mg/dL (8.3-10.6); Calcium (Corrected) 8.8 mg/dL (8.5-10.1); Carbon Dioxide 29.7 mMol/L (20.0-31.0); Chloride 95 mMol/L (98-107); Estimated Creatinine Clearance 7.2 mL/min (>60); Globulin 2.7 gm/dL (2.3-3.5); Glucose 182 mg/dL (74-106); Osmolality,Calculated 292 (275-295); Sodium 137 mMol/L (136-145); Total Protein 6.8 gm/dL (5.7-8.2); Troponin I 0.025 ng/mL (0.0-0.045); eGFR 7 See Note
[2024-02-19] VITALS (37 sets, daily range): BP systolic 142–211; BP diastolic 56–96; PULSE 60–81; RESP 14–23; TEMP 35.6–36.6; O2SAT 91–99; BMI 33.9
[2024-02-19] MEDS: LABETALOL INJ 5 MG/ML VIAL 20 ML 10 MG IVP (00:15)
[2024-02-19 00:28] LABS: INR 1.3 (0.9-1.3); Partial Thromboplastin Time 33.9 Seconds (22.0-36.0); Prothrombin Time 13.6 Seconds (9.0-12.2)
--- NOTE | 2024-02-19 00:28 | ESHP_ITS ---
Documentation for date of: 02/19/24 HPI History of Present Illness History of present illness: Patient is a 73-year-old Ugandan-speaking female with past medical history of ESRD on dialysis M/W/F, insulin-dependent type 2 diabetes, hypertension, CHF HFpEF 55 to 60% (12/04/2023), chronic normocytic anemia, on home oxygen 3 L nasal cannula who presented to the ED on 02/18/2024 with symptoms of chest pain and discomfort. She states that this discomfort comes and goes, especially when her blood pressure is high, today it was non-remitting. Denies vision changes, headache, dizziness. She does not recall whether she took all her home blood pressure medications as scheduled in the past day. Her son-in-law helps her with her home medications. Patient states that she did not skip any dialysis sessions and last session was yesterday, Friday 02/16 with fluid removal, prior to that was Friday, schedule changed due to the holidays. Her next session was scheduled to be on Friday. ED Course: -Initial vitals were 202/84, HR 92, RR 24, Temp 97.8, O2 96% on 2L NC -Labs significant for Hgb 9.1, potassium 5.2, BUN 51, creatinine 6.0, GFR 7. Troponin negative. BNP 2037. -CXR showed mild heart failure and pneumonia in the right base with significant layered right pleural fluid, however CXR appears improved from previous CXR on 01/16 at this time right pleural effusion was seen -In the ED, patient was given hydralazine 20 mg IV x1, valsartan 160 mg PO x1 & spironolactone 50 mg PO x1 (appears to be home medications), and Zofran 4 mg IV x1 -Patient was admitted for hypertensive emergency and fluid overload Review of Systems Review of systems otherwise negative except what is mentioned above. Past Medical History Past Medical History NEUROLOGIC: Positive Transient Ischemic Attacks (TIA) CARDIAC: Positive Cardiac Disorders, Hypercholesterolemia, Congestive Heart Failure, Edema, Cellulitis and Hypertension RESPIRATORY: Positive Pulmonary Edema GASTROINTESTINAL: Positive Gastrointestinal Disorders, Gall Bladder Disease, Gastrointestinal Bleed and Ulcer GENITOURINARY: Positive Genitourinary Disorders, Renal Disease, Kidney Stones and Dialysis REPRODUCTIVE: Positive Previous Pregnancies ENT: Positive Cataracts ENDOCRINE: Positive Endocrine Disorders and Diabetes Mellitus Type 2 HEMATOLOGIC: Positive Blood Disorders and Anemia PSYCHO/SOCIAL: Positive Depression and Anxiety OTHER HISTORY: Positive Hospitalization and Blood Transfusions Family History FAMILY HISTORY: Negative Family Psychiatric Problems, Family Respiratory Disorders, Family Cardiac Disorders, Family Gastrointestinal Problems, Family Cancer, Family Surgery or Family Anesthesia Reaction Surgical History SURGICAL: Positive Vascular Surgery, Abdominal Surgery and Tubal Ligation Social History SMOKING STATUS: Never smoker SECOND HAND EXPOSURE: No SUBSTANCE USE: does not use Exam Vital Signs Temp Pulse Resp BP Pulse Ox O2 Del Method O2 Flow Rate 98.2 F 76 20 211/78 H 98 Nasal Cannula 2 02/18/24 22:27 02/19/24 00:15 02/18/24 22:27 02/19/24 00:15 02/18/24 22:27 02/18/24 22:27 02/18/24 22:27 Narrative Exam Physical Exam General: Awake and in no acute distress. Conversational and non-toxic appearing. HEENT: Normocephalic, atraumatic, mucous membranes moist. On 2L NC. Heart: Regular rate and rhythm, no murmurs. Lungs: Clear breath sounds but poor inspiratory effort. Abdomen: Soft, nondistended, nontender, positive bowel sounds. ?No guarding or rebound tenderness. Neurologic: Alert and oriented x3, no gross neurological deficit, and patient able to move all 4 extremities. Extremities: Positive for bilateral lower extremity edema, 2+ pitting. Skin: No rash or ecchymoses. Results: Labs 02/19/24 00:49 02/19/24 00:49 Labs: Short CBC 02/18/24 Range/Units 21:08 WBC 4.9 (3.6-11.0) Thou/mm3 Hgb 9.1 L (12.0-16.0) g/dL Hct 29.1 L (36.0-46.0) % Plt Count 230 D (140-440) Thou/mm3 BMP 02/18/24 21:08 Sodium 137 Potassium 5.0 Chloride 95 L Carbon Dioxide 29.7 BUN 50 H Creatinine 6.0 H* Glucose 182 H Calcium 8.8 Cardiac Enzymes 02/18/24 Range/Units 21:08 Troponin I 0.025 (0.0-0.045) ng/mL Liver Function 02/18/24 Range/Units 21:08 Total Bilirubin < 0.2 L (0.3-1.2) mg/dL AST 40 H (0-34) U/L ALT 17 (10-49) U/L Alkaline Phosphatase 233 H (46-116) U/L Albumin 4.1 (3.4-4.8) gm/dL Quality Measures Quality Measures none Advance care planning discussed with:: patient Medications Home Medications and Allergies Home Medications ?Medication ?Instructions ?Recorded ?Confirmed ?Type calcium acetate(phosphat bind) 667 667 mg PO TIDWM 06/08/23 01/18/24 History mg tablet mirtazapine 15 mg tablet 15 mg PO HS 06/08/23 01/18/24 History vitamin B complex-vitamin C-folic 0.8 tab PO QDAY 06/08/23 01/18/24 History acid 0.8 mg tablet (Carmel-Sanjana) Allergies Allergy/AdvReac Type Severity Reaction Status Date / Time No Known Allergies Allergy Verified 09/09/23 14:45 Visit Medications Discontinued Medications Hydralazine HCl (Hydralazine Inj 20 Mg/Ml Vial) 20 mg IV X1 ONE Stop: 02/18/24 21:55 Last Admin: 02/18/24 21:59 Dose: 20 mg Labetalol HCl (Labetalol Inj 5 Mg/Ml Vial 20 Ml) 10 mg IVP X1 ONE Stop: 02/19/24 00:11 Last Admin: 02/19/24 00:15 Dose: 10 mg Ondansetron HCl (Ondansetron Inj 2 Mg/Ml Inj 2 Ml) 4 mg IV X1 ONE; Protocol Stop: 02/18/24 22:47 Last Admin: 02/18/24 22:59 Dose: 4 mg Spironolactone (Spironolactone 25 Mg Tablet) 50 mg PO X1 ONE Stop: 02/18/24 21:01 Last Admin: 02/18/24 22:41 Dose: 50 mg Valsartan (Valsartan 80 Mg Tablet) 160 mg PO X1 ONE Stop: 02/18/24 21:01 Last Admin: 02/18/24 22:41 Dose: 160 mg Assessment & Plan Plan 73-year-old Ugandan-speaking female with past medical history of ESRD on dialysis M/W/F, insulin-dependent type 2 diabetes, hypertension, CHF HFpEF 55 to 60% (12/04/2023), chronic normocytic anemia, on home oxygen 3 L nasal cannula who presented to the ED on 02/18/2024 with symptoms of chest pain and discomfort. #Hypertensive emergency #History of essential hypertension, poorly controlled Patient has BPs very poorly controlled, 200s/80-90s, does not recall compliance with meds. She is endorsing chest pain which she reports happens when her BP is high. Patient received: hydralazine 20 mg IV x1, valsartan 160 mg PO x1 & spironolactone 50 mg PO x1, labetalol 10 mg IV x1 with still elevated BPs Troponin is negative however patient is appearing fluid overloaded with peripheral edema Patient is on 2L O2, seems to be baseline -Resumed home medications, carvedilol, clonidine, hydralazine, valsartan -Fluid removal via dialysis -Strict I&O, daily weight #ESRD on HD // Patient stated she had dialysis Friday/Friday due to holiday schedule and the next session was scheduled for Friday Patient follows with Dr. Edge -Consulted Nephrology for dialysis #History of HFpEF #History of pleural effusions secondary to CHF, stable 12/11 EF 55-60% CXR showed pleural effusion right side, however appears better than from 01/16. Pleural drainage was attempted 01/18 but amount was too small. Patient is afebrile, not meeting SIRS criteria. -Continue with dialysis fluid removals #History of type 2 diabetes On admission initial glucose 182. A1c 5.1 07/2023. Patient takes insulin for diabetes at home. 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 Henriquez. Rachel Reyes, PGY-2 Attending Provider Attestation/Addendum 73 yr old female ws seen in the ER for chest discomfort, tachypnea, elevated BP. She is on hemodialysis done 02/16. She is a patient of Dr. Edge. In ER she has mild to moderate respiratory distress, abn breath sounds. she appeared fluid overloaded. Her BP remained high. I spoke with Dr. Misty Fisher in ER. She will contact Dr. Edge for acute HD. She will be admitted for fluid overload with hypertensive urgency.
[2024-02-19 01:13] LABS: Basophils % (Auto) 1 % (0-2.5); Eosinophils # (Auto) 0.2 Thou/mm3 (0.0-0.5); Eosinophils % (Auto) 4 % (0-10); Hematocrit 27.9 % (36.0-46.0); Hemoglobin 8.9 g/dL (12.0-16.0); Immature Granulocytes % (Auto) 0 % (0-0); Immature Granulocytes Auto 0.02 Thou/mm3 (0.00-0.00); Lymphocytes # (Auto) 0.9 Thou/mm3 (1.0-4.8); Lymphocytes % (Auto) 17 % (10-50); Mean Corpuscular HGB Conc 31.9 g/dl (31.0-37.0); Mean Corpuscular Hemoglobin 30.8 pg (25.0-35.0); Mean Corpuscular Volume 97 fL (80-100); Monocytes # (Auto) 0.6 Thou/mm3 (0.0-0.8); Monocytes % (Auto) 12 % (0-12); Neutrophils # (Auto) 3.5 Thou/mm3 (1.8-7.7); Neutrophils % (Auto) 67 % (37-80); Nucleated Red Blood Cell % 0 /100 WBC (0); Platelet Count 220 Thou/mm3 (140-440); RDW Standard Deviation 64.4 fL (36.4-46.3); Red Blood Count 2.89 Miln/mm3 (4.00-5.20); White Blood Count 5.2 Thou/mm3 (3.6-11.0)
--- NOTE | 2024-02-19 03:00 | PC.NURSE ---
BP 195/79, HR 74. Dr. Marcano was made aware of VS including the meds given to Pt in ER. MD to review patient's chart and said she'll get back to this nurse.
[2024-02-19] MEDS: NIFEdipine XL 30 MG TABCR 60 MG PO ×3 (03:12→20:35)
[2024-02-19] MEDS: hydrALAZINE INJ 20 MG/ML VIAL 10 MG IV ×2 (03:12→06:18)
[2024-02-19 03:15] LABS: Alanine Aminotransferase 15 U/L (10-49); Albumin, Serum 4.6 gm/dL (3.4-4.8); Albumin/Globulin Ratio 1.9 (1.2-2.2); Alkaline Phosphatase 222 U/L (46-116); Anion Gap 10 (7-16); Aspartate Amino Transferase 27 U/L (0-34); BUN/Creatinine Ratio 9 Ratio (12-20); Bilirubin,Total < 0.2 mg/dL (0.3-1.2); Blood Urea Nitrogen 51 mg/dL (9-23); Calcium 8.8 mg/dL (8.3-10.6); Calcium (Corrected) 8.8 mg/dL (8.5-10.1); Carbon Dioxide 30.3 mMol/L (20.0-31.0); Chloride 95 mMol/L (98-107); Estimated Creatinine Clearance 7.2 mL/min (>60); Globulin 2.4 gm/dL (2.3-3.5); Glucose 138 mg/dL (74-106); Magnesium 2.2 mg/dL (1.6-2.6); Osmolality,Calculated 285 (275-295); Phosphorous 5.8 mg/dL (2.4-5.1); Potassium 5.2 mMol/L (3.4-5.1); Sodium 135 mMol/L (136-145); eGFR 7 See Note
--- NOTE | 2024-02-19 04:29 | PC.NURSE ---
Rechecked VS: BP 183/95, HR 78. Dr. Reyes made aware about very minimal drop of BP despite administering antihypertensive meds given at 0312. said she'll see what else she can order.
[2024-02-19] MEDS: hydrALAZINE HCL 25 MG TABLET PO (05:14)
[2024-02-19 07:47] LABS: Glucose Estimated Average 97 mg/dL (80-131)
--- NOTE | 2024-02-19 07:47 | PC.NURSE ---
PATIENT TAKEN FOR DIALYSIS TO ROOM 309
[2024-02-19 08:20] LABS: Magnesium 2.2 mg/dL (1.6-2.6); Phosphorous 6.2 mg/dL (2.4-5.1)
--- NOTE | 2024-02-19 08:45 | PC.SS ---
Update: Patient is receiving IV antibiotics. Plan is for the patient to receiving dialysis today. Patient is established outpatient dialysis with Dr. Edge.
[2024-02-19] MEDS: CALCIUM ACETATE 667 MG TABLET PO ×2 (11:40→17:12)
[2024-02-19] MEDS: carVEDILOL 12.5 MG TABLET 25 MG PO ×2 (11:42→17:11)
[2024-02-19] MEDS: VALSARTAN 80 MG TABLET 160 MG PO ×2 (11:43→20:34)
[2024-02-19] MEDS: HEPARIN SOD INJ 5000 UNIT/ML VIAL SC ×2 (11:45→20:40)
[2024-02-19] MEDS: hydrALAZINE HCL 25 MG TABLET 50 MG PO ×2 (13:42→22:02)
[2024-02-19] MEDS: cloNIDine HCL 0.1 MG TABLET 0.2 MG PO ×2 (13:42→22:03)
--- NOTE | 2024-02-19 14:32 | ESPR_ITS ---
<Statement entered by Bakari Wilkinson MD - 02/24/24 14:16> I reviewed above note and agree with findings and plans. I have also personally examined the patient with medicine team and went over assessment and plan with medical team including internet marketing consultant and resident physician. Documentation for date of: 02/19/24 Subjective Subjective Interval history: Patient seen at bedside today. Blood pressure has improved with increase in medications. Patient received hemodialysis with improvement in shortness of breath. Will attempt to optimize blood pressure regimen prior to discharge. Exam Vital Signs Temp Pulse Resp BP Pulse Ox O2 Del Method O2 Flow Rate 96.0 F L 73 18 170/56 H 91 L Nasal Cannula 2 02/19/24 10:52 02/19/24 13:42 02/19/24 10:52 02/19/24 13:42 02/19/24 10:52 02/19/24 08:00 02/19/24 10:52 Narrative Exam Physical Exam General: Awake and in no acute distress. Conversational and non-toxic appearing. HEENT: Normocephalic, atraumatic, mucous membranes moist. On 2L NC. Heart: Regular rate and rhythm, no murmurs. Lungs: Clear breath sounds but poor inspiratory effort. Abdomen: Soft, nondistended, nontender, positive bowel sounds. ?No guarding or rebound tenderness. Neurologic: Alert and oriented x3, no gross neurological deficit, and patient able to move all 4 extremities. Extremities: Positive for bilateral lower extremity edema, 2+ pitting. Skin: No rash or ecchymoses. Objective Labs 02/19/24 00:49 02/19/24 00:49 Labs: Laboratory Results - last 24 hr 02/18/24 02/19/24 02/19/24 21:08 00:49 07:00 WBC 4.9 5.2 RBC 3.00 L 2.89 L Hgb 9.1 L 8.9 L Hct 29.1 L 27.9 L MCV 97 97 MCH 30.3 30.8 MCHC 31.3 31.9 RDW Std Deviation 64.0 H 64.4 H Plt Count 230 D 220 Neut % (Auto) 74 67 Lymph % (Auto) 12 17 [place] % (Auto) 10 12 Eos % (Auto) 3 4 Baso % (Auto) 1 1 Neut # (Auto) 3.6 3.5 Lymph # (Auto) 0.6 L 0.9 L [place] # (Auto) 0.5 0.6 Eos # (Auto) 0.2 0.2 Baso # (Auto) 0.0 0.0 Immature Gran # (Auto) 0.00 0.02 H Absolute Nucleated RBC 0.00 0.00 Immature Gran % 0 0 Nucleated RBC % 0 0 PT 13.6 H INR 1.3 APTT 33.9 D Sodium 137 135 L Potassium 5.0 5.2 H Chloride 95 L 95 L Carbon Dioxide 29.7 30.3 Anion Gap 12 10 BUN 50 H 51 H Creatinine 6.0 H* 6.0 H* Estim Creat Clear Calc 7.2 L 7.2 L eGFR 7 L* 7 L* BUN/Creatinine Ratio 8 L 9 L Glucose [address] Glu mg/dL 97 Hemoglobin A1c 5.0 Calculated Osmolality 292 285 Calcium 8.8 8.8 Corrected Calcium 8.8 8.8 Phosphorus 5.8 H 6.2 H Magnesium 2.2 2.2 Total Bilirubin < 0.2 L < 0.2 L AST 40 H 27 ALT 17 15 Alkaline Phosphatase 233 H 222 H Troponin I 0.025 B-Natriuretic Peptide 2038 H* Total Protein 6.8 7.0 Albumin 4.1 4.6 D Globulin 2.7 2.4 Albumin/Globulin Ratio 1.5 1.9 Quality Measures Quality Measures none Advance care planning discussed with:: patient and other Assessment & Plan Assessment Current Active Medications: Generic Name Dose Route Start Last Admin Trade Name Freq PRN Reason Stop Dose Admin Acetaminophen 650 mg 02/19/24 00:39 Acetaminophen 325 Mg Tablet PO 03/20/24 00:38 Q6H PRN Fever >100.4 or Pain 1-10 Atorvastatin Calcium 40 mg 02/19/24 21:00 Atorvastatin Calcium 20 Mg Tablet PO 03/20/24 20:59 QPM JANINE Calcium Acetate 667 mg 02/19/24 12:00 02/19/24 11:40 Calcium Acetate 667 Mg Tablet PO 03/20/24 11:59 667 mg TIDWM JANINE Administration Carvedilol 25 mg 02/19/24 08:00 02/19/24 11:42 Carvedilol 12.5 Mg Tablet PO 03/20/24 07:59 25 mg BIDWM JANINE Administration Carvedilol 25 mg 02/19/24 17:30 Carvedilol 12.5 Mg Tablet PO 03/20/24 17:29 BIDWM JANINE Clonidine 0.2 mg 02/19/24 14:00 02/19/24 13:42 Clonidine Hcl 0.1 Mg Tablet PO 03/20/24 13:59 0.2 mg TID JANINE Administration Dextrose 25 ml 02/19/24 04:49 Dextrose 50%-Water Inj 50 Ml Syringe IV 03/20/24 04:48 Q15MIN PRN BG 50-70 responsive npo pt Dextrose 50 ml 02/19/24 04:49 Dextrose 50%-Water Inj 50 Ml Syringe IV 03/20/24 04:48 Q15MIN PRN BG <50 OR BG <70 & pt unresponsive Glucagon 1 mg 02/19/24 04:49 Glucagon Inj 1 Mg Vial IM Q15MIN PRN BG <70, and no IV access Heparin Sodium (Porcine) 5,000 unit 02/19/24 09:00 02/19/24 11:45 Heparin Sod Inj 5000 Unit/Ml Vial SC 03/04/24 08:59 5,000 unit Q12HR JANINE Administration Hydralazine HCl 50 mg 02/19/24 14:00 02/19/24 13:42 Hydralazine Hcl 25 Mg Tablet PO 03/20/24 13:59 50 mg TID JANINE Administration Insulin Human Lispro 0 unit 02/19/24 07:30 02/19/24 11:41 Insulin Lispro (Admelog) 1 Unit/0.01 Ml Unit SC 03/20/24 07:29 Not Given ACHS [facility] Protocol Mirtazapine 15 mg 02/19/24 21:00 Mirtazapine 15 Mg Tablet PO 03/20/24 20:59 HS [facility] Nifedipine 60 mg 02/19/24 09:00 02/19/24 11:42 Nifedipine Xl 30 Mg Tabcr PO 03/20/24 08:59 60 mg BID JANINE Administration Home Medication- 210 mg 02/20/24 09:00 Please Speak With PO 03/21/24 08:59 Patient Caregiver To QDAY [facility] Have Rx Brought To [facility] Ondansetron HCl 4 mg 02/19/24 00:39 Ondansetron Inj 2 Mg/Ml Inj 2 Ml IV 03/20/24 00:38 Q6H PRN NAUSEA OR VOMITING Protocol Valsartan 160 mg 02/19/24 12:00 02/19/24 11:43 Valsartan 80 Mg Tablet PO 03/20/24 11:59 160 mg BID JANINE Administration Vitamin B Complex/Vit C/Folic Acid 1 tab 02/20/24 09:00 Vit B12/Vit C/Fa (Nephrovite) Tablet PO 03/21/24 08:59 QDAY JANINE Plan 73-year-old Frisian-speaking female with past medical history of ESRD on dialysis M/W/F, insulin-dependent type 2 diabetes, hypertension, CHF HFpEF 55 to 60% (12/04/2023), chronic normocytic anemia, on home oxygen 3 L nasal cannula who presented to the ED on 02/18/2024 with symptoms of chest pain and discomfort. #Hypertensive emergency #History of essential hypertension, poorly controlled Patient has BPs very poorly controlled, 200s/80-90s, does not recall compliance with meds. She is endorsing chest pain which she reports happens when her BP is high. Patient received: hydralazine 20 mg IV x1, valsartan 160 mg PO x1 & spironolactone 50 mg PO x1, labetalol 10 mg IV x1 with still elevated BPs Troponin is negative however patient is appearing fluid overloaded with peripheral edema Patient is on 2L O2, seems to be baseline -Resumed home medications, Coreg 25 mg p.o. twice daily, clonidine 0.2 3 times daily, hydralazine 50 3 times daily, nifedipine 60 twice daily, valsartan 160 twice daily -Dialysis session today -Strict I&O, daily weight #ESRD on HD // Patient stated she had dialysis Friday/Friday due to holiday schedule and the next session was scheduled for Friday Patient follows with Dr. Edge -Consulted Nephrology for dialysis #History of HFpEF #History of pleural effusions secondary to CHF, stable 12/11 EF 55-60% CXR showed pleural effusion right side, however appears better than from 01/16. Pleural drainage was attempted 01/18 but amount was too small. Patient is afebrile, not meeting SIRS criteria. -Continue with dialysis fluid removals #History of type 2 diabetes On admission initial glucose 182. A1c 5.1 07/2023. Patient takes insulin for diabetes at home. 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 Jaja Deutsch M.D. PGY-3
[2024-02-19] MEDS: EPOETIN ALFA-EPBX INJ 10,000 UNIT/ML VIAL (ESRD) 10000 UNIT SC (15:56)
[2024-02-19] MEDS: INSULIN LISPRO (AdmeLOG) 1 UNIT/0.01 ML UNIT SC (17:12)
--- NOTE | 2024-02-19 17:15 | PC.NURSE ---
Pressure dressing removed from left upper arm, positive for bruit and thrill, no bleeding noted from site, patient tolerated well. Continue to monitor.
--- NOTE | 2024-02-19 19:55 | PD.NEPHCONS ---
History of Present Illness Data of Consult Consult date: 02/19/24 Requesting Physician: Bakari Wilkinson MD Primary Care Provider: Carlos Saunders MD Consult Narrative Reason for consult: ESRD History of present illness: Ms. 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 L While in the ED, patient was noted to have extremely high blood pressure needing IV medications, labs fairly unremarkable, with the renal panel consistent with ESRD. CXR showed prominent CHF. Patient was admitted for hypertensive emergency, fluid overload and nephrology consulted for hemodialysis. Patient during the previous hospital Visit was diagnosed with a questionable renal artery stenosis-Per Dr. Owusu no role for renal intervention as patient currently on dialysis and kidney cannot be salvaged. Medical management was recommended. Home medications included atorvastatin, Auryxia, calcium acetate, carvedilol, clonidine, Eliquis, mirtazapine, nifedipine, Carmel-Sanjana, sertraline, Tylenol, Aldactone, valsartan 02/18/2023 Patient was seen and examined by the bedside. Did receive dialysis this morning. Patient very sleepy and arousable. Blood pressure better at 155/77. cc:: cc: Bakari Wilkinson MD Review of Systems Review of Systems Narrative Review of Systems: Limited due to her mentation. Barely arousable now. Past Medical History Past Medical History NEUROLOGIC: Positive Transient Ischemic Attacks (TIA); Negative Neurological Disorders, Cerebrovascular Accident, Dementia, Alzheimer's Disease, Parkinson's Disease, Brain Tumor, Meningitis, Seizures, Epilepsy, Multiple Sclerosis, Cerebral Palsy, Amyotrophic Lateral Sclerosis (ALS/[place] Gehrig's), Guillain-[place] Syndrome, Spina Bifida, Paralysis, Peripheral Neuropathy, Meza's Palsy, Subdural Hematoma, Migraine, Head Trauma, Spinal Cord Injury or Traumatic Brain Injury CARDIAC: Positive Cardiac Disorders, Hypercholesterolemia, Congestive Heart Failure, Edema, Cellulitis and Hypertension; Negative Myocardial Infarction, Cardiac Arrhythmia, Atrial Fibrillation, Angina, Heart Murmur, Coronary Artery Disease, Atherosclerotic Heart Disease, Peripheral Vascular Disease, Aneurysm, Congenital Heart Disease, Valvular Heart Disease, Rheumatic Fever, Cardiomyopathy, Pericarditis, Deep Vein Thrombosis, Hypotension or Varicose Veins RESPIRATORY: Positive Pulmonary Edema; Negative Chronic Obstructive Pulmonary Disease (COPD), Asthma, Bronchitis, Emphysema, Pneumonia, Pulmonary Fibrosis, Tuberculosis, Pulmonary Embolism or Sleep Apnea GASTROINTESTINAL: Positive Gastrointestinal Disorders, Gall Bladder Disease, Gastrointestinal Bleed and Ulcer; Negative Hepatitis, Cirrhosis, Pancreatitis, Celiac Disease, Esophageal Varices, Ramos's Esophagus, Colitis, Ulcerative Colitis, Diverticulitis, Diverticulosis, Colorectal Cancer, Irritable Bowel, Crohn's Disease, Obstructive Bowel, Hiatal Hernia, Hemorrhoids, Gastroesophageal Reflux Disease or Obesity GENITOURINARY: Positive Genitourinary Disorders, Renal Disease, Kidney Stones and Dialysis; Negative Polycystic Kidney Disease, Neurogenic Bladder or Benign Prostatic Hyperplasia REPRODUCTIVE: Positive Previous Pregnancies; Negative Breast Cancer, Endometriosis, Pelvic Inflammatory Disease or Uterine Prolapse MUSCULOSKELETAL: Negative Musculoskeletal Disorders, Muscular Dystrophy, Myasthenia Gravis, Marfan's Syndrome, Bone Cancer, Arthritis, Rheumatoid Arthritis, Osteoporosis, Degenerative Disk Disease, Gout, Scoliosis, Carpal Tunnel Syndrome, Fibromyalgia, Fractures, Degenerative Joint Disease, Osteomyelitis or Poliovirus ENT: Positive Cataracts; Negative Glaucoma, Blind, Retinal Detachment, Macular Degeneration, Ear Infection, Deafness, Head Trauma or Eye Prosthesis ENDOCRINE: Positive Endocrine Disorders and Diabetes Mellitus Type 2; Negative Diabetes Mellitus Type 1, Hypoglycemia, Blank's Syndrome, [place]'s Disease, Hyperthyroidism, Hypothyroidism, Parathyroid Disease, Pituitary Disease, Systemic Lupus Erythematosus, Syndrome of Inappropriate Antidiuretic Hormone (SIADH), Adrenal Disease or Graves' Disease HEMATOLOGIC: Positive Blood Disorders and Anemia; Negative Leukemia, Hemophilia, Thalassemia, Sickle Cell Disease or Clotting Problems PSYCHO/SOCIAL: Positive Depression and Anxiety; Negative Psychiatric Problems, Schizophrenia, Recreational Drug Use, Bipolar Disorder, Behavior Problems, Self-Mutilation, Attention Deficit Disorder, Attention Deficit Hyperactivity Disorder, Depression, Post Traumatic Stress Disorder or Eating Disorder OTHER HISTORY: Positive Hospitalization and Blood Transfusions; Negative Autoimmune Disease, Down Syndrome, Autism, Developmental Delay, Shingles, Falls, Blood Transfusion Reaction, Anesthesia Reactions, Organ Transplant, Chemotherapy, Radiation Therapy, Hyperbaric Therapy, Human Immunodeficiency Virus (HIV), Chicken Pox, Measles, Mumps, Rubella (Salvadorean Measles), Pertussis, Clostridium Difficile, Cancer, Breast Cancer, Cervical Cancer, Colorectal Cancer, Lung Cancer or Ovarian Cancer Family History FAMILY HISTORY: Negative Family Psychiatric Problems, Family Respiratory Disorders, Family Cardiac Disorders, Family Gastrointestinal Problems, Family Cancer, Family Surgery or Family Anesthesia Reaction Surgical History SURGICAL: Positive Vascular Surgery, Abdominal Surgery and Tubal Ligation; Negative Cardiac Surgery, Open Heart Surgery, Coronary Artery Bypass Graft, Valve Replacement, Coronary Stent, Cardiac Catheterization, Pacemaker, Angiogram, Auto Implanted Cardiovert Defib, Carotid Endarterectomy, Endocrine Surgery, Thyroidectomy, Ear Surgery, Tympanostomy Tube, Eye Surgery, Nose Surgery, Oral Surgery, Tonsillectomy, Adenoidectomy, Cochlear Implant, Corneal Transplant, Throat Surgery, Tracheostomy, Gastric Bypass Surgery, Gastrostomy, Bowel Surgery, Nephrectomy, Transurethral Resection, Joint Replacement, Amputation, Open Reduction Internal Fixation, Arthroscopy, Neurologic Surgery, Brain Shunt, Mastectomy, Lumpectomy, Hysterectomy, Section, Vasectomy or Organ Transplant Social History SMOKING STATUS: Never smoker SECOND HAND EXPOSURE: No SUBSTANCE USE: does not use Meds Home Medications and Allergies Home Medications ?Medication ?Instructions ?Recorded ?Confirmed ?Type calcium acetate(phosphat bind) 667 667 mg PO TIDWM 06/08/23 01/18/24 History mg tablet mirtazapine 15 mg tablet 15 mg PO HS 06/08/23 01/18/24 History vitamin B complex-vitamin C-folic 0.8 tab PO QDAY 06/08/23 01/18/24 History acid 0.8 mg tablet (Carmel-Sanjana) Allergies Allergy/AdvReac Type Severity Reaction Status Date / Time No Known Allergies Allergy Verified 09/09/23 14:45 Exam Vital Signs Temp Pulse Resp BP Pulse Ox O2 Del Method O2 Flow Rate 36.5 C 70 20 168/65 H 98 Nasal Cannula 2 02/19/24 16:00 02/19/24 17:11 02/19/24 16:00 02/19/24 17:11 02/19/24 16:00 02/19/24 16:00 02/19/24 16:00 Narrative Exam Gen: elderly female resting but arousable to voice, appears chronically ill HEENT: NCAT, PERRLA, EOMI, MMM CVS: normal S1, S2. RRR. No MRG Resp: fine Bilateral crackles Abd: soft,non tender,non-distended. BS+ in all 4 quadrants. No CVA tenderness MSK: Moves extremities x4; fistula in LUE with thrill. BLE venous stasis Neuro: Patient sleepy Results Labs 02/20/24 04:14 02/20/24 04:14 Labs: Short CBC 02/18/24 02/19/24 Range/Units 21:08 00:49 WBC 4.9 5.2 (3.6-11.0) Thou/mm3 Hgb 9.1 L 8.9 L (12.0-16.0) g/dL Hct 29.1 L 27.9 L (36.0-46.0) % Plt Count 230 D 220 (140-440) Thou/mm3 BMP 02/18/24 02/19/24 21:08 00:49 Sodium 137 135 L Potassium 5.0 5.2 H Chloride 95 L 95 L Carbon Dioxide 29.7 30.3 BUN 50 H 51 H Creatinine 6.0 H* 6.0 H* Glucose 182 H 138 H Calcium 8.8 8.8 Cardiac Enzymes 02/18/24 Range/Units 21:08 Troponin I 0.025 (0.0-0.045) ng/mL Liver Function 02/18/24 02/19/24 Range/Units 21:08 00:49 Total Bilirubin < 0.2 L < 0.2 L (0.3-1.2) mg/dL AST 40 H 27 (0-34) U/L ALT 17 15 (10-49) U/L Alkaline Phosphatase 233 H 222 H (46-116) U/L Albumin 4.1 4.6 D (3.4-4.8) gm/dL Assessment & Plan Additional Assessment & Plan Additional Plan: Patient is a 73-year-old female with ESRD on HD (MWF), resistant HTN, HFpEF (EF 65-70%), chronic respiratory failure on 3 L home O2, chronic normocytic anemia, IDDM, HLD, and depression/anxiety who presented to the ED with chest pain, hypertensive urgency, fluid overload #ESRD on HD (MWF) Patient on dialysis. Tolerating dialysis without any problems. Hemodialysis for 3 hours, 2K, ultrafiltration 2-3 L, Epogen 6000, no heparin ordered. Plan of care discussed with the dialysis nurse. Please see dialysis flowsheet for further details. Next dialysis will be scheduled for tomorrow to catch up with Gary, Friday, Friday schedule Continue home calcium acetate #Chronic normocytic anemia Likely secondary to ESRD Will give Procrit with HD #Resistant hypertension#Hypertensive urgency with chest pain Resume home meds, Coreg, clonidine, nifedipine, Aldactone ,valsartan, with as needed labetalol for SBP >190 Monitor vital signs #HFpEF (EF 65-70%) #Chronic respiratory failure, on 3 L home O2 #IDDM #HLD #Depression #Anxiety As per primary team Thank you Dr. Wilkinson for allowing us to participate in the care of Ms. Sheridan
[2024-02-19] MEDS: ATORVASTATIN CALCIUM 20 MG TABLET 40 MG PO (20:30)
[2024-02-19] MEDS: MIRTAZAPINE 15 MG TABLET PO (20:35)
[2024-02-20] VITALS (32 sets, daily range): BP systolic 149–181; BP diastolic 59–80; PULSE 61–81; RESP 14–20; TEMP 36.1–36.6; O2SAT 96–99; BMI 33.0
--- NOTE | 2024-02-20 00:49 | PC.NURSE ---
Notified Dr. Marcano about pt BP of 170/67. pt not complaining of discomfort, no orders for now.
[2024-02-20 05:16] LABS: Basophils # (Auto) 0.1 Thou/mm3 (0.0-0.2); Basophils % (Auto) 1 % (0-2.5); Eosinophils # (Auto) 0.2 Thou/mm3 (0.0-0.5); Eosinophils % (Auto) 5 % (0-10); Immature Granulocytes % (Auto) 0 % (0-0); Immature Granulocytes Auto 0.01 Thou/mm3 (0.00-0.00); Lymphocytes % (Auto) 23 % (10-50); Mean Corpuscular HGB Conc 30.7 g/dl (31.0-37.0); Mean Corpuscular Hemoglobin 30.6 pg (25.0-35.0); Mean Corpuscular Volume 100 fL (80-100); Monocytes # (Auto) 0.5 Thou/mm3 (0.0-0.8); Monocytes % (Auto) 12 % (0-12); Neutrophils # (Auto) 2.6 Thou/mm3 (1.8-7.7); Neutrophils % (Auto) 59 % (37-80); Nucleated Red Blood Cell % 0 /100 WBC (0); Platelet Count 178 Thou/mm3 (140-440); RDW Standard Deviation 63.7 fL (36.4-46.3); Red Blood Count 2.71 Miln/mm3 (4.00-5.20); White Blood Count 4.4 Thou/mm3 (3.6-11.0)
[2024-02-20 05:19] LABS: Hemoglobin 8.3 g/dL (12.0-16.0)
[2024-02-20] MEDS: cloNIDine HCL 0.1 MG TABLET 0.2 MG PO ×2 (05:20→13:22)
[2024-02-20] MEDS: hydrALAZINE HCL 25 MG TABLET 50 MG PO ×2 (05:24→13:21)
[2024-02-20 06:14] LABS: Alanine Aminotransferase 14 U/L (10-49); Albumin, Serum 3.9 gm/dL (3.4-4.8); Albumin/Globulin Ratio 1.4 (1.2-2.2); Alkaline Phosphatase 185 U/L (46-116); Anion Gap 9 (7-16); Aspartate Amino Transferase 30 U/L (0-34); BUN/Creatinine Ratio 7 Ratio (12-20); Bilirubin,Total < 0.2 mg/dL (0.3-1.2); Blood Urea Nitrogen 30 mg/dL (9-23); Calcium 9.4 mg/dL (8.3-10.6); Calcium (Corrected) 9.5 mg/dL (8.5-10.1); Carbon Dioxide 30.5 mMol/L (20.0-31.0); Chloride 96 mMol/L (98-107); Creatinine (Component) 4.3 mg/dL (0.6-1.3); Estimated Creatinine Clearance 10.8 mL/min (>60); Globulin 2.8 gm/dL (2.3-3.5); Glucose 93 mg/dL (74-106); Osmolality,Calculated 276 (275-295); Potassium 5.5 mMol/L (3.4-5.1); Sodium 135 mMol/L (136-145); Total Protein 6.7 gm/dL (5.7-8.2); eGFR 10 See Note
[2024-02-20] MEDS: ALBUTEROL/IPRATROPIUM (Duoneb) RT SOL 3 ML NEBU INH (08:37)
--- NOTE | 2024-02-20 08:44 | PC.SS ---
Update: Plan is to d/c patient following dialysis session.
[2024-02-20] MEDS: EPOETIN ALFA-EPBX INJ 10,000 UNIT/ML VIAL (ESRD) 10000 UNIT SC (09:57)
--- NOTE | 2024-02-20 10:19 | PD.RESPRO ---
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 In the ED, patient noted to have extremely high blood pressures needing IV medications. Labs fairly unremarkable with renal panel consistent with ESRD. CXR showed prominent CHF. Admitted for hypertensive emergency, fluid overload, and nephrology consulted for hemodialysis. Of note, during previous hospital visit she was diagnosed with questionable renal artery stenosis. Per Dr. Forrest, no role for renal intervention as patient currently dialysis and kidney cannot be salvaged. Medical management was recommended. 02/19: Patient seen during dialysis session, tolerating well. However, blood pressure remains relatively high with SBP in 160s despite being on multiple antihypertensive medications. Last session was yesterday, 02/18, and tolerated well. Received 10,000 units of Retacrit x 1 yesterday and receives daily ferric citrate daily. Exam Vital Signs Temp Pulse Resp BP Pulse Ox O2 Del Method O2 Flow Rate 97.8 F 66 20 166/67 H 99 Nasal Cannula 2 02/20/24 07:21 02/20/24 10:15 02/20/24 08:40 02/20/24 10:15 02/20/24 08:40 02/20/24 07:10 02/20/24 08:40 Narrative Exam General: no acute distress, tolerating dialysis HEENT: NC/AT, mucous membranes moist, bilateral sclera anicteric Cardiovascular: regular rate and rhythm, S1/S2 present, no murmurs appreciated Pulmonary: clear to auscultation bilaterally Abdominal: soft, non-tender, non-distended, no rebound/guarding, normal bowel sounds present Musculoskeletal: normal ROM, fistula in LUE, chronic venous stasis changes in BLE Skin: warm and dry, intact, no rashes Objective Labs 02/20/24 04:14 02/20/24 11:30 Labs: Laboratory Results - last 24 hr 02/20/24 04:14 WBC 4.4 RBC 2.71 L Hgb 8.3 L Hct 27.0 L MCV 100 MCH 30.6 MCHC 30.7 L RDW Std Deviation 63.7 H Plt Count 178 D Neut % (Auto) 59 Lymph % (Auto) 23 [place] % (Auto) 12 Eos % (Auto) 5 Baso % (Auto) 1 Neut # (Auto) 2.6 Lymph # (Auto) 1.0 [place] # (Auto) 0.5 Eos # (Auto) 0.2 Baso # (Auto) 0.1 Immature Gran # (Auto) 0.01 H Absolute Nucleated RBC 0.00 Immature Gran % 0 Nucleated RBC % 0 Sodium 135 L Potassium 5.5 H Chloride 96 L Carbon Dioxide 30.5 Anion Gap 9 BUN 30 H Creatinine 4.3 H* D Estim Creat Clear Calc 10.8 L eGFR 10 L* BUN/Creatinine Ratio 7 L Glucose 93 Calculated Osmolality 276 Calcium 9.4 Corrected Calcium 9.5 Total Bilirubin < 0.2 L AST 30 ALT 14 Alkaline Phosphatase 185 H D Total Protein 6.7 Albumin 3.9 D Globulin 2.8 Albumin/Globulin Ratio 1.4 Quality Measures Quality Measures none Advance care planning discussed with:: patient Assessment & Plan Assessment Current Active Medications: Generic Name Dose Route Start Last Admin Trade Name Freq PRN Reason Stop Dose Admin Acetaminophen 650 mg 02/19/24 00:39 Acetaminophen 325 Mg Tablet PO 03/20/24 00:38 Q6H PRN Fever >100.4 or Pain 1-10 Atorvastatin Calcium 40 mg 02/19/24 21:00 02/19/24 20:30 Atorvastatin Calcium 20 Mg Tablet PO 03/20/24 20:59 40 mg QPM JANINE Administration Calcium Acetate 667 mg 02/19/24 12:00 02/19/24 17:12 Calcium Acetate 667 Mg Tablet PO 03/20/24 11:59 667 mg TIDWM JANINE Administration Carvedilol 25 mg 02/19/24 08:00 02/19/24 17:11 Carvedilol 12.5 Mg Tablet PO 03/20/24 07:59 25 mg BIDWM JANINE Administration Clonidine 0.2 mg 02/19/24 14:00 02/20/24 05:20 Clonidine Hcl 0.1 Mg Tablet PO 03/20/24 13:59 0.2 mg TID JANINE Administration Dextrose 25 ml 02/19/24 04:49 Dextrose 50%-Water Inj 50 Ml Syringe IV 03/20/24 04:48 Q15MIN PRN BG 50-70 responsive npo pt Dextrose 50 ml 02/19/24 04:49 Dextrose 50%-Water Inj 50 Ml Syringe IV 03/20/24 04:48 Q15MIN PRN BG <50 OR BG <70 & pt unresponsive Glucagon 1 mg 02/19/24 04:49 Glucagon Inj 1 Mg Vial IM Q15MIN PRN BG <70, and no IV access Heparin Sodium (Porcine) 5,000 unit 02/19/24 09:00 02/19/24 20:40 Heparin Sod Inj 5000 Unit/Ml Vial SC 03/04/24 08:59 5,000 unit Q12HR JANINE Administration Hydralazine HCl 50 mg 02/19/24 14:00 02/20/24 05:24 Hydralazine Hcl 25 Mg Tablet PO 03/20/24 13:59 50 mg TID JANINE Administration Insulin Human Lispro 0 unit 02/19/24 07:30 02/20/24 07:58 Insulin Lispro (Admelog) 1 Unit/0.01 Ml Unit SC 03/20/24 07:29 Not Given ACHS [facility] Protocol Mirtazapine 15 mg 02/19/24 21:00 02/19/24 20:35 Mirtazapine 15 Mg Tablet PO 03/20/24 20:59 15 mg HS JANINE Administration Nifedipine 60 mg 02/19/24 09:00 02/19/24 20:35 Nifedipine Xl 30 Mg Tabcr PO 03/20/24 08:59 60 mg BID JANINE Administration Home Medication- 210 mg 02/20/24 09:00 Please Speak With PO 03/21/24 08:59 Patient Caregiver To QDAY JANINE Have Rx Brought To [facility] Ondansetron HCl 4 mg 02/19/24 00:39 Ondansetron Inj 2 Mg/Ml Inj 2 Ml IV 03/20/24 00:38 Q6H PRN NAUSEA OR VOMITING Protocol Valsartan 160 mg 02/19/24 12:00 02/19/24 20:34 Valsartan 80 Mg Tablet PO 03/20/24 11:59 160 mg BID JANINE Administration Vitamin B Complex/Vit C/Folic Acid 1 tab 02/20/24 09:00 Vit B12/Vit C/Fa (Nephrovite) Tablet PO 03/21/24 08:59 QDAY JANINE Plan Rina Sheridan is a 73-year-old Thai-speaking female with extensive medical history including uncontrolled hypertension for many years (despite several classes of antihypertensives), 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 #ESRD on HD (M/W/F) #Chronic normocytic anemia #Hyperphosphatemia Plan of care discussed with the dialysis nurse, please see dialysis flowsheet for further details Chronic normocytic anemia likely secondary to ESRD, received Retacrit with HD on 02/18 Dialysis sessions this admission: 02/18, 02/19 I/O in 24 hours: 200/0 Hgb 8.3, Na 135, K 5.2, Cr 4.3, Phos 6.2 ? Continue dialysis today ? Continue calcium acetate ? Continue ferric citrate #Resistant hypertension #Hypertensive urgency with chest pain ? Resume home Coreg, clonidine, nifedipine, Aldactone, and valsartan with PRN labetalol for SBP >190 ? Monitor vital signs #HFpEF (EF 65-70%) #Chronic respiratory failure, on 3 L home O2 #IDDM #HLD #Depression #Anxiety ? Continue management per primary team ----- Plan discussed with attending physician Dr. Minesh Yun MD PGY-1 Internal Medicine Attending Provider Attestation/Addendum Patient seen and examined with resident physician Dr. Marte. Note reviewed, agree with findings and recommendations. Patient currently seen on dialysis. Tolerating dialysis without any problems. Hemodialysis for 3 hours, 2K, ultrafiltration 2-3 L, Epogen 6000, no heparin ordered. Plan of care discussed with the dialysis nurse. Please see dialysis flowsheet for further details. Patient very sleepy.
[2024-02-20] MEDS: NIFEdipine XL 30 MG TABCR 60 MG PO (11:25)
[2024-02-20] MEDS: CALCIUM ACETATE 667 MG TABLET PO (11:25)
[2024-02-20] MEDS: VIT B12/Vit C/FA (Nephrovite) TABLET 1 TAB PO (11:26)
[2024-02-20] MEDS: VALSARTAN 80 MG TABLET 160 MG PO (11:26)
[2024-02-20] MEDS: carVEDILOL 12.5 MG TABLET 25 MG PO ×2 (11:27→17:22)
[2024-02-20 12:23] LABS: Alanine Aminotransferase < 7 U/L (10-49); Albumin, Serum 3.8 gm/dL (3.4-4.8); Albumin/Globulin Ratio 1.4 (1.2-2.2); Alkaline Phosphatase 186 U/L (46-116); Anion Gap 8 (7-16); Aspartate Amino Transferase 32 U/L (0-34); BUN/Creatinine Ratio 6 Ratio (12-20); Bilirubin,Total 0.2 mg/dL (0.3-1.2); Blood Urea Nitrogen 14 mg/dL (9-23); Calcium 8.8 mg/dL (8.3-10.6); Carbon Dioxide 30.8 mMol/L (20.0-31.0); Chloride 99 mMol/L (98-107); Creatinine (Component) 2.4 mg/dL (0.6-1.3); Estimated Creatinine Clearance 19.4 mL/min (>60); Globulin 2.7 gm/dL (2.3-3.5); Glucose 90 mg/dL (74-106); Osmolality,Calculated 276 (275-295); Potassium 3.6 mMol/L (3.4-5.1); Sodium 138 mMol/L (136-145); Total Protein 6.5 gm/dL (5.7-8.2); eGFR 21 See Note
--- NOTE | 2024-02-20 13:14 | PC.SS ---
Addendum entered and electronically signed by SAMUEL Zamudio 02/20/24 13:16: Patient is aligned with [facility]. Original Note: FRONT OFFICE SPECIALIST conducted phone contact with the patient?s son to conduct initial assessment and discharge plan. FRONT OFFICE SPECIALIST utilized translation services to assist with discussion. Patient resides at home with son, José Miguel Simmons . Patient utilizes a walker to assist with ambulation. Patient utilizes oxygen at home. Patient requires assistance with completion of ADL?s. Patient?s family assists with the completion of ADL?s. Patient?s medical surrogate decision maker is sonJosé Miguel. Patient?s PCP is Dr. Saunders [facility]. Patient is an established dialysis patient. Patient?s monitor car operator is Dr. Odell. Dialysis schedule is Mon, Wed, Fri. Patient utilizes [facility] for medication services. Patient possesses history of diabetes and high blood pressure. Son stated that he will be able to provide transportation on behalf of the patient at the time of discharge. No further intervention required at this time, high school social science teacher will be available to address any further concerns. Next of Kin: José Miguel Simmons D/C Plan: Home
--- NOTE | 2024-02-20 13:41 | ESDS_ITS ---
<Statement entered by Bakari Wiklinson MD - 02/24/24 14:18> I reviewed above note and agree with findings and plans. I have also personally examined the patient with medicine team and went over assessment and plan with medical team including manager international and resident physician. Planned Discharge Date 02/20/24 DS: Providers Provider Date of admission: 02/19/24 00:34 Primary care physician: Carlos Saunders MD Admitting Provider: Tony Henriquez MD Attending Provider on Admission: Bakari Wilkinson MD Consults: 02/19/24 06:12 Consult to Nephrology Routine Comment: Hemodialysis Consulting Provider: Blossom Edge Attending Provider on DC: Bakari Wilkinson MD Discharging Provider: Antonio Saunders MD Anticipated date of discharge: 02/20/24 DS: Diagnosis Problem List Completed Was Problem List Reviewed/Reconciled?: Yes Hospital Course Hospital Course Hospital course: Ms. Sheridan is a 73-year-old German-speaking female with past medical history of end-stage renal disease on hemodialysis Friday, insulin- dependent type 2 diabetes, hypertension, CHF HFpEF 55 to 60% November 2023, environmental aide rafy normocytic anemia on 3 L of home O2 who presented to [facility] with a chief complaint of chest pain and discomfort. Patient stated that she usually has chest pain during hemodialysis but developed chronic chest pain discomfort so she decided come to the emergency department. Upon presentation patient was noted to have blood pressures in the range of 200/100 and she received hydralazine, valsartan, spironolactone, and labetalol in the emergency department patient was admitted to telemetry for management of hypertensive emergency. The following day patient received hemodialysis session and blood pressure medications were adjusted significant improvement in patient's blood pressure. Patient received another dialysis session following a potassium level noted to be 5.5 and following the dialysis session potassium improved to 3.6. Patient's chest pain had relieved once the blood pressure was under control and she had returned to baseline health. Patient is being sent home on hydralazine 50 mg 3 times daily, clonidine 0.23 times daily and nifedipine 60 mg p.o. twice daily along with valsartan under 60 mg p.o. twice daily. Patient spironolactone is being held due to hyperkalemia and is recommended to follow-up with her sales support representative on restarting the medication. Problem List: #Hypertensive emergency #History of essential hypertension, poorly controlled #ESRD on HD M/W/F #History of HFpEF #History of pleural effusions secondary to CHF, stable #History of type 2 diabetes#Hypertensive emergency #History of essential hypertension, poorly controlled #ESRD on HD M/W/F #History of HFpEF #History of pleural effusions secondary to CHF, stable #History of type 2 diabetes Plan for discharge discussed with supervising attending Dr. Jaja Saunders MD PGY-1 Status at Discharge Functional status at discharge: bed bound Overall status at discharge: patient is back to baseline Time Spent with Patient Time attestation: Total time spent providing and/or coordinating discharge services: Time spent: Greater than 30 minutes Exam Vital Signs Temp Pulse Resp BP Pulse Ox O2 Del Method O2 Flow Rate 97.5 F 64 17 170/68 H 99 Nasal Cannula 2 02/20/24 12:00 02/20/24 13:22 02/20/24 12:02/20/24 13:02/20/24 12:02/20/24 12:02/20/24 12:00 Narrative Exam Physical Exam GENERAL: NAD, AAOx3 HEENT: Moist mucosa. Eyes open, symmetrical, & clear CARDIO: Heart RRR, no obvious murmurs PULM: No noted coughing/dyspnea CTA B/L, no R/W/R GI: Abdomen soft, nondistended, no pain on palpation. BSx4 SKIN/MSK/EXT: No wounds/rashes/edema/amputations, no pain on palpation. Pedal pulses present B/L NEURO: AAOx3, no focal neuro deficits, able to move all 4 extremities Discharge Plan Plan Patient Disposition: HOME (Self Care) Patient condition on transfer: Stable Care Plan Goals: Recommend following up with your primary care patient within 5 days of discharge from the hospital. Please follow-up with your sales support representative Dr Edge within 1 week of discharge from the hospital. New medications added to include hydralazine 3 times daily, clonidine patch has been discontinued, instead recommend taking clonidine tablet 0.2 mg 3 times daily, continue carvedilol 25 mg twice daily. Serum potassium noted to be on the higher side, will continue with spironolactone for now, but please follow-up with sales support representative with labs in 1 week. In case of worsening symptoms please return to emergency room. Prescriptions/Referrals Prescriptions/Med Rec: New carvedilol 25 mg tablet 25 mg PO BIDWM 30 Days Qty: 60 0RF clonidine HCl 0.2 mg tablet 0.2 mg PO TID 30 Days Qty: 90 0RF hydralazine 50 mg tablet 50 mg PO TID 30 Days Qty: 90 0RF Continued (DME) pen needle, diabetic [Comfort EZ Pen Brandt] 31 gauge x 3/16 needle See Rx Instructions .Route Qty: 100 0RF Rx Instructions: As directed atorvastatin 40 mg tablet 40 mg PO QPM Qty: 30 0RF sertraline 100 mg Tablet 100 mg PO HS 30 Days Qty: 30 0RF Auryxia 210 mg iron tablet 210 mg PO QDAY Qty: 30 0RF Rx Instructions: administer with a meal calcium acetate(phosphat bind) 667 mg tablet 667 mg PO TIDWM Patient Comments: TAKE 1 TABLET BY MOUTH THREE TIMES DAILY Carmel-Sanjana 0.8 mg tablet 0.8 tab PO QDAY Patient Comments: TAKE 1 TABLET BY MOUTH ONCE DAILY FOR 90 DAYS mirtazapine 15 mg tablet 15 mg PO HS valsartan 160 mg tablet 160 mg PO BID Qty: 60 0RF nifedipine 60 mg tablet extended release 24hr 60 mg PO BID Qty: 30 0RF Eliquis 5 mg tablet 5 mg PO BID Qty: 30 0RF albuterol sulfate [Ventolin HFA] 90 mcg/actuation HFA aerosol inhaler 2 puff inhalation QID PRN (Reason: shortness of breath or wheezing) Qty: 8.5 0RF Held spironolactone 50 mg tablet 50 mg PO BID Qty: 60 0RF Hold Instructions: Resume on 03/18/24. Follow up with Nephro in regards to continuing this medication Discontinued carvedilol 12.5 mg Tablet 25 mg PO BIDWM Qty: 60 0RF clonidine 0.2 mg/24 hr patch weekly 0.2 mg topical Q7D Qty: 4 0RF Referrals: Carlos Saunders MD [Primary Care Provider] - Blossom Edge MD [Physician] - Patient/Caregiver Discharge Instructions Education Materials: Hemodialysis, Diabetes and High Blood Pressure Print Language: German Stand Alone Forms: [facility] Award Info., Patient Portal Info Letter Discharge Order Discharge Orders: Discharge (Routine); Ordered 02/20/24 Ordered By: Lorena Deutsch Quality Discharge Quality Measures VTE prophylaxis
--- NOTE | 2024-02-20 14:26 | PC.SS ---
Rounding Note: Plan is to discharge patient home today.
--- NOTE | 2024-02-21 18:03 | PC.CM ---
Per social science research assistant notes patient is opened to [facility]. I faxed over orders today.
--- NOTE | 2024-02-23 08:13 | PC.CC ---
Pt is accepted to [facility] pending SOC
--- NOTE | 2024-02-24 12:45 | PC.CM ---
Addendum entered by Laila Nagel RN 02/26/24 16:52: Patient accepted by [facility] and they will see patient on 02/27. Original Note: [facility] has not been able to get information on PCP and speak with Pt. A wall steamer spoke with a family member yesterday and stated they would call them back and did not. Pending PCP verification and start of care date.
== END 2024-02-20 18:25 | disposition home health service (06) | DRG 199 ==
LOC: SERX 22:26 → SERHOLD 02-19 01:01 → S2NX 02-19 02:28
PROVIDERS: Internal Medicine; Student in an Organized Health Care Education/Training Program; Admitting Provider Internal Medicine; Emergency Provider Emergency Medicine; PCP Family Medicine; Visit Provider Internal Medicine
DX: I16.1 Hypertensive emergency (principal); I13.2 Hypertensive heart and chronic kidney disease with heart failure and with stage 5 chronic kidney disease, or end stage renal disease; N18.6 End stage renal disease; Z99.2 Dependence on renal dialysis; I50.32 Chronic diastolic (congestive) heart failure; E11.22 Type 2 diabetes mellitus with diabetic chronic kidney disease; Z99.81 Dependence on supplemental oxygen; Z79.4 Long term (current) use of insulin; I1A.0 Resistant hypertension; J96.10 Chronic respiratory failure, unspecified whether with hypoxia or hypercapnia; E78.5 Hyperlipidemia, unspecified; F41.9 Anxiety disorder, unspecified; F32.A Depression, unspecified; D63.1 Anemia in chronic kidney disease; E83.39 Other disorders of phosphorus metabolism
CPT/HCPCS: 36415; 71045; 80053; 83036; 83735; 83880; 84100; 84132; 84484; 85025; 85610; 85730; 87081; 87811; 93005; 94640; 96374; 96375; 99285; A9270; J0360; J1643; J1815; J2405; J3490; Q5105; J1920

== ENCOUNTER 2024-04-17 18:54 | Emergency (ER) | payer MEDICAID, SELFPAY ==
[2024-04-17 18:58] VITALS: BP 171/61; PULSE 67; RESP 17; TEMP 37.1; O2SAT 98
[2024-04-17 19:18] VITALS: PULSE 76; RESP 20; O2SAT 97; BMI 13.5
[2024-04-17 19:24] VITALS: BP 179/71; PULSE 65; RESP 19; TEMP 36.8; O2SAT 99
--- NOTE | 2024-04-17 19:24 | EKG_ITS ---
[facility] Test Date: 2024-04-17 Pat Name: MAXWELL WASSERMAN Department: Room: - Gender: Female Community Health Program Coordinator: : 1950 Requested By: ED Temporary Provider Order Number: [id number] Reading MD: ED Temporary Provider Measurements Intervals [place] Rate: 64 P: 14 SD: 171 QRS: -51 QRSD: 160 T: -5 QT: 452 QTc: 469 Interpretive Statements SINUS RHYTHM RIGHT BUNDLE BRANCH BLOCK [120+ ms QRS DURATION, UPRIGHT V1, 40+ ms S IN I/aVL/V4/V5/V6] LEFT ANTERIOR FASCICULAR BLOCK [QRS AXIS <= -45, QR IN I, RS IN II] Compared to ECG 01/18/2024 11:20:54 No significant changes /store/S0/[id number]/ecg/[id number].pdf
--- NOTE | 2024-04-17 19:48 | XR_ITS ---
Examination: CT abdomen and pelvis without contrast. Coronal 3-D reconstructions. Sagittal 2-D reconstructions. Date and time of exam:April 17, 2024 2013 hrs. Comparison January 17, 2024 Indications: Onset left-sided flank pain today, history infectious inflammatory process in the left psoas muscle on CT examination January 17, 2024 CTDI: vol (mGy): 9.03 DLP: (mGycm): 515 Technique: Axial images of the abdomen have been obtained, 3 mm slice thickness Intravenous contrast material has not been administered. Low dose protocols were performed. One or more of the following dose reduction techniques were used; automated exposure control, adjustment of the mA and/or KV according to patient size, use of iterative reconstruction technique. Findings: Mild to moderate enlargement cardiac contour with significant vascular congestion, large right pleural effusion, small left pleural effusion Atelectasis right lower lobe Right breast edema and skin thickening, clinical correlation advised Liver mildly irregular in contour Contracted gallbladder, possible tiny gallstones axial image 106 Spleen is not enlarged No pancreatic mass Atrophic bilateral kidneys with scarring 18 mm anterior left renal cyst Abdominal aortic calcification Anasarca, trace ascites Moderate to large amounts of stool throughout the colon Mild diffuse wall thickening of the colon including the rectum, consider hepatic colopathy Urinary bladder wall thickening up to 9 mm Prominent osteopenia Impression: Heart failure with prominent vascular congestion and large right pleural effusion Right breast edema and skin thickening, clinical correlation advised Primary hepatocellular disease versus cirrhosis Anasarca, trace ascites Recommend gallbladder sonography to exclude small gallstones Atrophic bilateral kidneys with parenchymal scar formation and renal vascular calcifications Moderate to large amounts of stool throughout the colon Diffuse wall thickening of the colon and rectum, probably hepatic colopathy Urinary bladder wall thickening up to 9 mm, differential would include cystitis
--- NOTE | 2024-04-17 19:49 | XR_ITS ---
Examination: AP chest single view Technique one AP portable upright chest single view Exam date and time: April 17, 20242006 hrs. Comparison February 18, 2024 Indications: Chest pain today Findings: Mild to moderate CHF Mild to moderate enlargement cardiac contour Prominent vascular congestion including central Impression and perihilar edema Opacity at both bases which may represent superimposed pneumonia with large right pleural effusion Moderate osteopenia Impression: Mild to moderate CHF Suspicious for bibasilar pneumonia Large right pleural effusion
--- NOTE | 2024-04-17 19:51 | PD.EDBACK ---
ED Back Injury Pain RME/HPI General Chief Complaint: Back Pain/Injury Stated Complaint: BACK PAIN Time Seen by Provider: 04/17/24 19:40 Arrival date/time: 04/17/24 18:54 RME / HPI RME / HPI Narrative: DR. SALLY WADDELL ED EVALUATION: Patient is a 73-year-old female with history of hypercholesterolemia, asthma, hypertension, diabetes, TIA, anemia, end-stage renal disease on hemodialysis (M, W, F) and congestive heart failure brought in by EMS with chief complaint of the left flank pain since about 8 AM, so for about the past 12 hours. Patient states she is never had this pain before, she denies trauma or inciting event. Patient states she makes little to no urine and is not having urinary symptoms. Patient completed full dialysis yesterday. No recent fevers, shakes, chills, sweats. No chest pain or dyspnea. No recent cough, runny nose or sore throat. Patient has no history of same and states she has no idea of the cause of the pain. Related Data Home Medications ?Medication ?Instructions ?Recorded ?Confirmed calcium acetate(phosphat bind) 667 667 mg PO TIDWM 06/08/23 01/18/24 mg tablet mirtazapine 15 mg tablet 15 mg PO HS 06/08/23 01/18/24 vitamin B complex-vitamin C-folic 0.8 tab PO QDAY 06/08/23 01/18/24 acid 0.8 mg tablet (Carmel-Sanjana) Previous Rx's ?Medication ?Instructions ?Recorded atorvastatin 40 mg tablet 40 mg PO QPM #30 tabs 08/12/22 ferric citrate 210 mg iron tablet 210 mg PO QDAY #30 tabs 08/12/22 (Auryxia) pen needle, diabetic 31 gauge x #100 ea 08/12/2205/02 (Comfort EZ Pen [place]) sertraline 100 mg tablet 100 mg PO HS 1 month #30 tabs 08/12/22 albuterol sulfate 90 mcg/actuation 2 puff inhalation QID PRN 07/24/23 aerosol inhaler (Ventolin HFA) shortness of breath or wheezing #8.5 grams valsartan 160 mg tablet 160 mg PO BID #60 tabs 12/08/23 spironolactone 50 mg tablet 50 mg PO BID #60 tabs 12/10/23 Held on 02/20/24. Instructions: Resume on 03/18/24. Follow up with Neph[facility] in regards to continuing this medication apixaban 5 mg tablet (Eliquis) 5 mg PO BID #30 tabs 12/11/23 nifedipine 60 mg tablet,extended 60 mg PO BID #30 tabs 12/11/23 release 24 hr acetaminophen 500 mg capsule 1,000 mg (2 x 500 mg) PO Q6H PRN 04/17/24 fever or pain #20 caps Allergies Allergy/AdvReac Type Severity Reaction Status Date / Time No Known Allergies Allergy Verified 04/17/24 19:23 Review of Systems Review of Systems Systems Reviewed: All systems reviewed, normal except as documented Narrative Review of Systems: GEN: No fever, no chills, no weight loss EYES: No discharge, no visual changes, no pain HEENT: No ear pain, no congestion, no sore throat PULM: No shortness of breath, no cough, no congestion CV: No chest pain, no dyspnea on exertion, no palpitations GI: No nausea, no vomiting, no diarrhea, + left flank pain, no constipation : No frequency, no urgency and no dysuria MUSC/SKEL: No joint pain, no back pain SKIN: No rash PSYCH: No hallucinations, no depression HEME/LYMPH: No easy bleeding or bruising tendencies NEURO: No weakness, no headache Past Medical History Past Medical History NEUROLOGIC: Positive Transient Ischemic Attacks (TIA) CARDIAC: Positive Cardiac Disorders, Hypercholesterolemia, Congestive Heart Failure, Edema, Cellulitis and Hypertension RESPIRATORY: Positive Pulmonary Edema GASTROINTESTINAL: Positive Gastrointestinal Disorders, Gall Bladder Disease, Gastrointestinal Bleed and Ulcer GENITOURINARY: Positive Genitourinary Disorders, Renal Disease, Kidney Stones and Dialysis REPRODUCTIVE: Positive Previous Pregnancies ENT: Positive Cataracts ENDOCRINE: Positive Endocrine Disorders and Diabetes Mellitus Type 2 HEMATOLOGIC: Positive Blood Disorders and Anemia PSYCHO/SOCIAL: Positive Depression and Anxiety OTHER HISTORY: Positive Hospitalization and Blood Transfusions Surgical History SURGICAL: Positive Vascular Surgery, Abdominal Surgery and Tubal Ligation Social History SMOKING STATUS: Unknown if ever smoked SECOND HAND EXPOSURE: No SUBSTANCE USE: does not use ALCOHOL: Never ED Exam Narrative Physical exam: GENERAL APPEARANCE:? alert and oriented x 4, well-developed, well-nourished, no acute distress HEENT: Normocephalic, atraumatic; pupils equal, round, reactive to light; EOMI; mucous membranes pink, moist; oropharynx clear NECK: Supple LUNGS: CTABL; no wheezes, no rales, no rhonchi HEART: Regular rate, regular rhythm; normal S1, S2; no murmurs ABDOMEN: non distended; normal BS;? soft, no tenderness, no guarding, no rebound; no masses, no organomegaly, no hernia?? BACK:?Patient has left lateral, paraspinal musculature muscle spasm. There is mild to moderate tenderness to palpation in the area. There is no CVA tenderness bilaterally. There is no overlying rash. EXTREMITIES:? atraumatic; no edema NEUROLOGIC: awake; alert and oriented x4; cranial nerves II-XII grossly intact; no focal sensory or motor deficits PSYCHIATRIC:? appropriate mood and affect SKIN: warm, dry, normal color; no rashes Course Quality Measures none Orders Category Date Time Status Bedside Influenza A&B Antigen Test NOW Care 04/17/24 20:01 Completed Preparation Supervisor Freezing STAT Care 04/17/24 19:46 Completed Continuous Pulse Oximetry STAT Care 04/17/24 19:46 Completed EKG (ED ONLY) *Do not use* NOW Care 04/17/24 19:24 Completed Insert IV STAT Care 04/17/24 19:46 Completed NPO STAT Care 04/17/24 19:[address] abdomen pelvis wo con Stat Exams 04/17/24 19:48 Completed EKG (ED Only) Stat Exams 04/17/24 19:24 Draft XR chest 1V portable Stat Exams 04/17/24 19:49 Completed CBC Stat Lab 04/17/24 20:33 Completed Comprehensive Metabolic Panel Stat Lab 04/17/24 20:33 Completed Lipase Stat Lab 04/17/24 20:33 Completed Magnesium Stat Lab 04/17/24 20:33 Completed Acetaminophen Ivpb [Ofirmev Inj] Med 04/17/24 19:50 Discontinued 1,000 mg in 100 ml IV X1 mg Hyd/Al Hyd/Mara Susp [Maalox Susp] Med 04/17/24 22:41 Discontinued 30 ml PO X1 ONE Vital Signs Vital signs: Vital Signs Temperature 98.7 F 04/17/24 18:58 Pulse Rate 67 04/17/24 18:58 Respiratory Rate 17 04/17/24 18:58 Blood Pressure 171/61 H 04/17/24 18:58 Pulse Oximetry (%) 98 04/17/24 18:58 Oxygen Delivery Method Nasal Cannula 04/17/24 18:58 Oxygen Flow Rate 3 04/17/24 18:58 Back Pain / Injury MDM Narrative MDM Narrative:: I have ordered a workup including a CT Noncon abdomen pelvis. I have also ordered a gram of Ofirmev to be given. Will reevaluate. Patient data External records reviewed:: [facility] previous records (Reviewed last admission discharge dated 02/20/24, patient admitted for the following: Acute on chronic congestive heart failure.) and EMS form Clinical information provided by:: patient and EMS Social determinants that could affect healthcare access:: none Patient has the following chronic illnesses:: Hypercholesterolemia, asthma, hypertension, diabetes, TIA, anemia, end-stage renal disease on hemodialysis (M, W, F) and congestive heart failure. How is presenting disease/condition affected by chronic disease/condition?: exacerbated by Evaluation data The following diagnostics were reviewed and interpreted by me:: lab results, radiology exam(s) and EKG tracing(s) (EKG#1: EKG at 1936 hours. Interpreted by me: sinus rhythm, rate 64, no STEMI) Lab and/or radiology exams considered but not ordered:: none Interpretation Summary: Procedure(s): CT abdomen pelvis wo [facility] Accession Number(s): [id number] cc: Derrell Khan MD; Dayton Hodgson MD~ Examination: CT abdomen and pelvis without contrast. Coronal 3-D reconstructions. Sagittal 2-D reconstructions. Date and time of exam:April 17, 2024 2013 hrs. Comparison January 17, 2024 Indications: Onset left-sided flank pain today, history infectious inflammatory process in the left psoas muscle on CT examination January 17, 2024 CTDI: vol (mGy): 9.03 DLP: (mGycm): 515 Technique: Axial images of the abdomen have been obtained, 3 mm slice thickness Intravenous contrast material has not been administered. Low dose protocols were performed. One or more of the following dose reduction techniques were used; automated exposure control, adjustment of the mA and/or KV according to patient size, use of iterative reconstruction technique. Findings: Mild to moderate enlargement cardiac contour with significant vascular congestion, large right pleural effusion, small left pleural effusion Atelectasis right lower lobe Right breast edema and skin thickening, clinical correlation advised Liver mildly irregular in contour Contracted gallbladder, possible tiny gallstones axial image 106 Spleen is not enlarged No pancreatic mass Atrophic bilateral kidneys with scarring 18 mm anterior left renal cyst Abdominal aortic calcification Anasarca, trace ascites Moderate to large amounts of stool throughout the colon Mild diffuse wall thickening of the colon including the rectum, consider hepatic colopathy Urinary bladder wall thickening up to 9 mm Prominent osteopenia Impression: Heart failure with prominent vascular congestion and large right pleural effusion Right breast edema and skin thickening, clinical correlation advised Primary hepatocellular disease versus cirrhosis Anasarca, trace ascites Recommend gallbladder sonography to exclude small gallstones Atrophic bilateral kidneys with parenchymal scar formation and renal vascular calcifications Moderate to large amounts of stool throughout the colon Diffuse wall thickening of the colon and rectum, probably hepatic colopathy Urinary bladder wall thickening up to 9 mm, differential would include cystitis Dictated By: Derrell Khan MD Procedure(s): XR chest 1V portable Accession Number(s): [id number] cc: Derrell Khan MD; Dayton Hodgson MD~ Examination: AP chest single view Technique one AP portable upright chest single view Exam date and time: April 17, 20242006 hrs. Comparison February 18, 2024 Indications: Chest pain today Findings: Mild to moderate CHF Mild to moderate enlargement cardiac contour Prominent vascular congestion including central Impression and perihilar edema Opacity at both bases which may represent superimposed pneumonia with large right pleural effusion Moderate osteopenia Impression: Mild to moderate CHF Suspicious for bibasilar pneumonia Large right pleural effusion Dictated By: Derrell Khan MD Medications / Prescriptions Medications or Prescriptions considered but not ordered:: none Medication administrations:: Medication Administration History Discontinued Medications Al Hydrox/Mg Hydrox/Simethicone (Mg Hyd/Al Hyd/Mara (Maalox Reg) Susp 30 Ml Udc) 30 ml PO X1 ONE Stop: 04/17/24 22:42 Last Admin: 04/17/24 22:46 Dose: 30 ml Documented By: EF Acetaminophen (Ofirmev Inj) 1,000 mg in 100 mls @ 250 mls/hr IV X1 ONE Stop: 04/17/24 20:13 Last Infusion: 04/17/24 21:15 Dose: Infused Documented By: Admin: 04/17/24 20:30 Dose: 250 mls/hr Documented By: TC see above Consultations Consultation(s) initiated? (list below): No Diagnosis Differential diagnosis back pain/injury: lumbar radiculopathy, sciatica, strain of lumbar region and discitis Most likely diagnosis given after review of the tests above:: Muscle spasm Lower back pain Admission Indicated Admission indicated?: not indicated Admission Request Was there a request for admission?: No Disposition Plan Disposition Plan: Discharge Discharge Attestation Discharge Attestation: The patient and all family members were given an opportunity to ask questions and understood the discharge instructions. Discharge instructions specifically effects, indications for sooner follow up or return to the emergency department, and the expected course of current diagnosis. Patient condition: Stable Discharge Plan Plan Patient Disposition: HOME (Self Care) Disposition Comment: Stable for discharge Patient condition on transfer: Stable Prescriptions/Referrals Prescriptions/Med Rec: New acetaminophen 500 mg capsule 1,000 mg PO Q6H PRN (Reason: fever or pain) Qty: 20 0RF No Action (DME) pen needle, diabetic [Comfort EZ Pen [place]] 31 gauge x 3/16 needle See Rx Instructions .Route Qty: 100 0RF Rx Instructions: As directed atorvastatin 40 mg tablet 40 mg PO QPM Qty: 30 0RF sertraline 100 mg Tablet 100 mg PO HS 30 Days Qty: 30 0RF Auryxia 210 mg iron tablet 210 mg PO QDAY Qty: 30 0RF Rx Instructions: administer with a meal calcium acetate(phosphat bind) 667 mg tablet 667 mg PO TIDWM Patient Comments: TAKE 1 TABLET BY MOUTH THREE TIMES DAILY Carmel-Sanjana 0.8 mg tablet 0.8 tab PO QDAY Patient Comments: TAKE 1 TABLET BY MOUTH ONCE DAILY FOR 90 DAYS mirtazapine 15 mg tablet 15 mg PO HS valsartan 160 mg tablet 160 mg PO BID Qty: 60 0RF spironolactone 50 mg tablet 50 mg PO BID Qty: 60 0RF nifedipine 60 mg tablet extended release 24hr 60 mg PO BID Qty: 30 0RF Eliquis 5 mg tablet 5 mg PO BID Qty: 30 0RF albuterol sulfate [Ventolin HFA] 90 mcg/actuation HFA aerosol inhaler 2 puff inhalation QID PRN (Reason: shortness of breath or wheezing) Qty: 8.5 0RF Referrals: Carlos Saunders MD [Primary Care Provider] - In 1 week Problem List Clinical Impression: Muscle spasm, Lower back pain Patient/Caregiver Discharge Instructions Discharge Activity: activity as tolerated Education Materials: Back Safety: Bending, Back Safety: Lifting, Back Safety: Sitting, ED Muscle Spasm Additional Instructions: Please return to the emergency department if you have any worsening or any further medical problems and we will help you. Otherwise you should follow-up with your primary care doctor within the next several days. Print Language: Czech Stand Alone Forms: Renay Award Info., Patient Portal Info Letter
[2024-04-17] MEDS: ACETAMINOPHEN IVPB 1,000 MG/100 ML VIAL 250 MG IV (20:30)
[2024-04-17 20:35] VITALS: PULSE 62
[2024-04-17 20:52] LABS: Basophils % (Auto) 0 % (0-2.5); Eosinophils % (Auto) 1 % (0-10); Hematocrit 31.5 % (36.0-46.0); Hemoglobin 10.3 g/dL (12.0-16.0); Immature Granulocytes % (Auto) 0 % (0-0); Immature Granulocytes Auto 0.02 Thou/mm3 (0.00-0.00); Lymphocytes % (Auto) 12 % (10-50); Mean Corpuscular HGB Conc 32.7 g/dl (31.0-37.0); Mean Corpuscular Hemoglobin 31.2 pg (25.0-35.0); Mean Corpuscular Volume 96 fL (80-100); Monocytes # (Auto) 0.7 Thou/mm3 (0.0-0.8); Monocytes % (Auto) 9 % (0-12); Neutrophils # (Auto) 6.1 Thou/mm3 (1.8-7.7); Neutrophils % (Auto) 78 % (37-80); Nucleated Red Blood Cell % 0 /100 WBC (0); Platelet Count 247 Thou/mm3 (140-440); RDW Standard Deviation 50.4 fL (36.4-46.3); White Blood Count 7.8 Thou/mm3 (3.6-11.0)
[2024-04-17 21:50] LABS: Alanine Aminotransferase < 7 U/L (10-49); Albumin, Serum 3.9 gm/dL (3.4-4.8); Albumin/Globulin Ratio 1.4 (1.2-2.2); Alkaline Phosphatase 162 U/L (46-116); Anion Gap 7 (7-16); Aspartate Amino Transferase 23 U/L (0-34); BUN/Creatinine Ratio 7 Ratio (12-20); Bilirubin,Total < 0.2 mg/dL (0.3-1.2); Blood Urea Nitrogen 29 mg/dL (9-23); Calcium (Corrected) 9.1 mg/dL (8.5-10.1); Chloride 94 mMol/L (98-107); Creatinine (Component) 4.4 mg/dL (0.6-1.3); Estimated Creatinine Clearance 6.1 mL/min (>60); Globulin 2.8 gm/dL (2.3-3.5); Glucose 128 mg/dL (74-106); Lipase 31 U/L (12-53); Magnesium 2.2 mg/dL (1.6-2.6); Osmolality,Calculated 272 (275-295); Sodium 132 mMol/L (136-145); Total Protein 6.7 gm/dL (5.7-8.2); eGFR 10 See Note
[2024-04-17 22:39] VITALS: BP 154/74; PULSE 65; RESP 14; TEMP 36.8; O2SAT 97
[2024-04-17] MEDS: MG HYD/AL HYD/SIME (Maalox Reg) SUSP 30 ML UDC PO (22:46)
== END 2024-04-17 22:53 | disposition home or self-care (01) ==
PROVIDERS: Emergency Provider Emergency Medicine; PCP Family Medicine
DX: M62.838 Other muscle spasm (principal); M54.50 Low back pain, unspecified; I50.9 Heart failure, unspecified; I13.2 Hypertensive heart and chronic kidney disease with heart failure and with stage 5 chronic kidney disease, or end stage renal disease; R23.4 Changes in skin texture; R18.8 Other ascites; N26.1 Atrophy of kidney (terminal); K59.00 Constipation, unspecified; K63.89 Other specified diseases of intestine; K62.89 Other specified diseases of anus and rectum; N32.89 Other specified disorders of bladder; I45.10 Unspecified right bundle-branch block; I44.4 Left anterior fascicular block; E78.00 Pure hypercholesterolemia, unspecified; E11.22 Type 2 diabetes mellitus with diabetic chronic kidney disease; N18.6 End stage renal disease; Z99.2 Dependence on renal dialysis
CPT/HCPCS: 36415; 71045; 74176; 80053; 81001; 83690; 83735; 85025; 87086; 87400; 87811; 93005; 96365; 99284; J0131; A9270

== ENCOUNTER 2024-10-07 15:59 | Inpatient (IN) | payer MEDICAID, SELFPAY ==
[2024-10-07 16:00] VITALS: BMI 27.8
[2024-10-07 16:29] VITALS: BP 196/73; BP 200/84; PULSE 74; RESP 20; TEMP 37.1; O2SAT 95
--- NOTE | 2024-10-07 16:42 | PD.EDRME ---
Rapid Medical Screening Exam RME Arrival date/time: 10/07/24 15:59 73-year-old female presents to the emergency department today stating she was sent here by dialysis in order get a blood transfusion Chief Complaint: Recheck/Abnormal Lab/Rx Time Seen by Provider: 10/07/24 19:05 Vital signs: Vital Signs Temperature 98.8 F 10/07/24 16:29 Pulse Rate 74 10/07/24 16:29 Respiratory Rate 20 10/07/24 16:29 Blood Pressure 196/73 H 10/07/24 16:29 Pulse Oximetry (%) 95 10/07/24 16:29 Oxygen Delivery Method Room Air 10/07/24 16:29
--- NOTE | 2024-10-07 16:42 | XR_ITS ---
Examination: AP chest single view TECHNIQUE: Upright AP portable chest single view Date and time: October 07, 2024, 7005 hours, comparison April 17, 2024 INDICATIONS: Difficulty breathing today, fluid in the lungs FINDINGS: Mild to moderate CHF Enlarged cardiac contour with prominent vascular congestion and perihilar edema Pneumonia versus edema at the right lung base with significant right pleural fluid and mild to moderate left pleural fluid IMPRESSION: [id number] CHF Pneumonia versus edema at the right lung base
[2024-10-07 17:08] LABS: Basophils # (Auto) 0.0 Thou/mm3 (0.0-0.2); Basophils % (Auto) 1 % (0-2.5); Eosinophils # (Auto) 0.2 Thou/mm3 (0.0-0.5); Eosinophils % (Auto) 4 % (0-10); Immature Granulocytes Auto 0.01 Thou/mm3 (0.00-0.00); Lymphocytes # (Auto) 1.3 Thou/mm3 (1.0-4.8); Lymphocytes % (Auto) 26 % (10-50); Mean Corpuscular HGB Conc 31.1 g/dl (31.0-37.0); Mean Corpuscular Hemoglobin 31.7 pg (25.0-35.0); Mean Corpuscular Volume 102 fL (80-100); Monocytes # (Auto) 0.4 Thou/mm3 (0.0-0.8); Monocytes % (Auto) 9 % (0-12); Neutrophils # (Auto) 3.0 Thou/mm3 (1.8-7.7); Neutrophils % (Auto) 61 % (37-80); Nucleated Red Blood Cell # 0.00 Thou/mm3 (0.00-0.00); Nucleated Red Blood Cell % 0 /100 WBC (0); Platelet Count 271 Thou/mm3 (140-440); RDW Standard Deviation 58.3 fL (36.4-46.3); Red Blood Count 1.86 Miln/mm3 (4.00-5.20); White Blood Count 5.0 Thou/mm3 (3.6-11.0)
[2024-10-07 17:37] LABS: Alanine Aminotransferase 10 U/L (10-49); Albumin, Serum 3.9 gm/dL (3.4-4.8); Albumin/Globulin Ratio 1.6 (1.2-2.2); Alkaline Phosphatase 164 U/L (46-116); Anion Gap 11 (7-16); Aspartate Amino Transferase 17 U/L (0-34); BUN/Creatinine Ratio 6 Ratio (12-20); Bilirubin,Total 0.2 mg/dL (0.3-1.2); Blood Urea Nitrogen 27 mg/dL (9-23); Calcium 9.0 mg/dL (8.3-10.6); Calcium (Corrected) 9.1 mg/dL (8.5-10.1); Carbon Dioxide 26.7 mMol/L (20.0-31.0); Chloride 99 mMol/L (98-107); Creatinine (Component) 4.5 mg/dL (0.6-1.3); Estimated Creatinine Clearance 11.5 mL/min (>60); Globulin 2.5 gm/dL (2.3-3.5); Glucose 126 mg/dL (74-106); Osmolality,Calculated 280 (275-295); Potassium 5.0 mMol/L (3.4-5.1); Sodium 137 mMol/L (136-145); Total Protein 6.4 gm/dL (5.7-8.2); eGFR 10 See Note
[2024-10-07 17:43] LABS: INR 1.1 (0.9-1.3); Partial Thromboplastin Time 29.8 Seconds (22.0-36.0); Prothrombin Time 11.7 Seconds (9.0-12.2)
[2024-10-07 17:44] LABS: Hemoglobin 5.9 g/dL (12.0-16.0)
[2024-10-07 17:45] LABS: Hematocrit 19.0 % (36.0-46.0)
[2024-10-07 18:22] LABS: Path Review Blood Smear Sent to Pathologist
[2024-10-07 20:29] VITALS: BP 193/70; PULSE 72; RESP 15; TEMP 36.8; O2SAT 97
[2024-10-07 23:00] VITALS: BP 179/65; PULSE 73; RESP 18; TEMP 36.4; O2SAT 95
[2024-10-07 23:04] VITALS: BP 179/65; PULSE 71; RESP 18; TEMP 36.4; O2SAT 95
[2024-10-07 23:20] VITALS: BP 190/66; PULSE 73; RESP 16; TEMP 36.4; O2SAT 98
[2024-10-07 23:35] VITALS: BP 193/69; PULSE 69; RESP 18; TEMP 36.4; O2SAT 96
[2024-10-08] VITALS (37 sets, daily range): BP systolic 149–209; BP diastolic 69–89; PULSE 64–98; RESP 14–22; TEMP 36.2–36.6; O2SAT 95–100
--- NOTE | 2024-10-08 00:49 | PD.EDWEAK ---
ED Weakness RME/HPI General Chief complaint: Recheck/Abnormal Lab/Rx Stated complaint: NEED BLOOD TRANSFUSION Time Seen by Provider: 10/07/24 19:05 Arrival date/time: 10/07/24 15:59 RME / HPI RME / HPI Narrative: 10/07/24 15:59 73-year-old female presents to the emergency department today stating she was sent here by dialysis in order get a blood transfusion See [facility] for Dr. Hahn's HPI Documentation. Related Data Home Medications ?Medication ?Instructions ?Recorded ?Confirmed calcium acetate(phosphat bind) 667 667 mg PO TIDWM 06/08/23 01/18/24 mg tablet mirtazapine 15 mg tablet 15 mg PO HS 06/08/23 01/18/24 vitamin B complex-vitamin C-folic 0.8 tab PO QDAY 06/08/23 01/18/24 acid 0.8 mg tablet (Carmel-Sanjana) Previous Rx's ?Medication ?Instructions ?Recorded atorvastatin 40 mg tablet 40 mg PO QPM #30 tabs 08/12/22 ferric citrate 210 mg iron tablet 210 mg PO QDAY #30 tabs 08/12/22 (Auryxia) pen needle, diabetic 31 gauge x #100 ea 08/12/2205/02 (Comfort EZ Pen [place]) sertraline 100 mg tablet 100 mg PO HS 1 month #30 tabs 08/12/22 albuterol sulfate 90 mcg/actuation 2 puff inhalation QID PRN 07/24/23 aerosol inhaler (Ventolin HFA) shortness of breath or wheezing #8.5 grams valsartan 160 mg tablet 160 mg PO BID #60 tabs 12/08/23 spironolactone 50 mg tablet 50 mg PO BID #60 tabs 12/10/23 Held on 02/20/24. Instructions: Resume on 03/18/24. Follow up with Nephro in regards to continuing this medication apixaban 5 mg tablet (Eliquis) 5 mg PO BID #30 tabs 12/11/23 nifedipine 60 mg tablet,extended 60 mg PO BID #30 tabs 10/24/24 release 24 hr acetaminophen 500 mg capsule 1,000 mg (2 x 500 mg) PO Q6H PRN 04/17/24 fever or pain #20 caps Allergies Allergy/AdvReac Type Severity Reaction Status Date / Time No Known Allergies Allergy Verified 10/07/24 16:02 Review of Systems Review of Systems Systems Reviewed: All systems reviewed, normal except as documented Past Medical History Past Medical History NEUROLOGIC: Positive Transient Ischemic Attacks (TIA) CARDIAC: Positive Cardiac Disorders, Hypercholesterolemia, Congestive Heart Failure, Edema, Cellulitis and Hypertension RESPIRATORY: Positive Pulmonary Edema GASTROINTESTINAL: Positive Gastrointestinal Disorders, Gall Bladder Disease, Gastrointestinal Bleed and Ulcer GENITOURINARY: Positive Genitourinary Disorders, Renal Disease, Kidney Stones and Dialysis REPRODUCTIVE: Positive Previous Pregnancies ENT: Positive Cataracts ENDOCRINE: Positive Endocrine Disorders and Diabetes Mellitus Type 2 HEMATOLOGIC: Positive Blood Disorders and Anemia PSYCHO/SOCIAL: Positive Depression and Anxiety OTHER HISTORY: Positive Hospitalization and Blood Transfusions Surgical History SURGICAL: Positive Vascular Surgery, Abdominal Surgery and Tubal Ligation ED Exam Narrative Physical exam: See MDM for Dr. Hahn's Physical Exam Documentation. Course Course Course Narrative: CXR was ordered for determining the etiology of shortness of breath. Quality Measures none Orders Category Date Time Status COVID-19 Screening Questionnaire NOW Care 10/08/24 01:08 Active Decision to Admit X1 Care 10/08/24 01:08 Completed IV [Insert IV] STAT Care 10/07/24 20:43 Completed Transfuse,blood/blood products NOW Care 10/07/24 21:27 Active Consult to Nephrology Stat Cons 10/08/24 01:05 Ordered XR chest 1V portable Stat Exams 10/07/24 16:42 Completed CBC Stat Lab 10/07/24 17:01 Completed Comprehensive Metabolic Panel Stat Lab 10/07/24 17:01 Completed Partial Thromboplastin Time Stat Lab 10/07/24 17:01 Completed Path Review Blood Smear Stat Lab 10/07/24 17:01 Completed Prothrombin Time with INR Stat Lab 10/07/24 17:01 Completed Type and Screen Stat Lab 10/07/24 17:01 Results prbc [Red Blood Cells] Stat Lab 10/07/24 17:01 Results Furosemide Inj [Lasix Inj] Med 10/08/24 00:27 Discontinued 80 mg IVP X1 ONE Morphine Inj Med 10/08/24 00:27 Discontinued 2 mg IVP X1 ONE Nitroglycerin Oint 2% [Nitro-paste Oint 2%] Med 10/08/24 00:27 Discontinued 2 inch TOP X1 ONE Vital Signs Vital signs: Vital Signs Temperature 98.8 F 10/07/24 16:29 Pulse Rate 74 10/07/24 16:29 Respiratory Rate 20 10/07/24 16:29 Blood Pressure 196/73 H 10/07/24 16:29 Pulse Oximetry (%) 95 10/07/24 16:29 Oxygen Delivery Method Room Air 10/07/24 16:29 Weakness MDM Narrative MDM Narrative:: Scribe Attestation: I, Che Perez, am scribing for and in the presence of Dr. Hahn. This section includes all my notes and documentations, including HPI, PE, and ED course. Choco Hahn MD HPI: 73 y/o female with Hx of ESRD with Dialysis with a couple week history of worsening fatigue and malaise and dyspnea. No other complaints. ROS: All negative except as documented in HPI. Physical Exam: General: Alert and oriented. In respiratory distress. Eyes: Conjunctivae and lids clear. ENT: No nasal congestion. Neck: Supple. Heart: RRR. Lungs: In respiratory distress. Decreased air movement with rales. Abdomen: Soft and nontender. Normal bowel sounds. No distension. No rebound or guarding. Back: No CVA tenderness. Skin: Warm and dry. Neuro: Alert and oriented X 3. I reviewed all diagnostic test results: My interpretation of the chest x-ray is increased vascular congestion. Blood tests remarkable for Hgb 5.9 and Cr 4.5. Covid: negative. At this point, diagnoses include: ESRD, Severe Anemia. Treatment here included: Lasix 80 mg IV Morphine 2 mg IV Topical NTG Transfusion ordered. 0105: I discussed the case with our electrician radio, Dr. Edge. About the presentation and exam and diagnostics and treatments here. Recommended admission for transfusion and diapysis. 0108: I discussed the case with our hospitalist. About the presentation and exam and diagnostics and treatments here. And need of further care in the hospital. Will accept the patient. Choco Hahn MD Patient data External records reviewed:: [facility] previous records (Reviewed prior ED records from 04/17/24. Patient was seen for Lower back pain.) Clinical information provided by:: patient Social determinants that could affect healthcare access:: none Patient has the following chronic illnesses:: Hypercholesterolemia, Congestive Heart Failure, Edema, Cellulitis, Hypertension, Pulmonary Edema, Gall Bladder Disease, Gastrointestinal Bleed and Ulcer, Renal Disease, Kidney Stones and Dialysis, Cataracts, Diabetes Mellitus Type 2, Anemia, Depression and Anxiety How is presenting disease/condition affected by chronic disease/condition?: exacerbated by Evaluation data The following diagnostics were reviewed and interpreted by me:: lab results and radiology exam(s) Lab and/or radiology exams considered but not ordered:: None Interpretation Summary: I reviewed all diagnostic test results: My interpretation of the chest x-ray is increased vascular congestion. Blood tests remarkable for Hgb 5.9 and Cr 4.5. Covid: negative. Medications / Prescriptions Medications or Prescriptions considered but not ordered:: None Medication administrations:: Medication Administration History Acetaminophen (Acetaminophen 325 Mg Tablet) 650 mg PO Q6H PRN PRN Reason: Fever >100.4 or pain 1-3(mild Stop: 11/07/24 01:31 Last Admin: 10/08/24 09:36 Dose: 650 mg Documented By: GEORGIANA Calcium Acetate (Calcium Acetate 667 Mg Tablet) 667 mg PO TIDWM JANINE Stop: 11/07/24 07:59 Last Admin: 10/10/24 11:36 Dose: Not Given Documented By: TEJA Non-Admin Reason: NPO Admin: 10/10/24 09:05 Dose: 667 mg Documented By: Admin: 10/09/24 17:24 Dose: 667 mg Documented By: Admin: 10/09/24 12:30 Dose: 667 mg Documented By: Admin: 10/09/24 09:55 Dose: 667 mg Documented By: Admin: 10/08/24 16:30 Dose: 667 mg Documented By: Admin: 10/08/24 11:29 Dose: 667 mg Documented By: Admin: 10/08/24 09:45 Dose: Not Given Documented By: [email or web address] Non-Admin Reason: pt in dialysis Carvedilol (Carvedilol 12.5 Mg Tablet) 25 mg PO BIDWM JANINE Stop: 11/09/24 17:29 Clonidine (Clonidine Hcl 0.1 Mg Tablet) 0.2 mg PO TID JANINE Stop: 11/07/24 01:44 Last Admin: 10/10/24 14:21 Dose: 0.2 mg Documented By: Admin: 10/10/24 06:04 Dose: 0.2 mg Documented By: Admin: 10/09/24 21:50 Dose: 0.2 mg Documented By: Admin: 10/09/24 13:49 Dose: 0.2 mg Documented By: Admin: 10/09/24 05:05 Dose: 0.2 mg Documented By: Admin: 10/08/24 21:14 Dose: 0.2 mg Documented By: Admin: 10/08/24 13:38 Dose: 0.2 mg Documented By: Admin: 10/08/24 06:15 Dose: 0.2 mg Documented By: Admin: 10/08/24 02:42 Dose: 0.2 mg Documented By: CLIFFORD Dextrose (Dextrose 50%-Water Inj 50 Ml Syringe) 25 ml IV Q15MIN PRN PRN Reason: BG 50-70 responsive npo pt Stop: 11/07/24 01:31 Dextrose (Dextrose 50%-Water Inj 50 Ml Syringe) 50 ml IV Q15MIN PRN PRN Reason: BG <50 OR BG <70 & pt unresponsive Stop: 11/07/24 01:31 Glucagon (Glucagon Inj 1 Mg Vial) 1 mg IM Q15MIN PRN PRN Reason: BG <70, and no IV access Insulin Human Lispro (Insulin Lispro (Admelog) 1 Unit/0.01 Ml Unit) 0 unit SC AC [facility]; Protocol Stop: 11/07/24 07:29 Last Admin: 10/10/24 11:36 Dose: Not Given Documented By: TEJA Non-Admin Reason: NPO Admin: 10/10/24 07:53 Dose: Not Given Documented By: TEJA Non-Admin Reason: Per Protocol Admin: 10/09/24 17:23 Dose: Not Given Documented By: SHARMILA Non-Admin Reason: Per Protocol Admin: 10/09/24 11:29 Dose: Not Given Documented By: SHARMILA Non-Admin Reason: Per Protocol Admin: 10/09/24 07:36 Dose: Not Given Documented By: SHARMILA Non-Admin Reason: Per Protocol Admin: 10/08/24 16:04 Dose: Not Given Documented By: MAGDI Non-Admin Reason: Per Protocol Admin: 10/08/24 11:25 Dose: Not Given Documented By: MAGDI Non-Admin Reason: Per Protocol Admin: 10/08/24 07:48 Dose: Not Given Documented By: MAGDI Non-Admin Reason: Per Protocol Nifedipine (Nifedipine Xl 30 Mg Tabcr) 60 mg PO BID [facility] Stop: 11/07/24 01:44 Last Admin: 10/10/24 09:04 Dose: 60 mg Documented By: Admin: 10/09/24 20:27 Dose: 60 mg Documented By: Admin: 10/09/24 09:53 Dose: 60 mg Documented By: Admin: 10/08/24 20:25 Dose: 60 mg Documented By: Admin: 10/08/24 09:45 Dose: Not Given Documented By: MAGDI Non-Admin Reason: pt in dialysis Admin: 10/08/24 02:42 Dose: 60 mg Documented By: CLIFFORD Ondansetron HCl (Ondansetron Inj 2 Mg/Ml Inj 2 Ml) 4 mg IVP Q6H PRN; Protocol PRN Reason: NAUSEA OR VOMITING Stop: 11/07/24 01:31 Pantoprazole Sodium (Pantoprazole Inj 40 Mg Vial) 40 mg IVP BID [facility] Stop: 11/07/24 08:59 Last Admin: 10/10/24 09:05 Dose: 40 mg Documented By: Admin: 10/09/24 20:27 Dose: 40 mg Documented By: Admin: 10/09/24 09:56 Dose: 40 mg Documented By: Admin: 10/08/24 20:24 Dose: 40 mg Documented By: Admin: 10/08/24 09:45 Dose: Not Given Documented By: MAGDI Non-Admin Reason: pt in dialysis Tramadol HCl (Tramadol Hcl 50 Mg Tablet) 50 mg PO Q6HR PRN PRN Reason: PAIN SCALE 4-10(Mod-Sev Stop: 10/13/24 01:31 Valsartan (Valsartan 80 Mg Tablet) 160 mg PO BID [facility] Stop: 11/07/24 01:44 Last Admin: 10/10/24 09:04 Dose: 160 mg Documented By: Admin: 10/09/24 20:26 Dose: 160 mg Documented By: Admin: 10/09/24 09:55 Dose: 160 mg Documented By: Admin: 10/08/24 20:24 Dose: 160 mg Documented By: Admin: 10/08/24 09:45 Dose: Not Given Documented By: MAGDI Non-Admin Reason: pt in dialysis Admin: 10/08/24 02:43 Dose: 160 mg Documented By: CLIFFORD Discontinued Medications Benzocaine (Benzocaine 20% (Hurricaine) [place] 1 Dose) Confirm Administered Dose 1 dose TOP .STK-MED ONE Stop: 10/10/24 14:55 Carvedilol (Carvedilol 12.5 Mg Tablet) 12.5 mg PO BIDWM JANINE Stop: 11/08/24 17:29 Last Admin: 10/10/24 09:05 Dose: 12.5 mg Documented By: Admin: 10/09/24 17:24 Dose: 12.5 mg Documented By: SHARMILA Dextrose (Dextrose 50%-Water Inj 50 Ml Syringe) 100 ml IVP X1 ONE Stop: 10/10/24 08:33 Last Admin: 10/10/24 08:55 Dose: 100 ml Documented By: TEJA Fentanyl Citrate (Fentanyl Cit Inj 50 Mcg/Ml Amp 2ml) Confirm Administered Dose 100 mcg .ROUTE .STK-MED ONE Stop: 10/10/24 14:55 Furosemide (Furosemide Inj 10 Mg/Ml 4ml Vial) 80 mg IVP X1 ONE Stop: 10/08/24 00:28 Last Admin: 10/08/24 00:54 Dose: 80 mg Documented By: CLIFFORD Insulin Human Regular (Insulin Hum Regular 1 Unit/0.01 Ml (Per Unit)) 5 unit IV X1 ONE Stop: 10/10/24 08:33 Last Admin: 10/10/24 08:54 Dose: 5 unit Documented By: TEJA Co-signed By: GALILEO Midazolam HCl (Midazolam Inj 1 Mg/Ml Vial 2 Ml) Confirm Administered Dose 6 mg .ROUTE .STK-MED ONE Stop: 10/10/24 14:55 Morphine Sulfate (Morphine Sulf Inj 10 Mg/Ml Vial) 2 mg IVP X1 ONE Stop: 10/08/24 00:28 Last Admin: 10/08/24 00:52 Dose: 2 mg Documented By: CLIFFORD Nifedipine (Nifedipine Xl 30 Mg Tabcr) 60 mg PO X1 ONE Stop: 10/08/24 15:40 Last Admin: 10/08/24 16:02 Dose: 60 mg Documented By: MAGDI Nitroglycerin (Nitroglycerin Oint 2% 1 Inch Packet) 2 inch TOP X1 ONE Stop: 10/08/24 00:28 Last Admin: 10/08/24 00:50 Dose: 2 inch Documented By: CLIFFORD Pantoprazole Sodium (Pantoprazole Inj 40 Mg Vial) 40 mg IVP QDAY [facility] Stop: 11/07/24 08:59 Sevelamer Carbonate (Sevelamer Carbonate 800 Mg Tablet) 800 mg PO TIDWM JANINE Stop: 11/07/24 07:59 Sodium Polystyrene Sulfonate (Sod Polystyrene Sulfon Susp 15 Gm/60 Ml Btl) 15 gm PO X1 ONE Stop: 10/09/24 12:10 Last Admin: 10/09/24 12:30 Dose: 15 gm Documented By: SHARMILA Sodium Polystyrene Sulfonate (Sod Polystyrene Sulfon Susp 15 Gm/60 Ml Btl) 30 gm PO X1 ONE Stop: 10/10/24 08:33 Last Admin: 10/10/24 08:55 Dose: 30 gm Documented By: TEJA Tramadol HCl (Tramadol Hcl 50 Mg Tablet) 50 mg PO Q6HR PRN PRN Reason: PAIN SCALE 4-10(Mod-Sev Stop: 10/13/24 01:31 Last Admin: 10/08/24 02:45 Dose: 50 mg Documented By: CLIFFORD Valsartan (Valsartan 80 Mg Tablet) 160 mg PO X1 ONE Stop: 10/08/24 15:40 Last Admin: 10/08/24 16:02 Dose: 160 mg Documented By: MAGDI Treatment from here included: Lasix 80 mg IV Morphine 2 mg IV Topical NTG Transfusion ordered. Consultations Consultation(s) initiated? (list below): Yes Consultation #1 (Physician, Specialty, Details): I discussed the case with our electrician radio, Dr. Edge. About the presentation and exam and diagnostics and treatments here. And need of further care in the hospital. Recommended admission to hospitalist service. Time: 01:05 Consultation #2 (Physician, Specialty, Details): I discussed the case with our hospitalist. About the presentation and exam and diagnostics and treatments here. And need of further care in the hospital. Will accept the patient. Time: 01:08 Diagnosis Weakness Differential Diagnosis: acute myocardial infarction, anemia, hypoglycemia, hypothyroidism, rhabdomyolysis, sepsis and dehydration Most likely diagnosis given after review of the tests above:: ESRD, Severe Anemia Admission Indicated Admission indicated?: indicated Explain why admission is indicated or not indicated:: ESRD, Severe Anemia Admission Request Was there a request for admission?: Yes Admission Attestation Admission request attestation: Discussed case with Hospitalist service regarding admission. Discussed patients ED course, exam findings, labs, and radiology results. Agreed to accept the patient for admission. Disposition Plan Disposition Plan: Admit Discharge Plan Plan Patient Disposition: Admit Acute Care w/in Hospital Problem List Clinical Impression: Severe anemia, ESRD (end stage renal disease)
[2024-10-08] MEDS: NITROGLYCERIN OINT 2% 1 INCH PACKET 2 INCH TOP (00:50)
[2024-10-08] MEDS: MORPHINE SULF INJ 10 MG/ML VIAL 2 MG IVP (00:52)
[2024-10-08] MEDS: FUROSEMIDE INJ 10 MG/ML 4ML VIAL 80 MG IVP (00:54)
--- NOTE | 2024-10-08 01:43 | PD.RESHP ---
Documentation for date of: 10/08/24 HPI History of Present Illness Chief complaint: Symptomatic anemia History of present illness: 73 y/o F with PMHx significant for ESRD (M/W/F), HTN, type 2 diabetes, HFpEF presenting with chief complaint of symptomatic anemia. Patient reports she is felt progressive fatigue, weakness, shortness of breath for 2 weeks. Was informed by her dialysis center on Friday that she had significantly low hemoglobin, recommended to go to ED for transfusion. Patient also notes epigastric pain with deep inspiration. Denies fevers, chills, nausea, vomiting, melena, chest pain. Dr. Edge was consulted, recommended admission for slow transfusion of hemoglobin and dialysis in the morning. ED COURSE: Labs significant for: Hemoglobin 5.9. WC 5.0, BUN 27, creatinine 4.5, EGFR 10. Imaging significant for: Chest x-ray showing vascular congestion, right base consolidation seen on previous imaging consistent with lung scarring. Patient significantly hypertensive with SBP greater than 190, given Lasix, morphine, topical nitro in the ED. 2 units PRBC ordered for transfusion. PMH: ESRD, HFpEF, diabetes, HTN PSH: Left upper extremity fistula placement SH: Denies alcohol, tobacco, illicit drug use Allergies:?NKDA Medications: Clonidine, valsartan, nifedipine, sevelamer, calcium acetate Review of Systems Review of Systems Systems Reviewed: All systems reviewed, normal except as documented Past Medical History Past Medical History Comments PMH COMMENT: PMH: ESRD, HFpEF, diabetes, HTN PSH: Left upper extremity fistula placement SH: Denies alcohol, tobacco, illicit drug use Allergies:?NKDA Medications: Clonidine, valsartan, nifedipine, sevelamer, calcium acetate Exam Vital Signs Temp Pulse Resp BP Pulse Ox O2 Del Method 97.5 F 71 18 199/69 H 96 Room Air 10/07/24 23:35 10/08/24 00:54 10/07/24 23:35 10/08/24 00:54 10/07/24 23:35 10/07/24 23:00 Narrative Exam PE: Gen: Well-developed and well-nourished. HEENT: NCAT, PERRLA, EOMI, MMM, anicteric conjunctivae. CVS: normal S1 and S2. RRR. No M/R/G. Resp: CTA B/L. No rhonchi, rales, crackles or wheezing. Abd: soft, non-distended. BS+ in all 4 quadrants. Epigastric tenderness. MSK: Good ROM in BUE & BLE. No edema or rash. Left upper arm fistula. Neuro: CN II-XII grossly intact. Strength 5/5 in BUE & BLE. Alert and oriented x3. Psych: appropriate mood and affect. Results: Labs 10/07/24 17:01 10/07/24 17:01 Labs: Short CBC 10/07/24 Range/Units 17:01 WBC 5.0 (3.6-11.0) Thou/mm3 Hgb 5.9 L* (12.0-16.0) g/dL Hct 19.0 L* (36.0-46.0) % Plt Count 271 (140-440) Thou/mm3 BMP 10/07/24 17:01 Sodium 137 Potassium 5.0 Chloride 99 Carbon Dioxide 26.7 BUN 27 H Creatinine 4.5 H* Glucose 126 H Calcium 9.0 Liver Function 10/07/24 Range/Units 17:01 Total Bilirubin 0.2 L (0.3-1.2) mg/dL AST 17 (0-34) U/L ALT 10 (10-49) U/L Alkaline Phosphatase 164 H (46-116) U/L Albumin 3.9 (3.4-4.8) gm/dL Quality Measures Quality Measures VTE prophylaxis Advance care planning discussed with:: patient Medications Home Medications and Allergies Home Medications ?Medication ?Instructions ?Recorded ?Confirmed ?Type calcium acetate(phosphat bind) 667 667 mg PO TIDWM 06/08/23 01/18/24 History mg tablet mirtazapine 15 mg tablet 15 mg PO HS 06/08/23 01/18/24 History vitamin B complex-vitamin C-folic 0.8 tab PO QDAY 06/08/23 01/18/24 History acid 0.8 mg tablet (Carmel-Sanjana) Allergies Allergy/AdvReac Type Severity Reaction Status Date / Time No Known Allergies Allergy Verified 10/07/24 16:02 Visit Medications Acetaminophen (Acetaminophen 325 Mg Tablet) 650 mg PO Q6H PRN PRN Reason: Fever >100.4 or pain Stop: 11/07/24 01:31 Calcium Acetate (Calcium Acetate 667 Mg Tablet) 667 mg PO TIDWM JANINE Stop: 11/07/24 07:59 Clonidine (Clonidine Hcl 0.1 Mg Tablet) 0.2 mg PO TID [facility] Stop: 11/07/24 01:44 Dextrose (Dextrose 50%-Water Inj 50 Ml Syringe) 25 ml IV Q15MIN PRN PRN Reason: BG 50-70 responsive npo pt Stop: 11/07/24 01:31 Dextrose (Dextrose 50%-Water Inj 50 Ml Syringe) 50 ml IV Q15MIN PRN PRN Reason: BG <50 OR BG <70 & pt unresponsive Stop: 11/07/24 01:31 Glucagon (Glucagon Inj 1 Mg Vial) 1 mg IM Q15MIN PRN PRN Reason: BG <70, and no IV access Insulin Human Lispro (Insulin Lispro (Admelog) 1 Unit/0.01 Ml Unit) 0 unit SC AC [facility]; Protocol Stop: 11/07/24 07:29 Nifedipine (Nifedipine Xl 30 Mg Tabcr) 60 mg PO BID [facility] Stop: 11/07/24 01:44 Ondansetron HCl (Ondansetron Inj 2 Mg/Ml Inj 2 Ml) 4 mg IVP Q6H PRN; Protocol PRN Reason: NAUSEA OR VOMITING Stop: 11/07/24 01:31 Pantoprazole Sodium (Pantoprazole Inj 40 Mg Vial) 40 mg IVP QDAY [facility] Stop: 11/07/24 08:59 Sevelamer Carbonate (Sevelamer Carbonate 800 Mg Tablet) 800 mg PO TIDWM [facility] Stop: 11/07/24 07:59 Tramadol HCl (Tramadol Hcl 50 Mg Tablet) 50 mg PO Q6HR PRN PRN Reason: PAIN SCALE 4-10(Mod-Sev Stop: 10/13/24 01:31 Valsartan (Valsartan 80 Mg Tablet) 160 mg PO BID [facility] Stop: 11/07/24 01:44 Discontinued Medications Furosemide (Furosemide Inj 10 Mg/Ml 4ml Vial) 80 mg IVP X1 ONE Stop: 10/08/24 00:28 Last Admin: 10/08/24 00:54 Dose: 80 mg Morphine Sulfate (Morphine Sulf Inj 10 Mg/Ml Vial) 2 mg IVP X1 ONE Stop: 10/08/24 00:28 Last Admin: 10/08/24 00:52 Dose: 2 mg Nitroglycerin (Nitroglycerin Oint 2% 1 Inch Packet) 2 inch TOP X1 ONE Stop: 10/08/24 00:28 Last Admin: 10/08/24 00:50 Dose: 2 inch Assessment & Plan Plan 73 y/o F with PMHx significant for ESRD (M/W/F), HTN, type 2 diabetes, HFpEF presenting with chief complaint of symptomatic anemia, admitted for symptomatic anemia. #Symptomatic anemia #Anemia of chronic kidney disease Patient presented with chief complaint of progressive shortness of breath, weakness, fatigue x 2 weeks. Patient was told by dialysis center to go to ED for blood transfusion. On presentation hemoglobin 5.9, 2 units PRBCs ordered in ED. Plan to admit for slow transfusion and dialysis in the morning. Patient denies chest pain, hematemesis, melena. Anemia most likely due to chronic kidney disease. - 2 units PRBC transfusion - Posttransfusion H&H - Monitor hemoglobin, transfuse as needed - Stool occult blood ordered to rule out GI bleed, follow-up #ESRD (M/W/F) Patient history as stated. Completed last dialysis session on Friday. Follows Dr. Edge, consulted. - ESRD as per patient's usual schedule - Renally dose meds as needed - Nephrology consulted, appreciate recommendations - Resume home sevelamer and calcium supplements #HTN #Hypertensive urgency Patient history as stated. Patient blood pressure significantly elevated in ED, with SBP > 190. No signs of endorgan damage, patient denies headaches, blurry vision, chest pain. Received topical nitro in the ED. - Resume home antihypertensives - Clonidine 0.2 mg 3 times daily - Valsartan 160 mg twice daily - Nifedipine 60 mg twice daily #HFpEF Patient history as stated. Last echo 12/04/2023 showed EF 55 to 60% patient does not make urine. Chest x-ray shows vascular congestion. Patient saturating well on room air, not edematous. - Dialysis as above - Resume home medications as above #Diabetes, [id number] Patient history of [id number] diabetes. Not currently on active management. A1c 5.0% as of 02/19/24. - ISS - A1c ordered, follow-up DVT prophylaxis: SCDs GI prophylaxis: Protonix Diet: Cardiac/renal/carb consistent Lines: Peripheral IV Code status: DNR Plan of care discussed with attending Dr. Antionette Cole MD PGY?2 Attending Provider Attestation/Addendum I have examined the patient, reviewed labs and imaging findings, discussed the case with the resident(s), and reviewed entered orders. I agree with the plan of care as outlined in this note, with these additional summaries/recommendations: After examination of the patient and review of the clinical data, I feel that this patient needs admission to the hospital for further treatment and evaluation. Patient is a 73-year-old female with a medical history of end-stage renal disease on hemodialysis, diabetes mellitus type 2, primary hypertension, HFpEF, intermittent home O2 use, and anemia of chronic disease who presents to [facility] emergency department on 10/07/2024 with chief complaint of symptomatic anemia after being sent from the dialysis center. Patient seen at bedside. Patient diagnosed with symptomatic anemia. On admission hemoglobin 5.9, hematocrit 19.0, and MCV 102. Patient does have have underlying anemia of chronic disease although given this acute change suspect component of blood loss anemia. Order fecal occult blood test. If positive we will consult gastroenterology. Patient denies seeing blood in her stool. Start IV Protonix 40 mg twice daily. Case discussed with nephrology and given her fluid overloaded status, blood transfusion should be done slowly and patient will be closely evaluated for additional dialysis needs. Consult in-house nephrology for end-stage renal disease, recommendations appreciated. Avoid nephrotoxic agents and renally dose medications. Patient has underlying primary hypertension although presented with hypertensive emergency. Systolic blood pressure trending into the 190s. Resume home clonidine, valsartan, and nifedipine. As needed IV antihypertensives. Patient's chest x-ray was significant for enlarged cardiac contour with prominent vascular congestion and perihilar edema. Patient does have HFpEF although fluid overload most likely related to ESRD. Continue hemodialysis for preload reduction. Bilateral pleural effusions present likely related to ESRD/HFpEF. Start basal bolus insulin for diabetes mellitus type 2. Order A1c. Target blood sugar of 140-180 while hospitalized. Patient updated on the plan and in agreement. All questions answered to satisfaction. Please see residents note for additional details and management. Dr. Antionette MD
[2024-10-08] MEDS: NIFEdipine XL 30 MG TABCR 60 MG PO ×3 (02:42→20:25)
[2024-10-08] MEDS: VALSARTAN 80 MG TABLET 160 MG PO ×3 (02:43→20:24)
[2024-10-08 09:35] LABS: Alanine Aminotransferase 10 U/L (10-49); Albumin, Serum 4.1 gm/dL (3.4-4.8); Albumin/Globulin Ratio 1.5 (1.2-2.2); Alkaline Phosphatase 154 U/L (46-116); Anion Gap 12 (7-16); Aspartate Amino Transferase < 10 U/L (0-34); BUN/Creatinine Ratio 6 Ratio (12-20); Bilirubin,Total 0.3 mg/dL (0.3-1.2); Blood Urea Nitrogen 24 mg/dL (9-23); Calcium 8.7 mg/dL (8.3-10.6); Calcium (Corrected) 8.7 mg/dL (8.5-10.1); Carbon Dioxide 27.6 mMol/L (20.0-31.0); Chloride 98 mMol/L (98-107); Creatinine (Component) 3.9 mg/dL (0.6-1.3); Estimated Creatinine Clearance 13.3 mL/min (>60); Globulin 2.8 gm/dL (2.3-3.5); Glucose 117 mg/dL (74-106); Magnesium 2.0 mg/dL (1.6-2.6); Osmolality,Calculated 280 (275-295); Potassium 4.2 mMol/L (3.4-5.1); Sodium 138 mMol/L (136-145); Total Protein 6.9 gm/dL (5.7-8.2); eGFR 12 See Note
[2024-10-08] MEDS: ACETAMINOPHEN 325 MG TABLET 650 MG PO (09:36)
[2024-10-08 09:49] LABS: Basophils # (Auto) 0.0 Thou/mm3 (0.0-0.2); Basophils % (Auto) 1 % (0-2.5); Eosinophils # (Auto) 0.2 Thou/mm3 (0.0-0.5); Eosinophils % (Auto) 3 % (0-10); Hematocrit 26.7 % (36.0-46.0); Hemoglobin 8.9 g/dL (12.0-16.0); Immature Granulocytes Auto 0.02 Thou/mm3 (0.00-0.00); Lymphocytes # (Auto) 0.9 Thou/mm3 (1.0-4.8); Lymphocytes % (Auto) 13 % (10-50); Mean Corpuscular HGB Conc 33.3 g/dl (31.0-37.0); Mean Corpuscular Hemoglobin 31.3 pg (25.0-35.0); Mean Corpuscular Volume 94 fL (80-100); Monocytes # (Auto) 0.5 Thou/mm3 (0.0-0.8); Monocytes % (Auto) 6 % (0-12); Neutrophils # (Auto) 5.7 Thou/mm3 (1.8-7.7); Neutrophils % (Auto) 77 % (37-80); Nucleated Red Blood Cell # 0.00 Thou/mm3 (0.00-0.00); Nucleated Red Blood Cell % 0 /100 WBC (0); Platelet Count 249 Thou/mm3 (140-440); RDW Standard Deviation 55.2 fL (36.4-46.3); Red Blood Count 2.84 Miln/mm3 (4.00-5.20); White Blood Count 7.3 Thou/mm3 (3.6-11.0)
--- NOTE | 2024-10-08 09:50 | ESPR_ITS ---
<Statement entered by Antonio Saunders MD - 10/09/24 08:41> Patient was examined and case was reviewed with team including attending physician. Note reviewed, I agree with most of its contents and agree with the patient's care. Antonio Saunders MD PGY-2 Documentation for date of: 10/08/24 Subjective Subjective Interval history: 10/08/24: NAEON. VSS except for high BP with SBP in 180s despite being on home clonidine, valsartan, and nifedipine. Saturating at 96% on 2L. Patient has completed her dialysis session today. Exam Vital Signs Temp Pulse Resp BP Pulse Ox O2 Del Method O2 Flow Rate 97.1 F 73 18 190/81 H 98 Nasal Cannula 2 10/08/24 08:41 10/08/24 09:45 10/08/24 08:41 10/08/24 09:45 10/08/24 08:41 10/08/24 07:40 10/08/24 08:41 Narrative Exam Gen: Well-developed and well-nourished. HEENT: Crackles in lung bases, PERRLA, EOMI, MMM, anicteric conjunctivae. CVS: normal S1 and S2. RRR. No M/R/G. Resp: CTA B/L. No rhonchi, rales, crackles or wheezing. Abd: soft, non-distended. Epigastric tenderness to palpation. No rigidity or rebound. MSK: Good ROM in BUE & BLE. No edema or rash. Left upper arm fistula. Neuro: CN II-XII grossly intact. Strength 5/5 in BUE & BLE. Alert and oriented x3. Psych: appropriate mood and affect. Objective Labs 10/09/24 05:58 10/09/24 05:58 Labs: Laboratory Results - last 24 hr 10/07/24 17:01 WBC 5.0 RBC 1.86 L* Hgb 5.9 L* Hct 19.0 L* MCV 102 H MCH 31.7 MCHC 31.1 RDW Std Deviation 58.3 H Plt Count 271 Neut % (Auto) 61 Lymph % (Auto) 26 [place] % (Auto) 9 Eos % (Auto) 4 Baso % (Auto) 1 Neut # (Auto) 3.0 Lymph # (Auto) 1.3 [place] # (Auto) 0.4 Eos # (Auto) 0.2 Baso # (Auto) 0.0 Immature Gran # (Auto) 0.01 H Absolute Nucleated RBC 0.00 Immature Gran % 0 Nucleated RBC % 0 Smear Path Review Sent to Pathologist PT 11.7 INR 1.1 APTT 29.8 Sodium 137 Potassium 5.0 Chloride 99 Carbon Dioxide 26.7 Anion Gap 11 BUN 27 H Creatinine 4.5 H* Estim Creat Clear Calc 11.5 L eGFR 10 L* BUN/Creatinine Ratio 6 L Glucose 126 H Calculated Osmolality 280 Calcium 9.0 Corrected Calcium 9.1 Total Bilirubin 0.2 L AST 17 ALT 10 Alkaline Phosphatase 164 H Total Protein 6.4 Albumin 3.9 Globulin 2.5 Albumin/Globulin Ratio 1.6 Blood Type O Positive Antibody Screen NEGATIVE Crossmatch See Detail Blood Bank Wristband ID Yes Quality Measures Quality Measures none Advance care planning discussed with:: patient Assessment & Plan Assessment Current Active Medications: Generic Name Dose Route Start Last Admin Trade Name Freq PRN Reason Stop Dose Admin Acetaminophen 650 mg 10/08/24 01:32 10/08/24 09:36 Acetaminophen 325 Mg Tablet PO 11/07/24 01:31 650 mg Q6H PRN Administration Fever >100.4 or pain 1-3(mild Calcium Acetate 667 mg 10/08/24 08:00 10/08/24 09:45 Calcium Acetate 667 Mg Tablet PO 11/07/24 07:59 Not Given TIDWM JANINE Clonidine 0.2 mg 10/08/24 01:45 10/08/24 06:15 Clonidine Hcl 0.1 Mg Tablet PO 11/07/24 01:44 0.2 mg TID JANINE Administration Dextrose 25 ml 10/08/24 01:32 Dextrose 50%-Water Inj 50 Ml Syringe IV 11/07/24 01:31 Q15MIN PRN BG 50-70 responsive npo pt Dextrose 50 ml 10/08/24 01:32 Dextrose 50%-Water Inj 50 Ml Syringe IV 11/07/24 01:31 Q15MIN PRN BG <50 OR BG <70 & pt unresponsive Glucagon 1 mg 10/08/24 01:32 Glucagon Inj 1 Mg Vial IM Q15MIN PRN BG <70, and no IV access Insulin Human Lispro 0 unit 10/08/24 07:30 10/08/24 07:48 Insulin Lispro (Admelog) 1 Unit/0.01 Ml Unit SC 11/07/24 07:29 Not Given AC [facility] Protocol Nifedipine 60 mg 10/08/24 01:45 10/08/24 09:45 Nifedipine Xl 30 Mg Tabcr PO 11/07/24 01:44 Not Given BID [facility] Ondansetron HCl 4 mg 10/08/24 01:32 Ondansetron Inj 2 Mg/Ml Inj 2 Ml IVP 11/07/24 01:31 Q6H PRN NAUSEA OR VOMITING Protocol Pantoprazole Sodium 40 mg 10/08/24 09:00 10/08/24 09:45 Pantoprazole Inj 40 Mg Vial IVP 11/07/24 08:59 Not Given BID JANINE Tramadol HCl 50 mg 10/08/24 01:32 10/08/24 02:45 Tramadol Hcl 50 Mg Tablet PO 10/13/24 01:31 50 mg Q6HR PRN Administration PAIN SCALE 4-10(Mod-Sev Valsartan 160 mg 10/08/24 01:45 10/08/24 09:45 Valsartan 80 Mg Tablet PO 11/07/24 01:44 Not Given BID [facility] Plan 73F with PMHx significant for ESRD (M/W/F), HTN, type 2 diabetes, HFpEF presenting with chief complaint of symptomatic anemia of progressive shortness of breath, weakness, fatigue x 2 weeks, admitted for symptomatic anemia. #Symptomatic anemia #Anemia of chronic kidney disease Patient presented with chief complaint of progressive shortness of breath, weakness, fatigue x 2 weeks. Patient was told by dialysis center to go to ED for blood transfusion. On presentation hemoglobin 5.9, 2 units PRBCs ordered in ED. Patient denies chest pain, hematemesis, melena. Anemia most likely due to chronic kidney disease. Hgb: 5.9 --> 8.9 MCV 102, B12 701, Folate 13.78 Plan: - Monitor hemoglobin, transfuse as needed - Pending Stool occult blood to rule out GI bleed - Pending blood smear #ESRD (M/W/F) Patient history as stated. Completed last dialysis session on Friday. Follows Dr. Edge, consulted. Plan: - HD today - Renally dose meds as needed - Nephrology consulted, appreciate recommendations - Resume home sevelamer and calcium supplements #HTN #Hypertensive urgency Patient history as stated. Patient blood pressure significantly elevated in ED, with SBP > 190. No signs of end organ damage, patient denies headaches, blurry vision, chest pain. Received topical nitro in the ED. Patient SBP remains in 180s Plan: - Continue Clonidine 0.2 mg 3 times daily - Continue Valsartan 160 mg twice daily - Continue Nifedipine 60 mg twice daily - Consider Labetalol if still hypertensive and HR permits #HFpEF Patient history as stated. Last echo 12/04/2023 showed EF 55 to 60% patient does not make urine. Chest x-ray shows vascular congestion. Patient saturating well on room air, not edematous. US pleurla showed mild to moderate plural fluid on the right and mild pleural fluid on the left. Plan: - Dialysis as above - Consider thoracenthesis if symptomatic or pleural fluid worsens - Resume home medications as above #Diabetes (resolved) Patient history of [id number]-rjzkomhom diabetes. Not currently on active management. A1C: 5.4 Plan: - ISS DVT prophylaxis: SCDs GI prophylaxis: Protonix Diet: Cardiac/renal/carb consistent Lines: Peripheral IV Code status: DNR Plan of care discussed with attending Dr. Mao and senior resident Dr. Yann Benavidez, DO PGY?1 Attending Provider Attestation/Addendum Ricarda, Aleyda Mao, DO, attest that I was physically present for the white portions of the service and evaluated the patient with the resident and I reviewed and discussed the case with the resident and agree with the resident's findings and plans of care as documented above Patient seen and evaluated this AM. No acute events overnight. Pending FOBT. BP remains uncontrolled as AM meds were held due to dialysis.. Will restart home meds. Patient reports previous history of anemia requiring transfusion. Likely multifactorial. She denies noting any black stool or BRBPR. Patient reports improved and denies chest pain or shortness of breath or abdominal pain.
[2024-10-08 11:15] LABS: Folate 13.78 ng/mL (>5.38); Vitamin B12 701 pg/mL (211-911)
--- NOTE | 2024-10-08 11:21 | XR_ITS ---
Examination: Ultrasound right hemithorax Ultrasound left hemithorax Date and time: October 08, 2024 1317 hours, comparison January 19, 2024 INDICATIONS: Shortness of breath beginning 2 days ago. TECHNIQUE AND FINDINGS: Grayscale sonographic images right and left hemithoraces Mild to moderate right pleural fluid Mild left pleural fluid IMPRESSION: Mild to moderate right pleural fluid Mild left pleural fluid
[2024-10-08] MEDS: CALCIUM ACETATE 667 MG TABLET PO ×2 (11:29→16:30)
--- NOTE | 2024-10-08 11:39 | PD.NEPHCONS ---
History of Present Illness Data of Consult Consult date: 10/08/24 Requesting Physician: Tacos Adan MD Primary Care Provider: Carlos Saunders MD Consult Narrative Reason for consult: ESRD, need for HD History of present illness: Mrs. Sheridan is a 73-year-old lady with extensive past medical history of ESRD (M/W/F), uncontrolled hypertension for many years, diabetes type 2, congestive heart failure with normal ejection fraction, history of depression presented to the emergency department sent by dialysis unit for an abnormal hemoglobin of 5.9. Dialysis unit called me that her hemoglobin dropped to 5.5 and I recommended for her to go to the ED for further evaluation. Patient feeling fatigued and tired. Also noted shortness of breath. Was given 2 units of blood transfusion yesterday. Nephrology consultation requested as she is due for dialysis today. Patient currently seen on dialysis. No active GI bleed. ED COURSE: Labs significant for: Hemoglobin 5.9. WC 5.0, BUN 27, creatinine 4.5, EGFR 10. Imaging significant for: Chest x-ray showing vascular congestion, right base consolidation seen on previous imaging consistent with lung scarring. Patient significantly hypertensive with SBP greater than 190, given Lasix, morphine, topical nitro in the ED. 2 units PRBC was transfused last night PMH: ESRD, HFpEF, diabetes, HTN PSH: Left upper extremity fistula placement SH: Denies alcohol, tobacco, illicit drug use Allergies:?NKDA Medications: Clonidine, valsartan, nifedipine, sevelamer, calcium acetate Patient admitted to telemetry. Currently seen on dialysis. cc:: cc: Tacos Adan MD Review of Systems Review of Systems Narrative Review of Systems: CONSTITUTIONAL: Patient denies any fever, chills. Complaining of fatigue HEENT: Denies any visual disturbances or hearing problems. CARDIOVASCULAR: Patient denies any chest pain, shortness of breath, swelling in the lower extremities. PULMONARY: Patient denies any shortness of breath, cough. GASTROINTESTINAL: Patient denies any abdominal pain, constipation, nausea, vomiting, diarrhea. GENITOURINARY: Patient denies any urinary symptoms of burning or frequency or hematuria, denies any form in the urine. SKIN: Denies any rash. MUSCULOSKELETAL: Denies any muscular skeletal problems of joint pains. NEUROLOGICAL: Denies any neurological problems of strokes, seizures or confusion. Denies any memory problems. PSYCHIATRIC: History of depression Past Medical History Past Medical History NEUROLOGIC: Positive Transient Ischemic Attacks (TIA); Negative Neurological Disorders, Cerebrovascular Accident, Dementia, Alzheimer's Disease, Parkinson's Disease, Brain Tumor, Meningitis, Seizures, Epilepsy, Multiple Sclerosis, Cerebral Palsy, Amyotrophic Lateral Sclerosis (ALS/[place] Gehrig's), Guillain-Mcfall Syndrome, Spina Bifida, Paralysis, Peripheral Neuropathy, Meza's Palsy, Subdural Hematoma, Migraine, Head Trauma, Spinal Cord Injury or Traumatic Brain Injury CARDIAC: Positive Cardiac Disorders, Hypercholesterolemia, Congestive Heart Failure, Edema, Cellulitis and Hypertension; Negative Myocardial Infarction, Cardiac Arrhythmia, Atrial Fibrillation, Angina, Heart Murmur, Coronary Artery Disease, Atherosclerotic Heart Disease, Peripheral Vascular Disease, Aneurysm, Congenital Heart Disease, Valvular Heart Disease, Rheumatic Fever, Cardiomyopathy, Pericarditis, Deep Vein Thrombosis, Hypotension or Varicose Veins RESPIRATORY: Positive Pulmonary Edema; Negative Chronic Obstructive Pulmonary Disease (COPD), Asthma, Bronchitis, Emphysema, Pneumonia, Pulmonary Fibrosis, Tuberculosis, Pulmonary Embolism or Sleep Apnea GASTROINTESTINAL: Positive Gastrointestinal Disorders, Gall Bladder Disease, Gastrointestinal Bleed and Ulcer; Negative Hepatitis, Cirrhosis, Pancreatitis, Celiac Disease, Esophageal Varices, Ramos's Esophagus, Colitis, Ulcerative Colitis, Diverticulitis, Diverticulosis, Colorectal Cancer, Irritable Bowel, Crohn's Disease, Obstructive Bowel, Hiatal Hernia, Hemorrhoids, Gastroesophageal Reflux Disease or Obesity GENITOURINARY: Positive Genitourinary Disorders, Renal Disease, Kidney Stones and Dialysis; Negative Polycystic Kidney Disease, Neurogenic Bladder or Benign Prostatic Hyperplasia REPRODUCTIVE: Positive Previous Pregnancies; Negative Breast Cancer, Endometriosis, Pelvic Inflammatory Disease or Uterine Prolapse MUSCULOSKELETAL: Negative Musculoskeletal Disorders, Muscular Dystrophy, Myasthenia Gravis, Marfan's Syndrome, Bone Cancer, Arthritis, Rheumatoid Arthritis, Osteoporosis, Degenerative Disk Disease, Gout, Scoliosis, Carpal Tunnel Syndrome, Fibromyalgia, Fractures, Degenerative Joint Disease, Osteomyelitis or Poliovirus ENT: Positive Cataracts; Negative Glaucoma, Blind, Retinal Detachment, Macular Degeneration, Ear Infection, Deafness, Head Trauma or Eye Prosthesis ENDOCRINE: Positive Endocrine Disorders and Diabetes Mellitus Type 2; Negative Diabetes Mellitus Type 1, Hypoglycemia, Blank's Syndrome, Gadsden's Disease, Hyperthyroidism, Hypothyroidism, Parathyroid Disease, Pituitary Disease, Systemic Lupus Erythematosus, Syndrome of Inappropriate Antidiuretic Hormone (SIADH), Adrenal Disease or Graves' Disease HEMATOLOGIC: Positive Blood Disorders and Anemia; Negative Leukemia, Hemophilia, Thalassemia, Sickle Cell Disease or Clotting Problems PSYCHO/SOCIAL: Positive Depression and Anxiety; Negative Psychiatric Problems, Schizophrenia, Recreational Drug Use, Bipolar Disorder, Behavior Problems, Self-Mutilation, Attention Deficit Disorder, Attention Deficit Hyperactivity Disorder, Depression, Post Traumatic Stress Disorder or Eating Disorder OTHER HISTORY: Positive Hospitalization and Blood Transfusions; Negative Autoimmune Disease, Down Syndrome, Autism, Developmental Delay, Shingles, Falls, Blood Transfusion Reaction, Anesthesia Reactions, Organ Transplant, Chemotherapy, Radiation Therapy, Hyperbaric Therapy, Human Immunodeficiency Virus (HIV), Chicken Pox, Measles, Mumps, Rubella (Arabic Measles), Pertussis, Clostridium Difficile, Cancer, Breast Cancer, Cervical Cancer, Colorectal Cancer, Lung Cancer or Ovarian Cancer Family History FAMILY HISTORY: Negative Family Psychiatric Problems, Family Respiratory Disorders, Family Cardiac Disorders, Family Gastrointestinal Problems, Family Cancer, Family Surgery or Family Anesthesia Reaction Surgical History SURGICAL: Positive Vascular Surgery, Abdominal Surgery and Tubal Ligation; Negative Cardiac Surgery, Open Heart Surgery, Coronary Artery Bypass Graft, Valve Replacement, Coronary Stent, Cardiac Catheterization, Pacemaker, Angiogram, Auto Implanted Cardiovert Defib, Carotid Endarterectomy, Endocrine Surgery, Thyroidectomy, Ear Surgery, Tympanostomy Tube, Eye Surgery, Nose Surgery, Oral Surgery, Tonsillectomy, Adenoidectomy, Cochlear Implant, Corneal Transplant, Throat Surgery, Tracheostomy, Gastric Bypass Surgery, Gastrostomy, Bowel Surgery, Nephrectomy, Transurethral Resection, Joint Replacement, Amputation, Open Reduction Internal Fixation, Arthroscopy, Neurologic Surgery, Brain Shunt, Mastectomy, Lumpectomy, Hysterectomy, Section, Vasectomy or Organ Transplant Social History SMOKING STATUS: Never smoker SECOND HAND EXPOSURE: No SUBSTANCE USE: does not use Past Medical History Comments PMH COMMENT: PMH: ESRD, HFpEF, diabetes, HTN PSH: Left upper extremity fistula placement SH: Denies alcohol, tobacco, illicit drug use Allergies:?NKDA Medications: Clonidine, valsartan, nifedipine, sevelamer, calcium acetate Meds Home Medications and Allergies Home Medications ?Medication ?Instructions ?Recorded ?Confirmed ?Type calcium acetate(phosphat bind) 667 667 mg PO TIDWM 06/08/23 01/18/24 History mg tablet mirtazapine 15 mg tablet 15 mg PO HS 06/08/23 01/18/24 History vitamin B complex-vitamin C-folic 0.8 tab PO QDAY 06/08/23 01/18/24 History acid 0.8 mg tablet (Carmel-Sanjana) Allergies Allergy/AdvReac Type Severity Reaction Status Date / Time No Known Allergies Allergy Verified 10/07/24 16:02 Exam Vital Signs Temp Pulse Resp BP Pulse Ox O2 Del Method O2 Flow Rate 36.2 C 67 18 183/79 H 95 Nasal Cannula 2 10/08/24 10:35 10/08/24 10:35 10/08/24 10:35 10/08/24 10:35 10/08/24 10:35 10/08/24 07:40 10/08/24 08:41 Narrative Exam GENERAL APPEARANCE: Patient seems to be comfortable, adequately hydrated and nourished. On dialysis HEENT: EOMI, PERRLA NECK: Neck supple, no JVD or bruit CARDIOVASCULAR: Heart regular, 2/6 murmurs LUNGS/CHEST: Chest clear to auscultation. No rales, rhonchi, wheezing ABDOMEN: Soft, nontender, nondistended. No masses. Normal bowel sounds. EXTREMITIES: No edema, clubbing or cyanosis. SKIN: Skin exam normal without any rashes . Rt arm AVF + MUSCULOSKELETAL: Musculoskeletal exam normal PSYCHIATRIC: Normal mood, affect LYMPHATICS: No lymphadenopathy noted NEUROLOGICAL : No neurological deficits Results Labs 10/09/24 05:58 10/09/24 05:58 Labs: Short CBC 10/07/24 10/08/24 Range/Units 17:01 08:50 WBC 5.0 7.3 D (3.6-11.0) Thou/mm3 Hgb 5.9 L* 8.9 L D (12.0-16.0) g/dL Hct 19.0 L* 26.7 L (36.0-46.0) % Plt Count 271 249 (140-440) Thou/mm3 BMP 10/07/24 10/08/24 17:01 08:50 Sodium 137 138 Potassium 5.0 4.2 D Chloride 99 98 Carbon Dioxide 26.7 27.6 BUN 27 H 24 H Creatinine 4.5 H* 3.9 H D Glucose 126 H 117 H Calcium 9.0 8.7 Liver Function 10/07/24 10/08/24 Range/Units 17:01 08:50 Total Bilirubin 0.2 L 0.3 (0.3-1.2) mg/dL AST 17 < 10 (0-34) U/L ALT 10 10 (10-49) U/L Alkaline Phosphatase 164 H 154 H (46-116) U/L Albumin 3.9 4.1 (3.4-4.8) gm/dL Assessment & Plan Additional Assessment & Plan Additional Plan: Ms. Jimenez is a 73-year-old female with ESRD on HD (MWF), resistant HTN, HFpEF (EF 65-70%), chronic respiratory failure on 3 L home O2, chronic normocytic anemia, IDDM, HLD, and depression/anxiety who presented to the ED with anemia #ESRD on HD (MWF) Patient on dialysis. Tolerating dialysis without any problems. Hemodialysis for 3 hours, 2K, ultrafiltration 2-3 L, Epogen 6000, no heparin ordered. Plan of care discussed with the dialysis nurse. Please see dialysis flowsheet for further details. Continue home calcium acetate #Chronic normocytic anemia Likely secondary to ESRD Will give Procrit with HD Patient received 2 units of blood transfusion. No active GI bleed. #Resistant hypertension Resume home meds, nifedipine, Aldactone ,valsartan, with as needed labetalol for SBP >190 Monitor vital signs #HFpEF (EF 65-70%) #Chronic respiratory failure, on 3 L home O2 #IDDM #HLD #Depression #Anxiety As per primary team Thank you Dr. Adan for allowing us to participate in the care of Ms. Sheridan
[2024-10-08 11:51] LABS: Glucose Estimated Average 108 mg/dL (80-131); Hemoglobin A1C 5.4 % Hgb (4.8-6.0)
[2024-10-09] VITALS (17 sets, daily range): BP systolic 156–177; BP diastolic 65–76; PULSE 64–80; RESP 15–120; TEMP 36.1–36.7; O2SAT 97–99; BMI 26.6
[2024-10-09 06:20] LABS: Basophils # (Auto) 0.1 Thou/mm3 (0.0-0.2); Basophils % (Auto) 1 % (0-2.5); Eosinophils # (Auto) 0.2 Thou/mm3 (0.0-0.5); Eosinophils % (Auto) 4 % (0-10); Hematocrit 27.6 % (36.0-46.0); Hemoglobin 9.2 g/dL (12.0-16.0); Immature Granulocytes Auto 0.02 Thou/mm3 (0.00-0.00); Lymphocytes # (Auto) 1.0 Thou/mm3 (1.0-4.8); Lymphocytes % (Auto) 17 % (10-50); Mean Corpuscular HGB Conc 33.3 g/dl (31.0-37.0); Mean Corpuscular Hemoglobin 31.3 pg (25.0-35.0); Mean Corpuscular Volume 94 fL (80-100); Monocytes # (Auto) 0.4 Thou/mm3 (0.0-0.8); Monocytes % (Auto) 7 % (0-12); Neutrophils # (Auto) 4.1 Thou/mm3 (1.8-7.7); Neutrophils % (Auto) 71 % (37-80); Nucleated Red Blood Cell # 0.00 Thou/mm3 (0.00-0.00); Nucleated Red Blood Cell % 0 /100 WBC (0); Platelet Count 242 Thou/mm3 (140-440); RDW Standard Deviation 54.3 fL (36.4-46.3); Red Blood Count 2.94 Miln/mm3 (4.00-5.20); White Blood Count 5.8 Thou/mm3 (3.6-11.0)
[2024-10-09 07:03] LABS: Alanine Aminotransferase 7 U/L (10-49); Albumin, Serum 3.9 gm/dL (3.4-4.8); Albumin/Globulin Ratio 1.4 (1.2-2.2); Alkaline Phosphatase 143 U/L (46-116); Anion Gap 10 (7-16); Aspartate Amino Transferase < 8 U/L (0-34); BUN/Creatinine Ratio 6 Ratio (12-20); Bilirubin,Total 0.3 mg/dL (0.3-1.2); Blood Urea Nitrogen 30 mg/dL (9-23); Calcium 9.0 mg/dL (8.3-10.6); Calcium (Corrected) 9.1 mg/dL (8.5-10.1); Carbon Dioxide 28.5 mMol/L (20.0-31.0); Chloride 97 mMol/L (98-107); Creatinine (Component) 4.8 mg/dL (0.6-1.3); Estimated Creatinine Clearance 10.6 mL/min (>60); Globulin 2.8 gm/dL (2.3-3.5); Glucose 106 mg/dL (74-106); Magnesium 2.1 mg/dL (1.6-2.6); Osmolality,Calculated 276 (275-295); Phosphorous 5.2 mg/dL (2.4-5.1); Potassium 5.2 mMol/L (3.4-5.1); Sodium 135 mMol/L (136-145); Total Protein 6.7 gm/dL (5.7-8.2); eGFR 9 See Note
--- NOTE | 2024-10-09 08:28 | PD.RESDS ---
Planned Discharge Date 10/09/24 DS: Providers Provider Date of admission: 10/08/24 01:32 Primary care physician: Carlos Saunders MD Admitting Provider: Tacos Adan MD Attending Provider on Admission: Tacos Adan MD Consults: 10/08/24 01:05 Consult to Nephrology Stat Comment: ESRD Consulting Provider: Blossom Edge Attending Provider on DC: Resident Naila Discharging Provider: Resident Naila Hospital Course Hospital Course Hospital course: 10/08/24: TA. VSS except for high BP with SBP in 180s despite being on home clonidine, valsartan, and nifedipine. Saturating at 96% on 2L. Patient has completed her dialysis session today. Time Spent with Patient Time attestation: Total time spent providing and/or coordinating discharge services: Exam Vital Signs Temp Pulse Resp BP Pulse Ox O2 Del Method O2 Flow Rate 97.7 F 73 15 160/66 H 99 Nasal Cannula 2 10/09/24 04:45 10/09/24 05:05 10/09/24 04:45 10/09/24 05:05 10/09/24 04:45 10/09/24 04:45 10/09/24 04:45 Discharge Plan Prescriptions/Referrals Prescriptions/Med Rec: No Action (DME) pen needle, diabetic [Comfort EZ Pen [place]] 31 gauge x 3/16 needle See Rx Instructions .Route Qty: 100 0RF Rx Instructions: As directed atorvastatin 40 mg tablet 40 mg PO QPM Qty: 30 0RF sertraline 100 mg Tablet 100 mg PO HS 30 Days Qty: 30 0RF Auryxia 210 mg iron tablet 210 mg PO QDAY Qty: 30 0RF Rx Instructions: administer with a meal calcium acetate(phosphat bind) 667 mg tablet 667 mg PO TIDWM Patient Comments: TAKE 1 TABLET BY MOUTH THREE TIMES DAILY Carmel-Sanjana 0.8 mg tablet 0.8 tab PO QDAY Patient Comments: TAKE 1 TABLET BY MOUTH ONCE DAILY FOR 90 DAYS mirtazapine 15 mg tablet 15 mg PO HS valsartan 160 mg tablet 160 mg PO BID Qty: 60 0RF spironolactone 50 mg tablet 50 mg PO BID Qty: 60 0RF nifedipine 60 mg tablet extended release 24hr 60 mg PO BID Qty: 30 0RF Eliquis 5 mg tablet 5 mg PO BID Qty: 30 0RF albuterol sulfate [Ventolin HFA] 90 mcg/actuation HFA aerosol inhaler 2 puff inhalation QID PRN (Reason: shortness of breath or wheezing) Qty: 8.5 0RF acetaminophen 500 mg capsule 1,000 mg PO Q6H PRN (Reason: fever or pain) Qty: 20 0RF Referrals: Carlos Saunders MD [Primary Care Provider] - Patient/Caregiver Discharge Instructions Print Language: Belarusian
[2024-10-09] MEDS: NIFEdipine XL 30 MG TABCR 60 MG PO ×2 (09:53→20:27)
[2024-10-09] MEDS: VALSARTAN 80 MG TABLET 160 MG PO ×2 (09:55→20:26)
[2024-10-09] MEDS: CALCIUM ACETATE 667 MG TABLET PO ×3 (09:55→17:24)
--- NOTE | 2024-10-09 10:05 | ESPR_ITS ---
Documentation for date of: 10/09/24 Subjective Subjective Interval history: Mrs. Sheridan is a 73-year-old lady with extensive past medical history of ESRD (M/W/F), uncontrolled hypertension for many years, diabetes type 2, congestive heart failure with normal ejection fraction, history of depression presented to the emergency department sent by dialysis unit for an abnormal hemoglobin of 5.9. Dialysis unit called me that her hemoglobin dropped to 5.5 and I recommended for her to go to the ED for further evaluation. Patient feeling fatigued and tired. Also noted shortness of breath. Was given 2 units of blood transfusion yesterday. Nephrology consultation requested as she is due for dialysis today. Patient currently seen on dialysis. No active GI bleed. ED COURSE: Labs significant for: Hemoglobin 5.9. WC 5.0, BUN 27, creatinine 4.5, EGFR 10. Imaging significant for: Chest x-ray showing vascular congestion, right base consolidation seen on previous imaging consistent with lung scarring. Patient significantly hypertensive with SBP greater than 190, given Lasix, morphine, topical nitro in the ED. 2 units PRBC was transfused last night PMH: ESRD, HFpEF, diabetes, HTN PSH: Left upper extremity fistula placement SH: Denies alcohol, tobacco, illicit drug use Allergies:?NKDA Medications: Clonidine, valsartan, nifedipine, sevelamer, calcium acetate Patient admitted to telemetry. Currently seen on dialysis. 10/09/2024 patient currently seen in telemetry. Resting comfortably. Did receive dialysis yesterday. Blood pressure seems to be on the higher side. Dr. Garza tried right thoracentesis- not much fluid to be drained. Hemoglobin 9.2, phosphorus 5.2, creatinine 4.8. Review of Systems Review of Systems Narrative Review of Systems: CONSTITUTIONAL: Patient denies any fever, chills. Complaining of fatigue HEENT: Denies any visual disturbances or hearing problems. CARDIOVASCULAR: Patient denies any chest pain, shortness of breath, swelling in the lower extremities. PULMONARY: Patient denies any shortness of breath, cough. GASTROINTESTINAL: Patient denies any abdominal pain, constipation, nausea, vomiting, diarrhea. GENITOURINARY: Patient denies any urinary symptoms of burning or frequency or hematuria, denies any form in the urine. SKIN: Denies any rash. MUSCULOSKELETAL: Denies any muscular skeletal problems of joint pains. NEUROLOGICAL: Denies any neurological problems of strokes, seizures or confusion. Denies any memory problems. PSYCHIATRIC: History of depression Exam Vital Signs Temp Pulse Resp BP Pulse Ox O2 Del Method O2 Flow Rate 36.3 C 74 120 H 176/74 H 99 Nasal Cannula 2 10/09/24 08:00 10/09/24 13:49 10/09/24 09:14 10/09/24 13:49 10/09/24 09:14 10/09/24 08:00 10/09/24 09:14 Narrative Exam GENERAL APPEARANCE: Patient seems to be comfortable, adequately hydrated and nourished. On dialysis HEENT: EOMI, PERRLA NECK: Neck supple, no JVD or bruit CARDIOVASCULAR: Heart regular, 2/6 murmurs LUNGS/CHEST: Chest clear to auscultation. No rales, rhonchi, wheezing ABDOMEN: Soft, nontender, nondistended. No masses. Normal bowel sounds. EXTREMITIES: No edema, clubbing or cyanosis. SKIN: Skin exam normal without any rashes . Rt arm AVF + MUSCULOSKELETAL: Musculoskeletal exam normal PSYCHIATRIC: Normal mood, affect LYMPHATICS: No lymphadenopathy noted NEUROLOGICAL : No neurological deficits Objective Labs 10/09/24 05:58 10/09/24 05:58 Labs: Laboratory Results - last 24 hr 10/09/24 05:58 WBC 5.8 RBC 2.94 L Hgb 9.2 L Hct 27.6 L MCV 94 MCH 31.3 MCHC 33.3 RDW Std Deviation 54.3 H Plt Count 242 Neut % (Auto) 71 Lymph % (Auto) 17 [place] % (Auto) 7 Eos % (Auto) 4 Baso % (Auto) 1 Neut # (Auto) 4.1 Lymph # (Auto) 1.0 [place] # (Auto) 0.4 Eos # (Auto) 0.2 Baso # (Auto) 0.1 Immature Gran # (Auto) 0.02 H Absolute Nucleated RBC 0.00 Immature Gran % 0 Nucleated RBC % 0 Sodium 135 L Potassium 5.2 H D Chloride 97 L Carbon Dioxide 28.5 Anion Gap 10 BUN 30 H Creatinine 4.8 H* D Estim Creat Clear Calc 10.6 L eGFR 9 L* BUN/Creatinine Ratio 6 L Glucose 106 Calculated Osmolality 276 Calcium 9.0 Corrected Calcium 9.1 Phosphorus 5.2 H Magnesium 2.1 Total Bilirubin 0.3 AST < 8 ALT 7 L Alkaline Phosphatase 143 H Total Protein 6.7 Albumin 3.9 Globulin 2.8 Albumin/Globulin Ratio 1.4 Assessment & Plan Additional Assessment & Plan Additional Plan: Ms. Jimenez is a 73-year-old female with ESRD on HD (MWF), resistant HTN, HFpEF (EF 65-70%), chronic respiratory failure on 3 L home O2, chronic normocytic anemia, IDDM, HLD, and depression/anxiety who presented to the ED with anemia #ESRD on HD (MWF) Next dialysis scheduled for Friday Continue home calcium acetate #Chronic normocytic anemia Likely secondary to ESRD Will give Procrit with HD Patient received 2 units of blood transfusion. No active GI bleed. Hemoglobin stable at 9.2. #Resistant hypertension Resume home meds, nifedipine, Aldactone ,valsartan, with as needed labetalol for SBP >190 Monitor vital signs #HFpEF (EF 65-70%) #Chronic respiratory failure, on 3 L home O2 #IDDM #HLD #Depression #Anxiety As per primary team Spoke to primary team.
[2024-10-09] MEDS: SOD POLYSTYRENE SULFON SUSP 15 GM/60 ML BTL PO (12:30)
--- NOTE | 2024-10-09 14:07 | ESPR_ITS ---
<Statement entered by Aung Shah MD - 10/09/24 16:07> Senior Resident Attestation: I supervised/discussed management plan with corporate development intern physician Dr. Benavidez, and was involved in the care of this patient. I personally saw and examined the patient and discussed the assessment and plan with the entire medicine team, including my attending. I agree with the assessment and plan as documented. Today attempt to perform thoracocentesis failed due to no sufficient fluid pocket for drainage. Nephrology recommended additional workup with gastroenterology due to unknown reason for acute drop of hemoglobin hemoglobin. Patient was given Kayexalate and started on Phosphoral binders as per nephrology recommendations. GI was consulted. Patient's care was discussed with attending physician, Dr. Cabrera. Aung Shah MD PGY-3. Documentation for date of: 10/09/24 Subjective Subjective Interval history: 10/09/24: Patient noted to have persistent SBP in 170s despite being on 3 BP medications. Patient received HD yesterday. Pleural US yesterday by IR showed mild to moderate fluid in right pleural space. We performed bedside US again this morning which showed mild fluid in the right pleural space. No thoracenthesis is indicated at this time given the small volume of fluid and patient being asymptomatic. Patient has not had any bowel movement yet, thus stool occult test has not been done. Exam Vital Signs Temp Pulse Resp BP Pulse Ox O2 Del Method O2 Flow Rate 97.3 F 74 120 H 176/74 H 99 Nasal Cannula 2 10/09/24 08:00 10/09/24 13:49 10/09/24 09:14 10/09/24 13:49 10/09/24 09:14 10/09/24 08:00 10/09/24 09:14 Narrative Exam Gen: Well-developed and well-nourished. HEENT: PERRLA, EOMI, MMM, anicteric conjunctivae. Grown hairs noted on the forehead most likely due to recent Minoxidil that patient has taken. CVS: normal S1 and S2. RRR. No M/R/G. Resp: Crackles in lung bases R>L. No rhonchi, rales, crackles or wheezing. Abd: soft, non-distended. Epigastric tenderness to palpation. No rigidity or rebound. MSK: Good ROM in BUE & BLE. No edema or rash. Left upper arm fistula. Neuro: CN II-XII grossly intact. Strength 5/5 in BUE & BLE. Alert and oriented x3. Psych: appropriate mood and affect. Objective Labs 10/10/24 05:27 10/10/24 12:30 Labs: Laboratory Results - last 24 hr 10/09/24 05:58 WBC 5.8 RBC 2.94 L Hgb 9.2 L Hct 27.6 L MCV 94 MCH 31.3 MCHC 33.3 RDW Std Deviation 54.3 H Plt Count 242 Neut % (Auto) 71 Lymph % (Auto) 17 [place] % (Auto) 7 Eos % (Auto) 4 Baso % (Auto) 1 Neut # (Auto) 4.1 Lymph # (Auto) 1.0 [place] # (Auto) 0.4 Eos # (Auto) 0.2 Baso # (Auto) 0.1 Immature Gran # (Auto) 0.02 H Absolute Nucleated RBC 0.00 Immature Gran % 0 Nucleated RBC % 0 Sodium 135 L Potassium 5.2 H D Chloride 97 L Carbon Dioxide 28.5 Anion Gap 10 BUN 30 H Creatinine 4.8 H* D Estim Creat Clear Calc 10.6 L eGFR 9 L* BUN/Creatinine Ratio 6 L Glucose 106 Calculated Osmolality 276 Calcium 9.0 Corrected Calcium 9.1 Phosphorus 5.2 H Magnesium 2.1 Total Bilirubin 0.3 AST < 8 ALT 7 L Alkaline Phosphatase 143 H Total Protein 6.7 Albumin 3.9 Globulin 2.8 Albumin/Globulin Ratio 1.4 Quality Measures Quality Measures none Advance care planning discussed with:: patient Assessment & Plan Assessment Current Active Medications: Generic Name Dose Route Start Last Admin Trade Name Dallin PRN Reason Stop Dose Admin Acetaminophen 650 mg 10/08/24 01:32 10/08/24 09:36 Acetaminophen 325 Mg Tablet PO 11/07/24 01:31 650 mg Q6H PRN Administration Fever >100.4 or pain 1-3(mild Calcium Acetate 667 mg 10/08/24 08:00 10/09/24 12:30 Calcium Acetate 667 Mg Tablet PO 11/07/24 07:59 667 mg TIDWM JANINE Administration Carvedilol 12.5 mg 10/09/24 17:30 Carvedilol 12.5 Mg Tablet PO 11/08/24 17:29 BIDWM JANINE Clonidine 0.2 mg 10/08/24 01:45 10/09/24 13:49 Clonidine Hcl 0.1 Mg Tablet PO 11/07/24 01:44 0.2 mg TID JANINE Administration Dextrose 25 ml 10/08/24 01:32 Dextrose 50%-Water Inj 50 Ml Syringe IV 11/07/24 01:31 Q15MIN PRN BG 50-70 responsive npo pt Dextrose 50 ml 10/08/24 01:32 Dextrose 50%-Water Inj 50 Ml Syringe IV 11/07/24 01:31 Q15MIN PRN BG <50 OR BG <70 & pt unresponsive Glucagon 1 mg 10/08/24 01:32 Glucagon Inj 1 Mg Vial IM Q15MIN PRN BG <70, and no IV access Insulin Human Lispro 0 unit 10/08/24 07:30 10/09/24 11:29 Insulin Lispro (Admelog) 1 Unit/0.01 Ml Unit SC 11/07/24 07:29 Not Given AC JANINE Protocol Nifedipine 60 mg 10/08/24 01:45 10/09/24 09:53 Nifedipine Xl 30 Mg Tabcr PO 11/07/24 01:44 60 mg BID JANINE Administration Ondansetron HCl 4 mg 10/08/24 01:32 Ondansetron Inj 2 Mg/Ml Inj 2 Ml IVP 11/07/24 01:31 Q6H PRN NAUSEA OR VOMITING Protocol Pantoprazole Sodium 40 mg 10/08/24 09:00 10/09/24 09:56 Pantoprazole Inj 40 Mg Vial IVP 11/07/24 08:59 40 mg BID JANINE Administration Tramadol HCl 50 mg 10/09/24 10:57 Tramadol Hcl 50 Mg Tablet PO 10/13/24 01:31 Q6HR PRN PAIN SCALE 4-10(Mod-Sev Valsartan 160 mg 10/08/24 01:45 10/09/24 09:55 Valsartan 80 Mg Tablet PO 11/07/24 01:44 160 mg BID JANINE Administration Plan 73F with PMHx significant for ESRD (M/W/F), HTN, type 2 diabetes, HFpEF presenting with chief complaint of symptomatic anemia of progressive shortness of breath, weakness, fatigue x 2 weeks, admitted for symptomatic anemia. #Symptomatic anemia #Anemia of chronic kidney disease Patient presented with chief complaint of progressive shortness of breath, weakness, fatigue x 2 weeks. Patient was told by dialysis center to go to ED for blood transfusion. On presentation hemoglobin 5.9, 2 units PRBCs ordered in ED. Patient denies chest pain, hematemesis, melena. Anemia most likely due to chronic kidney disease vs upper or lower GI bleed however no melena or hematochezia. Hgb: 5.9 --> 8.9 -->9.2 MCV 102, B12 701, Folate 13.78 Plan: - GI Dr. Saldivar was consulted, appreciate recs - Monitor hemoglobin, transfuse as needed - Pending Stool occult blood, patient has not had any bowel movements - Pending blood smear #ESRD (M/W/F) Patient history as stated. Follows Dr. Edge, consulted. Received HD yesterday Plan: - HD Friday - Scheduled Sevlamer for elavated Phos - Ordered Kayexalate x1 for elavated K - Renally dose meds as needed - Nephrology consulted, appreciate recommendations - Resume home sevelamer and calcium supplements #HTN #Hypertensive urgency Persistent. Patient history as stated. Patient blood pressure significantly elevated in ED, with SBP > 190. No signs of end organ damage, patient denies headaches, blurry vision, chest pain. Received topical nitro in the ED. Patient SBP remains in 160s-170s despite on 3meds. Plan: - Continue Clonidine 0.2 mg 3 times daily - Continue Valsartan 160 mg twice daily - Continue Nifedipine 60 mg twice daily - Start Carvedilol 12.5 BID (consider going up to 25 if still hypertensive urgency) #HFpEF Patient history as stated. Last echo 12/04/2023 showed EF 55 to 60% patient does not make urine. Chest x-ray shows vascular congestion. Patient saturating well on room air, not edematous. US pleural showed mild to moderate plural fluid on the right and mild pleural fluid on the left. Plan: - Dialysis as above - Consider thoracenthesis if symptomatic or pleural fluid worsens. - Resume home medications as above #Diabetes (resolved) Patient history of rib-pfsblod-zrwkacvla diabetes. Not currently on active management. A1C: 5.4 Plan: - ISS DVT prophylaxis: SCDs GI prophylaxis: Protonix Diet: Cardiac/renal/carb consistent Lines: Peripheral IV Code status: DNR Plan of care discussed with attending Dr. Cabrera and senior resident Dr. Pablo Benavidez, DO PGY?1 Attending Provider Attestation/Addendum I Rogelio Cabrera MD reviewed the note and agree with the resident's assessment & plan with modifications/additions/exceptions as below. I have personally reviewed labs, imaging, home meds/prior records, examined the patient, formulated and discussed management plan with the IM team. 73-year-old male admitted for volume overload state leading to acute hypoxemic respiratory failure, anemia requiring transfusion, large pleural effusion requiring thoracentesis and resistant hypertension. Hemoglobin posttransfusion 9.2. GI is on board, plan for EGD likely tomorrow, continue valsartan clonidine nifedipine, add Coreg 12.5 mg twice daily for optimal HTN control. Nephrology is on board , undergoing hemodialysis for fluid removal. Continue monitoring CBC and potassium levels.
--- NOTE | 2024-10-09 15:44 | PC.SS ---
Addendum entered by Giselle Rodrigues 10/10/24 15:47: Pt is a 73 yo female who entered the ER on 10/08/24 and was admitted for symptomatic anemia. ASW completed the initial assessment with the son José Miguel Simmons [phone]. José Miguel reported he is the Decision Maker incase the pt is no longer able to make the decisions for herself. José Miguel reported the pts PCP is Dr. Carlos Saunders from [facility]. He reported the pts pharmacy is [facility] in [place]. José Miguel reported the pt uses a wheel chair to ambulate and does not do her own ADLs. Pt is dependent on her family, whom she resides with, to help her cooking, cleaning, grooming and bathing. José Miguel stated the mother used O2 at home, but is unsure how many liters the pt uses and is unsure who her DME provider is. José Miguel states the pt is a DNR and does not have a POLST/Advance directive in place. José Miguel stated the pt is not interested in a SNF and stated the family will take care of the pt once she is ready for d/c. Possible interest in home health, but at this time, he declines home health. José Miguel reports the mother has supports at home and the family provides caregiving around the clock. d/c plan: Home, possible Home health if needed Decision maker: José Miguel barkley [phone] Pharmacy: [facility] [place] PCP: Dr. Carlos Saunders [facility] Code: DNR Original Note: 1544-Per afternoon rounding, pt is staying, W: GI workup. No d/c date at this time.
--- NOTE | 2024-10-09 17:08 | PD.IMCONS ---
HPI Data of Consult Requesting Physician: Tacos Adan MD Primary Care Provider: Carlos Saunders MD Consult Narrative Reason for consult: H/H 5.9/19.0 requiring transfusion History of present illness: 73 years old female was sent from dialysis center for blood transfusion as her presenting hemoglobin hematocrit on 10/07/2024 was 5.9 and 19.0 she was given PRBC and current hemoglobin is now 9.2 and 27.6 She also has shortness of breath and fatigue which has improved after blood transfusion Patient has end-stage renal disease on hemodialysis MWF essential hypertension diabetes mellitus type 2 cc:: cc: Tacos Adan MD Review of Systems Review of Systems Systems Reviewed: All systems reviewed, normal except as documented Past Medical History Surgical History OTHER SURGICAL HX: As in the history of present illness Meds Home Medications and Allergies Home Medications ?Medication ?Instructions ?Recorded ?Confirmed ?Type calcium acetate(phosphat bind) 667 667 mg PO TIDWM 06/08/23 01/18/24 History mg tablet mirtazapine 15 mg tablet 15 mg PO HS 06/08/23 01/18/24 History vitamin B complex-vitamin C-folic 0.8 tab PO QDAY 06/08/23 01/18/24 History acid 0.8 mg tablet (Carmel-Sanjana) Allergies Allergy/AdvReac Type Severity Reaction Status Date / Time No Known Allergies Allergy Verified 10/07/24 16:02 Exam Vital Signs Temp Pulse Resp BP Pulse Ox O2 Del Method O2 Flow Rate 97.0 F 80 20 175/75 H 99 Nasal Cannula 1 10/09/24 16:00 10/09/24 16:00 10/09/24 16:00 10/09/24 16:00 10/09/24 16:00 10/09/24 16:00 10/09/24 16:00 Constitutional Comments: Chronically ill-appearing Routine Respiratory Exam Comments: Normal to auscultation Routine Abdominal Exam Comments: Soft nontender Results Labs 10/09/24 05:58 10/09/24 05:58 Labs: Short CBC 10/09/24 Range/Units 05:58 WBC 5.8 (3.6-11.0) Thou/mm3 Hgb 9.2 L (12.0-16.0) g/dL Hct 27.6 L (36.0-46.0) % Plt Count 242 (140-440) Thou/mm3 BMP 10/09/24 05:58 Sodium 135 L Potassium 5.2 H D Chloride 97 L Carbon Dioxide 28.5 BUN 30 H Creatinine 4.8 H* D Glucose 106 Calcium 9.0 Liver Function 10/09/24 Range/Units 05:58 Total Bilirubin 0.3 (0.3-1.2) mg/dL AST < 8 (0-34) U/L ALT 7 L (10-49) U/L Alkaline Phosphatase 143 H (46-116) U/L Albumin 3.9 (3.4-4.8) gm/dL Assessment and Plan Additional Assessment & Plan Additional Plan: # Anemia blood loss requiring transfusion # End-stage renal disease on hemodialysis MWF # Essential hypertension # Diabetes mellitus type 2 Plan N.p.o. midnight tonight except p.o. meds Consent obtained for fiberoptic esophagogastroduodenoscopy with possible biopsy possible therapeutic intervention under intravenous moderate sedation If EGD is negative we will consider doing a fiberoptic colonoscopy Thank you very much for the opportunity to participate in the care of this patient
--- NOTE | 2024-10-09 17:50 | PC.NURSE ---
Called pt's son José Miguel requesting him to bring in pts home medications. Son will bring medications in the morning on 10/10/24.
--- NOTE | 2024-10-09 20:53 | PD.PUCONS ---
HPI Pulmonology Consult Data of Consult Requesting Physician: Tacos Adan MD Primary Care Provider: Carlos Saunders MD Consult Narrative History of present illness: Patient 73-year-old female with past medical history significant for very difficult to control hypertension with multiple admissions for hypertensive urgency and end-stage renal disease who presented with complaints of increasing shortness breath and fatigue for the past week. Chest x-ray showed right-sided pleural effusion. Patient seen by IR yesterday for evaluation for possible thoracentesis but not found to have any significant pocket that was accessible. Patient remains afebrile and nontoxic-appearing. Is able to tolerate room air. She denies any chest pain or shortness of breath. She did present with some epigastric tenderness initially which has improved at this point. Patient with about cough, phlegm production, or any recent hemoptysis. Patient without any significant history of lung disease. No significant exposure history or smoking history. No family history significant for lung disease. cc:: cc: Tacos Adan MD Review of Systems Review of Systems Narrative Review of Systems: Pertinent review of system was completed with significant findings included in HPI above. Past Medical History Past Medical History Comments PMH COMMENT: Past medical history/past surgical history reviewed with no significant findings except those stated in HPI. Social history and family history noncontributory. Meds Home Medications and Allergies Home Medications ?Medication ?Instructions ?Recorded ?Confirmed ?Type calcium acetate(phosphat bind) 667 667 mg PO TIDWM 06/08/23 01/18/24 History mg tablet mirtazapine 15 mg tablet 15 mg PO HS 06/08/23 01/18/24 History vitamin B complex-vitamin C-folic 0.8 tab PO QDAY 06/08/23 01/18/24 History acid 0.8 mg tablet (Carmel-Sanjana) Allergies Allergy/AdvReac Type Severity Reaction Status Date / Time No Known Allergies Allergy Verified 10/07/24 16:02 Exam Vital Signs Temp Pulse Resp BP Pulse Ox O2 Del Method O2 Flow Rate 97.0 F 67 20 156/69 H 99 Nasal Cannula 1 10/09/24 16:00 10/09/24 20:27 10/09/24 16:00 10/09/24 20:27 10/09/24 16:00 10/09/24 16:00 10/09/24 16:00 Narrative Exam GEN: no acute distress, alert Awake/oriented X3 HEENT: Moist mucous membranes, extraocular movements intact NECK: No JVD CVS: S1/S2 present, regular rate and rhythm PULM: Normal adventitious breath sounds bilaterally, absent at the right base ABD: Soft, nontender, nondistended, bowel sounds present EXT: LUE fistula present, no pedal edema, no peripheral cyanosis or clubbing PSYCH: Appropriate mood and affect NEURO: Nonfocal on gross examination Physical Exam Completion Physical Exam Complete?: Yes Results - [employer] Labs 10/09/24 05:58 10/09/24 05:58 Labs: Short CBC 10/09/24 Range/Units 05:58 WBC 5.8 (3.6-11.0) Thou/mm3 Hgb 9.2 L (12.0-16.0) g/dL Hct 27.6 L (36.0-46.0) % Plt Count 242 (140-440) Thou/mm3 BMP 10/09/24 05:58 Sodium 135 L Potassium 5.2 H D Chloride 97 L Carbon Dioxide 28.5 BUN 30 H Creatinine 4.8 H* D Glucose 106 Calcium 9.0 Liver Function 10/09/24 Range/Units 05:58 Total Bilirubin 0.3 (0.3-1.2) mg/dL AST < 8 (0-34) U/L ALT 7 L (10-49) U/L Alkaline Phosphatase 143 H (46-116) U/L Albumin 3.9 (3.4-4.8) gm/dL Assessment & Plan Additional Assessment Additional Assessment: Right pleural effusion Patient at this point is without significant respiratory distress and likely this is chronic effusion secondary to end-stage renal disease/hypervolemia Bedside ultrasound utilized to try to identify is large enough pocket to enter with thoracentesis safely, however at this point there is no adequate space to safely perform Given the chronicity of this effusion, we will plan on intervention only if the patient develops respiratory distress Otherwise will defer to nephrology for ongoing management of fluid status to minimize risk of significant reaccumulation Denies objective any underlying infection or malignancy warranting sampling at this time, small left-sided effusion even less amenable to intervention Thank you for allowing me to participate in the care of this patient, I remain available in the any further questions arise Additional Plan Additional Plan: PLAN: See MD orders and discussion above. Will continue supportive care of the organ system problems, diagnoses, and failures noted above. [A central line continues to be necessary for infusion of medications and IV fluids, it is to be removed when other adequate venous access is accomplished.] [Cannot be safely managed without restraints as potential for harm secondary to inadvertent movement and loss of tubes and lines outweighs the burdens of restraint.] This patient is critically ill and required [] minutes of my time to provide documentation, evaluate, manage and maintain or prevent deterioration of the organ systems and problems noted above. This critical care time does not include time I spent performing procedures that are reported separately. [If raymundo catheter present, it remains necessary to monitor urine output continuously, and/or divert urine from the skin. It will be removed per policy when it is not needed for these purposes.] Provider Notation Provider Notation: Although this document has been carefully reviewed, there may still be some phonetic and other typographical errors. These errors are purely grammatical due to imperfections in the software program and should not be construed in any way to compromise the substance of the patient's medical care during this visit. Thank you for the opportunity and privilege in assisting you with this patient's care and management.
[2024-10-10] VITALS (24 sets, daily range): BP systolic 141–171; BP diastolic 57–70; PULSE 63–82; RESP 16–27; TEMP 35.9–36.8; O2SAT 95–100; BMI 25.9
[2024-10-10 06:17] LABS: Basophils # (Auto) 0.1 Thou/mm3 (0.0-0.2); Basophils % (Auto) 1 % (0-2.5); Eosinophils # (Auto) 0.2 Thou/mm3 (0.0-0.5); Eosinophils % (Auto) 3 % (0-10); Hematocrit 25.5 % (36.0-46.0); Immature Granulocytes Auto 0.01 Thou/mm3 (0.00-0.00); Lymphocytes # (Auto) 1.2 Thou/mm3 (1.0-4.8); Lymphocytes % (Auto) 20 % (10-50); Mean Corpuscular HGB Conc 33.3 g/dl (31.0-37.0); Mean Corpuscular Hemoglobin 31.4 pg (25.0-35.0); Mean Corpuscular Volume 94 fL (80-100); Monocytes # (Auto) 0.5 Thou/mm3 (0.0-0.8); Monocytes % (Auto) 9 % (0-12); Neutrophils # (Auto) 3.9 Thou/mm3 (1.8-7.7); Neutrophils % (Auto) 66 % (37-80); Nucleated Red Blood Cell # 0.00 Thou/mm3 (0.00-0.00); Nucleated Red Blood Cell % 0 /100 WBC (0); Platelet Count 232 Thou/mm3 (140-440); RDW Standard Deviation 51.6 fL (36.4-46.3); Red Blood Count 2.71 Miln/mm3 (4.00-5.20); White Blood Count 5.8 Thou/mm3 (3.6-11.0)
[2024-10-10 06:18] LABS: Hemoglobin 8.5 g/dL (12.0-16.0)
[2024-10-10 07:20] LABS: Alanine Aminotransferase < 7 U/L (10-49); Albumin, Serum 3.7 gm/dL (3.4-4.8); Albumin/Globulin Ratio 1.5 (1.2-2.2); Alkaline Phosphatase 139 U/L (46-116); Anion Gap 12 (7-16); Aspartate Amino Transferase 12 U/L (0-34); BUN/Creatinine Ratio 8 Ratio (12-20); Bilirubin,Total 0.2 mg/dL (0.3-1.2); Blood Urea Nitrogen 47 mg/dL (9-23); Calcium 8.8 mg/dL (8.3-10.6); Calcium (Corrected) 9.0 mg/dL (8.5-10.1); Carbon Dioxide 25.7 mMol/L (20.0-31.0); Chloride 95 mMol/L (98-107); Creatinine (Component) 5.6 mg/dL (0.6-1.3); Estimated Creatinine Clearance 9.0 mL/min (>60); Globulin 2.5 gm/dL (2.3-3.5); Glucose 100 mg/dL (74-106); Magnesium 2.1 mg/dL (1.6-2.6); Osmolality,Calculated 278 (275-295); Phosphorous 6.2 mg/dL (2.4-5.1); Potassium 5.3 mMol/L (3.4-5.1); Sodium 133 mMol/L (136-145); Total Protein 6.2 gm/dL (5.7-8.2); eGFR 8 See Note
[2024-10-10] MEDS: INSULIN HUM REGULAR 1 UNIT/0.01 ML (PER UNIT) 5 UNIT IV (08:54)
[2024-10-10] MEDS: DEXTROSE 50%-WATER INJ 50 ML SYRINGE 100 ML IVP (08:55)
[2024-10-10] MEDS: SOD POLYSTYRENE SULFON SUSP 15 GM/60 ML BTL 30 GM PO (08:55)
[2024-10-10] MEDS: VALSARTAN 80 MG TABLET 160 MG PO ×2 (09:04→21:31)
[2024-10-10] MEDS: NIFEdipine XL 30 MG TABCR 60 MG PO ×2 (09:04→21:32)
[2024-10-10] MEDS: CALCIUM ACETATE 667 MG TABLET PO (09:05)
--- NOTE | 2024-10-10 09:25 | ESPR_ITS ---
<Statement entered by Aung Shah MD - 10/10/24 15:50> Senior Resident Attestation: I supervised/discussed management plan with medical student Bran, and was involved in the care of this patient. I personally saw and examined the patient and discussed the assessment and plan with the entire medicine team, including my attending. I agree with the assessment and plan as documented. Patient was noticed to be hyperkalemic today morning, was given Kayexalate and insulin with D50 with resolution of her hyperkalemia. Patient is pending EGD today. Her hemoglobin is slightly downtrending, most recent 8.5. Patient's care was discussed with attending physician, Dr. Cabrera. Aung Shah MD PGY-3. Documentation for date of: 10/10/24 Subjective Subjective Interval history: pt was seen at bedside today and is alert and oriented x4. she states that she is still feeling short of breath and that she wants to get the fluid out from her chest. She was notified about the skidder operator's findings and told that we will re-evaluate performing thoracentesis if her respiratory distress becomes worse. She states that she feels about the same as yesterday without much improvement. She is notified that Dr. Saldivar from will be performing an EGD today. She reports no further questions or concerns at this time. Exam Vital Signs Temp Pulse Resp BP Pulse Ox O2 Del Method O2 Flow Rate 97.5 F 71 19 169/70 H 99 Nasal Cannula 1 10/10/24 08:00 10/10/24 09:05 10/10/24 08:00 10/10/24 09:05 10/10/24 08:00 10/10/24 08:00 10/10/24 08:00 Narrative Exam Gen: Well-developed and well-nourished. HEENT: PERRLA, EOMI, MMM, anicteric conjunctivae. Grown hairs noted on the forehead most likely due to recent Minoxidil that patient has taken. CVS: normal S1 and S2. RRR. No M/R/G. Resp: Crackles in lung bases R>L. No rhonchi, rales, crackles or wheezing. Abd: soft, non-distended. Epigastric tenderness to palpation. No rigidity or rebound. MSK: Good ROM in BUE & BLE. No edema or rash. Left upper arm fistula. Neuro: CN II-XII grossly intact. Strength 5/5 in BUE & BLE. Alert and oriented x3. Psych: appropriate mood and affect. Objective Labs 10/10/24 05:27 10/10/24 12:30 Labs: Laboratory Results - last 24 hr 10/10/24 05:27 WBC 5.8 RBC 2.71 L Hgb 8.5 L Hct 25.5 L MCV 94 MCH 31.4 MCHC 33.3 RDW Std Deviation 51.6 H Plt Count 232 Neut % (Auto) 66 Lymph % (Auto) 20 [place] % (Auto) 9 Eos % (Auto) 3 Baso % (Auto) 1 Neut # (Auto) 3.9 Lymph # (Auto) 1.2 [place] # (Auto) 0.5 Eos # (Auto) 0.2 Baso # (Auto) 0.1 Immature Gran # (Auto) 0.01 H Absolute Nucleated RBC 0.00 Immature Gran % 0 Nucleated RBC % 0 Sodium 133 L Potassium 5.3 H Chloride 95 L Carbon Dioxide 25.7 Anion Gap 12 BUN 47 H Creatinine 5.6 H* D Estim Creat Clear Calc 9.0 L eGFR 8 L* BUN/Creatinine Ratio 8 L Glucose 100 Calculated Osmolality 278 Calcium 8.8 Corrected Calcium 9.0 Phosphorus 6.2 H Magnesium 2.1 Total Bilirubin 0.2 L AST 12 ALT < 7 L Alkaline Phosphatase 139 H Total Protein 6.2 Albumin 3.7 Globulin 2.5 Albumin/Globulin Ratio 1.5 Quality Measures Quality Measures none Advance care planning discussed with:: patient Assessment & Plan Assessment Current Active Medications: Generic Name Dose Route Start Last Admin Trade Name Dallin PRN Reason Stop Dose Admin Acetaminophen 650 mg 10/08/24 01:32 10/08/24 09:36 Acetaminophen 325 Mg Tablet PO 11/07/24 01:31 650 mg Q6H PRN Administration Fever >100.4 or pain 1-3(mild Calcium Acetate 667 mg 10/08/24 08:00 10/10/24 09:05 Calcium Acetate 667 Mg Tablet PO 11/07/24 07:59 667 mg TIDWM JANINE Administration Carvedilol 12.5 mg 10/09/24 17:30 10/10/24 09:05 Carvedilol 12.5 Mg Tablet PO 11/08/24 17:29 12.5 mg BIDWM JANINE Administration Clonidine 0.2 mg 10/08/24 01:45 10/10/24 06:04 Clonidine Hcl 0.1 Mg Tablet PO 11/07/24 01:44 0.2 mg TID JANINE Administration Dextrose 25 ml 10/08/24 01:32 Dextrose 50%-Water Inj 50 Ml Syringe IV 11/07/24 01:31 Q15MIN PRN BG 50-70 responsive npo pt Dextrose 50 ml 10/08/24 01:32 Dextrose 50%-Water Inj 50 Ml Syringe IV 11/07/24 01:31 Q15MIN PRN BG <50 OR BG <70 & pt unresponsive Glucagon 1 mg 10/08/24 01:32 Glucagon Inj 1 Mg Vial IM Q15MIN PRN BG <70, and no IV access Insulin Human Lispro 0 unit 10/08/24 07:30 10/10/24 07:53 Insulin Lispro (Admelog) 1 Unit/0.01 Ml Unit SC 11/07/24 07:29 Not Given AC JANINE Protocol Nifedipine 60 mg 10/08/24 01:45 10/10/24 09:04 Nifedipine Xl 30 Mg Tabcr PO 11/07/24 01:44 60 mg BID JANINE Administration Ondansetron HCl 4 mg 10/08/24 01:32 Ondansetron Inj 2 Mg/Ml Inj 2 Ml IVP 11/07/24 01:31 Q6H PRN NAUSEA OR VOMITING Protocol Pantoprazole Sodium 40 mg 10/08/24 09:00 10/10/24 09:05 Pantoprazole Inj 40 Mg Vial IVP 11/07/24 08:59 40 mg BID JANINE Administration Tramadol HCl 50 mg 10/09/24 10:57 Tramadol Hcl 50 Mg Tablet PO 10/13/24 01:31 Q6HR PRN PAIN SCALE 4-10(Mod-Sev Valsartan 160 mg 10/08/24 01:45 10/10/24 09:04 Valsartan 80 Mg Tablet PO 11/07/24 01:44 160 mg BID JANINE Administration Plan 73F with PMHx significant for ESRD (M/W/F), HTN, type 2 diabetes, HFpEF presenting with chief complaint of symptomatic anemia of progressive shortness of breath, weakness, fatigue x 2 weeks, admitted for symptomatic anemia. #Symptomatic anemia #Anemia of chronic kidney disease Patient presented with chief complaint of progressive shortness of breath, weakness, fatigue x 2 weeks. Patient was told by dialysis center to go to ED for blood transfusion. On presentation hemoglobin 5.9, 2 units PRBCs ordered in ED. Patient denies chest pain, hematemesis, melena. Anemia most likely due to chronic kidney disease vs upper or lower GI bleed however no melena or hematochezia. Hgb: 5.9 --> 8.9 -->9.2 MCV 102, B12 701, Folate 13.78 Plan: - GI Dr. Saldivar was consulted and plans to do EGD today - Monitor hemoglobin, transfuse as needed - Pending Stool occult blood, patient has not had any bowel movements - Pending blood smear #ESRD (M/W/F) Patient history as stated. Follows Dr. Edge, consulted. Received HD yesterday Plan: - HD Friday - Ordered Kayexalate x1 for elavated K - Renally dose meds as needed - Nephrology consulted, appreciate recommendations - Jose A held per nephrology #HTN #Hypertensive urgency Persistent. Patient history as stated. Patient blood pressure significantly elevated in ED, with SBP > 190. No signs of end organ damage, patient denies headaches, blurry vision, chest pain. Received topical nitro in the ED. Patient SBP remains in 160s-170s despite on 3meds. Plan: - Continue Clonidine 0.2 mg 3 times daily - Continue Valsartan 160 mg twice daily - Continue Nifedipine 60 mg twice daily - Increase Carvedilol from 12.5 to 25 mg PO QDAY #HFpEF Patient history as stated. Last echo 12/04/2023 showed EF 55 to 60% patient does not make urine. Chest x-ray shows vascular congestion. Patient saturating well on room air, not edematous. US pleural showed mild to moderate plural fluid on the right and mild pleural fluid on the left. Plan: - Dialysis as above - Consider thoracenthesis if symptomatic or pleural fluid worsens. - Resume home medications as above #Diabetes (resolved) Patient history of [id number] diabetes. Not currently on active management. A1C: 5.4 Plan: - ISS DVT prophylaxis: SCDs GI prophylaxis: Protonix Diet: Cardiac/renal/carb consistent Lines: Peripheral IV Code status: DNR Plan of care discussed with attending Dr. Cabrera and senior resident Dr. Pablo De Luna (Med Student) Attending Provider Attestation/Addendum I Rogelio Cabrera MD reviewed the note and agree with the resident's assessment & plan with modifications/additions/exceptions as below. I have personally reviewed labs, imaging, home meds/prior records, examined the patient, formulated and discussed management plan with the IM team. 73-year-old female admitted for volume overload state leading to acute hypoxemic respiratory failure, anemia requiring transfusion, large pleural effusion requiring thoracentesis and resistant hypertension. Hemoglobin posttransfusion slightly dropped. GI is on board, plan for EGD today, continue valsartan clonidine nifedipine, increase Coreg to 25 mg twice daily for optimal HTN control. Will add nitrates if required additional antihypertensives. Nephrology is on board , undergoing hemodialysis for fluid removal. Continue monitoring CBC and renal panel.
--- NOTE | 2024-10-10 11:12 | PD.RESPRO ---
Documentation for date of: 10/10/24 Subjective Subjective Interval history: Mrs. Sheridan is a 73-year-old lady with extensive past medical history of ESRD (M/W/F), uncontrolled hypertension for many years, diabetes type 2, congestive heart failure with normal ejection fraction, history of depression presented to the emergency department sent by dialysis unit for an abnormal hemoglobin of 5.9. Dialysis unit called me that her hemoglobin dropped to 5.5 and I recommended for her to go to the ED for further evaluation. Patient feeling fatigued and tired. Also noted shortness of breath. Was given 2 units of blood transfusion yesterday. Nephrology consultation requested as she is due for dialysis today. Patient currently seen on dialysis. No active GI bleed. ED COURSE: Labs significant for: Hemoglobin 5.9. WC 5.0, BUN 27, creatinine 4.5, EGFR 10. Imaging significant for: Chest x-ray showing vascular congestion, right base consolidation seen on previous imaging consistent with lung scarring. Patient significantly hypertensive with SBP greater than 190, given Lasix, morphine, topical nitro in the ED. 2 units PRBC was transfused last night PMH: ESRD, HFpEF, diabetes, HTN PSH: Left upper extremity fistula placement SH: Denies alcohol, tobacco, illicit drug use Allergies:?NKDA Medications: Clonidine, valsartan, nifedipine, sevelamer, calcium acetate Patient admitted to telemetry. Currently seen on dialysis. 10/09/2024 patient currently seen in telemetry. Resting comfortably. Did receive dialysis yesterday. Blood pressure seems to be on the higher side. Dr. Garza tried right thoracentesis- not much fluid to be drained. Hemoglobin 9.2, phosphorus 5.2, creatinine 4.8. 10/10/2024: Patient was seen and examined at bedside this AM. No acute events overnight. Patient underwent HD on 10/08/2024, RFT as expected. Hemoglobin down trended from 9.2 -> 8.5, unknown etiology, underlying normocytic anemia of CKD. GI Dr. Saldivar consulted for symptomatic anemia, patient n.p.o. since midnight for EGD scheduled today. She received PRBC transfusion, with improvement in H&H and symptoms. Today the patient complains of excessive hair growth on her forehead, likely due to outpatient minoxidil use. Was counseled to stop minoxidil on discharge, will document for family to refer to, as patient does not manage her own medications. Will follow-up GI recommendations regarding anemia, pending rule out GIB. Exam Vital Signs Temp Pulse Resp BP Pulse Ox O2 Del Method O2 Flow Rate 97.5 F 71 19 169/70 H 99 Nasal Cannula 1 10/10/24 08:00 10/10/24 09:05 10/10/24 08:00 10/10/24 09:05 10/10/24 08:00 10/10/24 08:00 10/10/24 08:00 Narrative Exam Constitutional Alert, oriented x3 and elderly. Polish-speaking, medical oncology physician used. HEENT Vision grossly intact, PERRL. Patent nares. Trachea midline. Respiratory Chest normal on inspection and clear to auscultation bilaterally. Cardiovascular S1 and S2 audible, RRR. 4/6 murmur- MR, no carotid bruit. No gross JVD. Abdominal Soft and BS + ; non tender to palpation in all quadrants. Genitourinary No bladder tenderness, no flank pain. Normal to palpation. Musculoskeletal Extremities tone within normal limits. Declines SCDs. Neurological CN II - XII grossly intact. Extremity motor and sensation grossly intact. Skin Warm, dry and intact. Cutix laxa, due to aging. Psychiatric Patient has a good affect, is cooperative. Objective Labs 10/11/24 04:40 10/11/24 04:40 Labs: Laboratory Results - last 24 hr 10/10/24 05:27 WBC 5.8 RBC 2.71 L Hgb 8.5 L Hct 25.5 L MCV 94 MCH 31.4 MCHC 33.3 RDW Std Deviation 51.6 H Plt Count 232 Neut % (Auto) 66 Lymph % (Auto) 20 [place] % (Auto) 9 Eos % (Auto) 3 Baso % (Auto) 1 Neut # (Auto) 3.9 Lymph # (Auto) 1.2 [place] # (Auto) 0.5 Eos # (Auto) 0.2 Baso # (Auto) 0.1 Immature Gran # (Auto) 0.01 H Absolute Nucleated RBC 0.00 Immature Gran % 0 Nucleated RBC % 0 Sodium 133 L Potassium 5.3 H Chloride 95 L Carbon Dioxide 25.7 Anion Gap 12 BUN 47 H Creatinine 5.6 H* D Estim Creat Clear Calc 9.0 L eGFR 8 L* BUN/Creatinine Ratio 8 L Glucose 100 Calculated Osmolality 278 Calcium 8.8 Corrected Calcium 9.0 Phosphorus 6.2 H Magnesium 2.1 Total Bilirubin 0.2 L AST 12 ALT < 7 L Alkaline Phosphatase 139 H Total Protein 6.2 Albumin 3.7 Globulin 2.5 Albumin/Globulin Ratio 1.5 Quality Measures Quality Measures none Advance care planning discussed with:: patient Assessment & Plan Assessment Current Active Medications: Generic Name Dose Route Start Last Admin Trade Name Freq PRN Reason Stop Dose Admin Acetaminophen 650 mg 10/08/24 01:32 10/08/24 09:36 Acetaminophen 325 Mg Tablet PO 11/07/24 01:31 650 mg Q6H PRN Administration Fever >100.4 or pain 1-3(mild Calcium Acetate 667 mg 10/08/24 08:00 10/10/24 09:05 Calcium Acetate 667 Mg Tablet PO 11/07/24 07:59 667 mg TIDWM JANINE Administration Carvedilol 12.5 mg 10/09/24 17:30 10/10/24 09:05 Carvedilol 12.5 Mg Tablet PO 11/08/24 17:29 12.5 mg BIDWM JANINE Administration Clonidine 0.2 mg 10/08/24 01:45 10/10/24 06:04 Clonidine Hcl 0.1 Mg Tablet PO 11/07/24 01:44 0.2 mg TID JANINE Administration Dextrose 25 ml 10/08/24 01:32 Dextrose 50%-Water Inj 50 Ml Syringe IV 11/07/24 01:31 Q15MIN PRN BG 50-70 responsive npo pt Dextrose 50 ml 10/08/24 01:32 Dextrose 50%-Water Inj 50 Ml Syringe IV 11/07/24 01:31 Q15MIN PRN BG <50 OR BG <70 & pt unresponsive Glucagon 1 mg 10/08/24 01:32 Glucagon Inj 1 Mg Vial IM Q15MIN PRN BG <70, and no IV access Insulin Human Lispro 0 unit 10/08/24 07:30 10/10/24 07:53 Insulin Lispro (Admelog) 1 Unit/0.01 Ml Unit SC 11/07/24 07:29 Not Given AC [facility] Protocol Nifedipine 60 mg 10/08/24 01:45 10/10/24 09:04 Nifedipine Xl 30 Mg Tabcr PO 11/07/24 01:44 60 mg BID JANINE Administration Ondansetron HCl 4 mg 10/08/24 01:32 Ondansetron Inj 2 Mg/Ml Inj 2 Ml IVP 11/07/24 01:31 Q6H PRN NAUSEA OR VOMITING Protocol Pantoprazole Sodium 40 mg 10/08/24 09:00 10/10/24 09:05 Pantoprazole Inj 40 Mg Vial IVP 11/07/24 08:59 40 mg BID JANINE Administration Tramadol HCl 50 mg 10/09/24 10:57 Tramadol Hcl 50 Mg Tablet PO 10/13/24 01:31 Q6HR PRN PAIN SCALE 4-10(Mod-Sev Valsartan 160 mg 10/08/24 01:45 10/10/24 09:04 Valsartan 80 Mg Tablet PO 11/07/24 01:44 160 mg BID JANINE Administration Plan Ms. Jimenez is a 73-year-old female with ESRD on HD (MWF), resistant HTN, HFpEF (EF 65-70%), chronic respiratory failure on 3 L home O2, chronic normocytic anemia, IDDM, HLD, and depression/anxiety who presented to the ED with anemia ESRD on HD (MWF) - Last HD on 10/08/2024 Plan: - RFT trending appropriately at this time - Next dialysis scheduled for Friday - Continue to monitor urine output, avoid nephrotoxic agents and renally dose medications - May continue home calcium acetate at this time Acute symptomatic anemia, secondary to possible GI bleed Chronic normocytic anemia - Likely secondary to ESRD - She is s/p 2 units of blood transfusion. No daniel GI bleed. Hemoglobin stable at 9.2. Plan: - Patient was given Procrit with HD on 10/08 - Pending GI work up to rule out GIB Resistant hypertension Plan: - Resume home meds, nifedipine, Aldactone ,valsartan - PRN labetalol for SBP >190 - Monitor vital signs closely Other medical problems: HFpEF (EF 65-70%) Chronic respiratory failure, on 3 L home O2 IDDM HLD Depression/Anxiety Management as per primary team Health maintenance: Disposition: Pending GI worup for anemia. Nephrology will continue to follow the patient with you for ESRD on HD Diet: As per schedule GI procedure Lines: pIVs Code status: DNR Plan of care discussed with attending Dr Edge, - Shiva Odom, M.D. PGY3 Disclaimer: Minor errors in head start teacher may be present as this note was dictated using voice recognition software. Attending Provider Attestation/Addendum Patient seen and examined with resident physician Dr. Odom. Note reviewed, agree with findings and recommendations. Hemoglobin still on the lower side. Did receive blood transfusion. Endoscopy showed gastritis. Pending colonoscopy. Dialysis scheduled for tomorrow
[2024-10-10 13:21] LABS: Potassium 4.7 mMol/L (3.4-5.1)
--- NOTE | 2024-10-10 15:47 | PC.SS ---
Pt is a 73 yo female who entered the ER on 10/08/24 and was admitted for symptomatic anemia. ASW completed the initial assessment with the son José Miguel Simmons [phone]. José Miguel reported he is the Decision Maker incase the pt is no longer able to make the decisions for herself. José Miguel reported the pts PCP is Dr. Carlos Saunders from [facility]. He reported the pts pharmacy is [facility] in [place]. José Miguel reported the pt uses a wheel chair to ambulate and does not do her own ADLs. Pt is dependent on her family, whom she resides with, to help her cooking, cleaning, grooming and bathing. José Miguel stated the mother used O2 at home, but is unsure how many liters the pt uses and is unsure who her DME provider is. José Miguel states the pt is a DNR and does not have a POLST/Advance directive in place. José Miguel stated the pt is not interested in a SNF and stated the family will take care of the pt once she is ready for d/c. Possible interest in home health, but at this time, he declines home health. José Miguel reports the mother has supports at home and the family provides caregiving around the clock. d/c plan: Home, possible Home health if needed Decision maker: sonJosé Miguel [phone] Pharmacy: [facility] [place] PCP: Dr. Carlos Saunders [facility] Code: DNR
--- NOTE | 2024-10-10 16:21 | PC.SS ---
Per afternoon rounding note: Waiting on EGD by Dr. Saldivar. ?
--- NOTE | 2024-10-10 16:57 | PC.NURSE ---
Patient transported to endoscopy via gurney per ANIMAL SHELTER WORKER, Yobani. Patient awake, alert and oriented with no signs of acute distress.
[2024-10-10] MEDS: SODIUM CHLORIDE 0.9% 500 ML 500 ML 10 ML IV (17:59)
--- NOTE | 2024-10-10 18:05 | SUR.OPER ---
1725 MARISA fistula with strong thrill palp. Limb alert band on.
--- NOTE | 2024-10-10 18:10 | SUR.PHASEI ---
Arrived to recovery [facility] via [facility]. Report received from Jenna ROPER. Resting with eyes closed. Responds to name appropriately. No s/o distress or discomfort. Respirations even and unlabored.
--- NOTE | 2024-10-10 18:23 | SUR.PHASEI ---
Responding to questions and commands appropriately. States her niece is in her room waiting. No c/o pain or discomfort.
--- NOTE | 2024-10-10 18:38 | SUR.PHASEI ---
Report given to Edu ROPER. Taken to room 276 via gurney by Yobani ROPER. No c/o pain or discomfort. No s/o distress.
[2024-10-10] MEDS: NA SU/NAHCO3/KC/PEG (Golytely) 4,000 ML BTL 4000 ML PO (19:48)
[2024-10-11] VITALS (31 sets, daily range): BP systolic 131–181; BP diastolic 52–91; PULSE 57–86; RESP 15–22; TEMP 35.9–36.7; O2SAT 92–100; BMI 25.7; BMI 25.8
[2024-10-11 06:09] LABS: Basophils # (Auto) 0.0 Thou/mm3 (0.0-0.2); Basophils % (Auto) 1 % (0-2.5); Eosinophils # (Auto) 0.2 Thou/mm3 (0.0-0.5); Eosinophils % (Auto) 4 % (0-10); Hematocrit 24.6 % (36.0-46.0); Immature Granulocytes Auto 0.01 Thou/mm3 (0.00-0.00); Lymphocytes # (Auto) 1.1 Thou/mm3 (1.0-4.8); Lymphocytes % (Auto) 25 % (10-50); Mean Corpuscular HGB Conc 33.7 g/dl (31.0-37.0); Mean Corpuscular Hemoglobin 31.1 pg (25.0-35.0); Mean Corpuscular Volume 92 fL (80-100); Monocytes # (Auto) 0.5 Thou/mm3 (0.0-0.8); Monocytes % (Auto) 11 % (0-12); Neutrophils # (Auto) 2.7 Thou/mm3 (1.8-7.7); Neutrophils % (Auto) 60 % (37-80); Nucleated Red Blood Cell # 0.00 Thou/mm3 (0.00-0.00); Nucleated Red Blood Cell % 0 /100 WBC (0); Platelet Count 207 Thou/mm3 (140-440); RDW Standard Deviation 50.7 fL (36.4-46.3); Red Blood Count 2.67 Miln/mm3 (4.00-5.20); White Blood Count 4.4 Thou/mm3 (3.6-11.0)
[2024-10-11 06:17] LABS: Hemoglobin 8.3 g/dL (12.0-16.0)
[2024-10-11 06:44] LABS: Alanine Aminotransferase < 7 U/L (10-49); Albumin, Serum 3.4 gm/dL (3.4-4.8); Albumin/Globulin Ratio 1.2 (1.2-2.2); Alkaline Phosphatase 140 U/L (46-116); Anion Gap 16 (7-16); Aspartate Amino Transferase 13 U/L (0-34); BUN/Creatinine Ratio 7 Ratio (12-20); Bilirubin,Total 0.2 mg/dL (0.3-1.2); Blood Urea Nitrogen 47 mg/dL (9-23); Calcium 8.0 mg/dL (8.3-10.6); Calcium (Corrected) 8.5 mg/dL (8.5-10.1); Carbon Dioxide 25.1 mMol/L (20.0-31.0); Chloride 94 mMol/L (98-107); Creatinine (Component) 6.6 mg/dL (0.6-1.3); Estimated Creatinine Clearance 7.6 mL/min (>60); Globulin 2.8 gm/dL (2.3-3.5); Glucose 92 mg/dL (74-106); Magnesium 2.0 mg/dL (1.6-2.6); Osmolality,Calculated 282 (275-295); Phosphorous 6.3 mg/dL (2.4-5.1); Potassium 4.7 mMol/L (3.4-5.1); Sodium 135 mMol/L (136-145); Total Protein 6.2 gm/dL (5.7-8.2); eGFR 6 See Note
--- NOTE | 2024-10-11 10:04 | ESPR_ITS ---
Documentation for date of: 10/11/24 Subjective Subjective Interval history: Mrs. Sheridan is a 73-year-old lady with extensive past medical history of ESRD (M/W/F), uncontrolled hypertension for many years, diabetes type 2, congestive heart failure with normal ejection fraction, history of depression presented to the emergency department sent by dialysis unit for an abnormal hemoglobin of 5.9. Dialysis unit called me that her hemoglobin dropped to 5.5 and I recommended for her to go to the ED for further evaluation. Patient feeling fatigued and tired. Also noted shortness of breath. Was given 2 units of blood transfusion yesterday. Nephrology consultation requested as she is due for dialysis today. Patient currently seen on dialysis. No active GI bleed. ED COURSE: Labs significant for: Hemoglobin 5.9. WC 5.0, BUN 27, creatinine 4.5, EGFR 10. Imaging significant for: Chest x-ray showing vascular congestion, right base consolidation seen on previous imaging consistent with lung scarring. Patient significantly hypertensive with SBP greater than 190, given Lasix, morphine, topical nitro in the ED. 2 units PRBC was transfused last night PMH: ESRD, HFpEF, diabetes, HTN PSH: Left upper extremity fistula placement SH: Denies alcohol, tobacco, illicit drug use Allergies:?NKDA Medications: Clonidine, valsartan, nifedipine, sevelamer, calcium acetate Patient admitted to telemetry. Currently seen on dialysis. 10/09/2024 patient currently seen in telemetry. Resting comfortably. Did receive dialysis yesterday. Blood pressure seems to be on the higher side. Dr. Garza tried right thoracentesis- not much fluid to be drained. Hemoglobin 9.2, phosphorus 5.2, creatinine 4.8. 10/10/2024: Patient was seen and examined at bedside this AM. No acute events overnight. Patient underwent HD on 10/08/2024, RFT as expected. Hemoglobin down trended from 9.2 -> 8.5, unknown etiology, underlying normocytic anemia of CKD. GI Dr. Saldivar consulted for symptomatic anemia, patient n.p.o. since midnight for EGD scheduled today. She received PRBC transfusion, with improvement in H&H and symptoms. Today the patient complains of excessive hair growth on her forehead, likely due to outpatient minoxidil use. Was counseled to stop minoxidil on discharge, will document for family to refer to, as patient does not manage her own medications. Will follow-up GI recommendations regarding anemia, pending rule out GIB. 10/11/2024: Patient seen and examined at bedside. No acute events overnight. Patient is status post EGD with Dr. Saldivar with no acute findings to explain potential GI bleed moderate erythematous stomach antrum. Pending colonoscopy today hemoglobin stable today at 8.3 sodium 135 potassium 4.7 BUN 47 creatinine 6.6 from 5.6 . plan for HD today Exam Vital Signs Temp Pulse Resp BP Pulse Ox O2 Del Method O2 Flow Rate 97.1 F 60 18 143/59 H 95 Nasal Cannula 2 10/11/24 08:36 10/11/24 09:45 10/11/24 08:36 10/11/24 09:45 10/11/24 08:36 10/11/24 08:00 10/11/24 08:36 Narrative Exam Constitutional Alert, oriented x3 and elderly. Georgian-speaking HEENT Vision grossly intact, Patent nares. Trachea midline. Respiratory Chest normal on inspection and clear to auscultation bilaterally. Cardiovascular S1 and S2 audible, RRR. 4/6 murmur- MR, no carotid bruit. No gross JVD. Abdominal Soft and BS + ; non tender to palpation in all quadrants. Genitourinary No bladder tenderness, no flank pain. Normal to palpation. Musculoskeletal Extremities tone within normal limits. Declines SCDs. Neurological CN II - XII grossly intact. Extremity motor and sensation grossly intact. Skin Warm, dry and intact. Decreased skin laxity secondary to aging Psychiatric Patient has a good affect, is cooperative. Pending colonoscopy Objective Labs 10/11/24 04:40 10/11/24 04:40 Labs: Laboratory Results - last 24 hr 10/07/24 10/10/24 10/11/24 17:01 12:30 04:40 WBC 4.4 RBC 2.67 L Hgb 8.3 L Hct 24.6 L MCV 92 MCH 31.1 MCHC 33.7 RDW Std Deviation 50.7 H Plt Count 207 Neut % (Auto) 60 Lymph % (Auto) 25 [place] % (Auto) 11 Eos % (Auto) 4 Baso % (Auto) 1 Neut # (Auto) 2.7 Lymph # (Auto) 1.1 [place] # (Auto) 0.5 Eos # (Auto) 0.2 Baso # (Auto) 0.0 Immature Gran # (Auto) 0.01 H Absolute Nucleated RBC 0.00 Immature Gran % 0 Nucleated RBC % 0 Sodium 135 L Potassium 4.7 D 4.7 Chloride 94 L Carbon Dioxide 25.1 Anion Gap 16 BUN 47 H Creatinine 6.6 H* D Estim Creat Clear Calc 7.6 L eGFR 6 L* BUN/Creatinine Ratio 7 L Glucose 92 Calculated Osmolality 282 Calcium 8.0 L Corrected Calcium 8.5 Phosphorus 6.3 H Magnesium 2.0 Total Bilirubin 0.2 L AST 13 ALT < 7 L Alkaline Phosphatase 140 H Total Protein 6.2 Albumin 3.4 Globulin 2.8 Albumin/Globulin Ratio 1.2 Crossmatch See Detail Quality Measures Quality Measures VTE prophylaxis Advance care planning discussed with:: patient Assessment & Plan Assessment Current Active Medications: Generic Name Dose Route Start Last Admin Trade Name Freq PRN Reason Stop Dose Admin Acetaminophen 650 mg 10/08/24 01:32 10/08/24 09:36 Acetaminophen 325 Mg Tablet PO 11/07/24 01:31 650 mg Q6H PRN Administration Fever >100.4 or pain 1-3(mild Calcium Acetate 667 mg 10/08/24 08:00 10/11/24 09:43 Calcium Acetate 667 Mg Tablet PO 11/07/24 07:59 Not Given TIDWM JANINE Carvedilol 25 mg 10/10/24 17:30 10/11/24 09:43 Carvedilol 12.5 Mg Tablet PO 11/09/24 17:29 Not Given BIDWM JANINE Clonidine 0.2 mg 10/08/24 01:45 10/11/24 05:20 Clonidine Hcl 0.1 Mg Tablet PO 11/07/24 01:44 0.2 mg TID JANINE Administration Dextrose 25 ml 10/08/24 01:32 Dextrose 50%-Water Inj 50 Ml Syringe IV 11/07/24 01:31 Q15MIN PRN BG 50-70 responsive npo pt Dextrose 50 ml 10/08/24 01:32 Dextrose 50%-Water Inj 50 Ml Syringe IV 11/07/24 01:31 Q15MIN PRN BG <50 OR BG <70 & pt unresponsive Epoetin Alan 10,000 unit 10/11/24 12:00 Epoetin Alan-Epbx Inj 10,000 Unit/Ml Vial (Esrd) SC 10/11/24 12:01 X1 ONE Glucagon 1 mg 10/08/24 01:32 Glucagon Inj 1 Mg Vial IM Q15MIN PRN BG <70, and no IV access Sodium Chloride 500 mls @ 10 minidrops/min 10/10/24 17:25 10/10/24 17:59 Ns IV 10/11/24 17:24 10 minidrops/min .Q24H ONE Administration Insulin Human Lispro 0 unit 10/08/24 07:30 10/11/24 07:32 Insulin Lispro (Admelog) 1 Unit/0.01 Ml Unit SC 11/07/24 07:29 Not Given AC JANINE Protocol Nifedipine 60 mg 10/08/24 01:45 10/11/24 09:44 Nifedipine Xl 30 Mg Tabcr PO 11/07/24 01:44 Not Given BID JANINE Ondansetron HCl 4 mg 10/08/24 01:32 Ondansetron Inj 2 Mg/Ml Inj 2 Ml IVP 11/07/24 01:31 Q6H PRN NAUSEA OR VOMITING Protocol Pantoprazole Sodium 40 mg 10/08/24 09:00 10/11/24 09:44 Pantoprazole Inj 40 Mg Vial IVP 11/07/24 08:59 Not Given BID JANIEN Tramadol HCl 50 mg 10/09/24 10:57 10/11/24 06:20 Tramadol Hcl 50 Mg Tablet PO 10/13/24 01:31 50 mg Q6HR PRN Administration PAIN SCALE 4-10(Mod-Sev Valsartan 160 mg 10/08/24 01:45 10/11/24 09:44 Valsartan 80 Mg Tablet PO 11/07/24 01:44 Not Given BID JANINE Plan Ms. Jimenez is a 73-year-old female with ESRD on HD (MWF), resistant HTN, HFpEF (EF 65-70%), chronic respiratory failure on 3 L home O2, chronic normocytic anemia, IDDM, HLD, and depression/anxiety who presented to the ED with anemia, status post EGD with no acute findings pending colonoscopy to rule out lower GI bleed given acute hemoglobin drops. Continues on hemodialysis per usual schedule of Friday ESRD on HD (MWF) On 10/11 BUN 47 from 47 creatinine 6.6 from 5.6 - Last HD on 10/08, 10/11 Plan: - HD per usual schedule, HD today - Continue to monitor urine output, avoid nephrotoxic agents and renally dose medications - May continue home calcium acetate at this time Acute symptomatic anemia, secondary to possible GI bleed Upper GI bleed ruled out Query lower GI bleed Chronic normocytic anemia - Likely secondary to ESRD - She is s/p 2 units of blood transfusion. No daniel GI bleed. Hemoglobin stable at 8.3 Plan: - Patient was given Procrit with HD on 10/08 - Status post EGD with no acute findings mild erythema of gastric antrum noted. - Pending colonoscopy today Resistant hypertension SBP 160s to 170s today Plan: - Resume home meds, nifedipine, Aldactone ,valsartan - PRN labetalol for SBP >190 - Monitor vital signs closely Other medical problems: Electrolyte abnormalities Hyperphosphatemia HFpEF (EF 65-70%) Chronic respiratory failure, on 3 L home O2 IDDM HLD Depression/Anxiety Management as per primary team Plan discussed with nephrology attending Dr. Minesh Hutchins MD Internal Medicine PGY-1 Attending Provider Attestation/Addendum Patient seen and examined with resident physician Dr. Contreras. Note reviewed, agree with findings and recommendations. Patient currently seen in telemetry. Endoscopy showed gastritis. Pending colonoscopy today. patient currently seen on dialysis. Tolerating dialysis without any problems. Hemodialysis for 3 hours, 2K, ultrafiltration 2-3 L, Epogen 6000, no heparin ordered. Plan of care discussed with the dialysis nurse. Please see dialysis flowsheet for further details.
[2024-10-11] MEDS: EPOETIN ALFA-EPBX INJ 10,000 UNIT/ML VIAL (ESRD) 10000 UNIT SC (11:11)
--- NOTE | 2024-10-11 11:22 | ESPR_ITS ---
<Statement entered by Bakari Wilkinson MD - 10/15/24 15:07> I reviewed above note and agree with findings and plans. I have also personally examined the patient with medicine team and went over assessment and plan with medical team including business analytics intern and resident physician. <Statement entered by Antonio Saunders MD - 10/11/24 15:41> Patient was examined and case was reviewed with team including attending physician. Note reviewed, I agree with most of its contents and agree with the patient's care as documented by Dr. Benavidez Patient seen today at the bedside found awake, alert, orientedx3. No overnight events reported. Vitals and labs reviewed. Scheduled for hemodialysis session today. As well as colonoscopy today by GI specialist. Case discussed with my attending Dr. Jaja Saunders MD PGY-2 Disclaimer: Despite multiple revisions, due to the dictation software being used, the document bellow may not be free of grammatical errors including phonetic/typographic errors. However, this does not deter from our commitment to providing health care in the patient's best interest in mind. Documentation for date of: 10/11/24 Subjective Subjective Interval history: 10/11/24: TA. VSS. Patient completed her dialysis session today. SBP still elevated in 150s despite being on 4 antihypertensive agents. Patient has completed an EGD with Dr. Saldivar yesterday and will undergo a colonoscopy later today. Exam Vital Signs Temp Pulse Resp BP Pulse Ox O2 Del Method O2 Flow Rate 96.9 F 58 L 18 153/52 H 96 Nasal Cannula 4 10/11/24 10:34 10/11/24 11:15 10/11/24 10:34 10/11/24 11:15 10/11/24 10:34 10/11/24 08:00 10/11/24 10:34 Narrative Exam Gen: Well-developed and well-nourished. HEENT: PERRLA, EOMI, MMM, anicteric conjunctivae. Grown hairs noted on the forehead most likely due to recent Minoxidil that patient has taken. CVS: normal S1 and S2. RRR. No M/R/G. Resp: Crackles in lung bases R>L. No rhonchi, rales, crackles or wheezing. Abd: soft, non-distended. Epigastric tenderness to palpation. No rigidity or rebound. MSK: Good ROM in BUE & BLE. No edema or rash. Left upper arm fistula. Neuro: CN II-XII grossly intact. Strength 5/5 in BUE & BLE. Alert and oriented x3. Psych: appropriate mood and affect. Objective Labs 10/11/24 04:40 10/11/24 04:40 Labs: Laboratory Results - last 24 hr 10/07/24 10/10/24 10/11/24 17:01 12:30 04:40 WBC 4.4 RBC 2.67 L Hgb 8.3 L Hct 24.6 L MCV 92 MCH 31.1 MCHC 33.7 RDW Std Deviation 50.7 H Plt Count 207 Neut % (Auto) 60 Lymph % (Auto) 25 [place] % (Auto) 11 Eos % (Auto) 4 Baso % (Auto) 1 Neut # (Auto) 2.7 Lymph # (Auto) 1.1 [place] # (Auto) 0.5 Eos # (Auto) 0.2 Baso # (Auto) 0.0 Immature Gran # (Auto) 0.01 H Absolute Nucleated RBC 0.00 Immature Gran % 0 Nucleated RBC % 0 Sodium 135 L Potassium 4.7 D 4.7 Chloride 94 L Carbon Dioxide 25.1 Anion Gap 16 BUN 47 H Creatinine 6.6 H* D Estim Creat Clear Calc 7.6 L eGFR 6 L* BUN/Creatinine Ratio 7 L Glucose 92 Calculated Osmolality 282 Calcium 8.0 L Corrected Calcium 8.5 Phosphorus 6.3 H Magnesium 2.0 Total Bilirubin 0.2 L AST 13 ALT < 7 L Alkaline Phosphatase 140 H Total Protein 6.2 Albumin 3.4 Globulin 2.8 Albumin/Globulin Ratio 1.2 Crossmatch See Detail Quality Measures Quality Measures none Advance care planning discussed with:: patient Assessment & Plan Assessment Current Active Medications: Generic Name Dose Route Start Last Admin Trade Name Freq PRN Reason Stop Dose Admin Acetaminophen 650 mg 10/08/24 01:32 10/08/24 09:36 Acetaminophen 325 Mg Tablet PO 11/07/24 01:31 650 mg Q6H PRN Administration Fever >100.4 or pain 1-3(mild Calcium Acetate 667 mg 10/08/24 08:00 10/11/24 09:43 Calcium Acetate 667 Mg Tablet PO 11/07/24 07:59 Not Given TIDWM JANINE Carvedilol 25 mg 10/10/24 17:30 10/11/24 09:43 Carvedilol 12.5 Mg Tablet PO 11/09/24 17:29 Not Given BIDWM [facility] Clonidine 0.2 mg 10/08/24 01:45 10/11/24 05:20 Clonidine Hcl 0.1 Mg Tablet PO 11/07/24 01:44 0.2 mg TID JANINE Administration Dextrose 25 ml 10/08/24 01:32 Dextrose 50%-Water Inj 50 Ml Syringe IV 11/07/24 01:31 Q15MIN PRN BG 50-70 responsive npo pt Dextrose 50 ml 10/08/24 01:32 Dextrose 50%-Water Inj 50 Ml Syringe IV 11/07/24 01:31 Q15MIN PRN BG <50 OR BG <70 & pt unresponsive Epoetin Alan 10,000 unit 10/11/24 12:00 10/11/24 11:11 Epoetin Alan-Epbx Inj 10,000 Unit/Ml Vial (Esrd) SC 10/11/24 12:01 10,000 unit X1 ONE Administration Glucagon 1 mg 10/08/24 01:32 Glucagon Inj 1 Mg Vial IM Q15MIN PRN BG <70, and no IV access Hydralazine HCl 50 mg 10/11/24 14:00 Hydralazine Hcl 25 Mg Tablet PO 11/10/24 13:59 TID [facility] Sodium Chloride 500 mls @ 10 minidrops/min 10/10/24 17:25 10/10/24 17:59 Ns IV 10/11/24 17:24 10 minidrops/min .Q24H ONE Administration Insulin Human Lispro 0 unit 10/08/24 07:30 10/11/24 07:32 Insulin Lispro (Admelog) 1 Unit/0.01 Ml Unit SC 11/07/24 07:29 Not Given AC [facility] Protocol Nifedipine 60 mg 10/08/24 01:45 10/11/24 09:44 Nifedipine Xl 30 Mg Tabcr PO 11/07/24 01:44 Not Given BID [facility] Ondansetron HCl 4 mg 10/08/24 01:32 Ondansetron Inj 2 Mg/Ml Inj 2 Ml IVP 11/07/24 01:31 Q6H PRN NAUSEA OR VOMITING Protocol Pantoprazole Sodium 40 mg 10/08/24 09:00 10/11/24 09:44 Pantoprazole Inj 40 Mg Vial IVP 11/07/24 08:59 Not Given BID JANINE Tramadol HCl 50 mg 10/09/24 10:57 10/11/24 06:20 Tramadol Hcl 50 Mg Tablet PO 10/13/24 01:31 50 mg Q6HR PRN Administration PAIN SCALE 4-10(Mod-Sev Valsartan 160 mg 10/08/24 01:45 10/11/24 09:44 Valsartan 80 Mg Tablet PO 11/07/24 01:44 Not Given BID JANINE Plan 73F with PMHx significant for ESRD (M/W/F), HTN, type 2 diabetes, HFpEF presenting with chief complaint of symptomatic anemia of progressive shortness of breath, weakness, fatigue x 2 weeks, admitted for symptomatic anemia. #Symptomatic anemia #Anemia of chronic kidney disease #GI bleeding Patient presented with chief complaint of progressive shortness of breath, weakness, fatigue x 2 weeks. Patient was told by dialysis center to go to ED for blood transfusion. On presentation hemoglobin 5.9, 2 units PRBCs ordered in ED. Patient denies chest pain, hematemesis, melena. Anemia most likely due to chronic kidney disease vs upper or lower GI bleed however no melena or hematochezia. Hgb: 5.9 --> 8.9 -->9.2 -->8.3 EGD (10/10/24) showed diffused moderately erythematous mucosa of the gastric antrum without any active bleeding. As this finding does not explain the Hgb of 5.9 on admission, patient will undergo a colonosocpy by Dr. Saldivar later today. Stool occult test positive (10/10/24) Blood smear showed severe anemia with early RBC macrocytosis; hypersegmented neutrophils present; suggesting B12/golate deficiency. MCV 102, B12 701, Folate 13.78 Plan: - Colonoscopy with Dr. Saldivar today - Monitor hemoglobin, transfuse as needed #ESRD (M/W/F) Patient history as stated. Follows Dr. Edge, consulted. Received HD today. Plan: - Ordered Kayexalate x1 for elavated K - Renally dose meds as needed - Nephrology consulted, appreciate recommendations - Jose A held per nephrology #HTN #Hypertensive urgency Persistent. Patient history as stated. Patient blood pressure significantly elevated in ED, with SBP > 190. No signs of end organ damage, patient denies headaches, blurry vision, chest pain. Received topical nitro in the ED. Patient SBP remains in 150s despite on 4 antihypertensive agents. Plan: - Continue Clonidine 0.2 mg 3 times daily - Continue Valsartan 160 mg twice daily - Continue Nifedipine 60 mg twice daily - Continue Carvedilol 25 mg PO QDAY - Start hydralazine 50 TID #HFpEF Patient history as stated. Last echo 12/04/2023 showed EF 55 to 60% patient does not make urine. Chest x-ray shows vascular congestion. Patient saturating well on room air, not edematous. US pleural showed mild to moderate plural fluid on the right and mild pleural fluid on the left. Plan: - Dialysis as above - Pulmonology was consulted who recommended thoracenthesis if symptomatic or pleural fluid worsens. - Resume home medications as above #Diabetes (resolved) Patient history of [id number] diabetes. Not currently on active management. A1C: 5.4 Plan: - ISS DVT prophylaxis: SCDs GI prophylaxis: Protonix Diet: Cardiac/renal/carb consistent Lines: Peripheral IV Code status: DNR Plan of care discussed with attending Dr. Wilkinson and senior resident Dr. Yann Benavidez, DO PGY-1
[2024-10-11] MEDS: CALCIUM ACETATE 667 MG TABLET PO ×2 (12:54→16:59)
--- NOTE | 2024-10-11 13:36 | CHAP ---
Patient did not speak Hungarian. With what little South Korean I know I told her that I was from the [employer] staff and offered to pray for her in Hungarian. That was OK with her and I prayed with her for her upcoming procedure.
--- NOTE | 2024-10-11 16:44 | PC.SS ---
Rounding Note: Colonoscopy is pending. Dr. Saldivar is consulting. Possible d/c tomorrow.
--- NOTE | 2024-10-11 20:20 | ESPR_ITS ---
Documentation for date of: 10/11/24 Subjective Subjective Interval history: Patient evaluated patient was scheduled for a colonoscopy but not clear GoLytely prep to continue procedure postponed to tomorrow Exam Vital Signs Temp Pulse Resp BP Pulse Ox O2 Del Method O2 Flow Rate 98.1 F 80 22 H 142/91 H 98 Nasal Cannula 2 10/11/24 16:00 10/11/24 17:07 10/11/24 17:07 10/11/24 16:59 10/11/24 17:07 10/11/24 16:00 10/11/24 17:07 FiO2 97 10/11/24 12:30 Objective Labs 10/11/24 04:40 10/11/24 04:40 Labs: Laboratory Results - last 24 hr 10/11/24 04:40 WBC 4.4 RBC 2.67 L Hgb 8.3 L Hct 24.6 L MCV 92 MCH 31.1 MCHC 33.7 RDW Std Deviation 50.7 H Plt Count 207 Neut % (Auto) 60 Lymph % (Auto) 25 [place] % (Auto) 11 Eos % (Auto) 4 Baso % (Auto) 1 Neut # (Auto) 2.7 Lymph # (Auto) 1.1 [place] # (Auto) 0.5 Eos # (Auto) 0.2 Baso # (Auto) 0.0 Immature Gran # (Auto) 0.01 H Absolute Nucleated RBC 0.00 Immature Gran % 0 Nucleated RBC % 0 Sodium 135 L Potassium 4.7 Chloride 94 L Carbon Dioxide 25.1 Anion Gap 16 BUN 47 H Creatinine 6.6 H* D Estim Creat Clear Calc 7.6 L eGFR 6 L* BUN/Creatinine Ratio 7 L Glucose 92 Calculated Osmolality 282 Calcium 8.0 L Corrected Calcium 8.5 Phosphorus 6.3 H Magnesium 2.0 Total Bilirubin 0.2 L AST 13 ALT < 7 L Alkaline Phosphatase 140 H Total Protein 6.2 Albumin 3.4 Globulin 2.8 Albumin/Globulin Ratio 1.2 Impressions Impression: Anemia blood loss Gastritis Colonoscopy tomorrow once patient is cleared As long as patient is drinking GoLytely clear liquid to continue once patient is clear n.p.o. except p.o. meds Assessment & Plan A&P Narrative # Anemia blood loss requiring transfusion # End-stage renal disease on hemodialysis MWF # Essential hypertension # Diabetes mellitus type 2 Plan N.p.o. midnight tonight except p.o. meds Consent obtained for fiberoptic esophagogastroduodenoscopy with possible biopsy possible therapeutic intervention under intravenous moderate sedation If EGD is negative we will consider doing a fiberoptic colonoscopy Thank you very much for the opportunity to participate in the care of this patient Time Spent With Patient Time: Total time spent is greater than 50% in coordination of care (as documented) at patient's floor/unit and/or counseling patient:
[2024-10-11] MEDS: NIFEdipine XL 30 MG TABCR 60 MG PO (21:06)
[2024-10-11] MEDS: VALSARTAN 80 MG TABLET 160 MG PO (21:06)
--- NOTE | 2024-10-11 23:45 | PC.NURSE ---
Pt resting in bed, no respiratory distress observed- currently on 2LNC; gcs 15, denies pain and nausea- currently resting from Golytely and requesting to rest for a while before resuming the remaining liter or so of the solution. Agree with previous slagger, assuming care of pt at this time.
[2024-10-12] VITALS (16 sets, daily range): BP systolic 122–162; BP diastolic 48–69; PULSE 57–78; RESP 12–29; TEMP 36.2–37; O2SAT 94–100; BMI 25.4
[2024-10-12] MEDS: NA SU/NAHCO3/KC/PEG (Golytely) 4,000 ML BTL 4000 ML PO (04:35)
[2024-10-12 06:46] LABS: Basophils # (Auto) 0.0 Thou/mm3 (0.0-0.2); Basophils % (Auto) 1 % (0-2.5); Eosinophils # (Auto) 0.1 Thou/mm3 (0.0-0.5); Eosinophils % (Auto) 4 % (0-10); Hematocrit 27.1 % (36.0-46.0); Hemoglobin 9.1 g/dL (12.0-16.0); Immature Granulocytes Auto 0.01 Thou/mm3 (0.00-0.00); Lymphocytes # (Auto) 0.7 Thou/mm3 (1.0-4.8); Lymphocytes % (Auto) 20 % (10-50); Mean Corpuscular HGB Conc 33.6 g/dl (31.0-37.0); Mean Corpuscular Hemoglobin 31.3 pg (25.0-35.0); Mean Corpuscular Volume 93 fL (80-100); Monocytes # (Auto) 0.4 Thou/mm3 (0.0-0.8); Monocytes % (Auto) 12 % (0-12); Neutrophils # (Auto) 2.1 Thou/mm3 (1.8-7.7); Neutrophils % (Auto) 63 % (37-80); Nucleated Red Blood Cell # 0.00 Thou/mm3 (0.00-0.00); Nucleated Red Blood Cell % 0 /100 WBC (0); Platelet Count 208 Thou/mm3 (140-440); RDW Standard Deviation 51.6 fL (36.4-46.3); Red Blood Count 2.91 Miln/mm3 (4.00-5.20); White Blood Count 3.4 Thou/mm3 (3.6-11.0)
[2024-10-12 06:59] LABS: Alanine Aminotransferase < 7 U/L (10-49); Albumin, Serum 3.7 gm/dL (3.4-4.8); Albumin/Globulin Ratio 1.4 (1.2-2.2); Alkaline Phosphatase 155 U/L (46-116); Anion Gap 14 (7-16); Aspartate Amino Transferase 18 U/L (0-34); BUN/Creatinine Ratio 5 Ratio (12-20); Bilirubin,Total 0.2 mg/dL (0.3-1.2); Blood Urea Nitrogen 21 mg/dL (9-23); Calcium 8.5 mg/dL (8.3-10.6); Calcium (Corrected) 8.7 mg/dL (8.5-10.1); Carbon Dioxide 29.5 mMol/L (20.0-31.0); Chloride 97 mMol/L (98-107); Creatinine (Component) 4.1 mg/dL (0.6-1.3); Estimated Creatinine Clearance 11.9 mL/min (>60); Globulin 2.7 gm/dL (2.3-3.5); Glucose 101 mg/dL (74-106); Osmolality,Calculated 282 (275-295); Potassium 3.7 mMol/L (3.4-5.1); Sodium 140 mMol/L (136-145); Total Protein 6.4 gm/dL (5.7-8.2); eGFR 11 See Note
--- NOTE | 2024-10-12 08:03 | ESPR_ITS ---
<Statement entered by Bakari Wilkinson MD - 10/15/24 15:13> I reviewed above note and agree with findings and plans. I have also personally examined the patient with medicine team and went over assessment and plan with medical team including credit intern and resident physician. <Statement entered by Antonio Saunders MD - 10/12/24 17:10> Patient was examined and case was reviewed with team including attending physician. Note reviewed, I agree with most of its contents and agree with the patient's care as documented by Dr. Benavidez Patient seen evaluated at the bedside. No overnight events reported. Hydralazine uptitrated as patient's blood pressure continues to be elevated. Patient is still pending colonoscopy today with Dr. Saldivar as yesterday patient was not clear. To follow at this time. Case discussed with my attending Dr. Jaja Saunders MD PGY-2 Disclaimer: Despite multiple revisions, due to the dictation software being used, the document bellow may not be free of grammatical errors including phonetic/typographic errors. However, this does not deter from our commitment to providing health care in the patient's best interest in mind. Documentation for date of: 10/12/24 Subjective Subjective Interval history: 10/12/24: NAEON. vital signs remain stable except for elevated SBP>150s despite now being on 5 antihypertensive medications. Patient reports nausea this morning however denies any shortness of breath or abdominal pain. Patient does not have any other complaints at this time. Patient's colonoscopy with Dr. Saldivar yesterday was postpone to today. Exam Vital Signs Temp Pulse Resp BP Pulse Ox O2 Del Method O2 Flow Rate 97.1 F 76 18 157/50 H 95 Nasal Cannula 2 10/12/24 04:00 10/12/24 07:00 10/12/24 07:00 10/12/24 05:43 10/12/24 07:00 10/12/24 04:00 10/12/24 07:00 FiO2 97 10/11/24 12:30 Narrative Exam Gen: Well-developed and well-nourished. HEENT: PERRLA, EOMI, MMM, anicteric conjunctivae. Grown hairs noted on the forehead most likely due to recent Minoxidil that patient has taken. CVS: normal S1 and S2. RRR. No M/R/G. Resp: Crackles in lung bases R>L. No rhonchi, rales, crackles or wheezing. Abd: soft, non-distended. Epigastric disomfort to palpation. No rigidity or rebound. MSK: Good ROM in BUE & BLE. No edema or rash. Left upper arm fistula. Neuro: CN II-XII grossly intact. Strength 5/5 in BUE & BLE. Alert and oriented x3. Psych: appropriate mood and affect. Objective Labs 10/12/24 06:14 10/12/24 06:14 Labs: Laboratory Results - last 24 hr 10/12/24 06:14 WBC 3.4 L RBC 2.91 L Hgb 9.1 L Hct 27.1 L MCV 93 MCH 31.3 MCHC 33.6 RDW Std Deviation 51.6 H Plt Count 208 Neut % (Auto) 63 Lymph % (Auto) 20 [place] % (Auto) 12 Eos % (Auto) 4 Baso % (Auto) 1 Neut # (Auto) 2.1 Lymph # (Auto) 0.7 L [place] # (Auto) 0.4 Eos # (Auto) 0.1 Baso # (Auto) 0.0 Immature Gran # (Auto) 0.01 H Absolute Nucleated RBC 0.00 Immature Gran % 0 Nucleated RBC % 0 Sodium 140 Potassium 3.7 D Chloride 97 L Carbon Dioxide 29.5 Anion Gap 14 BUN 21 Creatinine 4.1 H* D Estim Creat Clear Calc 11.9 L eGFR 11 L* BUN/Creatinine Ratio 5 L Glucose 101 Calculated Osmolality 282 Calcium 8.5 Corrected Calcium 8.7 Total Bilirubin 0.2 L AST 18 ALT < 7 L Alkaline Phosphatase 155 H Total Protein 6.4 Albumin 3.7 Globulin 2.7 Albumin/Globulin Ratio 1.4 Quality Measures Quality Measures VTE prophylaxis Advance care planning discussed with:: patient Assessment & Plan Assessment Current Active Medications: Generic Name Dose Route Start Last Admin Trade Name Freq PRN Reason Stop Dose Admin Acetaminophen 650 mg 10/08/24 01:32 10/08/24 09:36 Acetaminophen 325 Mg Tablet PO 11/07/24 01:31 650 mg Q6H PRN Administration Fever >100.4 or pain 1-3(mild Calcium Acetate 667 mg 10/08/24 08:00 10/11/24 16:59 Calcium Acetate 667 Mg Tablet PO 11/07/24 07:59 667 mg TIDWM JANINE Administration Carvedilol 25 mg 10/10/24 17:30 10/11/24 16:59 Carvedilol 12.5 Mg Tablet PO 11/09/24 17:29 25 mg BIDWM JANINE Administration Clonidine 0.2 mg 10/08/24 01:45 10/12/24 05:43 Clonidine Hcl 0.1 Mg Tablet PO 11/07/24 01:44 0.2 mg TID JANINE Administration Dextrose 25 ml 10/08/24 01:32 Dextrose 50%-Water Inj 50 Ml Syringe IV 11/07/24 01:31 Q15MIN PRN BG 50-70 responsive npo pt Dextrose 50 ml 10/08/24 01:32 Dextrose 50%-Water Inj 50 Ml Syringe IV 11/07/24 01:31 Q15MIN PRN BG <50 OR BG <70 & pt unresponsive Glucagon 1 mg 10/08/24 01:32 Glucagon Inj 1 Mg Vial IM Q15MIN PRN BG <70, and no IV access Hydralazine HCl 50 mg 10/11/24 14:00 10/12/24 05:43 Hydralazine Hcl 25 Mg Tablet PO 11/10/24 13:59 50 mg TID JANINE Administration Insulin Human Lispro 0 unit 10/08/24 07:30 10/12/24 07:32 Insulin Lispro (Admelog) 1 Unit/0.01 Ml Unit SC 11/07/24 07:29 Not Given AC [facility] Protocol Nifedipine 60 mg 10/08/24 01:45 10/11/24 21:06 Nifedipine Xl 30 Mg Tabcr PO 11/07/24 01:44 60 mg BID JANINE Administration Ondansetron HCl 4 mg 10/08/24 01:32 Ondansetron Inj 2 Mg/Ml Inj 2 Ml IVP 11/07/24 01:31 Q6H PRN NAUSEA OR VOMITING Protocol Pantoprazole Sodium 40 mg 10/08/24 09:00 10/11/24 21:03 Pantoprazole Inj 40 Mg Vial IVP 11/07/24 08:59 40 mg BID JANINE Administration Tramadol HCl 50 mg 10/11/24 15:56 Tramadol Hcl 50 Mg Tablet PO 10/14/24 10:56 Q12HR PRN PAIN SCALE 4-10(Mod-Sev Valsartan 160 mg 10/08/24 01:45 10/11/24 21:06 Valsartan 80 Mg Tablet PO 11/07/24 01:44 160 mg BID JANINE Administration Plan 73F with PMHx significant for ESRD (M/W/F), HTN, type 2 diabetes, HFpEF presenting with chief complaint of symptomatic anemia of progressive shortness of breath, weakness, fatigue x 2 weeks, admitted for symptomatic anemia. #Symptomatic anemia (Improved/0 #Anemia of chronic kidney disease #GI bleeding Patient presented with chief complaint of progressive shortness of breath, weakness, fatigue x 2 weeks. Patient was told by dialysis center to go to ED for blood transfusion. On presentation hemoglobin 5.9, 2 units PRBCs ordered in ED. Patient denies chest pain, hematemesis, melena. Anemia most likely due to chronic kidney disease vs upper or lower GI bleed however no melena or hematochezia. Hgb: 5.9 --> 8.9 -->9.2 -->8.3 -->9.1 EGD (10/10/24) showed diffused moderately erythematous mucosa of the gastric antrum without any active bleeding. As this finding does not explain the Hgb of 5.9 on admission, patient will undergo a colonosocpy by Dr. Saldivar later today. Stool occult test positive (10/10/24) Blood smear showed severe anemia with early RBC macrocytosis; hypersegmented neutrophils present; suggesting B12/golate deficiency. MCV 102, B12 701, Folate 13.78 Plan: - Colonoscopy with Dr. Saldivar today - Monitor hemoglobin, transfuse as needed #ESRD (M/W/F) Patient history as stated. Follows Dr. Edge, consulted. Received HD yesterday. Plan: - Renally dose meds as needed - Nephrology consulted, appreciate recommendations - Jose A held per nephrology #HTN #Hypertensive urgency Persistent. Patient history as stated. Patient blood pressure significantly elevated in ED, with SBP > 190. No signs of end organ damage, patient denies headaches, blurry vision, chest pain. Received topical nitro in the ED. Patient SBP remains in >150s despite on 5 antihypertensive agents. Plan: - Continue Clonidine 0.2 mg 3 times daily - Continue Valsartan 160 mg twice daily - Continue Nifedipine 60 mg twice daily - Continue Carvedilol 25 mg PO QDAY - Increase hydralazine 100 TID - Will consider starting minoxidil if still hypertensive #HFpEF Patient history as stated. Last echo 12/04/2023 showed EF 55 to 60% patient does not make urine. Chest x-ray shows vascular congestion. Patient saturating well on room air, not edematous. US pleural showed mild to moderate plural fluid on the right and mild pleural fluid on the left. Plan: - Dialysis as above - Pulmonology was consulted who recommended thoracenthesis if symptomatic or pleural fluid worsens. - Resume home medications as above #Diabetes (resolved) Patient history of qdo-gziczmn-hjukbjill diabetes. Not currently on active management. A1C: 5.4 Plan: - ISS DVT prophylaxis: SCDs GI prophylaxis: Protonix Diet: Cardiac/renal/carb consistent Lines: Peripheral IV Code status: DNR Plan of care discussed with attending Dr. Wilkinson and senior resident Dr. Yann Benavidez, DO PGY-1
[2024-10-12] MEDS: NIFEdipine XL 30 MG TABCR 60 MG PO ×2 (08:11→20:27)
[2024-10-12] MEDS: VALSARTAN 80 MG TABLET 160 MG PO ×2 (08:12→22:00)
[2024-10-12] MEDS: CALCIUM ACETATE 667 MG TABLET PO ×3 (08:12→17:53)
--- NOTE | 2024-10-12 08:43 | ESPR_ITS ---
Documentation for date of: 10/12/24 Subjective Subjective Interval history: Mrs. Sheridan is a 73-year-old lady with extensive past medical history of ESRD (M/W/F), uncontrolled hypertension for many years, diabetes type 2, congestive heart failure with normal ejection fraction, history of depression presented to the emergency department sent by dialysis unit for an abnormal hemoglobin of 5.9. Dialysis unit called me that her hemoglobin dropped to 5.5 and I recommended for her to go to the ED for further evaluation. Patient feeling fatigued and tired. Also noted shortness of breath. Was given 2 units of blood transfusion yesterday. Nephrology consultation requested as she is due for dialysis today. Patient currently seen on dialysis. No active GI bleed. ED COURSE: Labs significant for: Hemoglobin 5.9. WC 5.0, BUN 27, creatinine 4.5, EGFR 10. Imaging significant for: Chest x-ray showing vascular congestion, right base consolidation seen on previous imaging consistent with lung scarring. Patient significantly hypertensive with SBP greater than 190, given Lasix, morphine, topical nitro in the ED. 2 units PRBC was transfused last night PMH: ESRD, HFpEF, diabetes, HTN PSH: Left upper extremity fistula placement SH: Denies alcohol, tobacco, illicit drug use Allergies:?NKDA Medications: Clonidine, valsartan, nifedipine, sevelamer, calcium acetate Patient admitted to telemetry. Currently seen on dialysis. 10/09/2024 patient currently seen in telemetry. Resting comfortably. Did receive dialysis yesterday. Blood pressure seems to be on the higher side. Dr. Garza tried right thoracentesis- not much fluid to be drained. Hemoglobin 9.2, phosphorus 5.2, creatinine 4.8. 10/10/2024: Patient was seen and examined at bedside this AM. No acute events overnight. Patient underwent HD on 10/08/2024, RFT as expected. Hemoglobin down trended from 9.2 -> 8.5, unknown etiology, underlying normocytic anemia of CKD. GI Dr. Saldivar consulted for symptomatic anemia, patient n.p.o. since midnight for EGD scheduled today. She received PRBC transfusion, with improvement in H&H and symptoms. Today the patient complains of excessive hair growth on her forehead, likely due to outpatient minoxidil use. Was counseled to stop minoxidil on discharge, will document for family to refer to, as patient does not manage her own medications. Will follow-up GI recommendations regarding anemia, pending rule out GIB. 10/11/2024: Patient seen and examined at bedside. No acute events overnight. Patient is status post EGD with Dr. Saldivar with no acute findings to explain potential GI bleed moderate erythematous stomach antrum. Pending colonoscopy today hemoglobin stable today at 8.3 sodium 135 potassium 4.7 BUN 47 creatinine 6.6 from 5.6 . plan for HD today 10/12/2024: Patient seen and examined at bedside. Patient states that she has neck pain requesting Tylenol. Hgb stable.she did not have colonoscopy yesterday because stools were not yet clear she continues on GoLytely prep with plan for colonoscopy later today. Blood pressures have been labile throughout admission ranging from 150s to 180s systolic pt is on max dose nifedipine BID, per primary team added hydralizine 100 TID. Hemoglobin stable at 9, potassium 3.7 BUN 21 from 47 creatinine 4.1 from 6.6. No dialysis today Exam Vital Signs Temp Pulse Resp BP Pulse Ox O2 Del Method O2 Flow Rate 97.6 F 70 23 H 154/56 H 95 Nasal Cannula 3 10/12/24 08:00 10/12/24 08:12 10/12/24 08:00 10/12/24 08:12 10/12/24 08:00 10/12/24 08:00 10/12/24 08:00 FiO2 97 10/11/24 12:30 Narrative Exam GENERAL APPEARANCE: Patient seems to be comfortable, adequately hydrated and nourished. At bedside. HEENT: EOMI, C/O posterior neck pain NECK: Neck supple, no JVD CARDIOVASCULAR: Heart regular, 2/6 murmurs LUNGS/CHEST: Chest clear to auscultation. No rales, rhonchi, wheezing nitro paste on chest, ABDOMEN: Soft, nontender, nondistended. No masses. Normal bowel sounds. EXTREMITIES: No edema, clubbing or cyanosis. SKIN: Skin exam normal without any rashes . Rt arm AVF + MUSCULOSKELETAL: Musculoskeletal exam normal PSYCHIATRIC: Normal mood, affect LYMPHATICS: No lymphadenopathy noted NEUROLOGICAL : No neurological deficits Objective Labs 10/12/24 06:14 10/12/24 06:14 Labs: Laboratory Results - last 24 hr 10/12/24 06:14 WBC 3.4 L RBC 2.91 L Hgb 9.1 L Hct 27.1 L MCV 93 MCH 31.3 MCHC 33.6 RDW Std Deviation 51.6 H Plt Count 208 Neut % (Auto) 63 Lymph % (Auto) 20 [place] % (Auto) 12 Eos % (Auto) 4 Baso % (Auto) 1 Neut # (Auto) 2.1 Lymph # (Auto) 0.7 L [place] # (Auto) 0.4 Eos # (Auto) 0.1 Baso # (Auto) 0.0 Immature Gran # (Auto) 0.01 H Absolute Nucleated RBC 0.00 Immature Gran % 0 Nucleated RBC % 0 Sodium 140 Potassium 3.7 D Chloride 97 L Carbon Dioxide 29.5 Anion Gap 14 BUN 21 Creatinine 4.1 H* D Estim Creat Clear Calc 11.9 L eGFR 11 L* BUN/Creatinine Ratio 5 L Glucose 101 Calculated Osmolality 282 Calcium 8.5 Corrected Calcium 8.7 Total Bilirubin 0.2 L AST 18 ALT < 7 L Alkaline Phosphatase 155 H Total Protein 6.4 Albumin 3.7 Globulin 2.7 Albumin/Globulin Ratio 1.4 Quality Measures Quality Measures VTE prophylaxis Advance care planning discussed with:: patient Assessment & Plan Assessment Current Active Medications: Generic Name Dose Route Start Last Admin Trade Name Freq PRN Reason Stop Dose Admin Acetaminophen 650 mg 10/08/24 01:32 10/08/24 09:36 Acetaminophen 325 Mg Tablet PO 11/07/24 01:31 650 mg Q6H PRN Administration Fever >100.4 or pain 1-3(mild Calcium Acetate 667 mg 10/08/24 08:00 10/12/24 08:12 Calcium Acetate 667 Mg Tablet PO 11/07/24 07:59 667 mg TIDWM JANINE Administration Carvedilol 25 mg 10/10/24 17:30 10/12/24 08:12 Carvedilol 12.5 Mg Tablet PO 11/09/24 17:29 25 mg BIDWM JANINE Administration Clonidine 0.2 mg 10/08/24 01:45 10/12/24 05:43 Clonidine Hcl 0.1 Mg Tablet PO 11/07/24 01:44 0.2 mg TID JANINE Administration Dextrose 25 ml 10/08/24 01:32 Dextrose 50%-Water Inj 50 Ml Syringe IV 11/07/24 01:31 Q15MIN PRN BG 50-70 responsive npo pt Dextrose 50 ml 10/08/24 01:32 Dextrose 50%-Water Inj 50 Ml Syringe IV 11/07/24 01:31 Q15MIN PRN BG <50 OR BG <70 & pt unresponsive Glucagon 1 mg 10/08/24 01:32 Glucagon Inj 1 Mg Vial IM Q15MIN PRN BG <70, and no IV access Hydralazine HCl 50 mg 10/11/24 14:00 10/12/24 05:43 Hydralazine Hcl 25 Mg Tablet PO 11/10/24 13:59 50 mg TID JANINE Administration Insulin Human Lispro 0 unit 10/08/24 07:30 10/12/24 07:32 Insulin Lispro (Admelog) 1 Unit/0.01 Ml Unit SC 11/07/24 07:29 Not Given AC JANINE Protocol Nifedipine 60 mg 10/12/24 21:00 Nifedipine Xl 30 Mg Tabcr PO 11/11/24 20:59 BID JANINE Ondansetron HCl 4 mg 10/08/24 01:32 Ondansetron Inj 2 Mg/Ml Inj 2 Ml IVP 11/07/24 01:31 Q6H PRN NAUSEA OR VOMITING Protocol Pantoprazole Sodium 40 mg 10/08/24 09:00 10/12/24 08:13 Pantoprazole Inj 40 Mg Vial IVP 11/07/24 08:59 40 mg BID JANINE Administration Tramadol HCl 50 mg 10/11/24 15:56 10/12/24 08:12 Tramadol Hcl 50 Mg Tablet PO 10/14/24 10:56 50 mg Q12HR PRN Administration PAIN SCALE 4-10(Mod-Sev Valsartan 160 mg 10/08/24 01:45 10/12/24 08:12 Valsartan 80 Mg Tablet PO 11/07/24 01:44 160 mg BID JANINE Administration Plan Ms. Jimenez is a 73-year-old female with ESRD on HD (MWF), resistant HTN, HFpEF (EF 65-70%), chronic respiratory failure on 3 L home O2, chronic normocytic anemia, IDDM, HLD, and depression/anxiety who presented to the ED with anemia, status post EGD with no acute findings pending colonoscopy to rule out lower GI bleed given acute hemoglobin drops, Hgb now stable. Continues on hemodialysis per usual schedule of Friday ESRD on HD (MWF) On 10/12 BUN 21 from 47, Cr 4.1 from 6.6 - Last HD on 10/08, 10/11 Plan: - HD per usual schedule, no HD today - Continue to monitor urine output, avoid nephrotoxic agents and renally dose medications - May continue home calcium acetate at this time Acute symptomatic anemia,(hgb stable) secondary to possible GI bleed Upper GI bleed ruled out Query lower GI bleed Chronic normocytic anemia - Likely secondary to ESRD - She is s/p 2 units of blood transfusion. No daniel GI bleed. Hemoglobin stable at 9 Plan: - Patient was given Procrit with HD on 10/08 - Status post EGD with no acute findings mild erythema of gastric antrum noted. - Pending colonoscopy today, continues on golytely prep Resistant hypertension SBP 160s to 170s today Plan: - Resume home meds, nifedipine (on max dose BID) valsartan, clonidine 0.2 - Primary team added hydralizine 100 TID. - PRN labetalol for SBP >190 - Monitor vital signs closely Other medical problems: Electrolyte abnormalities Hyperphosphatemia HFpEF (EF 65-70%) Chronic respiratory failure, on 3 L home O2 IDDM (a1c 5.4) HLD Depression/Anxiety Management as per primary team Plan discussed with nephrology attending Dr. Minesh Hutchins MD Internal Medicine PGY-1 Attending Provider Attestation/Addendum Patient seen and examined with resident physician Dr. Hutchins. Note reviewed, agree with findings and recommendations. Patient admitted with GI bleed. Going for colonoscopy today. Next dialysis scheduled for tomorrow.
[2024-10-12] MEDS: ONDANSETRON INJ 2 MG/ML INJ 2 ML 4 MG IVP (09:42)
--- NOTE | 2024-10-12 11:35 | PC.SS ---
SS follow up note; Patient is pending Colonoscopy. Patient will discharge back home when medically cleared.
--- NOTE | 2024-10-12 18:33 | PC.NURSE ---
PT IN ROOM ALERT AND ORIENTED X3 POC DISCUSSED WITH PT
--- NOTE | 2024-10-12 20:34 | ESPR_ITS ---
Documentation for date of: 10/12/24 Subjective Subjective Interval history: Patient was scheduled for a colonoscopy but she was not clear additional GoLytely colonoscopy scheduled for tomorrow Exam Vital Signs Temp Pulse Resp BP Pulse Ox O2 Del Method O2 Flow Rate 97.4 F 66 12 143/57 H 94 L Nasal Cannula 1 10/12/24 16:00 10/12/24 20:27 10/12/24 16:00 10/12/24 20:27 10/12/24 16:00 10/12/24 16:00 10/12/24 16:00 FiO2 97 10/12/24 16:00 Objective Labs 10/12/24 06:14 10/12/24 06:14 Labs: Laboratory Results - last 24 hr 10/12/24 06:14 WBC 3.4 L RBC 2.91 L Hgb 9.1 L Hct 27.1 L MCV 93 MCH 31.3 MCHC 33.6 RDW Std Deviation 51.6 H Plt Count 208 Neut % (Auto) 63 Lymph % (Auto) 20 [place] % (Auto) 12 Eos % (Auto) 4 Baso % (Auto) 1 Neut # (Auto) 2.1 Lymph # (Auto) 0.7 L [place] # (Auto) 0.4 Eos # (Auto) 0.1 Baso # (Auto) 0.0 Immature Gran # (Auto) 0.01 H Absolute Nucleated RBC 0.00 Immature Gran % 0 Nucleated RBC % 0 Sodium 140 Potassium 3.7 D Chloride 97 L Carbon Dioxide 29.5 Anion Gap 14 BUN 21 Creatinine 4.1 H* D Estim Creat Clear Calc 11.9 L eGFR 11 L* BUN/Creatinine Ratio 5 L Glucose 101 Calculated Osmolality 282 Calcium 8.5 Corrected Calcium 8.7 Total Bilirubin 0.2 L AST 18 ALT < 7 L Alkaline Phosphatase 155 H Total Protein 6.4 Albumin 3.7 Globulin 2.7 Albumin/Globulin Ratio 1.4 Impressions Impression: Anemia blood loss colonoscopy a.m. Assessment & Plan A&P Narrative # Anemia blood loss requiring transfusion # End-stage renal disease on hemodialysis MWF # Essential hypertension # Diabetes mellitus type 2 Plan N.p.o. midnight tonight except p.o. meds Consent obtained for fiberoptic esophagogastroduodenoscopy with possible biopsy possible therapeutic intervention under intravenous moderate sedation If EGD is negative we will consider doing a fiberoptic colonoscopy Thank you very much for the opportunity to participate in the care of this patient Time Spent With Patient Time: Total time spent is greater than 50% in coordination of care (as documented) at patient's floor/unit and/or counseling patient:
[2024-10-13] VITALS (33 sets, daily range): BP systolic 136–174; BP diastolic 48–81; PULSE 60–86; RESP 16–20; TEMP 36.2–37.2; O2SAT 92–99
--- NOTE | 2024-10-13 01:40 | PC.NURSE ---
Encouraged pt to continue with Golytely consumption for pending Colonoscopy; pt refused stating let me rest, I can't drink any more right now . Will reattempt at later time.
[2024-10-13] MEDS: ONDANSETRON INJ 2 MG/ML INJ 2 ML 4 MG IVP ×2 (04:43→20:00)
[2024-10-13 06:56] LABS: Alanine Aminotransferase < 7 U/L (10-49); Albumin, Serum 3.5 gm/dL (3.4-4.8); Albumin/Globulin Ratio 1.4 (1.2-2.2); Alkaline Phosphatase 154 U/L (46-116); Anion Gap 19 (7-16); Aspartate Amino Transferase 15 U/L (0-34); BUN/Creatinine Ratio 5 Ratio (12-20); Bilirubin,Total < 0.2 mg/dL (0.3-1.2); Blood Urea Nitrogen 24 mg/dL (9-23); Calcium 8.7 mg/dL (8.3-10.6); Calcium (Corrected) 9.1 mg/dL (8.5-10.1); Carbon Dioxide 27.9 mMol/L (20.0-31.0); Chloride 94 mMol/L (98-107); Creatinine (Component) 5.0 mg/dL (0.6-1.3); Estimated Creatinine Clearance 10.0 mL/min (>60); Globulin 2.5 gm/dL (2.3-3.5); Glucose 79 mg/dL (74-106); Magnesium 2.0 mg/dL (1.6-2.6); Osmolality,Calculated 284 (275-295); Phosphorous 5.7 mg/dL (2.4-5.1); Potassium 4.4 mMol/L (3.4-5.1); Sodium 141 mMol/L (136-145); Total Protein 6.0 gm/dL (5.7-8.2); eGFR 9 See Note
--- NOTE | 2024-10-13 07:58 | ESPR_ITS ---
<Statement entered by Bakari Wilkinson MD - 10/15/24 15:14> I reviewed above note and agree with findings and plans. I have also personally examined the patient with medicine team and went over assessment and plan with medical team including quality assurance intern and resident physician. <Statement entered by Antonio Saunders MD - 10/14/24 14:59> Patient was examined and case was reviewed with team including attending physician. Note reviewed, I agree with most of its contents and agree with the patient's care. Antonio Saunders MD PGY-2 Documentation for date of: 10/13/24 Subjective Subjective Interval history: 10/13/24: NAEON. Vital signs stable. SBP is now better controlled in 130s-140s. Planned colonoscopy with GI yesterday was postponed to today. Patient completed her dialysis session today. Exam Vital Signs Temp Pulse Resp BP Pulse Ox O2 Del Method O2 Flow Rate 98.8 F 69 20 163/48 H 92 L Room Air 1 10/13/24 04:00 10/13/24 05:20 10/13/24 04:00 10/13/24 05:20 10/13/24 04:00 10/13/24 04:00 10/13/24 04:00 FiO2 97 10/13/24 04:00 Narrative Exam Gen: Well-developed and well-nourished. HEENT: PERRLA, EOMI, MMM, anicteric conjunctivae. Grown hairs noted on the forehead most likely due to recent Minoxidil that patient has taken. CVS: normal S1 and S2. RRR. No M/R/G. Resp: Crackles in lung bases R>L. No rhonchi, rales, crackles or wheezing. Abd: soft, non-distended. Epigastric disomfort to palpation. No rigidity or rebound. MSK: Good ROM in BUE & BLE. No edema or rash. Left upper arm fistula. Neuro: CN II-XII grossly intact. Strength 5/5 in BUE & BLE. Alert and oriented x3. Psych: appropriate mood and affect. Objective Labs 10/13/24 07:39 10/13/24 04:13 Labs: Laboratory Results - last 24 hr 10/13/24 04:13 Sodium 141 Potassium 4.4 D Chloride 94 L Carbon Dioxide 27.9 Anion Gap 19 H BUN 24 H Creatinine 5.0 H* D Estim Creat Clear Calc 10.0 L eGFR 9 L* BUN/Creatinine Ratio 5 L Glucose 79 Calculated Osmolality 284 Calcium 8.7 Corrected Calcium 9.1 Phosphorus 5.7 H Magnesium 2.0 Total Bilirubin < 0.2 L AST 15 ALT < 7 L Alkaline Phosphatase 154 H Total Protein 6.0 Albumin 3.5 Globulin 2.5 Albumin/Globulin Ratio 1.4 Quality Measures Quality Measures VTE prophylaxis Advance care planning discussed with:: patient Assessment & Plan Assessment Current Active Medications: Generic Name Dose Route Start Last Admin Trade Name Freq PRN Reason Stop Dose Admin Acetaminophen 650 mg 10/08/24 01:32 10/08/24 09:36 Acetaminophen 325 Mg Tablet PO 11/07/24 01:31 650 mg Q6H PRN Administration Fever >100.4 or pain 1-3(mild Calcium Acetate 667 mg 10/08/24 08:00 10/12/24 17:53 Calcium Acetate 667 Mg Tablet PO 11/07/24 07:59 667 mg TIDWM JANINE Administration Carvedilol 25 mg 10/10/24 17:30 10/12/24 17:54 Carvedilol 12.5 Mg Tablet PO 11/09/24 17:29 25 mg BIDWM JANINE Administration Clonidine 0.2 mg 10/08/24 01:45 10/13/24 05:20 Clonidine Hcl 0.1 Mg Tablet PO 11/07/24 01:44 0.2 mg TID JANINE Administration Dextrose 25 ml 10/08/24 01:32 Dextrose 50%-Water Inj 50 Ml Syringe IV 11/07/24 01:31 Q15MIN PRN BG 50-70 responsive npo pt Dextrose 50 ml 10/08/24 01:32 Dextrose 50%-Water Inj 50 Ml Syringe IV 11/07/24 01:31 Q15MIN PRN BG <50 OR BG <70 & pt unresponsive Epoetin Alan 10,000 unit 10/13/24 10:30 Epoetin Alan-Epbx Inj 10,000 Unit/Ml Vial (Esrd) SC 10/13/24 10:31 X1 ONE Glucagon 1 mg 10/08/24 01:32 Glucagon Inj 1 Mg Vial IM Q15MIN PRN BG <70, and no IV access Hydralazine HCl 100 mg 10/12/24 14:00 10/13/24 05:20 Hydralazine Hcl 25 Mg Tablet PO 11/11/24 13:59 100 mg TID JANINE Administration Insulin Human Lispro 0 unit 10/08/24 07:30 10/13/24 07:22 Insulin Lispro (Admelog) 1 Unit/0.01 Ml Unit SC 11/07/24 07:29 Not Given AC JANINE Protocol Nifedipine 60 mg 10/12/24 21:00 10/12/24 20:27 Nifedipine Xl 30 Mg Tabcr PO 11/11/24 20:59 60 mg BID JANINE Administration Ondansetron HCl 4 mg 10/08/24 01:32 10/13/24 04:43 Ondansetron Inj 2 Mg/Ml Inj 2 Ml IVP 11/07/24 01:31 4 mg Q6H PRN Administration NAUSEA OR VOMITING Protocol Pantoprazole Sodium 40 mg 10/08/24 09:00 10/12/24 20:27 Pantoprazole Inj 40 Mg Vial IVP 11/07/24 08:59 40 mg BID JANINE Administration Tramadol HCl 50 mg 10/11/24 15:56 10/12/24 08:12 Tramadol Hcl 50 Mg Tablet PO 10/14/24 10:56 50 mg Q12HR PRN Administration PAIN SCALE 4-10(Mod-Sev Valsartan 160 mg 10/08/24 01:45 10/12/24 22:00 Valsartan 80 Mg Tablet PO 11/07/24 01:44 160 mg BID JANINE Administration Plan 73F with PMHx significant for ESRD (M/W/F), HTN, type 2 diabetes, HFpEF presenting with chief complaint of symptomatic anemia of progressive shortness of breath, weakness, fatigue x 2 weeks, admitted for symptomatic anemia. #Symptomatic anemia (Improved) #Anemia of chronic kidney disease #GI bleeding Patient presented with chief complaint of progressive shortness of breath, weakness, fatigue x 2 weeks. Patient was told by dialysis center to go to ED for blood transfusion. On presentation hemoglobin 5.9, 2 units PRBCs ordered in ED. Patient denies chest pain, hematemesis, melena. Anemia most likely due to upper or lower GI bleed however no melena or hematochezia vs chronic kidney disease. Hgb: 5.9 --> 8.9 -->9.2 -->8.3 -->9.1-->9.8 EGD (10/10/24) showed diffused moderately erythematous mucosa of the gastric antrum without any active bleeding. As this finding does not explain the Hgb of 5.9 on admission, patient will undergo a colonosocpy by Dr. Saldivar later today. Stool occult test positive (10/10/24) Blood smear showed severe anemia with early RBC macrocytosis; hypersegmented neutrophils present; suggesting B12/golate deficiency. MCV 102, B12 701, Folate 13.78 Plan: - Colonoscopy with Dr. Saldivar today - Monitor hemoglobin, transfuse as needed #ESRD (M/W/F) Patient history as stated. Follows Dr. Edge, consulted. Received HD today. Plan: - Renally dose meds as needed - Nephrology consulted, appreciate recommendations - Jose A held per nephrology #HTN #Hypertensive urgency Persistent. Patient history as stated. Patient blood pressure significantly elevated in ED, with SBP > 190. No signs of end organ damage, patient denies headaches, blurry vision, chest pain. Received topical nitro in the ED. Improved SBP to 130s-140s.. Plan: - Continue Clonidine 0.2 mg 3 times daily - Continue Valsartan 160 mg twice daily - Continue Nifedipine 60 mg twice daily - Continue Carvedilol 25 mg PO QDAY - Continue hydralazine 100 TID - Will consider starting minoxidil if still hypertensive #HFpEF Patient history as stated. Last echo 12/04/2023 showed EF 55 to 60% patient does not make urine. Chest x-ray shows vascular congestion. Patient saturating well on room air, not edematous. US pleural showed mild to moderate plural fluid on the right and mild pleural fluid on the left. Plan: - Dialysis as above - Pulmonology was consulted who recommended thoracenthesis if symptomatic or pleural fluid worsens. - Resume home medications as above #Diabetes (resolved) Patient history of rex-zpxqbin-lseqgtllx diabetes. Not currently on active management. A1C: 5.4 Plan: - ISS DVT prophylaxis: SCDs GI prophylaxis: Protonix Diet: Cardiac/renal/carb consistent Lines: Peripheral IV Code status: DNR Plan of care discussed with attending Dr. Wilkinson and senior resident Dr. Yann Benavidez, DO PGY-1
[2024-10-13 08:39] LABS: Basophils # (Auto) 0.1 Thou/mm3 (0.0-0.2); Basophils % (Auto) 1 % (0-2.5); Eosinophils # (Auto) 0.1 Thou/mm3 (0.0-0.5); Eosinophils % (Auto) 1 % (0-10); Hematocrit 30.2 % (36.0-46.0); Hemoglobin 9.8 g/dL (12.0-16.0); Immature Granulocytes Auto 0.02 Thou/mm3 (0.00-0.00); Lymphocytes # (Auto) 1.0 Thou/mm3 (1.0-4.8); Lymphocytes % (Auto) 20 % (10-50); Mean Corpuscular HGB Conc 32.5 g/dl (31.0-37.0); Mean Corpuscular Hemoglobin 30.7 pg (25.0-35.0); Mean Corpuscular Volume 95 fL (80-100); Monocytes # (Auto) 0.4 Thou/mm3 (0.0-0.8); Monocytes % (Auto) 7 % (0-12); Neutrophils # (Auto) 3.7 Thou/mm3 (1.8-7.7); Neutrophils % (Auto) 70 % (37-80); Nucleated Red Blood Cell # 0.00 Thou/mm3 (0.00-0.00); Nucleated Red Blood Cell % 0 /100 WBC (0); Platelet Count 262 Thou/mm3 (140-440); RDW Standard Deviation 51.2 fL (36.4-46.3); Red Blood Count 3.19 Miln/mm3 (4.00-5.20); White Blood Count 5.2 Thou/mm3 (3.6-11.0)
--- NOTE | 2024-10-13 10:30 | PD.NEPHPROG ---
Documentation for date of: 10/13/24 Subjective Subjective Interval history: Mrs. Sheridan is a 73-year-old lady with extensive past medical history of ESRD (M/W/F), uncontrolled hypertension for many years, diabetes type 2, congestive heart failure with normal ejection fraction, history of depression presented to the emergency department sent by dialysis unit for an abnormal hemoglobin of 5.9. Dialysis unit called me that her hemoglobin dropped to 5.5 and I recommended for her to go to the ED for further evaluation. Patient feeling fatigued and tired. Also noted shortness of breath. Was given 2 units of blood transfusion yesterday. Nephrology consultation requested as she is due for dialysis today. Patient currently seen on dialysis. No active GI bleed. ED COURSE: Labs significant for: Hemoglobin 5.9. WC 5.0, BUN 27, creatinine 4.5, EGFR 10. Imaging significant for: Chest x-ray showing vascular congestion, right base consolidation seen on previous imaging consistent with lung scarring. Patient significantly hypertensive with SBP greater than 190, given Lasix, morphine, topical nitro in the ED. 2 units PRBC was transfused last night PMH: ESRD, HFpEF, diabetes, HTN PSH: Left upper extremity fistula placement SH: Denies alcohol, tobacco, illicit drug use Allergies:?NKDA Medications: Clonidine, valsartan, nifedipine, sevelamer, calcium acetate Patient admitted to telemetry. Currently seen on dialysis. 10/09/2024 patient currently seen in telemetry. Resting comfortably. Did receive dialysis yesterday. Blood pressure seems to be on the higher side. Dr. Garza tried right thoracentesis- not much fluid to be drained. Hemoglobin 9.2, phosphorus 5.2, creatinine 4.8. 10/13/2024 patient currently seen in dialysis. Resting comfortably. Pending colonoscopy for anemia. Patient still does not have clear stool. Review of Systems Review of Systems Narrative Review of Systems: CONSTITUTIONAL: Patient denies any fever, chills. Complaining of fatigue HEENT: Denies any visual disturbances or hearing problems. CARDIOVASCULAR: Patient denies any chest pain, shortness of breath, swelling in the lower extremities. PULMONARY: Patient denies any shortness of breath, cough. GASTROINTESTINAL: Patient denies any abdominal pain, constipation, nausea, vomiting, diarrhea. GENITOURINARY: Patient denies any urinary symptoms of burning or frequency or hematuria, denies any form in the urine. SKIN: Denies any rash. MUSCULOSKELETAL: Denies any muscular skeletal problems of joint pains. NEUROLOGICAL: Denies any neurological problems of strokes, seizures or confusion. Denies any memory problems. PSYCHIATRIC: History of depression Exam Vital Signs Temp Pulse Resp BP Pulse Ox O2 Del Method O2 Flow Rate 36.7 C 64 18 159/57 H 92 L Nasal Cannula 4 10/13/24 07:59 10/13/24 10:15 10/13/24 07:59 10/13/24 10:15 10/13/24 07:59 10/13/24 07:50 10/13/24 07:59 FiO2 97 10/13/24 04:00 Narrative Exam GENERAL APPEARANCE: Patient seems to be comfortable, adequately hydrated and nourished. Currently on dialysis HEENT: EOMI, C/O posterior neck pain NECK: Neck supple, no JVD CARDIOVASCULAR: Heart regular, 2/6 murmurs LUNGS/CHEST: Chest clear to auscultation. No rales, rhonchi, wheezing nitro paste on chest, ABDOMEN: Soft, nontender, nondistended. No masses. Normal bowel sounds. EXTREMITIES: No edema, clubbing or cyanosis. SKIN: Skin exam normal without any rashes . Rt arm AVF + MUSCULOSKELETAL: Musculoskeletal exam normal PSYCHIATRIC: Normal mood, affect LYMPHATICS: No lymphadenopathy noted NEUROLOGICAL : No neurological deficits Objective Labs 10/13/24 07:39 10/13/24 04:13 Labs: Laboratory Results - last 24 hr 10/13/24 10/13/24 04:13 07:39 WBC 5.2 D RBC 3.19 L Hgb 9.8 L Hct 30.2 L MCV 95 MCH 30.7 MCHC 32.5 RDW Std Deviation 51.2 H Plt Count 262 D Neut % (Auto) 70 Lymph % (Auto) 20 Wilkinson % (Auto) 7 Eos % (Auto) 1 Baso % (Auto) 1 Neut # (Auto) 3.7 Lymph # (Auto) 1.0 Wilkinson # (Auto) 0.4 Eos # (Auto) 0.1 Baso # (Auto) 0.1 Immature Gran # (Auto) 0.02 H Absolute Nucleated RBC 0.00 Immature Gran % 0 Nucleated RBC % 0 Sodium 141 Potassium 4.4 D Chloride 94 L Carbon Dioxide 27.9 Anion Gap 19 H BUN 24 H Creatinine 5.0 H* D Estim Creat Clear Calc 10.0 L eGFR 9 L* BUN/Creatinine Ratio 5 L Glucose 79 Calculated Osmolality 284 Calcium 8.7 Corrected Calcium 9.1 Phosphorus 5.7 H Magnesium 2.0 Total Bilirubin < 0.2 L AST 15 ALT < 7 L Alkaline Phosphatase 154 H Total Protein 6.0 Albumin 3.5 Globulin 2.5 Albumin/Globulin Ratio 1.4 Assessment & Plan Additional Assessment & Plan Additional Plan: Ms. Jimenez is a 73-year-old female with ESRD on HD (MWF), resistant HTN, HFpEF (EF 65-70%), chronic respiratory failure on 3 L home O2, chronic normocytic anemia, IDDM, HLD, and depression/anxiety who presented to the ED with anemia #ESRD on HD (MWF) Patient currently seen on dialysis. Tolerating dialysis without any problems. Hemodialysis for 3 hours, 2K, ultrafiltration 2-3 L, Epogen 6000, no heparin ordered. Plan of care discussed with the dialysis nurse. Please see dialysis flowsheet for further details. Continue home calcium acetate #Chronic normocytic anemia Likely secondary to ESRD Will give Procrit with HD Patient received 2 units of blood transfusion. No active GI bleed. Hemoglobin stable. Pending colonoscopy #Resistant hypertension Resume home meds, nifedipine, Aldactone ,valsartan, with as needed labetalol for SBP >190 Monitor vital signs #HFpEF (EF 65-70%) #Chronic respiratory failure, on 3 L home O2 #IDDM #HLD #Depression #Anxiety As per primary team Spoke to primary team. Quality - progress note Quality Measures Quality Measures: VTE prophylaxis Reason for Continued Stay Reason for Continued Stay: further monitoring
[2024-10-13] MEDS: EPOETIN ALFA-EPBX INJ 10,000 UNIT/ML VIAL (ESRD) 10000 UNIT SC (11:12)
[2024-10-13] MEDS: NA SU/NAHCO3/KC/PEG (Golytely) 4,000 ML BTL 4000 ML PO (11:49)
[2024-10-13] MEDS: NIFEdipine XL 30 MG TABCR 60 MG PO ×2 (11:50→20:32)
[2024-10-13] MEDS: CALCIUM ACETATE 667 MG TABLET PO ×2 (11:52→17:20)
[2024-10-13] MEDS: VALSARTAN 80 MG TABLET 160 MG PO ×2 (11:52→20:32)
--- NOTE | 2024-10-13 14:32 | PC.SS ---
Rounding: Pending colonoscopy, dc plan home
--- NOTE | 2024-10-13 15:10 | PC.NURSE ---
Addendum entered by Nadiya Petty RN 10/13/24 15:21: started patient on golytely bottle number 3. Patient went to dialysis and came back. Patient does not want to drink golytely anymore. I educated patient on the importance of drinking the golytely to help clean her bowels. I also suggested we can insert and NG tube and help her drink it that way. She refuses to drink golytely or the idea of an NG tube. Original Note: Started patient [place] golytely bottle number. Patient went to dialysis and came back. Patient does not want to drink golytely anymore. I educated patient on the importance of drinking it. I also suggested we can insert an NG tube and help her drink it. She refuses to drink it or the idea of an ng tube.
--- NOTE | 2024-10-13 17:59 | ESPR_ITS ---
Documentation for date of: 10/13/24 Subjective Subjective Interval history: Hemoglobin hematocrit 9.8 and 30.2 Patient has been on schedule for colonoscopy for last 3 days but not clear Canceled the colonoscopy again GoLytely prep to continue Exam Vital Signs Temp Pulse Resp BP Pulse Ox O2 Del Method O2 Flow Rate 97.3 F 67 18 174/56 H 97 Nasal Cannula 4 10/13/24 12:00 10/13/24 17:20 10/13/24 15:28 10/13/24 17:20 10/13/24 15:28 10/13/24 12:00 10/13/24 15:28 FiO2 97 10/13/24 04:00 Objective Labs 10/13/24 07:39 10/13/24 04:13 Labs: Laboratory Results - last 24 hr 10/13/24 10/13/24 04:13 07:39 WBC 5.2 D RBC 3.19 L Hgb 9.8 L Hct 30.2 L MCV 95 MCH 30.7 MCHC 32.5 RDW Std Deviation 51.2 H Plt Count 262 D Neut % (Auto) 70 Lymph % (Auto) 20 [place] % (Auto) 7 Eos % (Auto) 1 Baso % (Auto) 1 Neut # (Auto) 3.7 Lymph # (Auto) 1.0 [place] # (Auto) 0.4 Eos # (Auto) 0.1 Baso # (Auto) 0.1 Immature Gran # (Auto) 0.02 H Absolute Nucleated RBC 0.00 Immature Gran % 0 Nucleated RBC % 0 Sodium 141 Potassium 4.4 D Chloride 94 L Carbon Dioxide 27.9 Anion Gap 19 H BUN 24 H Creatinine 5.0 H* D Estim Creat Clear Calc 10.0 L eGFR 9 L* BUN/Creatinine Ratio 5 L Glucose 79 Calculated Osmolality 284 Calcium 8.7 Corrected Calcium 9.1 Phosphorus 5.7 H Magnesium 2.0 Total Bilirubin < 0.2 L AST 15 ALT < 7 L Alkaline Phosphatase 154 H Total Protein 6.0 Albumin 3.5 Globulin 2.5 Albumin/Globulin Ratio 1.4 Impressions Impression: Anemia blood loss continue GoLytely prep hopefully can do the colonoscopy by tomorrow Assessment & Plan A&P Narrative # Anemia blood loss requiring transfusion # End-stage renal disease on hemodialysis MWF # Essential hypertension # Diabetes mellitus type 2 Plan N.p.o. midnight tonight except p.o. meds Consent obtained for fiberoptic esophagogastroduodenoscopy with possible biopsy possible therapeutic intervention under intravenous moderate sedation If EGD is negative we will consider doing a fiberoptic colonoscopy Thank you very much for the opportunity to participate in the care of this patient Time Spent With Patient Time: Total time spent is greater than 50% in coordination of care (as documented) at patient's floor/unit and/or counseling patient:
--- NOTE | 2024-10-13 21:11 | XR_ITS ---
Examination: AP chest single view Technique : AP portable upright chest single view Date and time: October 13, [id number] hours, comparison October 07, 2024 INDICATIONS: Post orogastric tube placement. FINDINGS: Orogastric tube in the body of stomach satisfactory position Heart failure with enlargement cardiac contour Prominent vascular congestion perihilar edema Likely superimposed pneumonia at the lung bases IMPRESSION: Orogastric tube in satisfactory position in the stomach
[2024-10-14] VITALS (25 sets, daily range): BP systolic 125–151; BP diastolic 38–68; PULSE 61–72; RESP 15–21; TEMP 36.2–36.9; O2SAT 93–100
[2024-10-14 06:15] LABS: Basophils # (Auto) 0.1 Thou/mm3 (0.0-0.2); Basophils % (Auto) 1 % (0-2.5); Eosinophils # (Auto) 0.0 Thou/mm3 (0.0-0.5); Eosinophils % (Auto) 1 % (0-10); Hematocrit 30.6 % (36.0-46.0); Hemoglobin 9.8 g/dL (12.0-16.0); Immature Granulocytes Auto 0.02 Thou/mm3 (0.00-0.00); Lymphocytes # (Auto) 0.9 Thou/mm3 (1.0-4.8); Lymphocytes % (Auto) 19 % (10-50); Mean Corpuscular HGB Conc 32.0 g/dl (31.0-37.0); Mean Corpuscular Hemoglobin 31.0 pg (25.0-35.0); Mean Corpuscular Volume 97 fL (80-100); Monocytes # (Auto) 0.4 Thou/mm3 (0.0-0.8); Monocytes % (Auto) 8 % (0-12); Neutrophils # (Auto) 3.6 Thou/mm3 (1.8-7.7); Neutrophils % (Auto) 72 % (37-80); Nucleated Red Blood Cell # 0.02 Thou/mm3 (0.00-0.00); Nucleated Red Blood Cell % 0 /100 WBC (0); Platelet Count 260 Thou/mm3 (140-440); RDW Standard Deviation 52.1 fL (36.4-46.3); Red Blood Count 3.16 Miln/mm3 (4.00-5.20); White Blood Count 5.0 Thou/mm3 (3.6-11.0)
[2024-10-14 06:45] LABS: Alanine Aminotransferase < 7 U/L (10-49); Albumin, Serum 3.8 gm/dL (3.4-4.8); Albumin/Globulin Ratio 1.5 (1.2-2.2); Alkaline Phosphatase 149 U/L (46-116); Anion Gap 20 (7-16); Aspartate Amino Transferase 18 U/L (0-34); BUN/Creatinine Ratio 4 Ratio (12-20); Bilirubin,Total < 0.2 mg/dL (0.3-1.2); Blood Urea Nitrogen 12 mg/dL (9-23); Calcium 9.3 mg/dL (8.3-10.6); Calcium (Corrected) 9.5 mg/dL (8.5-10.1); Carbon Dioxide 25.5 mMol/L (20.0-31.0); Chloride 92 mMol/L (98-107); Creatinine (Component) 3.3 mg/dL (0.6-1.3); Estimated Creatinine Clearance 15.3 mL/min (>60); Globulin 2.6 gm/dL (2.3-3.5); Glucose 67 mg/dL (74-106); Magnesium 1.9 mg/dL (1.6-2.6); Osmolality,Calculated 271 (275-295); Phosphorous 4.6 mg/dL (2.4-5.1); Potassium 4.2 mMol/L (3.4-5.1); Sodium 137 mMol/L (136-145); Total Protein 6.4 gm/dL (5.7-8.2); eGFR 14 See Note
--- NOTE | 2024-10-14 08:25 | ESPR_ITS ---
<Statement entered by Bakari Wilkinson MD - 10/26/24 08:44> I reviewed above note and agree with findings and plans. I have also personally examined the patient with medicine team and went over assessment and plan with medical team including internet network specialist and resident physician. <Statement entered by Antonio Saunders MD - 10/14/24 18:36> Patient was examined and case was reviewed with team including attending physician. Note reviewed, I agree with most of its contents and agree with the patient's care as documented by Dr. Benavidez Patient seen today at the bedside found awake, alert, orientedx3. No overnight events reported. Vitals and labs reviewed. Patient had NG tube placed by GI specialist yesterday in order to administering GoLytely as patient apparently has not been intaking GoLytely correctly. Likely will have intervention tonight by GI specialist. Case discussed with my attending Dr. Jaja Saunders MD PGY-2 Disclaimer: Despite multiple revisions, due to the dictation software being used, the document bellow may not be free of grammatical errors including phonetic/typographic errors. However, this does not deter from our commitment to providing health care in the patient's best interest in mind. Documentation for date of: 10/14/24 Subjective Subjective Interval history: 10/14/24: Patient was examined and evaluated at bedside. NG tube was placed by GI yesterday for GoLytely administration given no adequate GoLytely intake by patient in the last few days and not adequate preparation for the pending colonoscopy. Patient reports nausea this morning, IV zofran was given with good relief. Rate of GoLytely administration by NGT was increased to 400cc/hr as recommened by GI with bed set at 45 degrees to prevent aspiration. Patient will be taken for colonoscopy later today. Exam Vital Signs Temp Pulse Resp BP Pulse Ox O2 Del Method O2 Flow Rate 97.4 F 63 16 125/50 L 96 Nasal Cannula 3 10/14/24 07:32 10/14/24 07:32 10/14/24 07:32 10/14/24 07:32 10/14/24 07:32 10/14/24 07:32 10/14/24 07:32 FiO2 97 10/13/24 04:00 Narrative Exam Gen: Well-developed and well-nourished. in distress due to nausea. HEENT: PERRLA, EOMI, MMM, anicteric conjunctivae. Grown hairs noted on the forehead most likely due to recent Minoxidil that patient has taken. NG tube in right nares. CVS: normal S1 and S2. RRR. No M/R/G. Resp: Crackles in lung bases R>L. No rhonchi, rales, crackles or wheezing. Abd: soft, non-distended. Epigastric disomfort to palpation. No rigidity or rebound. MSK: Good ROM in BUE & BLE. No edema or rash. Left upper arm fistula. Neuro: CN II-XII grossly intact. Strength 5/5 in BUE & BLE. Alert and oriented x3. Psych: appropriate mood and affect. Objective Labs 10/14/24 04:27 10/14/24 04:27 Labs: Laboratory Results - last 24 hr 10/13/24 10/14/24 07:39 04:27 WBC 5.2 D 5.0 RBC 3.19 L 3.16 L Hgb 9.8 L 9.8 L Hct 30.2 L 30.6 L MCV 95 97 MCH 30.7 31.0 MCHC 32.5 32.0 RDW Std Deviation 51.2 H 52.1 H Plt Count 262 D 260 Neut % (Auto) 70 72 Lymph % (Auto) 20 19 [place] % (Auto) 7 8 Eos % (Auto) 1 1 Baso % (Auto) 1 1 Neut # (Auto) 3.7 3.6 Lymph # (Auto) 1.0 0.9 L [place] # (Auto) 0.4 0.4 Eos # (Auto) 0.1 0.0 Baso # (Auto) 0.1 0.1 Immature Gran # (Auto) 0.02 H 0.02 H Absolute Nucleated RBC 0.00 0.02 H Immature Gran % 0 0 Nucleated RBC % 0 0 Sodium 137 Potassium 4.2 Chloride 92 L Carbon Dioxide 25.5 Anion Gap 20 H BUN 12 Creatinine 3.3 H D Estim Creat Clear Calc 15.3 L eGFR 14 L* BUN/Creatinine Ratio 4 L Glucose 67 L Calculated Osmolality 271 L Calcium 9.3 Corrected Calcium 9.5 Phosphorus 4.6 Magnesium 1.9 Total Bilirubin < 0.2 L AST 18 ALT < 7 L Alkaline Phosphatase 149 H Total Protein 6.4 Albumin 3.8 Globulin 2.6 Albumin/Globulin Ratio 1.5 Quality Measures Quality Measures VTE prophylaxis Advance care planning discussed with:: patient Assessment & Plan Assessment Current Active Medications: Generic Name Dose Route Start Last Admin Trade Name Dallin PRN Reason Stop Dose Admin Acetaminophen 650 mg 10/08/24 01:32 10/08/24 09:36 Acetaminophen 325 Mg Tablet PO 11/07/24 01:31 650 mg Q6H PRN Administration Fever >100.4 or pain 1-3(mild Calcium Acetate 667 mg 10/08/24 08:00 10/13/24 17:20 Calcium Acetate 667 Mg Tablet PO 11/07/24 07:59 667 mg TIDWM JANINE Administration Carvedilol 25 mg 10/10/24 17:30 10/13/24 17:20 Carvedilol 12.5 Mg Tablet PO 11/09/24 17:29 25 mg BIDWM JANINE Administration Clonidine 0.2 mg 10/08/24 01:45 10/14/24 05:12 Clonidine Hcl 0.1 Mg Tablet PO 11/07/24 01:44 0.2 mg TID JANINE Administration Dextrose 25 ml 10/08/24 01:32 Dextrose 50%-Water Inj 50 Ml Syringe IV 11/07/24 01:31 Q15MIN PRN BG 50-70 responsive npo pt Dextrose 50 ml 10/08/24 01:32 Dextrose 50%-Water Inj 50 Ml Syringe IV 11/07/24 01:31 Q15MIN PRN BG <50 OR BG <70 & pt unresponsive Glucagon 1 mg 10/08/24 01:32 Glucagon Inj 1 Mg Vial IM Q15MIN PRN BG <70, and no IV access Hydralazine HCl 100 mg 10/12/24 14:00 10/14/24 05:12 Hydralazine Hcl 25 Mg Tablet PO 11/11/24 13:59 100 mg TID JANINE Administration Magnesium Sulfate 2 gm in 50 mls @ 25 mls/hr 10/14/24 08:19 Magnesium Sulfate Ivpb IV 10/14/24 10:18 X1 ONE Insulin Human Lispro 0 unit 10/08/24 07:30 10/14/24 07:22 Insulin Lispro (Admelog) 1 Unit/0.01 Ml Unit SC 11/07/24 07:29 Not Given AC [facility] Protocol Nifedipine 60 mg 10/12/24 21:00 10/13/24 20:32 Nifedipine Xl 30 Mg Tabcr PO 11/11/24 20:59 60 mg BID JANINE Administration Ondansetron HCl 4 mg 10/08/24 01:32 10/13/24 20:00 Ondansetron Inj 2 Mg/Ml Inj 2 Ml IVP 11/07/24 01:31 4 mg Q6H PRN Administration NAUSEA OR VOMITING Protocol Pantoprazole Sodium 40 mg 10/08/24 09:00 10/13/24 20:33 Pantoprazole Inj 40 Mg Vial IVP 11/07/24 08:59 40 mg BID JANINE Administration Tramadol HCl 50 mg 10/11/24 15:56 10/13/24 10:03 Tramadol Hcl 50 Mg Tablet PO 10/14/24 10:56 50 mg Q12HR PRN Administration PAIN SCALE 4-10(Mod-Sev Valsartan 160 mg 10/08/24 01:45 10/13/24 20:32 Valsartan 80 Mg Tablet PO 11/07/24 01:44 160 mg BID JANINE Administration Plan 73F with PMHx significant for ESRD (M/W/F), HTN, type 2 diabetes, HFpEF presenting with chief complaint of symptomatic anemia of progressive shortness of breath, weakness, fatigue x 2 weeks, admitted for symptomatic anemia. #Symptomatic anemia (Improved) #Anemia of chronic kidney disease #GI bleeding Patient presented with chief complaint of progressive shortness of breath, weakness, fatigue x 2 weeks. Patient was told by dialysis center to go to ED for blood transfusion. On presentation hemoglobin 5.9, 2 units PRBCs ordered in ED. Patient denies chest pain, hematemesis, melena. Anemia most likely due to upper or lower GI bleed however no melena or hematochezia vs chronic kidney disease. Hgb: 5.9 --> 8.9 -->9.2 -->8.3 -->9.1-->9.8-->9.8 EGD (10/10/24) showed diffused moderately erythematous mucosa of the gastric antrum without any active bleeding. As this finding does not explain the Hgb of 5.9 on admission, patient will undergo a colonosocpy by Dr. Saldivar later today. Stool occult test positive (10/10/24) Blood smear showed severe anemia with early RBC macrocytosis; hypersegmented neutrophils present; suggesting B12/golate deficiency. MCV 102, B12 701, Folate 13.78 Patient has not had adequate preparation with GoLytely, NGT was placed by GI for GoLytely administration. Plan: - GoLytely administration by NGT. - Colonoscopy with Dr. Saldivar today - Monitor hemoglobin, transfuse as needed #ESRD (M/W/F) Patient history as stated. Follows Dr. Edge, consulted. Received HD yesterday. Plan: - Dialysis tomorrow - Renally dose meds as needed - Sevlamer held per nephrology #HTN #Hypertensive urgency (Improved) Persistent. Patient history as stated. Patient blood pressure significantly elevated in ED, with SBP > 190. No signs of end organ damage, patient denies headaches, blurry vision, chest pain. Received topical nitro in the ED. Improved SBP to 130s-140s. Plan: - Continue Clonidine 0.2 mg 3 times daily - Continue Valsartan 160 mg twice daily - Continue Nifedipine 60 mg twice daily - Continue Carvedilol 25 mg PO QDAY - Continue hydralazine 100 TID - Will consider starting minoxidil if still hypertensive #HFpEF Patient history as stated. Last echo 12/04/2023 showed EF 55 to 60% patient does not make urine. Chest x-ray shows vascular congestion. Patient saturating well on room air, not edematous. US pleural showed mild to moderate plural fluid on the right and mild pleural fluid on the left. Plan: - Dialysis as above - Pulmonology was consulted who recommended thoracenthesis if symptomatic or pleural fluid worsens. - Resume home medications as above #Diabetes (resolved) Patient history of [id number] diabetes. Not currently on active management. A1C: 5.4 Plan: - ISS DVT prophylaxis: SCDs GI prophylaxis: Protonix Diet: NPO Lines: Peripheral IV, NGT Code status: DNR Plan of care discussed with attending Dr. Wilkinson and senior resident Dr. Yann Benavidez, DO PGY-1
[2024-10-14] MEDS: NIFEdipine XL 30 MG TABCR 60 MG PO (09:09)
[2024-10-14] MEDS: VALSARTAN 80 MG TABLET 160 MG PO (09:10)
[2024-10-14] MEDS: CALCIUM ACETATE 667 MG TABLET PO (09:11)
--- NOTE | 2024-10-14 10:28 | PD.RESPRO ---
Documentation for date of: 10/14/24 Subjective Subjective Interval history: Mrs. Sheridan is a 73-year-old lady with extensive past medical history of ESRD (M/W/F), uncontrolled hypertension for many years, diabetes type 2, congestive heart failure with normal ejection fraction, history of depression presented to the emergency department sent by dialysis unit for an abnormal hemoglobin of 5.9. Dialysis unit called me that her hemoglobin dropped to 5.5 and I recommended for her to go to the ED for further evaluation. Patient feeling fatigued and tired. Also noted shortness of breath. Was given 2 units of blood transfusion yesterday. Nephrology consultation requested as she is due for dialysis today. Patient currently seen on dialysis. No active GI bleed. ED COURSE: Labs significant for: Hemoglobin 5.9. WC 5.0, BUN 27, creatinine 4.5, EGFR 10. Imaging significant for: Chest x-ray showing vascular congestion, right base consolidation seen on previous imaging consistent with lung scarring. Patient significantly hypertensive with SBP greater than 190, given Lasix, morphine, topical nitro in the ED. 2 units PRBC was transfused last night PMH: ESRD, HFpEF, diabetes, HTN PSH: Left upper extremity fistula placement SH: Denies alcohol, tobacco, illicit drug use Allergies:?NKDA Medications: Clonidine, valsartan, nifedipine, sevelamer, calcium acetate Patient admitted to telemetry. Currently seen on dialysis. 10/09/2024 patient currently seen in telemetry. Resting comfortably. Did receive dialysis yesterday. Blood pressure seems to be on the higher side. Dr. Garza tried right thoracentesis- not much fluid to be drained. Hemoglobin 9.2, phosphorus 5.2, creatinine 4.8. 10/10/2024: Patient was seen and examined at bedside this AM. No acute events overnight. Patient underwent HD on 10/08/2024, RFT as expected. Hemoglobin down trended from 9.2 -> 8.5, unknown etiology, underlying normocytic anemia of CKD. GI Dr. Saldivar consulted for symptomatic anemia, patient n.p.o. since midnight for EGD scheduled today. She received PRBC transfusion, with improvement in H&H and symptoms. Today the patient complains of excessive hair growth on her forehead, likely due to outpatient minoxidil use. Was counseled to stop minoxidil on discharge, will document for family to refer to, as patient does not manage her own medications. Will follow-up GI recommendations regarding anemia, pending rule out GIB. 10/11/2024: Patient seen and examined at bedside. No acute events overnight. Patient is status post EGD with Dr. Saldivar with no acute findings to explain potential GI bleed moderate erythematous stomach antrum. Pending colonoscopy today hemoglobin stable today at 8.3 sodium 135 potassium 4.7 BUN 47 creatinine 6.6 from 5.6 . plan for HD today 10/12/2024: Patient seen and examined at bedside. Patient states that she has neck pain requesting Tylenol. Hgb stable.she did not have colonoscopy yesterday because stools were not yet clear she continues on GoLytely prep with plan for colonoscopy later today. Blood pressures have been labile throughout admission ranging from 150s to 180s systolic pt is on max dose nifedipine BID, per primary team added hydralizine 100 TID. Hemoglobin stable at 9, potassium 3.7 BUN 21 from 47 creatinine 4.1 from 6.6. No dialysis today 10/13/2024 patient currently seen in dialysis. Resting comfortably. Pending colonoscopy for anemia. Patient still does not have clear stool. 10/14/2024 Patient seen and examined at bedside. NG tube in place, she appears very uncomfortable, she reports neck pain and discomfort with the NG tube, Given tramadol. she continues to pend colonoscopy Hgb stable 9.8 . No HD today. will continue with HD per her schedule MWF. Exam Vital Signs Temp Pulse Resp BP Pulse Ox O2 Del Method O2 Flow Rate 97.4 F 63 16 125/50 L 96 Nasal Cannula 3 10/14/24 07:32 10/14/24 09:10 10/14/24 07:32 10/14/24 09:10 10/14/24 07:32 10/14/24 07:32 10/14/24 07:32 FiO2 97 10/13/24 04:00 Narrative Exam GENERAL APPEARANCE: Patient seems to be uncomfortable, adequately hydrated and nourished. NECK: Neck supple, no JVD NG tube in place CARDIOVASCULAR: Heart regular, 2/6 murmurs LUNGS/CHEST: Chest clear to auscultation. No rales, rhonchi, wheezing ABDOMEN: Soft, nontender, nondistended. No masses. Normal bowel sounds. EXTREMITIES: No edema, clubbing or cyanosis. SKIN: Skin exam normal without any rashes . Rt arm AVF + MUSCULOSKELETAL: Musculoskeletal exam normal PSYCHIATRIC: Normal mood, affect LYMPHATICS: No lymphadenopathy noted NEUROLOGICAL : No neurological deficits Objective Labs 10/14/24 04:27 10/14/24 04:27 Labs: Laboratory Results - last 24 hr 10/14/24 04:27 WBC 5.0 RBC 3.16 L Hgb 9.8 L Hct 30.6 L MCV 97 MCH 31.0 MCHC 32.0 RDW Std Deviation 52.1 H Plt Count 260 Neut % (Auto) 72 Lymph % (Auto) 19 [place] % (Auto) 8 Eos % (Auto) 1 Baso % (Auto) 1 Neut # (Auto) 3.6 Lymph # (Auto) 0.9 L [place] # (Auto) 0.4 Eos # (Auto) 0.0 Baso # (Auto) 0.1 Immature Gran # (Auto) 0.02 H Absolute Nucleated RBC 0.02 H Immature Gran % 0 Nucleated RBC % 0 Sodium 137 Potassium 4.2 Chloride 92 L Carbon Dioxide 25.5 Anion Gap 20 H BUN 12 Creatinine 3.3 H D Estim Creat Clear Calc 15.3 L eGFR 14 L* BUN/Creatinine Ratio 4 L Glucose 67 L Calculated Osmolality 271 L Calcium 9.3 Corrected Calcium 9.5 Phosphorus 4.6 Magnesium 1.9 Total Bilirubin < 0.2 L AST 18 ALT < 7 L Alkaline Phosphatase 149 H Total Protein 6.4 Albumin 3.8 Globulin 2.6 Albumin/Globulin Ratio 1.5 Quality Measures Quality Measures VTE prophylaxis Advance care planning discussed with:: patient Assessment & Plan Assessment Current Active Medications: Generic Name Dose Route Start Last Admin Trade Name Jaseq PRN Reason Stop Dose Admin Acetaminophen 650 mg 10/08/24 01:32 10/08/24 09:36 Acetaminophen 325 Mg Tablet PO 11/07/24 01:31 650 mg Q6H PRN Administration Fever >100.4 or pain 1-3(mild Calcium Acetate 667 mg 10/08/24 08:00 10/14/24 09:11 Calcium Acetate 667 Mg Tablet PO 11/07/24 07:59 667 mg TIDWM JANINE Administration Carvedilol 25 mg 10/10/24 17:30 10/14/24 09:10 Carvedilol 12.5 Mg Tablet PO 11/09/24 17:29 25 mg BIDWM JANINE Administration Clonidine 0.2 mg 10/08/24 01:45 10/14/24 05:12 Clonidine Hcl 0.1 Mg Tablet PO 11/07/24 01:44 0.2 mg TID JANINE Administration Dextrose 25 ml 10/08/24 01:32 Dextrose 50%-Water Inj 50 Ml Syringe IV 11/07/24 01:31 Q15MIN PRN BG 50-70 responsive npo pt Dextrose 50 ml 10/08/24 01:32 Dextrose 50%-Water Inj 50 Ml Syringe IV 11/07/24 01:31 Q15MIN PRN BG <50 OR BG <70 & pt unresponsive Glucagon 1 mg 10/08/24 01:32 Glucagon Inj 1 Mg Vial IM Q15MIN PRN BG <70, and no IV access Hydralazine HCl 100 mg 10/12/24 14:00 10/14/24 05:12 Hydralazine Hcl 25 Mg Tablet PO 11/11/24 13:59 100 mg TID JANINE Administration Insulin Human Lispro 0 unit 10/08/24 07:30 10/14/24 07:22 Insulin Lispro (Admelog) 1 Unit/0.01 Ml Unit SC 11/07/24 07:29 Not Given AC JANINE Protocol Nifedipine 60 mg 10/12/24 21:00 10/14/24 09:09 Nifedipine Xl 30 Mg Tabcr PO 11/11/24 20:59 60 mg BID JANINE Administration Ondansetron HCl 4 mg 10/08/24 01:32 10/13/24 20:00 Ondansetron Inj 2 Mg/Ml Inj 2 Ml IVP 11/07/24 01:31 4 mg Q6H PRN Administration NAUSEA OR VOMITING Protocol Pantoprazole Sodium 40 mg 10/08/24 09:00 10/14/24 09:09 Pantoprazole Inj 40 Mg Vial IVP 11/07/24 08:59 40 mg BID JANINE Administration Tramadol HCl 50 mg 10/11/24 15:56 10/14/24 09:10 Tramadol Hcl 50 Mg Tablet PO 10/14/24 10:56 50 mg Q12HR PRN Administration PAIN SCALE 4-10(Mod-Sev Valsartan 160 mg 10/08/24 01:45 10/14/24 09:10 Valsartan 80 Mg Tablet PO 11/07/24 01:44 160 mg BID JANINE Administration Plan Ms. Jimenez is a 73-year-old female with ESRD on HD (MWF), resistant HTN, HFpEF (EF 65-70%), chronic respiratory failure on 3 L home O2, chronic normocytic anemia, IDDM, HLD, and depression/anxiety who presented to the ED with anemia, Hgb stable at 9.8, pending colonoscopy for multiple days, ng tube in place. #ESRD on HD (MWF) Follows with [facility] - Continue home calcium acetate #Resistant hypertension Resume home meds, nifedipine, valsartan, with as needed labetalol for SBP >190 -Start aldactone 50 qd Monitor vital signs #Chronic normocytic anemia- stable Likely secondary to ESRD Will give Procrit with HD Patient received 2 units of blood transfusion. No active GI bleed. Hemoglobin stable. Pending colonoscopy for several days #HFpEF (EF 65-70%) #Chronic respiratory failure, on 3 L home O2 #IDDM #HLD #Depression #Anxiety - managment per primary team Plan discussed with nephrology attending Dr. Minesh Hutchins MD Internal Medicine PGY-1 Attending Provider Attestation/Addendum Patient seen and examined with resident physician Dr. Hutchins. Note reviewed, agree with findings and recommendations. Seems to be uncomfortable with abdominal bloating. Patient admitted with GI bleed. Going for colonoscopy --hopefully today. Next dialysis scheduled for tomorrow.
[2024-10-14] MEDS: Magnesium Sulfate 2 GM Ivpb 2 GM/50 ML BAG IV (12:50)
--- NOTE | 2024-10-14 12:56 | PC.NURSE ---
Patient drinking golytely she is clean now. Patient is NPO now.
--- NOTE | 2024-10-14 15:35 | PC.SS ---
SS follow up note; Pending Colonoscopy. Patient will discharge home when medically cleared.
--- NOTE | 2024-10-14 18:01 | PD.RESEVENT ---
Documentation for date of: 10/14/24 Event Note Event Note: Rapid Response Room: 378 Time: Around 1755 Reason for Call: Headache, DBP 45 Patient presentation: 73-year-old female with past medical history of ESRD, resistant hypertension, HFpEF EF 65 to 70%, chronic respiratory failure on 3 L, chronic normocytic anemia, insulin-independent diabetes mellitus, hyperlipidemia and depression/anxiety admitted for GI bleed workup. Patient has NG tube receiving GoLytely, rapid response called for headache and low diastolic blood pressure. Patient is on as needed Ultram for pain, did receive a dose at 9 AM this morning Assessment: Patient's MAP stable, low diastolic noted, does have history of resistant hypertension however seems to be adequately controlled for hospitalization, no acute drop noted. Patient alert and oriented x 4, no focal neurological deficits noted on physical exam, mucous membranes are moist patient seems adequately hydrated. Patient groaning in pain requesting water. Labs reviewed no gross electrolyte abnormalities noted. New orders: Okay for sip of water, will give ice chips x 1. Patient is scheduled for colonoscopy at 1700. Will give IV Tylenol x 1. Called [facility] erp developer Dr. Saldivar, from internal medicine standpoint patient is stable for colonoscopy. Case discussed with Attending Physician Dr. Shikha Emerson MD Internal Medicine PGY-2 Disclaimer: This note was dictated by speech recognition. Minor errors in carving machine operator may be present due to voice recognition software.
[2024-10-14] MEDS: ACETAMINOPHEN IVPB 1,000 MG/100 ML VIAL 250 MG IV (18:21)
--- NOTE | 2024-10-14 21:40 | SUR.PHASEI ---
2132 To PACU able to lift head off of pillow, following simple commands continue to monitor pt vital signs and status.
--- NOTE | 2024-10-14 22:09 | SUR.PHASEI ---
2210 Transfer to room 378 in stable condition, no complaints, no s/s of distress noted tolerating juice, vitals stable
[2024-10-15] VITALS (42 sets, daily range): BP systolic 140–188; BP diastolic 49–89; PULSE 57–105; RESP 15–19; TEMP 36.1–36.7; O2SAT 90–99; BMI 27.5
[2024-10-15] MEDS: VALSARTAN 80 MG TABLET 160 MG PO ×2 (00:18→22:46)
[2024-10-15] MEDS: NIFEdipine XL 30 MG TABCR 60 MG PO ×2 (00:18→22:47)
[2024-10-15] MEDS: ACETAMINOPHEN 325 MG TABLET 650 MG PO ×2 (05:04→14:28)
[2024-10-15 06:25] LABS: Basophils # (Auto) 0.1 Thou/mm3 (0.0-0.2); Basophils % (Auto) 1 % (0-2.5); Eosinophils # (Auto) 0.1 Thou/mm3 (0.0-0.5); Eosinophils % (Auto) 2 % (0-10); Hematocrit 30.0 % (36.0-46.0); Hemoglobin 9.8 g/dL (12.0-16.0); Immature Granulocytes Auto 0.02 Thou/mm3 (0.00-0.00); Lymphocytes # (Auto) 1.2 Thou/mm3 (1.0-4.8); Lymphocytes % (Auto) 24 % (10-50); Mean Corpuscular HGB Conc 32.7 g/dl (31.0-37.0); Mean Corpuscular Hemoglobin 31.1 pg (25.0-35.0); Mean Corpuscular Volume 95 fL (80-100); Monocytes # (Auto) 0.6 Thou/mm3 (0.0-0.8); Monocytes % (Auto) 11 % (0-12); Neutrophils # (Auto) 3.3 Thou/mm3 (1.8-7.7); Neutrophils % (Auto) 62 % (37-80); Nucleated Red Blood Cell # 0.02 Thou/mm3 (0.00-0.00); Nucleated Red Blood Cell % 0 /100 WBC (0); Platelet Count 276 Thou/mm3 (140-440); RDW Standard Deviation 50.7 fL (36.4-46.3); Red Blood Count 3.15 Miln/mm3 (4.00-5.20); White Blood Count 5.2 Thou/mm3 (3.6-11.0)
[2024-10-15 06:57] LABS: Alanine Aminotransferase < 7 U/L (10-49); Albumin, Serum 3.5 gm/dL (3.4-4.8); Albumin/Globulin Ratio 1.4 (1.2-2.2); Alkaline Phosphatase 132 U/L (46-116); Anion Gap 19 (7-16); Aspartate Amino Transferase 13 U/L (0-34); BUN/Creatinine Ratio 4 Ratio (12-20); Bilirubin,Total < 0.2 mg/dL (0.3-1.2); Blood Urea Nitrogen 15 mg/dL (9-23); Calcium 9.0 mg/dL (8.3-10.6); Calcium (Corrected) 9.4 mg/dL (8.5-10.1); Carbon Dioxide 26.2 mMol/L (20.0-31.0); Chloride 90 mMol/L (98-107); Creatinine (Component) 4.2 mg/dL (0.6-1.3); Estimated Creatinine Clearance 12.0 mL/min (>60); Globulin 2.5 gm/dL (2.3-3.5); Glucose 81 mg/dL (74-106); Magnesium 2.2 mg/dL (1.6-2.6); Osmolality,Calculated 269 (275-295); Phosphorous 5.1 mg/dL (2.4-5.1); Potassium 3.9 mMol/L (3.4-5.1); Sodium 135 mMol/L (136-145); Total Protein 6.0 gm/dL (5.7-8.2); eGFR 11 See Note
--- NOTE | 2024-10-15 08:32 | ESPR_ITS ---
Documentation for date of: 10/15/24 Subjective Subjective Interval history: M/rsGerda Sheridan is a 73-year-old lady with extensive past medical history of ESRD (M/W/F), uncontrolled hypertension for many years, diabetes type 2, congestive heart failure with normal ejection fraction, history of depression presented to the emergency department sent by dialysis unit for an abnormal hemoglobin of 5.9. Dialysis unit called me that her hemoglobin dropped to 5.5 and I recommended for her to go to the ED for further evaluation. Patient feeling fatigued and tired. Also noted shortness of breath. Was given 2 units of blood transfusion yesterday. Nephrology consultation requested as she is due for dialysis today. Patient currently seen on dialysis. No active GI bleed. ED COURSE: Labs significant for: Hemoglobin 5.9. WC 5.0, BUN 27, creatinine 4.5, EGFR 10. Imaging significant for: Chest x-ray showing vascular congestion, right base consolidation seen on previous imaging consistent with lung scarring. Patient significantly hypertensive with SBP greater than 190, given Lasix, morphine, topical nitro in the ED. 2 units PRBC was transfused last night PMH: ESRD, HFpEF, diabetes, HTN PSH: Left upper extremity fistula placement SH: Denies alcohol, tobacco, illicit drug use Allergies:?NKDA Medications: Clonidine, valsartan, nifedipine, sevelamer, calcium acetate Patient admitted to telemetry. Currently seen on dialysis. 10/09/2024 patient currently seen in telemetry. Resting comfortably. Did receive dialysis yesterday. Blood pressure seems to be on the higher side. Dr. Garza tried right thoracentesis- not much fluid to be drained. Hemoglobin 9.2, phosphorus 5.2, creatinine 4.8. 10/10/2024: Patient was seen and examined at bedside this AM. No acute events overnight. Patient underwent HD on 10/08/2024, RFT as expected. Hemoglobin down trended from 9.2 -> 8.5, unknown etiology, underlying normocytic anemia of CKD. GI Dr. Saldivar consulted for symptomatic anemia, patient n.p.o. since midnight for EGD scheduled today. She received PRBC transfusion, with improvement in H&H and symptoms. Today the patient complains of excessive hair growth on her forehead, likely due to outpatient minoxidil use. Was counseled to stop minoxidil on discharge, will document for family to refer to, as patient does not manage her own medications. Will follow-up GI recommendations regarding anemia, pending rule out GIB. 10/11/2024: Patient seen and examined at bedside. No acute events overnight. Patient is status post EGD with Dr. Sladivar with no acute findings to explain potential GI bleed moderate erythematous stomach antrum. Pending colonoscopy today hemoglobin stable today at 8.3 sodium 135 potassium 4.7 BUN 47 creatinine 6.6 from 5.6 . plan for HD today 10/12/2024: Patient seen and examined at bedside. Patient states that she has neck pain requesting Tylenol. Hgb stable.she did not have colonoscopy yesterday because stools were not yet clear she continues on GoLytely prep with plan for colonoscopy later today. Blood pressures have been labile throughout admission ranging from 150s to 180s systolic pt is on max dose nifedipine BID, per primary team added hydralizine 100 TID. Hemoglobin stable at 9, potassium 3.7 BUN 21 from 47 creatinine 4.1 from 6.6. No dialysis today 10/13/2024 patient currently seen in dialysis. Resting comfortably. Pending colonoscopy for anemia. Patient still does not have clear stool. 10/14/2024 Patient seen and examined at bedside. NG tube in place, she appears very uncomfortable, she reports neck pain and discomfort with the NG tube, Given tramadol. she continues to pend colonoscopy Hgb stable 9.8 . No HD today. will continue with HD per her schedule MWF. 10/15/2024: Patient seen and examined while in HD, NG tube is out. Pt had rapid called yesterday for STEEN, resolved. she reports 9/10 headache. given APAP, Colonoscopy was performed yesterday, 1 large polyp removed. Hgb stable. OK to discharge per nephro perspective, hgb stable, continue HD per regular schedule MWF. Exam Vital Signs Temp Pulse Resp BP Pulse Ox O2 Del Method O2 Flow Rate 97.8 F 61 18 146/51 H 96 Nasal Cannula 2 10/15/24 08:10 10/15/24 08:30 10/15/24 08:10 10/15/24 08:30 10/15/24 08:10 10/15/24 07:50 10/15/24 08:10 FiO2 97 10/13/24 04:00 Narrative Exam GENERAL APPEARANCE: Patient seems to be more comfortable than yesterday, adequately hydrated and nourished. C/o head ache NECK: Neck supple, no JVD ng tube was removed CARDIOVASCULAR: Heart regular, 2/6 murmurs LUNGS/CHEST: some mild congestion on auscultation BL ABDOMEN: Soft, nontender, nondistended. No masses. Normal bowel sounds. EXTREMITIES: trace edema in upper extrem, no BLE edema SKIN: Skin exam normal without any rashes . Left arm AVF + MUSCULOSKELETAL: Musculoskeletal exam normal PSYCHIATRIC: Normal mood, affect LYMPHATICS: No lymphadenopathy noted NEUROLOGICAL : No neurological deficits Objective Labs 10/16/24 04:45 10/16/24 04:45 Labs: Laboratory Results - last 24 hr 10/15/24 06:08 WBC 5.2 RBC 3.15 L Hgb 9.8 L Hct 30.0 L MCV 95 MCH 31.1 MCHC 32.7 RDW Std Deviation 50.7 H Plt Count 276 Neut % (Auto) 62 Lymph % (Auto) 24 [place] % (Auto) 11 Eos % (Auto) 2 Baso % (Auto) 1 Neut # (Auto) 3.3 Lymph # (Auto) 1.2 [place] # (Auto) 0.6 Eos # (Auto) 0.1 Baso # (Auto) 0.1 Immature Gran # (Auto) 0.02 H Absolute Nucleated RBC 0.02 H Immature Gran % 0 Nucleated RBC % 0 Sodium 135 L Potassium 3.9 Chloride 90 L Carbon Dioxide 26.2 Anion Gap 19 H BUN 15 Creatinine 4.2 H* D Estim Creat Clear Calc 12.0 L eGFR 11 L* BUN/Creatinine Ratio 4 L Glucose 81 Calculated Osmolality 269 L Calcium 9.0 Corrected Calcium 9.4 Phosphorus 5.1 Magnesium 2.2 Total Bilirubin < 0.2 L AST 13 ALT < 7 L Alkaline Phosphatase 132 H Total Protein 6.0 Albumin 3.5 Globulin 2.5 Albumin/Globulin Ratio 1.4 Quality Measures Quality Measures VTE prophylaxis Advance care planning discussed with:: patient Assessment & Plan Assessment Current Active Medications: Generic Name Dose Route Start Last Admin Trade Name Freq PRN Reason Stop Dose Admin Acetaminophen 650 mg 10/08/24 01:32 10/15/24 05:04 Acetaminophen 325 Mg Tablet PO 11/07/24 01:31 650 mg Q6H PRN Administration Fever >100.4 or pain 1-3(mild Calcium Acetate 667 mg 10/08/24 08:00 10/14/24 18:14 Calcium Acetate 667 Mg Tablet PO 11/07/24 07:59 Not Given TIDWM JANINE Carvedilol 25 mg 10/10/24 17:30 10/14/24 18:15 Carvedilol 12.5 Mg Tablet PO 11/09/24 17:29 Not Given BIDWM JANINE Clonidine 0.2 mg 10/08/24 01:45 10/15/24 06:29 Clonidine Hcl 0.1 Mg Tablet PO 11/07/24 01:44 0.2 mg TID JANINE Administration Dextrose 25 ml 10/08/24 01:32 Dextrose 50%-Water Inj 50 Ml Syringe IV 11/07/24 01:31 Q15MIN PRN BG 50-70 responsive npo pt Dextrose 50 ml 10/08/24 01:32 Dextrose 50%-Water Inj 50 Ml Syringe IV 11/07/24 01:31 Q15MIN PRN BG <50 OR BG <70 & pt unresponsive Glucagon 1 mg 10/08/24 01:32 Glucagon Inj 1 Mg Vial IM Q15MIN PRN BG <70, and no IV access Hydralazine HCl 100 mg 10/12/24 14:00 10/15/24 06:29 Hydralazine Hcl 25 Mg Tablet PO 11/11/24 13:59 100 mg TID JANINE Administration Insulin Human Lispro 0 unit 10/08/24 07:30 10/15/24 07:25 Insulin Lispro (Admelog) 1 Unit/0.01 Ml Unit SC 11/07/24 07:29 Not Given AC [facility] Protocol Nifedipine 60 mg 10/12/24 21:00 10/15/24 00:18 Nifedipine Xl 30 Mg Tabcr PO 11/11/24 20:59 60 mg BID JANINE Administration Ondansetron HCl 4 mg 10/08/24 01:32 10/13/24 20:00 Ondansetron Inj 2 Mg/Ml Inj 2 Ml IVP 11/07/24 01:31 4 mg Q6H PRN Administration NAUSEA OR VOMITING Protocol Pantoprazole Sodium 40 mg 10/08/24 09:00 10/14/24 23:44 Pantoprazole Inj 40 Mg Vial IVP 11/07/24 08:59 40 mg BID JANINE Administration Valsartan 160 mg 10/08/24 01:45 10/15/24 00:18 Valsartan 80 Mg Tablet PO 11/07/24 01:44 160 mg BID JANINE Administration Plan Ms. Jimenez is a 73-year-old female with ESRD on HD (MWF), resistant HTN, HFpEF (EF 65-70%), chronic respiratory failure on 3 L home O2, chronic normocytic anemia, IDDM, HLD, and depression/anxiety who presented to the ED with anemia, Hgb stable at 9.8, colonoscopy completed, large polyp removed and diverticulosis non bleeding, OK to discharge per nephrology. dispo pending per primary team. #ESRD on HD (MWF) Follows with [facility] - Continue home calcium acetate - HD today - HD continues MWF - ok to discharge #Resistant hypertension - better controlled Resume home meds, nifedipine, valsartan, with as needed labetalol for SBP >190 -Start aldactone 50 qd Monitor vital signs #Chronic normocytic anemia- stable Likely secondary to ESRD Will give Procrit with HD Patient received 2 units of blood transfusion. No active GI bleed. Hemoglobin stable. s/p colonoscopy, large polyp removed, non bleeding moderate diverticulosis in sigmoid and descending colon. #HFpEF (EF 65-70%) #Chronic respiratory failure, on 3 L home O2 #IDDM #HLD #Depression #Anxiety - managment per primary team Plan discussed with nephrology attending Dr. Minesh Hutchins MD Internal Medicine PGY-1 Attending Provider Attestation/Addendum Patient seen and examined with resident physician Dr. Hutchins. Note reviewed, agree with findings and recommendations. Status post EGD and colonoscopy for GI bleed patient currently seen on dialysis. Tolerating dialysis without any problems. Hemodialysis for 3 hours, 2K, ultrafiltration 2-3 L, Epogen 6000, no heparin ordered. Plan of care discussed with the dialysis nurse. Please see dialysis flowsheet for further details. Renal delarosa stable for discharge.
--- NOTE | 2024-10-15 10:00 | PC.NURSE ---
Discharge order acknowledged. Pt is in HD at this time. will d/c pt when she returns.
[2024-10-15] MEDS: ONDANSETRON INJ 2 MG/ML INJ 2 ML 4 MG IVP (10:50)
--- NOTE | 2024-10-15 15:31 | ESDS_ITS ---
<Statement entered by Bakari Wilkinson MD - 10/26/24 08:45> I reviewed above note and agree with findings and plans. I have also personally examined the patient with medicine team and went over assessment and plan with medical team including international specialist and resident physician. Planned Discharge Date 10/15/24 DS: Providers Provider Date of admission: 10/08/24 01:32 Primary care physician: Carlos Saunders MD Admitting Provider: Tacos Adan MD Attending Provider on Admission: Bakari Wilkinson MD Consults: 10/08/24 01:05 Consult to Nephrology Stat Comment: ESRD Consulting Provider: Blossom Edge 10/09/24 12:08 Consult to Gastroenterology Stat Comment: Hgb of 5.9 on admission. suspect GI bleed Consulting Provider: Cat Saldivar 10/09/24 16:59 Consult to [employer]eder Urgent Comment: Thoracenthesis Consulting Provider: Yaakov Garza I Attending Provider on DC: Bakari Wilkinson MD Discharging Provider: Fay Palacios DO Anticipated date of discharge: 10/15/24 DS: Diagnosis Problem List Completed Was Problem List Reviewed/Reconciled?: Yes Hospital Course Hospital Course Hospital course: 73-year-old female with ESRD on M/W/F hemodialysis, HFpEF, hypertension, and type 2 diabetes was admitted on 10/08 for symptomatic anemia after being referred from dialysis center. In the ED, she was hypertensive and received nitro and diuretics. She was transfused 2 units PRBCs with improvement in Hgb. Nephrology was consulted, and patient underwent hemodialysis the following day. During hospitalization, anemia was initially attributed to CKD but further evaluation revealed concern for GI blood loss. FOBT was positive (10/10) and blood smear showed macrocytosis with hypersegmented neutrophils suggesting n utritional deficiency, though B12/folate levels were normal. EGD (10/10) showed diffuse erythematous gastric antral mucosa without active bleeding. Colonoscopy (10/14) revealed hemorrhoids, moderate diverticulosis, and a large descending colon polyp (resected with hot snare). No active bleeding source was identified. Blood pressures remained persistently elevated despite multiple agents (clonidine, valsartan, nifedipine, carvedilol, hydralazine, later uptitrated). Over the course of admission, hypertension improved with SBP down to 130?140s. She also had bilateral small pleural effusions and vascular congestion attributed to ESRD/HFpEF. Pulmonology recommended thoracentesis only if symptomatic, none performed. She remained stable on room air. ESRD management was continued with scheduled dialysis, sevelamer was held, and hyperkalemia episodes were treated with Kayexalate and insulin/dextrose as needed. By 10/14, patient was hemodynamically stable, anemia improved, and hypertension better controlled. Plans included continued dialysis, antihypertensive regimen, and outpatient follow-up with GI for pathology of resected polyp and with nephrology for ESRD care. Patient is medically and physically stable for discharge. Diagnosis: #Symptomatic anemia #Anemia of chronic kidney disease (CKD 5) #End-stage renal disease #Hyperkalemia #Resistant hypertension #Hypertensive urgency #Heart failure with preserved ejection fraction (HFpEF, EF 55?60%) #Pleural effusions. #Type 2 diabetes mellitus #Diverticulosis (sigmoid and descending colon). #Hemorrhoids Discharge Plan: Continue home medications as prescribed. Start taking Coreg 12.5 mg twice daily. Follow up with PCP within 2 weeks. Should your symptoms recur or worsen patient is instructed to return to the ED. Case discussed with my senior resident Dr. Yann Saunders Case discussed with my attending Dr. Fay Palacios DO PGY 1 Status at Discharge Overall status at discharge: patient is back to baseline Time Spent with Patient Time attestation: Total time spent providing and/or coordinating discharge services: Time spent: Greater than 30 minutes Exam Vital Signs Temp Pulse Resp BP Pulse Ox O2 Del Method O2 Flow Rate 97.8 F 72 18 183/63 H 97 Nasal Cannula 2 10/15/24 12:19 10/15/24 13:15 10/15/24 12:19 10/15/24 13:15 10/15/24 12:19 10/15/24 12:19 10/15/24 12:19 FiO2 97 10/15/24 11:35 Narrative Exam Gen: Well-developed and well-nourished. in distress due to nausea. HEENT: PERRLA, EOMI, MMM, anicteric conjunctivae. Grown hairs noted on the forehead most likely due to recent Minoxidil that patient has taken. NG tube in right nares. CVS: normal S1 and S2. RRR. No M/R/G. Resp: Crackles in lung bases R>L. No rhonchi, rales, crackles or wheezing. Abd: soft, non-distended. Epigastric disomfort to palpation. No rigidity or rebound. MSK: Good ROM in BUE & BLE. No edema or rash. Left upper arm fistula. Neuro: CN II-XII grossly intact. Strength 5/5 in BUE & BLE. Alert and oriented x3. Psych: appropriate mood and affect. Discharge Plan Plan Patient Disposition: HOME (Self Care) Patient condition on transfer: Stable Care Plan Goals: Continue home medications as prescribed. Start taking Coreg 12.5 mg twice daily. Follow up with PCP within 2 weeks. Should your symptoms recur or worsen patient is instructed to return to the ED. Contin?e con la medicaci?n en casa seg?n lo prescrito. Comience a jose Coreg 12,5 mg dos veces al d?a. Indu un seguimiento con donald m?dico de atenci?n primaria dentro de 2 semanas. Si los s?ntomas reaparecen o empeoran, se le indica al paciente que regrese al servicio de urgencias. Prescriptions/Referrals Prescriptions/Med Rec: New carvedilol 12.5 mg tablet 12.5 mg PO BID Qty: 60 1RF Rx Instructions: must administer with a meal/food Continued calcium acetate(phosphat bind) 667 mg tablet 667 mg PO TIDWM Patient Comments: TAKE 1 TABLET BY MOUTH THREE TIMES DAILY [place] 0.8 mg tablet 0.8 tab PO QDAY Patient Comments: TAKE 1 TABLET BY MOUTH ONCE DAILY FOR 90 DAYS valsartan 160 mg tablet 160 mg PO BID Qty: 60 0RF nifedipine 60 mg tablet extended release 24hr 60 mg PO BID Qty: 30 0RF Patient Comments: TAKE 1 TABLET BY MOUTH TWICE DAILY clonidine HCl 0.2 mg tablet 0.2 mg PO TID Patient Comments: TAKE 1 TABLET BY MOUTH THREE TIMES DAILY sevelamer carbonate 800 mg tablet 800 mg PO TID Patient Comments: TAKE 1 TABLET BY MOUTH THREE TIMES DAILY WITH MEALS Referrals: Carlos Saunders MD [Primary Care Provider] - Patient/Caregiver Discharge Instructions Education Materials: Anemia, Anemia and Kidney Disease Print Language: Hungarian Stand Alone Forms: Renay Award Info., Patient Portal Info Letter Discharge Order Discharge Orders: Discharge (Routine); Ordered 10/15/24 Ordered By: Aung Shah Quality Discharge Quality Measures VTE prophylaxis
[2024-10-15] MEDS: CALCIUM ACETATE 667 MG TABLET PO (17:33)
--- NOTE | 2024-10-15 17:34 | ESPR_ITS ---
Documentation for date of: 10/15/24 Subjective Subjective Interval history: Patient is status post colonoscopy with banding of the internal hemorrhoids as well as removal of a descending colon polyp Exam Vital Signs Temp Pulse Resp BP Pulse Ox O2 Del Method O2 Flow Rate 97.8 F 77 17 148/82 H 98 Nasal Cannula 2 10/15/24 16:00 10/15/24 17:33 10/15/24 16:00 10/15/24 17:33 10/15/24 16:00 10/15/24 16:00 10/15/24 16:00 FiO2 97 10/15/24 11:35 Objective Labs 10/15/24 06:08 10/15/24 06:08 Labs: Laboratory Results - last 24 hr 10/15/24 06:08 WBC 5.2 RBC 3.15 L Hgb 9.8 L Hct 30.0 L MCV 95 MCH 31.1 MCHC 32.7 RDW Std Deviation 50.7 H Plt Count 276 Neut % (Auto) 62 Lymph % (Auto) 24 [place] % (Auto) 11 Eos % (Auto) 2 Baso % (Auto) 1 Neut # (Auto) 3.3 Lymph # (Auto) 1.2 [place] # (Auto) 0.6 Eos # (Auto) 0.1 Baso # (Auto) 0.1 Immature Gran # (Auto) 0.02 H Absolute Nucleated RBC 0.02 H Immature Gran % 0 Nucleated RBC % 0 Sodium 135 L Potassium 3.9 Chloride 90 L Carbon Dioxide 26.2 Anion Gap 19 H BUN 15 Creatinine 4.2 H* D Estim Creat Clear Calc 12.0 L eGFR 11 L* BUN/Creatinine Ratio 4 L Glucose 81 Calculated Osmolality 269 L Calcium 9.0 Corrected Calcium 9.4 Phosphorus 5.1 Magnesium 2.2 Total Bilirubin < 0.2 L AST 13 ALT < 7 L Alkaline Phosphatase 132 H Total Protein 6.0 Albumin 3.5 Globulin 2.5 Albumin/Globulin Ratio 1.4 Impressions Impression: Descending colon polyp endoscopically resected pathology pending Status post band ligation of the large internal hemorrhoids continue to monitor CBC Assessment & Plan A&P Narrative # Anemia blood loss requiring transfusion # End-stage renal disease on hemodialysis MWF # Essential hypertension # Diabetes mellitus type 2 Plan N.p.o. midnight tonight except p.o. meds Consent obtained for fiberoptic esophagogastroduodenoscopy with possible biopsy possible therapeutic intervention under intravenous moderate sedation If EGD is negative we will consider doing a fiberoptic colonoscopy Thank you very much for the opportunity to participate in the care of this patient Time Spent With Patient Time: Total time spent is greater than 50% in coordination of care (as documented) at patient's floor/unit and/or counseling patient:
--- NOTE | 2024-10-15 17:55 | PC.NURSE ---
Pt has had discharge orders but was unable to contact son which is only form of transportation as patient is wheelchair bound. Son contacted and stated he was at work and is able to come by at 7pm.
--- NOTE | 2024-10-15 19:15 | PC.NURSE ---
pressure drsg on left upper arm dialysis access site removed. Bandaids x2 left in place, cdi.
--- NOTE | 2024-10-15 20:25 | PC.NURSE ---
98% O2 sat on room air with probe on earlobe. Pt complaining of shortness of breath and wants O2 inh on. Pt has no available portable O2 in personal car. Pt feels weak and fatigued- Seen and examined by Dr. Fisher and Dr. Bolden. Hold Discharge tonight per md. Son at bedside and notified plan.
--- NOTE | 2024-10-15 21:28 | PD.RESEVENT ---
Documentation for date of: 10/15/24 Event Note Event Note: At approximately 8 PM was called by nurse to review patient for complaints of SpO2 of 82%. Upon arrival patient did not appear to be tachypneic, using accessory muscles and was talking in complete sentences. She said she had dialysis today and was feeling fatigued, which is normal for her after a dialysis session. Pulse oximetry was checked on her earlobe which revealed SpO2 between 96/98%. However upon exam patient had reduced air entry and mild crackles from mid to lower zones bilaterally, she does not produce any urine. In light of these findings we will hold discharge tonight for patient to be reviewed by nephrology in the a.m. for possible additional hemodialysis prior to discharge. Plan of care discussed with Attending Dr. Dahiana Bolden MD PGY 2 Disclaimer: This note was dictated by speech recognition. Minor errors in power bender operator may be present due to voice recognition software.
[2024-10-16] VITALS (26 sets, daily range): BP systolic 133–161; BP diastolic 42–65; PULSE 56–81; RESP 16–18; TEMP 36.1–37.2; O2SAT 94–100; BMI 27.5
[2024-10-16 05:31] LABS: Magnesium 1.9 mg/dL (1.6-2.6); Phosphorous 3.3 mg/dL (2.4-5.1)
--- NOTE | 2024-10-16 07:30 | PD.RESPRO ---
Documentation for date of: 10/16/24 Subjective Subjective Interval history: M/rsGerda Sheridan is a 73-year-old lady with extensive past medical history of ESRD (M/W/F), uncontrolled hypertension for many years, diabetes type 2, congestive heart failure with normal ejection fraction, history of depression presented to the emergency department sent by dialysis unit for an abnormal hemoglobin of 5.9. Dialysis unit called me that her hemoglobin dropped to 5.5 and I recommended for her to go to the ED for further evaluation. Patient feeling fatigued and tired. Also noted shortness of breath. Was given 2 units of blood transfusion yesterday. Nephrology consultation requested as she is due for dialysis today. Patient currently seen on dialysis. No active GI bleed. ED COURSE: Labs significant for: Hemoglobin 5.9. WC 5.0, BUN 27, creatinine 4.5, EGFR 10. Imaging significant for: Chest x-ray showing vascular congestion, right base consolidation seen on previous imaging consistent with lung scarring. Patient significantly hypertensive with SBP greater than 190, given Lasix, morphine, topical nitro in the ED. 2 units PRBC was transfused last night PMH: ESRD, HFpEF, diabetes, HTN PSH: Left upper extremity fistula placement SH: Denies alcohol, tobacco, illicit drug use Allergies:?NKDA Medications: Clonidine, valsartan, nifedipine, sevelamer, calcium acetate Patient admitted to telemetry. Currently seen on dialysis. 10/09/2024 patient currently seen in telemetry. Resting comfortably. Did receive dialysis yesterday. Blood pressure seems to be on the higher side. Dr. Garza tried right thoracentesis- not much fluid to be drained. Hemoglobin 9.2, phosphorus 5.2, creatinine 4.8. 10/10/2024: Patient was seen and examined at bedside this AM. No acute events overnight. Patient underwent HD on 10/08/2024, RFT as expected. Hemoglobin down trended from 9.2 -> 8.5, unknown etiology, underlying normocytic anemia of CKD. GI Dr. Saldivar consulted for symptomatic anemia, patient n.p.o. since midnight for EGD scheduled today. She received PRBC transfusion, with improvement in H&H and symptoms. Today the patient complains of excessive hair growth on her forehead, likely due to outpatient minoxidil use. Was counseled to stop minoxidil on discharge, will document for family to refer to, as patient does not manage her own medications. Will follow-up GI recommendations regarding anemia, pending rule out GIB. 10/11/2024: Patient seen and examined at bedside. No acute events overnight. Patient is status post EGD with Dr. Saldivar with no acute findings to explain potential GI bleed moderate erythematous stomach antrum. Pending colonoscopy today hemoglobin stable today at 8.3 sodium 135 potassium 4.7 BUN 47 creatinine 6.6 from 5.6 . plan for HD today 10/12/2024: Patient seen and examined at bedside. Patient states that she has neck pain requesting Tylenol. Hgb stable.she did not have colonoscopy yesterday because stools were not yet clear she continues on GoLytely prep with plan for colonoscopy later today. Blood pressures have been labile throughout admission ranging from 150s to 180s systolic pt is on max dose nifedipine BID, per primary team added hydralizine 100 TID. Hemoglobin stable at 9, potassium 3.7 BUN 21 from 47 creatinine 4.1 from 6.6. No dialysis today 10/13/2024 patient currently seen in dialysis. Resting comfortably. Pending colonoscopy for anemia. Patient still does not have clear stool. 10/14/2024 Patient seen and examined at bedside. NG tube in place, she appears very uncomfortable, she reports neck pain and discomfort with the NG tube, Given tramadol. she continues to pend colonoscopy Hgb stable 9.8 . No HD today. will continue with HD per her schedule MWF. 10/15/2024: Patient seen and examined while in HD, NG tube is out. Pt had rapid called yesterday for STEEN, resolved. she reports 9/10 headache. given APAP, Colonoscopy was performed yesterday, 1 large polyp removed. Hgb stable. OK to discharge per nephro perspective, hgb stable, continue HD per regular schedule MWF. 10/16/2024: Patient seen and examined at bedside patient reports that she is feeling nauseous and has a mild headache. I requested for her nurse Devora to give her some Zofran and APAP, she appears volume overloaded requiring slightly more oxygen through nasal cannula on 4 L, plan for dialysis today and discharge after per primary team. Patient will continue dialysis outpatient per her usual Friday schedule Exam Vital Signs Temp Pulse Resp BP Pulse Ox O2 Del Method O2 Flow Rate 97.1 F 81 16 155/47 H 97 Nasal Cannula 2 10/16/24 04:00 10/16/24 07:14 10/16/24 07:14 10/16/24 06:07 10/16/24 07:14 10/16/24 04:00 10/16/24 07:14 FiO2 97 10/15/24 11:35 Narrative Exam GENERAL APPEARANCE: no acute distress, on 4 L NC, patient reports concerns of mild headache and nausea NECK: Neck supple, CARDIOVASCULAR: Heart regular, 3/6 murmurs LUNGS/CHEST: some mild congestion on auscultation BL ABDOMEN: Soft, nontender, nondistended. No masses. Normal bowel sounds. EXTREMITIES: trace edema in upper extrem, no BLE edema SKIN: Skin exam normal without any rashes . Left arm AVF + MUSCULOSKELETAL: Musculoskeletal exam normal PSYCHIATRIC: Normal mood, affect LYMPHATICS: No lymphadenopathy noted NEUROLOGICAL : No neurological deficits Objective Labs 10/16/24 04:45 10/16/24 04:45 Labs: Laboratory Results - last 24 hr 10/16/24 04:45 Phosphorus 3.3 Magnesium 1.9 Quality Measures Quality Measures VTE prophylaxis Advance care planning discussed with:: patient Assessment & Plan Assessment Current Active Medications: Generic Name Dose Route Start Last Admin Trade Name Freleeann PRN Reason Stop Dose Admin Acetaminophen 650 mg 10/08/24 01:32 10/15/24 14:28 Acetaminophen 325 Mg Tablet PO 11/07/24 01:31 650 mg Q6H PRN Administration Fever >100.4 or pain 1-3(mild Calcium Acetate 667 mg 10/08/24 08:00 10/15/24 17:33 Calcium Acetate 667 Mg Tablet PO 11/07/24 07:59 667 mg TIDWM JANINE Administration Carvedilol 25 mg 10/10/24 17:30 10/15/24 17:33 Carvedilol 12.5 Mg Tablet PO 11/09/24 17:29 25 mg BIDWM JANINE Administration Clonidine 0.2 mg 10/08/24 01:45 10/16/24 06:07 Clonidine Hcl 0.1 Mg Tablet PO 11/07/24 01:44 0.2 mg TID JANINE Administration Dextrose 25 ml 10/08/24 01:32 Dextrose 50%-Water Inj 50 Ml Syringe IV 11/07/24 01:31 Q15MIN PRN BG 50-70 responsive npo pt Dextrose 50 ml 10/08/24 01:32 Dextrose 50%-Water Inj 50 Ml Syringe IV 11/07/24 01:31 Q15MIN PRN BG <50 OR BG <70 & pt unresponsive Glucagon 1 mg 10/08/24 01:32 Glucagon Inj 1 Mg Vial IM Q15MIN PRN BG <70, and no IV access Hydralazine HCl 100 mg 10/12/24 14:00 10/16/24 06:07 Hydralazine Hcl 25 Mg Tablet PO 11/11/24 13:59 100 mg TID JANINE Administration Insulin Human Lispro 0 unit 10/08/24 07:30 10/15/24 17:33 Insulin Lispro (Admelog) 1 Unit/0.01 Ml Unit SC 11/07/24 07:29 Not Given AC JANINE Protocol Nifedipine 60 mg 10/12/24 21:00 10/15/24 22:47 Nifedipine Xl 30 Mg Tabcr PO 11/11/24 20:59 60 mg BID JANINE Administration Ondansetron HCl 4 mg 10/08/24 01:32 10/15/24 10:50 Ondansetron Inj 2 Mg/Ml Inj 2 Ml IVP 11/07/24 01:31 4 mg Q6H PRN Administration NAUSEA OR VOMITING Protocol Pantoprazole Sodium 40 mg 10/08/24 09:00 10/15/24 23:46 Pantoprazole Inj 40 Mg Vial IVP 11/07/24 08:59 40 mg BID JANINE Administration Valsartan 160 mg 10/08/24 01:45 10/15/24 22:46 Valsartan 80 Mg Tablet PO 11/07/24 01:44 160 mg BID JANINE Administration Plan Ms. Jimenez is a 73-year-old female with ESRD on HD (MWF), resistant HTN, HFpEF (EF 65-70%), chronic respiratory failure on 3 L home O2, chronic normocytic anemia, IDDM, HLD, and depression/anxiety who presented to the ED with anemia, Hgb stable at 9.8, colonoscopy completed, large polyp removed and diverticulosis non bleeding, ok to discharge after extra hd session today for volume overload and increased o2 requirement likely 2/2 several gallons of golytely given in prep for coloonoscopy. #ESRD on HD (MWF) Follows with [facility] - Continue home calcium acetate - HD today - ok to discharge after extra hd session today for volume overload #Resistant hypertension - better controlled Resume home meds, nifedipine, valsartan, with as needed labetalol for SBP >190 -Start aldactone 50 qd Monitor vital signs #Chronic normocytic anemia- stable Likely secondary to ESRD Will give Procrit with HD Patient received 2 units of blood transfusion. No active GI bleed. Hemoglobin stable. s/p colonoscopy, large polyp removed, non bleeding moderate diverticulosis in sigmoid and descending colon. #HFpEF (EF 65-70%) #Chronic respiratory failure, on 3 L home O2 -on slightly increased O2 requirement, will receive extra hd session today pior to discharge #IDDM #HLD #Depression #Anxiety - managment per primary team Plan discussed with nephrology attending Dr. Minesh Hutchins MD Internal Medicine PGY-1 Attending Provider Attestation/Addendum Patient seen and examined with resident physician Dr. Hutchins. Note reviewed, agree with findings and recommendations. Patient currently seen on dialysis. Tolerating dialysis without any problems. Extra session due to fluid overload Hemodialysis for 3 hours, 2K, ultrafiltration 2-3 L, Epogen 6000, no heparin ordered. Plan of care discussed with the dialysis nurse. Please see dialysis flowsheet for further details.
[2024-10-16] MEDS: ACETAMINOPHEN 325 MG TABLET 650 MG PO (08:22)
[2024-10-16] MEDS: ONDANSETRON INJ 2 MG/ML INJ 2 ML 4 MG IVP (08:22)
[2024-10-16] MEDS: CALCIUM ACETATE 667 MG TABLET PO ×3 (08:22→17:40)
[2024-10-16 08:33] LABS: Basophils # (Auto) 0.0 Thou/mm3 (0.0-0.2); Basophils % (Auto) 1 % (0-2.5); Eosinophils # (Auto) 0.1 Thou/mm3 (0.0-0.5); Eosinophils % (Auto) 2 % (0-10); Hematocrit 29.9 % (36.0-46.0); Hemoglobin 9.4 g/dL (12.0-16.0); Immature Granulocytes Auto 0.02 Thou/mm3 (0.00-0.00); Lymphocytes # (Auto) 0.8 Thou/mm3 (1.0-4.8); Lymphocytes % (Auto) 14 % (10-50); Mean Corpuscular HGB Conc 31.4 g/dl (31.0-37.0); Mean Corpuscular Hemoglobin 30.5 pg (25.0-35.0); Mean Corpuscular Volume 97 fL (80-100); Monocytes # (Auto) 0.6 Thou/mm3 (0.0-0.8); Monocytes % (Auto) 10 % (0-12); Neutrophils # (Auto) 4.4 Thou/mm3 (1.8-7.7); Neutrophils % (Auto) 74 % (37-80); Nucleated Red Blood Cell # 0.00 Thou/mm3 (0.00-0.00); Nucleated Red Blood Cell % 0 /100 WBC (0); Platelet Count 231 Thou/mm3 (140-440); RDW Standard Deviation 51.8 fL (36.4-46.3); Red Blood Count 3.08 Miln/mm3 (4.00-5.20); White Blood Count 5.9 Thou/mm3 (3.6-11.0)
[2024-10-16] MEDS: EPOETIN ALFA-EPBX INJ 10,000 UNIT/ML VIAL (ESRD) 10000 UNIT IV (09:37)
[2024-10-16 09:46] LABS: Alanine Aminotransferase < 7 U/L (10-49); Albumin, Serum 3.4 gm/dL (3.4-4.8); Albumin/Globulin Ratio 1.5 (1.2-2.2); Alkaline Phosphatase 115 U/L (46-116); Anion Gap 16 (7-16); Aspartate Amino Transferase 12 U/L (0-34); BUN/Creatinine Ratio 3 Ratio (12-20); Bilirubin,Total < 0.2 mg/dL (0.3-1.2); Blood Urea Nitrogen 8 mg/dL (9-23); Calcium 9.0 mg/dL (8.3-10.6); Calcium (Corrected) 9.5 mg/dL (8.5-10.1); Carbon Dioxide 25.2 mMol/L (20.0-31.0); Chloride 95 mMol/L (98-107); Creatinine (Component) 3.1 mg/dL (0.6-1.3); Estimated Creatinine Clearance 16.3 mL/min (>60); Globulin 2.3 gm/dL (2.3-3.5); Glucose 102 mg/dL (74-106); Osmolality,Calculated 270 (275-295); Potassium 3.8 mMol/L (3.4-5.1); Sodium 136 mMol/L (136-145); Total Protein 5.7 gm/dL (5.7-8.2); eGFR 15 See Note
--- NOTE | 2024-10-16 11:22 | ESDS_ITS ---
<Statement entered by Pedro Luis Trivedi MD - 10/16/24 14:40> I attest that I was physically present for the evaluation, physical examination, lab and imaging review of the patient with the residents. I discussed the case with the residents and agree with the findings and plans of care as documented below. Patient was planned for discharge yesterday, had an episode of hypoxia in the evening, resolved on its own. Patient was noted to have some lung crackles. This morning, patient was seen in hemodialysis, tolerating dialysis well. She had removal of feeding tube yesterday, additional 2 L are being removed today with hemodialysis. Lungs sounded clear, patient appears comfortable, vital signs are stable except for mild hypertension. Lab results are also stable. We will discharge patient to SNF today, recommended to follow-up with PCP, nephrology. Pedro Luis Trivedi MD <Statement entered by Antonio Saunders MD - 10/16/24 14:24> Patient was examined and case was reviewed with team including attending physician. Note reviewed, I agree with most of its contents and agree with the patient's care. Antonio Saunders MD PGY-2 Planned Discharge Date 10/16/24 DS: Providers Provider Date of admission: 10/08/24 01:32 Primary care physician: Carlos Saunders MD Admitting Provider: Tacos Adan MD Attending Provider on Admission: Bakari Wilkinson MD Consults: 10/08/24 01:05 Consult to Nephrology Stat Comment: ESRD Consulting Provider: Blossom Edge 10/09/24 12:08 Consult to Gastroenterology Stat Comment: Hgb of 5.9 on admission. suspect GI bleed Consulting Provider: Cat Saldivar 10/09/24 16:59 Consult to [employer] Urgent Comment: Thoracenthesis Consulting Provider: Yaakov Garza I Attending Provider on DC: Dr. Trivedi Discharging Provider: Resident Naila Anticipated date of discharge: 10/16/24 DS: Diagnosis Problem List Completed Was Problem List Reviewed/Reconciled?: Yes Hospital Course Hospital Course Hospital course: 73-year-old female with ESRD on M/W/F hemodialysis, HFpEF, hypertension, and type 2 diabetes was admitted on 10/08 for symptomatic anemia after being referred from dialysis center. In the ED, she was hypertensive and received nitro and diuretics. She was transfused 2 units PRBCs with improvement in Hgb. Nephrology was consulted, and patient underwent hemodialysis the following day. During hospitalization, anemia was initially attributed to CKD but further evaluation revealed concern for GI blood loss. FOBT was positive (10/10) and blood smear showed macrocytosis with hypersegmented neutrophils suggesting nutritional deficiency, though B12/folate levels were normal. EGD (10/10) showed diffuse erythematous gastric antral mucosa without active bleeding. Colonoscopy (10/14) revealed hemorrhoids (ligated), moderate diverticulosis, and a large descending colon polyp (resected with hot snare). No active bleeding source was identified. Blood pressures remained persistently elevated despite multiple agents (clonidine, valsartan, nifedipine, carvedilol, hydralazine, later uptitrated). Over the course of admission, hypertension improved with SBP down to 130?140s. She also had bilateral R>L small pleural effusions and vascular congestion attributed to ESRD/HFpEF. Pulmonology recommended thoracentesis only if symptomatic, none performed. She remained stable on room air. ESRD management was continued with scheduled dialysis, sevelamer was held, and hyperkalemia episodes were treated with Kayexalate and insulin/dextrose as needed. By 10/16, patient has been hemodynamically stable, anemia improved, and hypertension better controlled. Plans included continued dialysis, antihypertensive regimen, and outpatient follow-up with GI for pathology of resected polyp and with nephrology for ESRD care. 10/16/24, patient will receive another HD session given volume overloaded status yesterday prior to discharge. Patient is medically and physically stable for discharge. Diagnosis: #Symptomatic anemia #Anemia of chronic kidney disease (CKD 5) #End-stage renal disease #Hyperkalemia #Resistant hypertension #Diffuse erythematous gastric antral mucosa #Hypertensive urgency #Heart failure with preserved ejection fraction (HFpEF, EF 55?60%) #Pleural effusions. #Type 2 diabetes mellitus #Diverticulosis (sigmoid and descending colon). #Hemorrhoids Discharge Plan: Continue home medications as prescribed. Start taking Coreg 12.5 mg twice daily. Follow up with PCP within 2 weeks. You had pleural effusions in your lungs, not ammenable for thoracentesis at this time and improved with Hemodialysis, can have PCP follow up to monitor with f ollow up CXR Should your symptoms recur or worsen patient is instructed to return to the ED. Case discussed with my senior resident Dr. Yann Saunders Case discussed with my attending Dr. Shikha Benavidez, DO PGY 1 Status at Discharge Functional status at discharge: independent ambulation Overall status at discharge: patient is back to baseline Time Spent with Patient Time attestation: Total time spent providing and/or coordinating discharge services: Time spent: Greater than 30 minutes Exam Vital Signs Temp Pulse Resp BP Pulse Ox O2 Del Method O2 Flow Rate 97.2 F 62 18 158/59 H 97 Nasal Cannula 3 10/16/24 08:48 10/16/24 11:15 10/16/24 08:48 10/16/24 11:15 10/16/24 08:48 10/16/24 08:00 10/16/24 08:48 FiO2 97 10/16/24 08:48 Discharge Plan Plan Patient Disposition: HOME (Self Care) Patient condition on transfer: Stable Care Plan Goals: Continue home medications as prescribed. Start taking Coreg 12.5 mg twice daily. Follow up with PCP within 2 weeks. You had pleural effusions in your lungs, not ammenable for thoracentesis at this time and improved with Hemodialysis, can have PCP follow up to monitor with follow up CXR Should your symptoms recur or worsen patient is instructed to return to the ED. Contin?e con la medicaci?n en casa seg?n lo prescrito. Comience a jose Coreg 12,5 mg dos veces al d?a. Indu un seguimiento con donald m?dico de atenci?n primaria dentro de 2 semanas. Si los s?ntomas reaparecen o empeoran, se le indica al paciente que regrese al servicio de urgencias. Prescriptions/Referrals Prescriptions/Med Rec: New carvedilol 12.5 mg tablet 12.5 mg PO BID Qty: 60 1RF Rx Instructions: must administer with a meal/food Continued calcium acetate(phosphat bind) 667 mg tablet 667 mg PO TIDWM Patient Comments: TAKE 1 TABLET BY MOUTH THREE TIMES DAILY [place]-Sanjana 0.8 mg tablet 0.8 tab PO QDAY Patient Comments: TAKE 1 TABLET BY MOUTH ONCE DAILY FOR 90 DAYS valsartan 160 mg tablet 160 mg PO BID Qty: 60 0RF nifedipine 60 mg tablet extended release 24hr 60 mg PO BID Qty: 30 0RF Patient Comments: TAKE 1 TABLET BY MOUTH TWICE DAILY clonidine HCl 0.2 mg tablet 0.2 mg PO TID Patient Comments: TAKE 1 TABLET BY MOUTH THREE TIMES DAILY sevelamer carbonate 800 mg tablet 800 mg PO TID Patient Comments: TAKE 1 TABLET BY MOUTH THREE TIMES DAILY WITH MEALS Referrals: Carlos Saunders MD [Primary Care Provider] - Patient/Caregiver Discharge Instructions Education Materials: Anemia, Anemia and Kidney Disease Print Language: Belarusian Stand Alone Forms: [facility] Award Info., Patient Portal Info Letter Discharge Order Discharge Orders: Discharge (Routine); Ordered 10/16/24 Ordered By: Antonio Saunders Quality Discharge Quality Measures VTE prophylaxis
--- NOTE | 2024-10-16 12:21 | PD.IMPROG ---
Documentation for date of: 10/16/24 Subjective Subjective Interval history: Patient evaluated Discharge planning in progress Hemoglobin hematocrit 9.4 and 29.9 Colonoscopy elective banding of the internal hemorrhoids as well as removal of the descending colon polyp Exam Vital Signs Temp Pulse Resp BP Pulse Ox O2 Del Method O2 Flow Rate 97.4 F 65 18 160/59 H 98 Nasal Cannula 2 10/16/24 12:08 10/16/24 12:08 10/16/24 12:08 10/16/24 12:08 10/16/24 12:08 10/16/24 08:00 10/16/24 12:08 FiO2 97 10/16/24 08:48 Objective Labs 10/16/24 04:45 10/16/24 04:45 Labs: Laboratory Results - last 24 hr 10/16/24 04:45 WBC 5.9 RBC 3.08 L Hgb 9.4 L Hct 29.9 L MCV 97 MCH 30.5 MCHC 31.4 RDW Std Deviation 51.8 H Plt Count 231 D Neut % (Auto) 74 Lymph % (Auto) 14 [place] % (Auto) 10 Eos % (Auto) 2 Baso % (Auto) 1 Neut # (Auto) 4.4 Lymph # (Auto) 0.8 L [place] # (Auto) 0.6 Eos # (Auto) 0.1 Baso # (Auto) 0.0 Immature Gran # (Auto) 0.02 H Absolute Nucleated RBC 0.00 Immature Gran % 0 Nucleated RBC % 0 Sodium 136 Potassium 3.8 Chloride 95 L Carbon Dioxide 25.2 Anion Gap 16 BUN 8 L Creatinine 3.1 H D Estim Creat Clear Calc 16.3 L eGFR 15 L BUN/Creatinine Ratio 3 L Glucose 102 Calculated Osmolality 270 L Calcium 9.0 Corrected Calcium 9.5 Phosphorus 3.3 Magnesium 1.9 Total Bilirubin < 0.2 L AST 12 ALT < 7 L Alkaline Phosphatase 115 Total Protein 5.7 Albumin 3.4 Globulin 2.3 Albumin/Globulin Ratio 1.5 Impressions Impression: Descending colon polyp Internal hemorrhoids status post banding Agree with discharge planning No need for GI follow-up Assessment & Plan A&P Narrative # Anemia blood loss requiring transfusion # End-stage renal disease on hemodialysis MWF # Essential hypertension # Diabetes mellitus type 2 Plan N.p.o. midnight tonight except p.o. meds Consent obtained for fiberoptic esophagogastroduodenoscopy with possible biopsy possible therapeutic intervention under intravenous moderate sedation If EGD is negative we will consider doing a fiberoptic colonoscopy Thank you very much for the opportunity to participate in the care of this patient Time Spent With Patient Time: Total time spent is greater than 50% in coordination of care (as documented) at patient's floor/unit and/or counseling patient:
[2024-10-16] MEDS: NIFEdipine XL 30 MG TABCR 60 MG PO (12:52)
[2024-10-16] MEDS: VALSARTAN 80 MG TABLET 160 MG PO (12:53)
--- NOTE | 2024-10-16 21:37 | PC.NURSE ---
pt was discharged home at 1999, pt stated that she uses oxygen at home and that she does not have a portable oxygen tank. Pt's sons stated that pt is on and off the oxygen at home and they stated that they live 5 or 6 minutes away from [facility] and said that she should be fine to go home without oxygen. Pt and family were educated to request a portable oxygen tank so pt can have it available if she outside home.
== END 2024-10-16 20:00 | disposition home or self-care (01) | DRG 194 ==
LOC: SERX 10-08 01:09 → SERHOLD 10-08 03:13 → S2NX 10-08 07:33 → S3SX 10-12 18:33
PROVIDERS: Nurse Practitioner Primary Care; Specialist; Student in an Organized Health Care Education/Training Program; Admitting Provider Student in an Organized Health Care Education/Training Program; Emergency Provider Emergency Medicine; PCP Family Medicine; Visit Provider Internal Medicine
PROC: (CPT 43239; principal; 2024-10-10 16:45)
PROC: 0DJD8ZZ Inspection of Lower Intestinal Tract, Via Natural or Artificial Opening Endoscopic (ICD-10-PCS; CPT 45378; principal; 2024-10-14 19:00)
DX: I13.2 Hypertensive heart and chronic kidney disease with heart failure and with stage 5 chronic kidney disease, or end stage renal disease (principal); D62 Acute posthemorrhagic anemia; D63.1 Anemia in chronic kidney disease; Z99.2 Dependence on renal dialysis; E11.22 Type 2 diabetes mellitus with diabetic chronic kidney disease; N18.6 End stage renal disease; I50.32 Chronic diastolic (congestive) heart failure; I16.0 Hypertensive urgency; Z79.84 Long term (current) use of oral hypoglycemic drugs; Z66 Do not resuscitate; E87.5 Hyperkalemia; E83.39 Other disorders of phosphorus metabolism; F41.9 Anxiety disorder, unspecified; I1A.0 Resistant hypertension; J96.10 Chronic respiratory failure, unspecified whether with hypoxia or hypercapnia; F32.A Depression, unspecified; I16.1 Hypertensive emergency; K63.5 Polyp of colon; K64.8 Other hemorrhoids; Z79.4 Long term (current) use of insulin; Z87.442 Personal history of urinary calculi; Z99.81 Dependence on supplemental oxygen; D75.89 Other specified diseases of blood and blood-forming organs; K57.30 Diverticulosis of large intestine without perforation or abscess without bleeding; K92.2 Gastrointestinal hemorrhage, unspecified; K29.70 Gastritis, unspecified, without bleeding
CPT/HCPCS: 36415; 71045; 76999; 80053; 82607; 82746; 83036; 83735; 84100; 84132; 85025; 85610; 85730; 86850; 86900; 86901; 86923; 87811; 93225; 99284; A4649; J0131; J1815; J1938; J2250; J2270; J2405; J2470; J3010; J3475; J7999; P9016; Q5105; A9270